=== PATIENT | male | born 1950 | race Caucasian/White ===

== ENCOUNTER 2017-04-09 13:56 | Inpatient (IN) | payer MEDICARE, BC ==
[~2017-04-09] VITALS: Ht 327.7 cm; Wt 81.8 kg
[2017-04-09] MEDS ORDERED: SODIUM CHLORIDE 0.9% 1L BAG IV* STA (14:29)
[2017-04-09] MEDS ORDERED: IBUPROFEN 600 MG TAB PO ONE (14:30)
[2017-04-09 14:49] LABS: ADD SCAN DIFF NO
[2017-04-09 14:51] LABS: BASOPHILS % 0.1 % (0.0-2.0); EOSINOPHILS # 0.2 10^3/ul (0.0-0.5); EOSINOPHILS % 1.1 % (0.0-7.0); HEMOGLOBIN 10.1 g/dl (14.0-18.0); LYMPHOCYTES # 1.4 10^3/ul (0.8-2.9); LYMPHOCYTES % 9.9 % (15.0-51.0); MEAN CORPUSCULAR HEMOGLOBIN 30.8 pg (29.0-33.0); MEAN CORPUSCULAR HGB CONC 33.7 g/dl (32.0-37.0); MEAN CORPUSCULAR VOLUME 91.5 fl (82.0-101.0); MEAN PLATELET VOLUME 11.9 fl (7.4-10.4); MONOCYTE # 1.2 10^3/ul (0.3-0.9); MONOCYTES % 8.2 % (0.0-11.0); NEUTROPHIL # 11.1 10^3/ul (1.6-7.5); PLATELET COUNT 273 10^3/UL (140-415); RED BLOOD COUNT 3.28 10^6/ul (4.70-6.10); RED CELL DISTRIBUTION WIDTH 13.7 % (11.5-14.5); WHITE BLOOD COUNT 14.2 10^3/ul (4.8-10.8)
--- NOTE | 2017-04-09 14:53 | ERA ---
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 Fajardo from his care facility for fever. Per the patient's , the patient has had intermittent fevers since his surgery in January 2017. He was recently discharged from [place] about 10 days ago. Those the last time he received antibiotics. He was then transferred to [facility], where he had a new Avila placed. He was noted to have a fever, likely secondary to UTI, so antibiotics were started. However his fevers have not improved. Patient has developed diarrhea for the past few days with abdominal cramping. Last night was the first time he noticed he had a fever and some chills. He was unable to sleep. He denies any shortness of breath, chest pain, headache, vision disturbance, cough, or pain. ROS All systems reviewed and are negative except as per history of present illness. Medications Home Meds Reported Medications Throat Lozenges* (Cepastat*) 9 Trino Lozenge, 1 LOZENGE MT Q3H Y, LOZENGE 04/09/17 Zolpidem Tartrate* (Ambien*) 10 Mg Tablet, 10 MG PO QHS Y for INSOMNIA, TAB 04/09/17 Nystatin (Nystatin) 100,000 Unit/1 Ml Oral.susp, 5 ML PO QID, #60 ML 04/09/17 Nystatin (Nystatin Powder) 1 Each Powder.ea., 1 APPLIC TOPICAL Q8, BOTTLE 04/09/17 Citalopram Hydrobromide* (Citalopram Hydrobromide*) 20 Mg Tablet, 20 MG G-TUBE DAILY, #30 TAB 04/09/17 Miconazole Nitrate* (Miconazole Nitrate*) 2% - 15 Gm Cr, 1 APPLIC TOP BID, TUB 04/09/17 Ipratropium-Albuterol (Ipratropium-Albuterol) 0.5-3 Mg/3 Ml Ampul.neb, 3 ML INHALATION Q6, #30 VIAL 04/09/17 Lactobacillus Acidophilus* (Lactinex*) 1 Tab Chew, 1 TAB PO TID, TAB 6/18/17 Multivitamins* (Theragran*) 1 Tab Tab, 1 TAB GTB DAILY, TAB 04/09/17 Tramadol Hcl* (Ultram*) 50 Mg Tablet, 50 MG GTB Q6H Y for PAIN, TAB 04/09/17 Hydrocodone Bit-Acetaminophen* (Lortab* Liq) 7.5 Mg-325 Mg/15 Ml Solution, 10 ML GTB Q6H Y for PAIN, ML 04/09/17 PMhx/Soc Anesthesia Reaction: No Hx Neurological Disorder: No Hx Respiratory Disorders: Yes (trach) Hx Miscellaneous Medical Probl: Yes (quadraplegic due to complications from C- spine surgery) Hx Alcohol Use: No Hx Substance Use: No Hx Tobacco Use: No Smoking Status: Unknown if ever smoked FmHx Family History: No diabetes Physical Exam Vitals Vital Signs Date Time Temp Pulse Resp B/P Pulse Ox O2 Delivery O2 Flow Rate FiO2 04/09/17 14:51 Rebreather 04/09/17 14:04 100.1 78 28 129/68 96 Physical Exam Const: Well-appearing, nontoxic, no distress Head: Atraumatic Eyes: Normal Conjunctiva ENT: Dry mucous membranes, oropharynx normal otherwise Neck: Trach in place Resp: Clear to auscultation bilaterally Cardio: Regular rate and rhythm, no murmurs Abd: Soft, non tender, mildly distended. No rebound or guarding per hyperactive bowel sounds Skin: No petechiae or rashes, warm, dry : Avila in place draining clear yellow urine Ext: No cyanosis, or edema Neur: Awake and alert and oriented 3, cranial nerves intact, no strength in all 4 extremities(baseline) Psych: Normal Mood and Affect Result Diagram: 04/09/17 1430 04/09/17 1430 Results 24 hrs Laboratory Tests Test 04/09/17 14:30 04/09/17 15:00 White Blood Count 14.210^3/ul Red Blood Count 3.2810^6/ul Hemoglobin 10.1g/dl Hematocrit 30.0% Mean Corpuscular Volume 91.5fl Mean Corpuscular Hemoglobin 30.8pg Mean Corpuscular Hemoglobin Concent 33.7g/dl Red Cell Distribution Width 13.7% Platelet Count 63758^3/UL Mean Platelet Volume 11.9fl Neutrophils % 78.0% Lymphocytes % 9.9% Monocytes % 8.2% Eosinophils % 1.1% Basophils % 0.1% Nucleated Red Blood Cells % 0.0/100WBC Neutrophils # 11.110^3/ul Lymphocytes # 1.410^3/ul Monocytes # 1.210^3/ul Eosinophils # 0.210^3/ul Basophils # 0.010^3/ul Nucleated Red Blood Cells # 0.010^3/ul Prothrombin Time 13.1Sec Prothrombin Time Ratio 1.0 INR International Normalized Ratio 0.99 Activated Partial Thromboplast Time 30.4Sec Sodium Level 126mmol/L Potassium Level 4.4mmol/L Chloride Level 90mmol/L Carbon Dioxide Level 28mmol/L Anion Gap 12 Blood Urea Nitrogen 15mg/dl Creatinine 0.48mg/dl Glucose Level 105mg/dl Lactic Acid Level 1.7mmol/L Calcium Level 8.8mg/dl Total Bilirubin 0.2mg/dl Direct Bilirubin 0.00mg/dl Indirect Bilirubin 0.2mg/dl Aspartate Amino Transf (AST/SGOT) 26IU/L Alanine Aminotransferase (ALT/SGPT) 42IU/L Alkaline Phosphatase 85IU/L Total Protein 6.0g/dl Albumin 3.5g/dl Globulin 2.50g/dl Albumin/Globulin Ratio 1.40 Urine Color LT. YELLOW Urine Clarity CLEAR Urine pH 8.0 Urine Specific [place] 1.010 Urine Ketones NEGATIVE Urine Nitrite NEGATIVE Urine Bilirubin NEGATIVE Urine Urobilinogen 0.2 E.U./dL Urine Leukocyte Esterase NEGATIVE Urine Microscopic RBC 2-5/HPF Urine Microscopic WBC 2-5/HPF Urine Hemoglobin NEGATIVE Urine Glucose NEGATIVE% Urine Total Protein TRACE Current Medications Medications (Trade) Dose Ordered Sig/Melvina Route PRN Reason Start Time Stop Time Status Last Admin Dose Admin Sodium Chloride (NS) 2,540 ml BOLUS OVER 2 HOURS STAT IV* 04/09/17 14:29 04/09/17 14:34 DC 04/09/17 15:26 Ibuprofen (Motrin) 600 mg ONCE ONCE PO 04/09/17 14:30 04/09/17 14:34 DC 04/09/17 15:26 Ondansetron HCl (Zofran Inj) 4 mg BRIDGE ORDER PRN IV NAUSEA AND/OR VOMITING 04/09/17 15:00 04/10/17 14:59 Acetaminophen 650 mg 650 mg ER BRIDGE PRN PO MILD PAIN/FEVER 04/09/17 15:00 04/10/17 14:59 Metronidazole (Flagyl 500 Mg (Pmx)) 100 ml @ 100 mls/hr ONCE ONCE IVPB 04/09/17 15:00 04/09/17 15:59 DC 04/09/17 15:31 Vancomycin HCl (Vancomycin Oral Syringe) 250 mg ONCE ONCE PO 04/09/17 15:00 04/09/17 15:01 DC Procedures/[facility] EKG: Rate/Rhythm: Normal Sinus Rhythm QRS, ST, T-waves: No changes consistent w/ acute ischemia Impression: No evidence of ischemia or arrhythmia Labs: CBC: Leukocytosis, anemia CMP: Hyponatremia, hypochloremia Lactate within normal limits UA: no evidence of infection Chest x-ray: IMPRESSION: 1. Cardiomegaly with moderate size left pleural effusion. RPTAT:AAJJ Physician Eliza Date Time Electronically viewed and signed by Physician Eliza on 04/09/2017 15:[address] [facility] Patient is presenting with signs of sepsis. Vitals were notable for tachypnea and low-grade fever. Given his recent history of antibiotics and his significant diarrhea, I have a high suspicion for C. difficile colitis. I spoke with Dr. Fajardo, who agrees. He recommended starting the patient on treatment for C. difficile until his cultures return. Patient was started on Flagyl IV and vancomycin orally. There is no evidence of UTI or pneumonia on my workup. I have a low suspicion for bacteremia. Patient's infectious symptoms have not stabilized and the patient is at risk of rapid decompensation. The patient will be admitted for careful hydration, antibiotic therapy, and infectious source control. Severe Sepsis Assessment: Infectious Source: UTI versus colitis Severe Sepsis Managment: Blood Cultures X 2 before broad spectrum antibiotics initiated within 3 hours of recognition. 30 ml/kg NS bolus Completed Initial Lactate: normal Repeat Lactate not indicated as initial < 2.0 Critical Care: Time: 35 minutes Treatments/Evaluations: Emergent fluid management, while maintaining close respiratory support. Immediate broad spectrum antibiotic therapy. Simultaneous assessment for possible sources in order to direct therapy. Consideration for invasive and chemical support to prevent respiratory or cardiac collapse. Septic Shock Assessment (1 hour post 30 ml/kg fluid bolus): Hypotension (SBP < 90 or 40 mmHg drop, MAP < 65): No Lactic acid > 4.0 No Accepting Care Team: Current data and ongoing care discussed. Time: Time of admission Primary Provider: Scotty Consulting: none Outstanding Data: cultures, c. diff toxin Departure Diagnosis: Primary Impression: Diarrhea Qualified Code: A09 - Diarrhea of infectious origin Additional Impressions: Sepsis Qualified Code: A41.9 - Sepsis, due to unspecified organism Chronic respiratory failure Qualified Code: J96.10 - Chronic respiratory failure, unspecified whether with hypoxia or hypercapnia Condition: Serious NGUYỄN CANCINO MD Apr 09, 2017 14:53
[2017-04-09] MEDS ORDERED: metroNIDAZOLE 500 MG/NS (PMX) 100 ML IVPB ONE (15:00)
[2017-04-09] MEDS ORDERED: ACETAMINOPHEN 325 MG TAB PO PRN (15:00)
[2017-04-09] MEDS ORDERED: ONDANSETRON 4 MG INJ IV PRN (15:00)
[2017-04-09] MEDS ORDERED: VANCOMYCIN HCL 250 MG/5ML POSYG PO ONE (15:00)
[2017-04-09 15:06] LABS: INR 0.99; PROTIME 13.1 Sec (12.2-14.2)
[2017-04-09 15:07] LABS: PARTIAL THROMBOPLASTIN TIME 30.4 Sec (25.0-35.0)
[2017-04-09 15:11] LABS: ALBUMIN 3.5 g/dl (3.3-4.9); ALBUMIN/GLOBULIN RATIO 1.4; BILIRUBIN,INDIRECT 0.2 mg/dl (0-1.1); BILIRUBIN,TOTAL 0.2 mg/dl (0.2-1.3); CALCIUM 8.8 mg/dl (8.4-10.2); CREATININE 0.48 mg/dl (0.61-1.24); POTASSIUM 4.4 mmol/L (3.5-5.1)
[2017-04-09 15:30] LABS: ADD UMIC YES; UR BILIRUBIN (Dip) NEGATIVE (NEGATIVE); UR BLOOD (Dip) NEGATIVE (NEGATIVE); UR CLARITY CLEAR (CLEAR); UR COLOR LT. YELLOW (YELLOW); UR GLUCOSE (Dip) NEGATIVE (NEGATIVE); UR KETONES (Dip) NEGATIVE (NEGATIVE); UR LEUKOCYTE ESTERASE (Dip) NEGATIVE (NEGATIVE); UR NITRITE (Dip) NEGATIVE (NEGATIVE); UR TOTAL PROTEIN (Dip) TRACE (NEGATIVE); UR UROBILINOGEN (Dip) 0.2 E.U./dL (0.1-1.0)
--- NOTE | 2017-04-09 15:35 | RADRPT ---
PROCEDURE: XR Chest. CLINICAL INDICATION: Possible sepsis. TECHNIQUE: Single AP portable chest COMPARISON: None. FINDINGS: The cardiac silhouette is mildly enlarged with tortuosity and ectasia of the thoracic aorta. Trache ostomy tube in place. Postsurgical changes compatible with antral.. Moderate left pleural effusion . Atherosclerotic calcification of the aorta. No focal consolidation or right pleural effusion. No pneumothorax. The osseous structures and soft tissues are unremarkable. IMPRESSION: 1. Cardiomegaly with moderate size left pleural effusion. RPTAT:AAJJ Physician Eliza Date Time Electronically viewed and signed by Physician Eliza on 04/09/2017 15:34 GEO/
[2017-04-09] MEDS ORDERED: MULTI GTB (15:59)
[2017-04-09] MEDS ORDERED: TRAM-40 GTB (15:59)
[2017-04-09] MEDS ORDERED: HYDR15SO8 GTB (15:59)
[2017-04-09] MEDS ORDERED: CITA20TA6 G-TUBE (16:06)
[2017-04-09] MEDS ORDERED: LACTINEX PO (16:06)
[2017-04-09] MEDS ORDERED: MCN2C15 TOP (16:06)
[2017-04-09] MEDS ORDERED: IPRA3AMP INHALATION (16:06)
[2017-04-09] MEDS ORDERED: NYST1POW22 TOPICAL (16:09)
[2017-04-09] MEDS ORDERED: NYST1000 PO (16:09)
[2017-04-09] MEDS ORDERED: ZOLP10TA PO (16:10)
[2017-04-09] MEDS ORDERED: CEPASTAT MT (16:10)
[2017-04-09 17:00] VITALS: TEMP 97.6
[2017-04-09] MEDS: ACETAMINOPHEN 325/HYDROC 7.5 15 ML CUP GTB PRN (21:01)
[2017-04-09] MEDS ORDERED: ACETAMINOPHEN 500 MG TAB PO PRN (23:30)
[2017-04-09] MEDS ORDERED: ACETAMINOPHEN 325/HYDROC 7.5 15 ML CUP PO PRN (23:30)
[2017-04-09] MEDS ORDERED: MEROPENEM 1 GM/100 ML (PMX) 100 ML IVPB SCH (23:30)
[2017-04-10] MEDS: ACETAMINOPHEN 325/HYDROC 7.5 15 ML CUP GTB PRN ×2 (01:30→18:42)
[2017-04-10] MEDS: VANCOMYCIN HCL 250 MG/5ML POSYG PO SCH ×4 (03:02→18:41)
[2017-04-10] MEDS: NS + KCL 20 MEQ 1,000 ML IV SCH ×3 (03:02→21:13)
[2017-04-10] MEDS: ALBUTEROL/IPRATROPIUM (NEB) 3 ML AMP NEB SCH ×5 (03:34→19:55)
[2017-04-10] MEDS: traMADol 50 MG TAB GTB PRN ×2 (04:05→10:25)
[2017-04-10 06:25] LABS: ADD SCAN DIFF NO
[2017-04-10 06:30] LABS: BASOPHILS % 0.3 % (0.0-2.0); EOSINOPHILS # 0.2 10^3/ul (0.0-0.5); EOSINOPHILS % 1.9 % (0.0-7.0); HEMATOCRIT 30.8 % (42.0-52.0); HEMOGLOBIN 10.1 g/dl (14.0-18.0); LYMPHOCYTES # 0.8 10^3/ul (0.8-2.9); LYMPHOCYTES % 8.5 % (15.0-51.0); MEAN CORPUSCULAR HEMOGLOBIN 30.6 pg (29.0-33.0); MEAN CORPUSCULAR HGB CONC 32.8 g/dl (32.0-37.0); MEAN CORPUSCULAR VOLUME 93.3 fl (82.0-101.0); MEAN PLATELET VOLUME 11.6 fl (7.4-10.4); MONOCYTE # 0.9 10^3/ul (0.3-0.9); MONOCYTES % 8.7 % (0.0-11.0); NEUTROPHIL # 7.6 10^3/ul (1.6-7.5); NEUTROPHILS % 77.3 % (39.0-77.0); PLATELET COUNT 230 10^3/UL (140-415); RED CELL DISTRIBUTION WIDTH 13.8 % (11.5-14.5); WHITE BLOOD COUNT 9.8 10^3/ul (4.8-10.8)
[2017-04-10 07:04] LABS: CREATININE 0.43 mg/dl (0.61-1.24); POTASSIUM 3.8 mmol/L (3.5-5.1)
[2017-04-10 08:30] VITALS: BP 155/74; RESP 18
[2017-04-10 08:45] VITALS: Ht 327.7 cm; Wt 81.8 kg
[2017-04-10] MEDS ORDERED: NON-FORMULARY/PATIENT OWN MED (Lactobacillus Acidophilus* (Lactinex*) 1 TAB) PO SCH (09:00)
[2017-04-10] MEDS: CITALOPRAM 20 MG TAB GTB SCH (10:08)
[2017-04-10] MEDS: MULTIVITAMINS THERAPEUTIC TAB GTB SCH (10:08)
[2017-04-10] MEDS: ENOXAPARIN 40 MG/0.4 ML SYG SC SCH (10:56)
--- NOTE | 2017-04-10 12:04 | CONS ---
Date/Time of Note Date/Time of Note DATE: 04/10/17 TIME: 12:01 Consultation Date/Type/Reason Admit Date/Time Apr 10, 2017 at 08:08 Type of Consultation: ID Reason for Consultation sepsis Referring Provider: CHONG SORIANO MD Exam/Review of Systems Vital Signs Vitals Vital Signs Date Time Temp Pulse Resp B/P Pulse Ox O2 Delivery O2 Flow Rate FiO2 04/10/17 09:30 80 20 97 T Tube 5.0 04/10/17 08:30 97.5 155/74 Intake and Output 04/09/17 04/09/17 04/10/17 15:00 23:00 07:00 Intake Total 100 ml Balance 100 ml Results Result Diagram: 04/10/17 0535 04/10/17 0534 Results 24 hrs Laboratory Tests Test 04/09/17 14:30 04/09/17 15:00 04/09/17 16:20 04/09/17 18:40 White Blood Count 14.2 H Red Blood Count 3.28 L Hemoglobin 10.1 L Hematocrit 30.0 L Mean Corpuscular Volume 91.5 Mean Corpuscular Hemoglobin 30.8 Mean Corpuscular Hemoglobin Concent 33.7 Red Cell Distribution Width 13.7 Platelet Count 273 Mean Platelet Volume 11.9 H Neutrophils % 78.0 H Lymphocytes % 9.9 L Monocytes % 8.2 Eosinophils % 1.1 Basophils % 0.1 Nucleated Red Blood Cells % 0.0 Neutrophils # 11.1 H Lymphocytes # 1.4 Monocytes # 1.2 H Eosinophils # 0.2 Basophils # 0.0 Nucleated Red Blood Cells # 0.0 Prothrombin Time 13.1 Prothrombin Time Ratio 1.0 INR International Normalized Ratio 0.99 Activated Partial Thromboplast Time 30.4 Sodium Level 126 L Potassium Level 4.4 Chloride Level 90 L Carbon Dioxide Level 28 Anion Gap 12 Blood Urea Nitrogen 15 Creatinine 0.48 L Glucose Level 105 Lactic Acid Level 1.7 0.9 1.5 Calcium Level 8.8 Total Bilirubin 0.2 Direct Bilirubin 0.00 Indirect Bilirubin 0.2 Aspartate Amino Transf (AST/SGOT) 26 Alanine Aminotransferase (ALT/SGPT) 42 Alkaline Phosphatase 85 Total Protein 6.0 L Albumin 3.5 Globulin 2.50 Albumin/Globulin Ratio 1.40 Urine Color LT. YELLOW Urine Clarity CLEAR Urine pH 8.0 Urine Specific [place] 1.010 Urine Ketones NEGATIVE Urine Nitrite NEGATIVE Urine Bilirubin NEGATIVE Urine Urobilinogen 0.2 E.U./dL Urine Leukocyte Esterase NEGATIVE Urine Microscopic RBC 2-5 Urine Microscopic WBC 2-5 Urine Hemoglobin NEGATIVE Urine Glucose NEGATIVE Urine Total Protein TRACE Test 04/10/17 05:34 04/10/17 05:35 Sodium Level 133 L Potassium Level 3.8 Chloride Level 99 Carbon Dioxide Level 27 Anion Gap 11 Blood Urea Nitrogen 15 Creatinine 0.43 L Glucose Level 102 Calcium Level 9.0 White Blood Count 9.8 # Red Blood Count 3.30 L Hemoglobin 10.1 L Hematocrit 30.8 L Mean Corpuscular Volume 93.3 Mean Corpuscular Hemoglobin 30.6 Mean Corpuscular Hemoglobin Concent 32.8 Red Cell Distribution Width 13.8 Platelet Count 230 Mean Platelet Volume 11.6 H Neutrophils % 77.3 H Lymphocytes % 8.5 L Monocytes % 8.7 Eosinophils % 1.9 Basophils % 0.3 Nucleated Red Blood Cells % 0.0 Neutrophils # 7.6 H Lymphocytes # 0.8 Monocytes # 0.9 Eosinophils # 0.2 Basophils # 0.0 Nucleated Red Blood Cells # 0.0 Osmolality 279 L Medications Medications Current Medications Acetaminophen/ Hydrocodone Bitart (Lortab Liq) 10 ml Q4H PRN GTB PAIN LEVEL 4- 7 Last administered on 04/10/17 01:30; Admin Dose 10 ML; Start 04/09/17 at 20: 30 Citalopram Hydrobromide (Celexa) 20 mg DAILY GTB Last administered on 10:08; Admin Dose 20 MG; Start 04/10/17 at 09:00 Miconazole Nitrate (Miconazole 2% Cr) 1 applic BID TOP ; Start 04/10/17 at 09:00 Multivitamins Therapeutic (Theragran) 1 tab DAILY GTB Last administered on 04/10 10:08; Admin Dose 1 TAB; Start 04/10/17 at 09:00 Tramadol HCl (Ultram) 50 mg Q6H PRN GTB PAIN Last administered on 04/10/17 10: 25; Admin Dose 50 MG; Start 04/09/17 at 23:30 Vancomycin HCl (Vancomycin Oral Syringe) 250 mg Q6 PO Last administered on 04/10 03:02; Admin Dose 250 MG; Start 04/10/17 at 00:00 Acetaminophen 500 mg 500 mg Q6H PRN PO PAIN AND OR ELEVATED TEMP; Start at 23:30 Meropenem 100 ml @ 200 mls/hr Q12 IVPB Last administered on 04/10/17 01:29; Admin Dose 200 MLS/HR; Start 04/09/17 at 23:30 Potassium Chloride/Sodium Chloride (NS-KCl 20 Meq) 1,000 ml @ 75 mls/hr [id number] IV Last administered on 04/10/17 03:02; Admin Dose 75 MLS/HR; Start at 23:30 Acetaminophen/ Hydrocodone Bitart (Lortab Liq) 5 ml Q4H PRN PO PAIN; Start at 23:30 Enoxaparin Sodium (Lovenox) 40 mg DAILY SC Last administered on 04/10/17 10:56 ; Admin Dose 40 MG; Start 04/10/17 at 09:00 Lactobacillus Acidophilus/ Rhamnosus (Culturelle) 1 cap TID PO ; Start 04/10/17 at 09:00 MYLENE ALVARES M.D. Apr 10, 2017 12: at 23:30 Acetaminophen/ Hydrocodone Bitart (Lortab Liq) 5 ml Q4H PRN PO PAIN; Start at 23:30 Enoxaparin Sodium (Lovenox) 40 mg DAILY SC Last administered on 04/10/17 10:56 ; Admin Dose 40 MG; Start 04/10/17 at 09:00 Lactobacillus Acidophilus/ Rhamnosus (Culturelle) 1 cap TID PO ; Start 04/10/17 at 09:00 MYLENE ALVARES M.D. Apr 10, 2017 12:04
--- NOTE | 2017-04-10 12:28 | CONS ---
Date/Time of Note Date/Time of Note DATE: 04/10/17 TIME: 12:16 Assessment/Plan Assessment/Plan Chief Complaint/Hosp Course assessment/impression - sepsis on admission, possible etiologies include C diff colitis, UTI, HCAP - UTI prior to admission - diarrhea, possible C diff colitis - possible HCAP with L sided pleural effusion - paraplegia after complication of C spinal surgery - vent dependent via tracheostomy - G tube dependent - abdominal distention and excess gas from IV vancomycin but tolerates per GT vancomycin recommendations - pending results: blood and urine cultures - ordered: respiratory cultures, C diff test, stool culture, ultrasound of the chest to evaluate the size of pleural effusion - consider thoracentesis if sizable effusion is identified - I recommend continuing: meropenem empirically to cover possible UTI and bronchitis/HCAP, IV metronidazole and pGT vancomycin empirically to cover C diff colitis - Pt is intolerant of IV vancomycin. He cannot take linezolid because it interacts with his SSRI. Will start anti-MRSA antibiotic if his specimen grows MRSA (so far none reported) management d/w Pt, his , sister, RT and RN Problems: Consultation Date/Type/Reason Admit Date/Time Apr 10, 2017 at 08:08 Date of Consultation: Apr 10, 2017 Type of Consultation: ID Reason for Consultation sepsis Referring Provider: CHONG FAJARDO MD Hx of Present Illness This is a 66 yo SNF resident. He is paraplegic after complications from C- spinal surgery, and is dependent on trach and PEG tube feed. Pt was at [facility] between January and February 2017, and his microbiological results are significant for pseudomonas in urine, MSSA in the tracheal aspirate. Pt was recently receiving antibiotics for UTI. After 3-4 days, Pt started passing loose stool and had temp 102F according to his . Pt was transferred here as a result. He had temp 100.1F and WBC>14,000. Pt's CXR showed L sided pleural effusion. Dr. Fajardo requested ID consultation on this Pt. Constitutional: improved Eyes: no complaints ENT: no complaints Respiratory: no complaints, other (+trach) Cardiovascular: no complaints Gastrointestinal: diarrhea, passing stool, No pain, No vomiting Genitourinary: other (FC) Musculoskeletal: other (paraplegic) Skin: no complaints Neurologic: other (paraplegic) Lymphatic: no complaints Past Surgical History Past Surgical Hx: other (s/p C spinal surgery, tracheostomy, G tube placement) Social History Alcohol Use: none Smoking Status: Unknown if ever smoked Drug Use: none Exam/Review of Systems Vital Signs Vitals Vital Signs Date Time Temp Pulse Resp B/P Pulse Ox O2 Delivery O2 Flow Rate FiO2 04/10/17 09:30 80 20 97 T Tube 5.0 04/10/17 08:30 97.5 155/74 Intake and Output 04/09/17 04/09/17 04/10/17 15:00 23:00 07:00 Intake Total 100 ml Balance 100 ml Exam Constitutional: alert, frail Psych: nl mood/affect Head: atraumatic, normocephalic Eyes: nl conjunctiva ENMT: nl external ears & nose Neck: other (trach) Respiratory: clear to auscultation Cardiovascular: nl pulses, regular rate and rhythm Gastrointestinal: non-tender, other (GT in place, the cite is clean), soft Genitourinary - Male: other (FC) Musculoskeletal: nl extremities to inspection Extremities: No edema Neurological: nl mental status, other (paraplegic) Skin: nl turgor, No rash or lesions Results Result Diagram: 04/10/17 0535 04/10/17 0534 Results 24 hrs Laboratory Tests Test 04/09/17 14:30 04/09/17 15:00 04/09/17 16:20 04/09/17 18:40 White Blood Count 14.2 H Red Blood Count 3.28 L Hemoglobin 10.1 L Hematocrit 30.0 L Mean Corpuscular Volume 91.5 Mean Corpuscular Hemoglobin 30.8 Mean Corpuscular Hemoglobin Concent 33.7 Red Cell Distribution Width 13.7 Platelet Count 273 Mean Platelet Volume 11.9 H Neutrophils % 78.0 H Lymphocytes % 9.9 L Monocytes % 8.2 Eosinophils % 1.1 Basophils % 0.1 Nucleated Red Blood Cells % 0.0 Neutrophils # 11.1 H Lymphocytes # 1.4 Monocytes # 1.2 H Eosinophils # 0.2 Basophils # 0.0 Nucleated Red Blood Cells # 0.0 Prothrombin Time 13.1 Prothrombin Time Ratio 1.0 INR International Normalized Ratio 0.99 Activated Partial Thromboplast Time 30.4 Sodium Level 126 L Potassium Level 4.4 Chloride Level 90 L Carbon Dioxide Level 28 Anion Gap 12 Blood Urea Nitrogen 15 Creatinine 0.48 L Glucose Level 105 Lactic Acid Level 1.7 0.9 1.5 Calcium Level 8.8 Total Bilirubin 0.2 Direct Bilirubin 0.00 Indirect Bilirubin 0.2 Aspartate Amino Transf (AST/SGOT) 26 Alanine Aminotransferase (ALT/SGPT) 42 Alkaline Phosphatase 85 Total Protein 6.0 L Albumin 3.5 Globulin 2.50 Albumin/Globulin Ratio 1.40 Urine Color LT. YELLOW Urine Clarity CLEAR Urine pH 8.0 Urine Specific [place] 1.010 Urine Ketones NEGATIVE Urine Nitrite NEGATIVE Urine Bilirubin NEGATIVE Urine Urobilinogen 0.2 E.U./dL Urine Leukocyte Esterase NEGATIVE Urine Microscopic RBC 2-5 Urine Microscopic WBC 2-5 Urine Hemoglobin NEGATIVE Urine Glucose NEGATIVE Urine Total Protein TRACE Test 04/10/17 05:34 04/10/17 05:35 Sodium Level 133 L Potassium Level 3.8 Chloride Level 99 Carbon Dioxide Level 27 Anion Gap 11 Blood Urea Nitrogen 15 Creatinine 0.43 L Glucose Level 102 Calcium Level 9.0 White Blood Count 9.8 # Red Blood Count 3.30 L Hemoglobin 10.1 L Hematocrit 30.8 L Mean Corpuscular Volume 93.3 Mean Corpuscular Hemoglobin 30.6 Mean Corpuscular Hemoglobin Concent 32.8 Red Cell Distribution Width 13.8 Platelet Count 230 Mean Platelet Volume 11.6 H Neutrophils % 77.3 H Lymphocytes % 8.5 L Monocytes % 8.7 Eosinophils % 1.9 Basophils % 0.3 Nucleated Red Blood Cells % 0.0 Neutrophils # 7.6 H Lymphocytes # 0.8 Monocytes # 0.9 Eosinophils # 0.2 Basophils # 0.0 Nucleated Red Blood Cells # 0.0 Osmolality 279 L Medications Medications Current Medications Acetaminophen/ Hydrocodone Bitart (Lortab Liq) 10 ml Q4H PRN GTB PAIN LEVEL 4- 7 Last administered on 04/10/17 01:30; Admin Dose 10 ML; Start 04/09/17 at 20: 30 Citalopram Hydrobromide (Celexa) 20 mg DAILY GTB Last administered on 10:08; Admin Dose 20 MG; Start 04/10/17 at 09:00 Miconazole Nitrate (Miconazole 2% Cr) 1 applic BID TOP ; Start 04/10/17 at 09:00 Multivitamins Therapeutic (Theragran) 1 tab DAILY GTB Last administered on 04/10 10:08; Admin Dose 1 TAB; Start 04/10/17 at 09:00 Tramadol HCl (Ultram) 50 mg Q6H PRN GTB PAIN Last administered on 04/10/17 10: 25; Admin Dose 50 MG; Start 04/09/17 at 23:30 Vancomycin HCl (Vancomycin Oral Syringe) 250 mg Q6 PO Last administered on 04/10 03:02; Admin Dose 250 MG; Start 04/10/17 at 00:00 Acetaminophen 500 mg 500 mg Q6H PRN PO PAIN AND OR ELEVATED TEMP; Start at 23:30 Meropenem 100 ml @ 200 mls/hr Q12 IVPB Last administered on 04/10/17 01:29; Admin Dose 200 MLS/HR; Start 04/09/17 at 23:30 Potassium Chloride/Sodium Chloride (NS-KCl 20 Meq) 1,000 ml @ 75 mls/hr [id number] IV Last administered on 04/10/17 03:02; Admin Dose 75 MLS/HR; Start at 23:30 Acetaminophen/ Hydrocodone Bitart (Lortab Liq) 5 ml Q4H PRN PO PAIN; Start at 23:30 Enoxaparin Sodium (Lovenox) 40 mg DAILY SC Last administered on 04/10/17 10:56 ; Admin Dose 40 MG; Start 04/10/17 at 09:00 Lactobacillus Acidophilus/ Rhamnosus (Culturelle) 1 cap TID PO ; Start 04/10/17 at 09:00 MYLENE ALVARES M.D. Apr 10, 2017 12:27
--- NOTE | 2017-04-10 13:43 | RADRPT ---
PROCEDURE: US bilateral chest. CLINICAL INDICATION: Pleural effusion TECHNIQUE: Multiple real-time images were acquired of the patient's chest utilizing a high resolut ion transducer. COMPARISON: Recent x-ray FINDINGS: There is a small left pleural effusion. There is no right pleural effusion. IMPRESSION: Small left pleural effusion. RPTAT: AA Physician Marcus Date Time Electronically viewed and signed by Felipe Vidales Physician on 04/10/2017 13:43 RA/
[2017-04-10] MEDS: MICONAZOLE 2% 30 GM CR TOP SCH ×2 (14:31→21:23)
[2017-04-10] MEDS: ALPRAZOLAM 0.25 MG TAB GTB PRN ×2 (14:33→21:17)
--- NOTE | 2017-04-10 14:34 | CONS ---
Date/Time of Note Date/Time of Note DATE: 04/10/17 TIME: 14:30 Assessment/Plan Assessment/Plan Additional Assessment/Plan Assessment and recommendations; 1. P patient admitted for fever of unknown etiology. Currently on appropriate antibiotic regimen. 2. Possibly C. difficile colitis. However the clinical examination is unremarkable and the patient is not having any diarrhea. 3. Chronic respiratory failure maintained on tracheal T piece with excellent overall status. Next #4. Stable quadriplegia. 5. No significant pleural effusion, however there is very minimal area of left lower lobe subsegmental atelectasis. Continue current treatment. Consultation Date/Type/Reason Admit Date/Time Apr 10, 2017 at 08:08 Date of Consultation: Apr 10, 2017 Type of Consultation: Pulmonary Reason for Consultation Pulmonary consultation requested for evaluation of fever, patient with history of chronic respiratory failure however maintained on tracheal T piece. History of present illness; patient is a very pleasant 66-year-old white male who was admitted yesterday after having experienced fever off and on for the last few days. No obvious source could be identified. The patient was admitted and started on appropriate antibiotic regimen. The patient is feeling much better now. He denies any chest pain, shortness of breath, cough, sputum production any abdominal pain, nausea vomiting. He denies any diarrhea. Past medical history; 1. Patient with history of quadriplegia after unsuccessful multiple spinal surgeries. 2. History of tracheostomy and G-tube placement. 3. History of recurrent fevers. 4. History of tracheostomy. Medications; reviewed. Allergies; none. Social history; patient never smoked most of alcohol or drug abuse. Family history; he is , he has 2 children. 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 Review of systems; denies any headache, seizures, visual changes. Denies any chest pain, shortness breath, cough or sputum production. Complains of chronic dysphagia. Denies any diarrhea. Denies any edema. Denies any orthopnea. Denies any skin changes. General exam; elderly male, awake alert currently in no distress. Constitutional: improved Eyes: no complaints ENT: no complaints Respiratory: no complaints, other (+trach) Cardiovascular: no complaints Gastrointestinal: diarrhea, passing stool, No pain, No vomiting Genitourinary: other (FC) Musculoskeletal: other (paraplegic) Skin: no complaints Neurologic: other (paraplegic) Lymphatic: no complaints Psychological: nl mood/affect Past Surgical History Past Surgical Hx: other (s/p C spinal surgery, tracheostomy, G tube placement) Social History Alcohol Use: none Smoking Status: Unknown if ever smoked Drug Use: none Exam/Review of Systems Vital Signs Vitals Vital Signs Date Time Temp Pulse Resp B/P Pulse Ox O2 Delivery O2 Flow Rate FiO2 04/10/17 09:30 80 20 97 T Tube 5.0 04/10/17 08:30 97.5 155/74 Intake and Output 04/09/17 04/09/17 04/10/17 15:00 23:00 07:00 Intake Total 100 ml Balance 100 ml Exam HEENT exam is; supple neck, no JVD. No lymphadenopathy. Midline trachea. No thyromegaly. Tracheostomy in place. Patient has fair dentition. Pupils are midsize and reactive to light. Chest examination; diminished but clear breath sounds bilaterally. No added sound. S1-S2 audible, no murmurs. Regular rhythm. Abdomen examination; soft, G-tube in place. Nontender. Nondistended. Bowel sounds audible. Extremity examination; no peripheral edema. Pulses 1+ bilaterally. No clubbing. Back examination; no obvious skin ulcerations. WOOD INSPECTOR examination; patient has intact cranial nerves, he is awake alert. Has quadriplegia. Results Result Diagram: 04/10/17 0535 04/10/17 0534 Results 24 hrs Laboratory Tests Test 04/09/17 15:00 04/09/17 16:20 04/09/17 18:40 04/10/17 05:34 Urine Color LT. YELLOW Urine Clarity CLEAR Urine pH 8.0 Urine Specific Whitney 1.010 Urine Ketones NEGATIVE Urine Nitrite NEGATIVE Urine Bilirubin NEGATIVE Urine Urobilinogen 0.2 E.U./dL Urine Leukocyte Esterase NEGATIVE Urine Microscopic RBC 2-5 Urine Microscopic WBC 2-5 Urine Hemoglobin NEGATIVE Urine Glucose NEGATIVE Urine Total Protein TRACE Lactic Acid Level 0.9 1.5 Sodium Level 133 L Potassium Level 3.8 Chloride Level 99 Carbon Dioxide Level 27 Anion Gap 11 Blood Urea Nitrogen 15 Creatinine 0.43 L Glucose Level 102 Calcium Level 9.0 Test 04/10/17 05:35 White Blood Count 9.8 # Red Blood Count 3.30 L Hemoglobin 10.1 L Hematocrit 30.8 L Mean Corpuscular Volume 93.3 Mean Corpuscular Hemoglobin 30.6 Mean Corpuscular Hemoglobin Concent 32.8 Red Cell Distribution Width 13.8 Platelet Count 230 Mean Platelet Volume 11.6 H Neutrophils % 77.3 H Lymphocytes % 8.5 L Monocytes % 8.7 Eosinophils % 1.9 Basophils % 0.3 Nucleated Red Blood Cells % 0.0 Neutrophils # 7.6 H Lymphocytes # 0.8 Monocytes # 0.9 Eosinophils # 0.2 Basophils # 0.0 Nucleated Red Blood Cells # 0.0 Osmolality 279 L Medications Medications Current Medications Acetaminophen/ Hydrocodone Bitart (Lortab Liq) 10 ml Q4H PRN GTB PAIN LEVEL 4- 7 Last administered on 04/10/17 01:30; Admin Dose 10 ML; Start 04/09/17 at 20: 30 Citalopram Hydrobromide (Celexa) 20 mg DAILY GTB Last administered on 10:08; Admin Dose 20 MG; Start 04/10/17 at 09:00 Miconazole Nitrate (Miconazole 2% Cr) 1 applic BID TOP ; Start 04/10/17 at 09:00 Multivitamins Therapeutic (Theragran) 1 tab DAILY GTB Last administered on 04/10 10:08; Admin Dose 1 TAB; Start 04/10/17 at 09:00 Tramadol HCl (Ultram) 50 mg Q6H PRN GTB PAIN Last administered on 04/10/17 10: 25; Admin Dose 50 MG; Start 04/09/17 at 23:30 Vancomycin HCl (Vancomycin Oral Syringe) 250 mg Q6 PO Last administered on 04/10 03:02; Admin Dose 250 MG; Start 04/10/17 at 00:00 Acetaminophen 500 mg 500 mg Q6H PRN PO PAIN AND OR ELEVATED TEMP; Start at 23:30 Potassium Chloride/Sodium Chloride (NS-KCl 20 Meq) 1,000 ml @ 75 mls/hr [id number] IV Last administered on 04/10/17 03:02; Admin Dose 75 MLS/HR; Start at 23:30 Acetaminophen/ Hydrocodone Bitart (Lortab Liq) 5 ml Q4H PRN PO PAIN; Start at 23:30 Enoxaparin Sodium (Lovenox) 40 mg DAILY SC Last administered on 04/10/17t 10:56 ; Admin Dose 40 MG; Start 04/10/17 at 09:00 Lactobacillus Acidophilus/ Rhamnosus 1 cap 1 cap TID PO ; Start 04/10/17 at 09: 00 Meropenem 100 ml @ 200 mls/hr Q8 IVPB ; Start 04/10/17 at 14:00 Metronidazole (Flagyl 500 Mg (Pmx)) 100 ml @ 100 mls/hr Q8 IVPB ; Start at 14:00 Alprazolam (Xanax) 0.5 mg Q6H PRN GTB anxiety; Start 04/10/17 at 14:30 HERMELINDO LEONE Apr 10, 2017 14:34
[2017-04-10] MEDS: LACTOBACILLUS RHAMNOSUS CAP PO SCH ×3 (14:45→21:05)
[2017-04-10] MEDS: metroNIDAZOLE 500 MG/NS (PMX) 100 ML IVPB SCH ×2 (14:45→21:20)
[2017-04-10] MEDS: MEROPENEM 1 GM/100 ML (PMX) 100 ML IVPB SCH ×2 (16:12→22:41)
--- NOTE | 2017-04-10 19:02 | HP ---
DATE OF ADMISSION: 04/10/2017 HISTORY OF PRESENT ILLNESS: Patient is a 66-year-old gentleman with history of recent C4 and C5-C6 disk replacement surgery at [facility]. Unfortunately, the patient's postoperative course was complicated by cord compression and patient subsequently underwent an emergent laminectomy and fusion. However, he became quadriplegic and now has a tracheostomy and G-tube. The patient was recently admitted to [facility] and was transferred to [facility] respiratory unit. The patient a few days ago developed fever and workup was initiated. The patient was seen by Carroll Yin, nurse practitioner working with Dr. Huynh's group The patient was diagnosed with UTI and was given meropenem. The patient also received a few doses of IV vancomycin. The patient was towards the completion of his treatment , however, became febrile again yesterday. Further review of system revealed that the patient had multiple episodes of diarrhea the day before yesterday. Patient, however, denied any abdominal pain, no reported vomiting or chest congestion. The patient's respiratory status remains stable. The patient is on trach collar and is tolerating PMV valve. The patient is completely quadriplegic. However, he has not vent dependent at this time. The patient was sent to [facility] ER for further evaluation where he was noted to have a temperature of 100.1. The patient's temperature at the respiratory unit was almost 101. Her white count was 14.2 with 70% neutrophils. Lactic acid level was normal. However, the patient was also noted to be hyponatremic. Chest x-ray done in the ER revealed cardiomegaly with moderate size left pleural effusion. The patient is being admitted for further evaluation and management. REVIEW OF SYSTEMS: As above, all other pertinent. In addition, the patient is incontinent. The rest of review of systems was unremarkable. PAST SURGICAL HISTORY: The patient is status post tonsillectomy and recent C- spine surgery as mentioned in HPI, tracheostomy and G-tube placement. SOCIAL HISTORY: Remote history of smoking. No alcohol abuse. FAMILY HISTORY: Positive for coronary artery disease. ALLERGIES: NONE. PAST MEDICAL HISTORY: Also significant for prostate cancer, details not available. The patient also has history of rheumatoid arthritis and paroxysmal atrial fibrillation. PHYSICAL EXAMINATION: GENERAL: The patient is conscious, awake and alert, fairly oriented. VITAL SIGNS: Upon arrival to ER, temperature 100.1, pulse 78, respirations 28, blood pressure 129/68, O2 saturation 92% on trach collar. HEENT: No eye discharge or redness. Oropharynx grossly negative. NECK: Tracheostomy in place, PMV valve present. No mass. CHEST: Revealed diminished air entry at bases. No use of accessory muscles. CARDIOVASCULAR: Regular rate and rhythm. S1, S2 normal. No murmur. ABDOMEN: Soft, nondistended, nontender. G-tube in place. EXTREMITIES: No leg edema. Pedal pulses palpable. SKIN: Without acute rash. NEUROLOGIC: The patient is awake, alert, fairly oriented with dense quadriplegia. IMPRESSION: 1. Fever and diarrhea with recent urinary tract infection. 2. Rule out Clostridium difficile colitis. As per ID recommendation, the patient will be continued on meropenem and will also start IV Flagyl as well as p.o. vancomycin. Due to x-ray finding, a chest ultrasound had been requested. Urine and blood culture will be sent in addition to Clostridium difficile. 3.C4 -C5 disk replacement complicated by a cord compression, status post emergent laminectomy and fusion. Continue physical therapy. 4. Hypertension. Will add small dose of beta jailyn as the patient also has history of paroxysmal atrial fibrillation as per the medical record. Will also continue valsartan as before. 5. Anxiety and depression. Continue citalopram and Xanax as before. 6. Remote history of rheumatoid arthritis. No acute issues. 7. Prostate cancer. No acute issue. consult from Dr. Kar South and ID consult from Dr. Fuentes have been obtained. [facility] will also be requested Plan of care discussed with patient's family. Would also refer him to [facility] for rehabilitation. Dictated By: CHONG DALLAS/MARGARET Conf#: [id number] DID#: [id number] MTDD
[2017-04-10 20:00] VITALS: BP 108/55; RESP 20
[2017-04-10] MEDS ORDERED: BISACODYL 10 MG SUPP PR PRN (20:00)
[2017-04-10] MEDS: VALSARTAN 80 MG TAB PO SCH (21:00)
[2017-04-10] MEDS: METOPROLOL 50 MG TAB GTB SCH (21:00)
[2017-04-10] MEDS: ATORVASTATIN 20 MG TAB GTB SCH (21:05)
[2017-04-11] MEDS: VANCOMYCIN HCL 250 MG/5ML POSYG PO SCH ×2 (00:32→06:28)
[2017-04-11 00:37] VITALS: BP 110/53; PULSE 75
[2017-04-11] MEDS: NS + KCL 20 MEQ 1,000 ML IV SCH ×2 (02:10→15:07)
[2017-04-11] MEDS: DILTIAZEM 30 MG TAB GTB SCH ×4 (06:00→18:02)
[2017-04-11] MEDS: metroNIDAZOLE 500 MG/NS (PMX) 100 ML IVPB SCH (06:26)
[2017-04-11] MEDS: ALPRAZOLAM 0.25 MG TAB GTB PRN ×3 (06:32→18:01)
[2017-04-11 06:49] LABS: ADD SCAN DIFF NO
[2017-04-11 06:54] LABS: BASOPHILS % 0.2 % (0.0-2.0); EOSINOPHILS # 0.2 10^3/ul (0.0-0.5); EOSINOPHILS % 1.7 % (0.0-7.0); HEMATOCRIT 30.2 % (42.0-52.0); HEMOGLOBIN 9.9 g/dl (14.0-18.0); LYMPHOCYTES # 0.7 10^3/ul (0.8-2.9); LYMPHOCYTES % 5.7 % (15.0-51.0); MEAN CORPUSCULAR HEMOGLOBIN 30.6 pg (29.0-33.0); MEAN CORPUSCULAR HGB CONC 32.8 g/dl (32.0-37.0); MEAN CORPUSCULAR VOLUME 93.2 fl (82.0-101.0); MEAN PLATELET VOLUME 11.5 fl (7.4-10.4); MONOCYTE # 0.7 10^3/ul (0.3-0.9); MONOCYTES % 5.8 % (0.0-11.0); PLATELET COUNT 252 10^3/UL (140-415); RED BLOOD COUNT 3.24 10^6/ul (4.70-6.10); RED CELL DISTRIBUTION WIDTH 13.9 % (11.5-14.5); WHITE BLOOD COUNT 11.9 10^3/ul (4.8-10.8)
[2017-04-11] MEDS: MEROPENEM 1 GM/100 ML (PMX) 100 ML IVPB SCH ×3 (07:38→22:10)
[2017-04-11 07:40] LABS: CALCIUM 8.2 mg/dl (8.4-10.2); CREATININE 0.38 mg/dl (0.61-1.24); POTASSIUM 3.8 mmol/L (3.5-5.1)
[2017-04-11] MEDS: ALBUTEROL/IPRATROPIUM (NEB) 3 ML AMP NEB SCH ×3 (07:58→19:22)
[2017-04-11 08:18] VITALS: BP 156/70; RESP 18
[2017-04-11] MEDS: METOPROLOL 50 MG TAB GTB SCH ×2 (09:59→20:51)
[2017-04-11] MEDS: LACTOBACILLUS RHAMNOSUS CAP PO SCH ×3 (10:00→20:51)
[2017-04-11] MEDS: MULTIVITAMINS THERAPEUTIC TAB GTB SCH (10:00)
[2017-04-11] MEDS: MICONAZOLE 2% 30 GM CR TOP SCH (10:00)
[2017-04-11] MEDS: CITALOPRAM 20 MG TAB GTB SCH (10:00)
[2017-04-11] MEDS: VALSARTAN 80 MG TAB PO SCH ×2 (10:00→20:51)
[2017-04-11] MEDS: ENOXAPARIN 40 MG/0.4 ML SYG SC SCH (10:07)
[2017-04-11] MEDS ORDERED: VITAMIN A & D 5 GM OINT PACKET TOP ONE ×2 (10:11→12:29)
--- NOTE | 2017-04-11 11:38 | CONS ---
Date/Time of Note Date/Time of Note DATE: 04/11/17 TIME: 11:33 Assessment/Plan Assessment/Plan Chief Complaint/Hosp Course assessment/impression - sepsis on admission, possibly due to HCAP or UTI - UTI prior to admission - diarrhea prior to admission, negative for C diff colitis - possible HCAP - quadriplegia after complication of C spinal surgery: cord compression requiring an emergent laminectomy and fusion - vent dependent via tracheostomy - G tube dependent - abdominal distention and excess gas from IV vancomycin but tolerates per GT vancomycin recommendations - pending results: blood, resp and urine cultures - I recommend continuing: meropenem empirically to cover possible UTI and bronchitis/HCAP - d/c IV metronidazole and pGT vancomycin - will adjust his antibiotic based on the culture result - Pt is intolerant of IV vancomycin. He cannot take linezolid because it interacts with his SSRI. Will start anti-MRSA antibiotic if his specimen grows MRSA (so far none reported) management d/w Pt Problems: Consultation Date/Type/Reason Admit Date/Time Apr 10, 2017 at 08:08 Type of Consultation: ID Referring Provider: CHONG SORIANO MD 24 HR Interval Summary Constitutional: no complaints Detailed Summary Eyes: no complaints ENT: no complaints Respiratory: no complaints, other (on ent via trach) Cardiovascular: no complaints Gastrointestinal: no complaints Genitourinary: other (FC) Musculoskeletal: no complaints Skin: no complaints Neurologic: other (paraplegic) Exam/Review of Systems Vital Signs Vitals Vital Signs Date Time Temp Pulse Resp B/P Pulse Ox O2 Delivery O2 Flow Rate FiO2 04/11/17 08:18 98.1 83 18 156/70 99 04/11/17 07:59 Aerosol 5.0 28 Intake and Output 04/10/17 04/10/17 04/11/17 15:00 23:00 07:00 Intake Total 1125 ml 600 ml Output Total 700 ml 550 ml Balance 425 ml 50 ml Exam Constitutional: alert, oriented Psych: no complaints Head: atraumatic, normocephalic Eyes: nl conjunctiva, nl lids ENMT: nl external ears & nose, nl nasal mucosa & septum Neck: other (trach and C spine collar) Respiratory: crackles/rales Cardiovascular: nl pulses, regular rate and rhythm Gastrointestinal: non-tender, other (GT), soft Genitourinary - Male: other (FC) Musculoskeletal: muscle weakness (quadriplegic) Extremities: No edema Neurological: other (quadriplegic) Results Result Diagram: 04/11/1739 04/11/17 0639 Results 24 hrs Laboratory Tests Test 04/11/17 06:39 White Blood Count 11.9 #H Red Blood Count 3.24 L Hemoglobin 9.9 L Hematocrit 30.2 L Mean Corpuscular Volume 93.2 Mean Corpuscular Hemoglobin 30.6 Mean Corpuscular Hemoglobin Concent 32.8 Red Cell Distribution Width 13.9 Platelet Count 252 Mean Platelet Volume 11.5 H Neutrophils % 84.0 H Lymphocytes % 5.7 L Monocytes % 5.8 Eosinophils % 1.7 Basophils % 0.2 Nucleated Red Blood Cells % 0.0 Neutrophils # 10.0 H Lymphocytes # 0.7 L Monocytes # 0.7 Eosinophils # 0.2 Basophils # 0.0 Nucleated Red Blood Cells # 0.0 Sodium Level 133 L Potassium Level 3.8 Chloride Level 103 Carbon Dioxide Level 24 Anion Gap 10 Blood Urea Nitrogen 15 Creatinine 0.38 L Glucose Level 132 Calcium Level 8.2 L Medications Medications Current Medications Acetaminophen/ Hydrocodone Bitart (Lortab Liq) 10 ml Q4H PRN GTB PAIN LEVEL 4- 7 Last administered on 04/10/17 18:42; Admin Dose 10 ML; Start 04/09/17 at 20: 30 Citalopram Hydrobromide (Celexa) 20 mg DAILY GTB Last administered on 10:00; Admin Dose 20 MG; Start 04/10/17 at 09:00 Miconazole Nitrate (Miconazole 2% Cr) 1 applic BID TOP Last administered on 10:00; Admin Dose 1 APPLIC; Start 04/10/17 at 09:00 Multivitamins Therapeutic (Theragran) 1 tab DAILY GTB Last administered on 04/11 10:00; Admin Dose 1 TAB; Start 04/10/17 at 09:00 Tramadol HCl (Ultram) 50 mg Q6H PRN GTB PAIN Last administered on 04/10/17 10: 25; Admin Dose 50 MG; Start 04/09/17 at 23:30 Vancomycin HCl (Vancomycin Oral Syringe) 250 mg Q6 PO Last administered on 04/11 06:28; Admin Dose 250 MG; Start 04/10/17 at 00:00 Acetaminophen 500 mg 500 mg Q6H PRN PO PAIN AND OR ELEVATED TEMP; Start at 23:30 Potassium Chloride/Sodium Chloride (NS-KCl 20 Meq) 1,000 ml @ 75 mls/hr [id number] IV Last administered on 04/10/17 21:13; Admin Dose 75 MLS/HR; Start at 23:30 Acetaminophen/ Hydrocodone Bitart (Lortab Liq) 5 ml Q4H PRN PO PAIN; Start at 23:30 Enoxaparin Sodium (Lovenox) 40 mg DAILY SC Last administered on 04/11/17 10:07 ; Admin Dose 40 MG; Start 04/10/17 at 09:00 Lactobacillus Acidophilus/ Rhamnosus 1 cap 1 cap TID PO Last administered on 10:00; Admin Dose 1 CAP; Start 04/10/17 at 09:00 Meropenem 100 ml @ 200 mls/hr Q8 IVPB Last administered on 04/11/17 07:38; Admin Dose 200 MLS/HR; Start 04/10/17 at 14:00 Metronidazole (Flagyl 500 Mg (Pmx)) 100 ml @ 100 mls/hr Q8 IVPB Last administered on 04/11/17 06:26; Admin Dose 100 MLS/HR; Start 04/10/17 at 14:00 Alprazolam (Xanax) 0.5 mg Q6H PRN GTB anxiety Last administered on 04/11/17 10 :16; Admin Dose 0.5 MG; Start 04/10/17 at 14:30 Zolpidem Tartrate (Ambien) 5 mg HS PRN PO INSOMNIA; Start 04/10/17 at 20:00 Atorvastatin Calcium (Lipitor) 20 mg HS GTB Last administered on 04/10/17 21: 05; Admin Dose 20 MG; Start 04/10/17 at 21:00 Bisacodyl (Dulcolax Supp) 10 mg Q48H PRN [place] CONSTIPATION; Start 04/10/17 at 20: 00 Valsartan (Diovan) 80 mg BID PO Last administered on 04/11/17 10:00; Admin Dose 80 MG; Start 04/10/17 at 21:00 Diltiazem HCl (Cardizem) 30 mg Q6 GTB ; Start 04/11/17 at 00:00 Metoprolol Tartrate (Lopressor) 50 mg BID GTB Last administered on 04/11/17 09 :59; Admin Dose 50 MG; Start 04/10/17 at 21:00 Simethicone (Mylicon) 80 mg Q6H PRN GTB GASTROINTESTINAL UPSET Last administered on 04/11/17 01:24; Admin Dose 80 MG; Start 04/10/17 at 20:00 MYLENE ALVARES M.D. Apr 11, 2017 11:38
--- NOTE | 2017-04-11 12:05 | CONS ---
Date/Time of Note Date/Time of Note DATE: 04/11/17 TIME: 12:03 Assessment/Plan Assessment/Plan Additional Assessment/Plan Assessment and recommendations; 1. Patient admitted for fever with possible left lower lobe infiltrate clinically much improved now with improving leukocytosis. 2. History of quadriplegia due to spinal surgery. 3. Chronic respiratory failure, patient however maintained on tracheal T piece. Continue current treatment. Consultation Date/Type/Reason Admit Date/Time Apr 10, 2017 at 08:08 Initial Consult Date 04/10/17 Type of Consultation: Pulmonary Referring Provider: CHONG SORIANO MD 24 HR Interval Summary Free Text/Dictation Patient condition is stable. Denies any fever chills shortness of breath. Any cough or sputum production. Denies any abdominal pain, diarrhea. General exam; elderly male, awake alert currently in no distress maintained on tracheal T piece. Exam/Review of Systems Vital Signs Vitals Vital Signs Date Time Temp Pulse Resp B/P Pulse Ox O2 Delivery O2 Flow Rate FiO2 04/11/17 08:18 98.1 83 18 156/70 99 04/11/17 07:59 Aerosol 5.0 28 Intake and Output 04/10/17 04/10/17 04/11/17 15:00 23:00 07:00 Intake Total 1125 ml 600 ml Output Total 700 ml 550 ml Balance 425 ml 50 ml Exam HEENT examination; supple neck, no JVD. No lymphadenopathy. Midline trachea. No thyromegaly. Patient has fair dentition. Tracheostomy in place with clean insertion site. Chest examination; clear to auscultation. S1-S2 audible, no murmurs. Regular rhythm. Abdomen examination; soft, protuberant. Nontender. G-tube in place. Bowel sounds audible. Extremity examination; no peripheral edema. Pulses 1+ bilaterally. WEB APPLICATIONS ADMINISTRATOR examination; patient remains awake alert, has stable quadriplegia. Results Result Diagram: 04/11/17 0639 04/11/17 0639 Results 24 hrs Laboratory Tests Test 04/11/17 06:39 White Blood Count 11.9 #H Red Blood Count 3.24 L Hemoglobin 9.9 L Hematocrit 30.2 L Mean Corpuscular Volume 93.2 Mean Corpuscular Hemoglobin 30.6 Mean Corpuscular Hemoglobin Concent 32.8 Red Cell Distribution Width 13.9 Platelet Count 252 Mean Platelet Volume 11.5 H Neutrophils % 84.0 H Lymphocytes % 5.7 L Monocytes % 5.8 Eosinophils % 1.7 Basophils % 0.2 Nucleated Red Blood Cells % 0.0 Neutrophils # 10.0 H Lymphocytes # 0.7 L Monocytes # 0.7 Eosinophils # 0.2 Basophils # 0.0 Nucleated Red Blood Cells # 0.0 Sodium Level 133 L Potassium Level 3.8 Chloride Level 103 Carbon Dioxide Level 24 Anion Gap 10 Blood Urea Nitrogen 15 Creatinine 0.38 L Glucose Level 132 Calcium Level 8.2 L Medications Medications Current Medications Acetaminophen/ Hydrocodone Bitart (Lortab Liq) 10 ml Q4H PRN GTB PAIN LEVEL 4- 7 Last administered on 04/10/17 18:42; Admin Dose 10 ML; Start 04/09/17 at 20: 30 Citalopram Hydrobromide (Celexa) 20 mg DAILY GTB Last administered on 10:00; Admin Dose 20 MG; Start 04/10/17 at 09:00 Miconazole Nitrate (Miconazole 2% Cr) 1 applic BID TOP Last administered on 10:00; Admin Dose 1 APPLIC; Start 04/10/17 at 09:00 Multivitamins Therapeutic (Theragran) 1 tab DAILY GTB Last administered on 04/11 10:00; Admin Dose 1 TAB; Start 04/10/17 at 09:00 Tramadol HCl (Ultram) 50 mg Q6H PRN GTB PAIN Last administered on 04/10/17 10: 25; Admin Dose 50 MG; Start 04/09/17 at 23:30 Acetaminophen 500 mg 500 mg Q6H PRN PO PAIN AND OR ELEVATED TEMP; Start at 23:30 Potassium Chloride/Sodium Chloride (NS-KCl 20 Meq) 1,000 ml @ 75 mls/hr [id number] IV Last administered on 04/10/17 21:13; Admin Dose 75 MLS/HR; Start at 23:30 Acetaminophen/ Hydrocodone Bitart (Lortab Liq) 5 ml Q4H PRN PO PAIN; Start at 23:30 Enoxaparin Sodium (Lovenox) 40 mg DAILY SC Last administered on 04/11/17 10:07 ; Admin Dose 40 MG; Start 04/10/17 at 09:00 Lactobacillus Acidophilus/ Rhamnosus 1 cap 1 cap TID PO Last administered on 10:00; Admin Dose 1 CAP; Start 04/10/17 at 09:00 Meropenem (Merrem 1 Gm/100 ml (Pmx)) 100 ml @ 200 mls/hr Q8 IVPB Last administered on 04/11/17 07:38; Admin Dose 200 MLS/HR; Start 04/10/17 at 14:00 Alprazolam (Xanax) 0.5 mg Q6H PRN GTB anxiety Last administered on 04/11/17 10 :16; Admin Dose 0.5 MG; Start 04/10/17 at 14:30 Zolpidem Tartrate (Ambien) 5 mg HS PRN PO INSOMNIA; Start 04/10/17 at 20:00 Atorvastatin Calcium (Lipitor) 20 mg HS GTB Last administered on 04/10/17 21: 05; Admin Dose 20 MG; Start 04/10/17 at 21:00 Bisacodyl (Dulcolax Supp) 10 mg Q48H PRN [place] CONSTIPATION; Start 04/10/17 at 20: 00 Valsartan (Diovan) 80 mg BID PO Last administered on 04/11/17 10:00; Admin Dose 80 MG; Start 04/10/17 at 21:00 Diltiazem HCl (Cardizem) 30 mg Q6 GTB ; Start 04/11/17 at 00:00 Metoprolol Tartrate (Lopressor) 50 mg BID GTB Last administered on 04/11/17 09 :59; Admin Dose 50 MG; Start 04/10/17 at 21:00 Simethicone (Mylicon) 80 mg Q6H PRN GTB GASTROINTESTINAL UPSET Last administered on 04/11/17 01:24; Admin Dose 80 MG; Start 04/10/17 at 20:00 HERMELINDO LEONE Apr 11, 2017 12:05
[2017-04-11] MEDS: traMADol 50 MG TAB GTB PRN ×2 (12:44→14:42)
[2017-04-11 18:05] VITALS: BP 107/58; PULSE 75; RESP 18
--- NOTE | 2017-04-11 18:34 | PN ---
DATE: 04/11/2017 SUBJECTIVE: Follow up on recent vomiting, recent diarrhea, recent UTI and possible tracheobronchiti s. The patient is growing gram-negative rods in the sputum and urine culture has only 10,000 to 20, 000 yeast. Final identification pending. C. diff came back negative. Blood culture negative. The patient is breathing comfortably, feeling much better. No reported temperature spike in last 24 ho urs. No reported abdominal pain. The patient does not have any leg edema. PHYSICAL EXAMINATION: GENERAL: The patient is conscious, awake, alert, fairly oriented. VITAL SIGNS: Temperature 98.1, pulse 76, respirations 22, blood pressure 156/70, O2 saturation 95% on 5 liters O2. NECK: Tracheostomy in place. No mass. CHEST: Fairly clear. CARDIOVASCULAR: S1, S2 normal. No murmur. ABDOMEN: Soft, nondistended, nontender. Bowel sounds ____. G-tube in place. EXTREMITIES: No leg edema. NEUROLOGIC: The patient is awake, alert, fairly oriented and with dense quadriplegia. LABORATORY DATA: Sodium 133, potassium 3.8, BUN 15, creatinine 0.3, glucose 132. WBC 11.9, hemoglo bin 9.9, platelets 252. IMPRESSION: 1. Sepsis on admission, possibly due to urinary tract infection versus tracheobronchitis versus ___ _. 2. Diarrhea prior to admission negative Clostridium difficile. 3. C-spine surgery, status post emergent laminectomy and fusion for postoperative cord compression. 4. Respiratory failure. The patient is on trach collar. 5. Hypertension. Blood pressure is slightly high this morning, although yesterday all the readings were within normal. We will continue Diltiazem, metoprolol and Losartan. Meanwhile, we will tanna nue meropenem. 6. Anxiety, depression. Continue Celexa. Plan of care discussed with the patient's sister. Patient does have scattered ____redness for which wound care nurse has recommended nystatin powder. Dictated By: CHONG DALLAS/MARGARET Conf#: [id number] DID#: [id number]
[2017-04-11 20:24] VITALS: BP 114/54; RESP 18
[2017-04-11] MEDS: NYSTATIN 30 GM POWDER BTL TOP SCH (20:49)
[2017-04-11] MEDS: ACETAMINOPHEN 325/HYDROC 7.5 15 ML CUP GTB PRN (20:50)
[2017-04-11] MEDS: ATORVASTATIN 20 MG TAB GTB SCH (20:51)
[2017-04-11] MEDS: ZOLPIDEM 5 MG TAB PO PRN (22:10)
[2017-04-12] MEDS: DILTIAZEM 30 MG TAB GTB SCH ×4 (00:24→18:15)
[2017-04-12] MEDS: ALPRAZOLAM 0.25 MG TAB GTB PRN ×2 (01:07→14:30)
[2017-04-12] MEDS: traMADol 50 MG TAB GTB PRN ×2 (01:07→14:29)
[2017-04-12] MEDS: ALBUTEROL/IPRATROPIUM (NEB) 3 ML AMP NEB SCH ×4 (01:38→21:15)
[2017-04-12] MEDS: ACETAMINOPHEN 325/HYDROC 7.5 15 ML CUP GTB PRN ×4 (04:18→23:26)
[2017-04-12] MEDS: NS + KCL 20 MEQ 1,000 ML IV SCH ×2 (04:51→19:16)
[2017-04-12] MEDS: MEROPENEM 1 GM/100 ML (PMX) 100 ML IVPB SCH (05:48)
[2017-04-12 06:04] LABS: ADD SCAN DIFF NO
[2017-04-12 06:24] LABS: BASOPHILS % 0.2 % (0.0-2.0); EOSINOPHILS # 0.3 10^3/ul (0.0-0.5); HEMATOCRIT 28.4 % (42.0-52.0); HEMOGLOBIN 9.3 g/dl (14.0-18.0); LYMPHOCYTES % 11.2 % (15.0-51.0); MEAN CORPUSCULAR HGB CONC 32.7 g/dl (32.0-37.0); MEAN CORPUSCULAR VOLUME 94.7 fl (82.0-101.0); MEAN PLATELET VOLUME 11.4 fl (7.4-10.4); MONOCYTE # 0.6 10^3/ul (0.3-0.9); MONOCYTES % 6.8 % (0.0-11.0); NEUTROPHIL # 6.7 10^3/ul (1.6-7.5); NEUTROPHILS % 77.2 % (39.0-77.0); PLATELET COUNT 249 10^3/UL (140-415); RED CELL DISTRIBUTION WIDTH 14.4 % (11.5-14.5); WHITE BLOOD COUNT 8.7 10^3/ul (4.8-10.8)
[2017-04-12 06:38] LABS: CALCIUM 8.5 mg/dl (8.4-10.2); CREATININE 0.46 mg/dl (0.61-1.24); POTASSIUM 4.1 mmol/L (3.5-5.1)
[2017-04-12 08:12] VITALS: BP 155/70; RESP 18
[2017-04-12] MEDS: NYSTATIN 30 GM POWDER BTL TOP SCH ×2 (09:18→20:50)
[2017-04-12] MEDS: MULTIVITAMINS THERAPEUTIC TAB GTB SCH (09:18)
[2017-04-12] MEDS: METOPROLOL 50 MG TAB GTB SCH ×2 (09:19→20:49)
[2017-04-12] MEDS: VALSARTAN 80 MG TAB PO SCH ×2 (09:19→20:49)
[2017-04-12] MEDS: LACTOBACILLUS RHAMNOSUS CAP PO SCH ×3 (09:20→20:47)
[2017-04-12] MEDS: CITALOPRAM 20 MG TAB GTB SCH (09:20)
[2017-04-12] MEDS: ENOXAPARIN 40 MG/0.4 ML SYG SC SCH (09:23)
--- NOTE | 2017-04-12 12:00 | CONS ---
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 - quadriplegia after complication of C spinal surgery: cord compression requiring an emergent laminectomy and fusion - vent dependent via tracheostomy - G tube dependent - abdominal distention and excess gas from IV vancomycin but tolerates per GT vancomycin recommendations - I recommend changing meropenem to ceftazidime (04/12/2017-) - change Avila catheter if not done during this admission management d/w Pt Problems: Consultation Date/Type/Reason Admit Date/Time Apr 10, 2017 at 08:08 Type of Consultation: ID Referring Provider: CHONG SORIANO MD 24 HR Interval Summary Constitutional: improved Detailed Summary Eyes: no complaints ENT: no complaints Respiratory: other (trach) Cardiovascular: no complaints Gastrointestinal: no complaints, No diarrhea, No nausea Genitourinary: other (FC) Musculoskeletal: other (quadriplegia) Skin: no complaints Neurologic: other (quadriplegia) Exam/Review of Systems Vital Signs Vitals Vital Signs Date Time Temp Pulse Resp B/P Pulse Ox O2 Delivery O2 Flow Rate FiO2 04/12/17 08:12 97.9 74 18 155/70 98 04/12/17 07:57 5.0 28 04/12/17 07:54 Aerosol Mask Intake and Output 04/11/17 04/11/17 04/12/17 15:00 23:00 07:00 Intake Total 200 ml 850 ml 2330 ml Output Total 840 ml Balance 200 ml 850 ml 1490 ml Exam Constitutional: alert, oriented Psych: no complaints Head: atraumatic, normocephalic Eyes: nl conjunctiva, nl lids, nl sclera ENMT: nl external ears & nose, nl nasal mucosa & septum Neck: other (trach) Respiratory: crackles/rales Cardiovascular: nl pulses, regular rate and rhythm Gastrointestinal: non-tender, other (GT), soft Genitourinary - Male: other (FC) Musculoskeletal: nl extremities to inspection Extremities: edema Neurological: other (quadriplegia) Results Result Diagram: 04/12/17 0538 04/12/17 0538 Results 24 hrs Laboratory Tests Test 04/12/17 05:38 White Blood Count 8.7 # Red Blood Count 3.00 L Hemoglobin 9.3 L Hematocrit 28.4 L Mean Corpuscular Volume 94.7 Mean Corpuscular Hemoglobin 31.0 Mean Corpuscular Hemoglobin Concent 32.7 Red Cell Distribution Width 14.4 Platelet Count 249 Mean Platelet Volume 11.4 H Neutrophils % 77.2 H Lymphocytes % 11.2 L Monocytes % 6.8 Eosinophils % 3.0 Basophils % 0.2 Nucleated Red Blood Cells % 0.0 Neutrophils # 6.7 Lymphocytes # 1.0 Monocytes # 0.6 Eosinophils # 0.3 Basophils # 0.0 Nucleated Red Blood Cells # 0.0 Sodium Level 135 Potassium Level 4.1 Chloride Level 105 Carbon Dioxide Level 25 Anion Gap 9 Blood Urea Nitrogen 12 Creatinine 0.46 L Glucose Level 121 Calcium Level 8.5 Medications Medications Current Medications Acetaminophen/ Hydrocodone Bitart (Lortab Liq) 10 ml Q4H PRN GTB PAIN LEVEL 4- 7 Last administered on 04/12/17 11:47; Admin Dose 10 ML; Start 04/09/17 at 20: 30 Citalopram Hydrobromide (Celexa) 20 mg DAILY GTB Last administered on 09:20; Admin Dose 20 MG; Start 04/10/17 at 09:00 Multivitamins Therapeutic (Theragran) 1 tab DAILY GTB Last administered on 04/12 09:18; Admin Dose 1 TAB; Start 04/10/17 at 09:00 Tramadol HCl (Ultram) 50 mg Q6H PRN GTB PAIN Last administered on 04/12/17 01: 07; Admin Dose 50 MG; Start 04/09/17 at 23:30 Acetaminophen 500 mg 500 mg Q6H PRN PO PAIN AND OR ELEVATED TEMP; Start at 23:30 Potassium Chloride/Sodium Chloride (NS-KCl 20 Meq) 1,000 ml @ 75 mls/hr [id number] IV Last administered on 04/12/17 04:51; Admin Dose 75 MLS/HR; Start at 23:30 Acetaminophen/ Hydrocodone Bitart (Lortab Liq) 5 ml Q4H PRN PO PAIN; Start at 23:30 Enoxaparin Sodium (Lovenox) 40 mg DAILY SC Last administered on 04/12/17 09:23 ; Admin Dose 40 MG; Start 04/10/17 at 09:00 Lactobacillus Acidophilus/ Rhamnosus (Culturelle) 1 cap TID PO Last administered on 04/12/17 09:20; Admin Dose 1 CAP; Start 04/10/17 at 09:00 Alprazolam (Xanax) 0.5 mg Q6H PRN GTB anxiety Last administered on 04/12/17 01 :07; Admin Dose 0.5 MG; Start 04/10/17 at 14:30 Zolpidem Tartrate (Ambien) 5 mg HS PRN PO INSOMNIA Last administered on 22:10; Admin Dose 5 MG; Start 04/10/17 at 20:00 Atorvastatin Calcium (Lipitor) 20 mg HS GTB Last administered on 04/11/17 20: 51; Admin Dose 20 MG; Start 04/10/17 at 21:00 Bisacodyl (Dulcolax Supp) 10 mg Q48H PRN [place] CONSTIPATION; Start 04/10/17 at 20: 00 Valsartan (Diovan) 80 mg BID PO Last administered on 04/12/17 09:19; Admin Dose 80 MG; Start 04/10/17 at 21:00 Diltiazem HCl (Cardizem) 30 mg Q6 GTB Last administered on 04/12/17 05:49; Admin Dose 30 MG; Start 04/11/17 at 00:00 Metoprolol Tartrate (Lopressor) 50 mg BID GTB Last administered on 04/12/17 09 :19; Admin Dose 50 MG; Start 04/10/17 at 21:00 Simethicone (Mylicon) 80 mg Q6H PRN GTB GASTROINTESTINAL UPSET Last administered on 04/11/17 15:14; Admin Dose 80 MG; Start 04/10/17 at 20:00 Nystatin 1 applic 1 applic BID TOP Last administered on 04/12/17 09:18; Admin Dose 1 APPLIC; Start 04/11/17 at 21:00 Ceftazidime/ Dextrose (Fortaz 2gm/50 ml (Pmx)) 50 ml @ 100 mls/hr Q8 IVPB ; Start 04/12/17 at 14:00 MYLENE ALVARES M.D. Apr 12, 2017 12:00
[2017-04-12] MEDS: CEFTAZIDIME 2GM/50 ML (PMX) 50 ML IVPB SCH ×2 (14:29→21:04)
[2017-04-12 14:31] VITALS: BP 163/74; PULSE 68; RESP 18
[2017-04-12 18:18] VITALS: BP 145/67; PULSE 65; RESP 18
[2017-04-12 19:43] VITALS: BP 111/55; RESP 16
[2017-04-12] MEDS: ATORVASTATIN 20 MG TAB GTB SCH (20:47)
--- NOTE | 2017-04-12 23:12 | PN ---
DATE: 04/12/2017 SUBJECTIVE: Follow up on UTI, tracheobronchitis, C-spine quadriplegia, hypertension, candiduria. T he patient denies any chest pain or abdominal pain. No reported vomiting, no reported fever or chil ls. Patient is breathing comfortably off vent. No temperature spike in last 24 hours. The patient remains awake, alert, and responsive. The patient has severe quadriplegia. PHYSICAL EXAMINATION: GENERAL: The patient is conscious, awake, alert, fairly oriented. VITAL SIGNS: Temperature 97.9, pulse 74, respirations 18, blood pressure 155/70, O2 saturation 98% on 5 liters oxygen. HEENT: Conjunctivae and lids normal. Nose and ears: Normal. Oropharynx: Grossly negative. NECK: Tracheostomy in place. No mass. CHEST: Revealed diminished air entry at bases. No use of accessory muscles. CARDIOVASCULAR: Regular rate and rhythm. S1, S2 normal. No murmur. ABDOMEN: Soft, nondistended, nontender. G-tube in place. EXTREMITIES: No leg edema. NEUROLOGIC: The patient is awake, alert, fairly oriented with dense quadriplegia. LABORATORY DATA: Done this morning, WBC 8.7, hemoglobin 9.3, platelets 249. No bandemia. Chemistr y: Sodium 137, potassium 4.1, BUN 12, creatinine 0.4, glucose 121, calcium 8.5. IMPRESSION: 1. Pseudomonas tracheobronchitis/healthcare-associated pneumonia. Continue IV Fortaz. 2. Hypertension. Continue diltiazem, valsartan, and Lopressor. 3. Dyslipidemia. Continue Lipitor. 4. Anxiety and depression. Continue Celexa. 5. Mild funguria. As per infectious disease, colonization, will continue to follow. Dictated By: CHONG DALLAS/MARGARET Conf#: [id number] DID#: [id number]
[2017-04-13] MEDS: DILTIAZEM 30 MG TAB GTB SCH ×5 (00:09→23:22)
[2017-04-13] MEDS: traMADol 50 MG TAB GTB PRN ×3 (02:39→23:26)
[2017-04-13] MEDS: ALPRAZOLAM 0.25 MG TAB GTB PRN ×4 (02:40→23:26)
[2017-04-13] MEDS: ALBUTEROL/IPRATROPIUM (NEB) 3 ML AMP NEB SCH ×4 (03:27→19:57)
[2017-04-13] MEDS: CEFTAZIDIME 2GM/50 ML (PMX) 50 ML IVPB SCH ×3 (05:44→21:09)
[2017-04-13] MEDS: ACETAMINOPHEN 325/HYDROC 7.5 15 ML CUP GTB PRN ×3 (05:47→21:10)
[2017-04-13 07:36] VITALS: BP 171/79; RESP 20
[2017-04-13] MEDS: NS + KCL 20 MEQ 1,000 ML IV SCH ×2 (08:50→16:39)
[2017-04-13] MEDS: MULTIVITAMINS THERAPEUTIC TAB GTB SCH (08:50)
[2017-04-13] MEDS: CITALOPRAM 20 MG TAB GTB SCH (08:50)
[2017-04-13] MEDS: NYSTATIN 30 GM POWDER BTL TOP SCH ×2 (08:50→21:06)
[2017-04-13] MEDS: LACTOBACILLUS RHAMNOSUS CAP PO SCH ×3 (08:51→21:05)
[2017-04-13] MEDS: VALSARTAN 80 MG TAB PO SCH ×2 (08:51→21:05)
[2017-04-13] MEDS: METOPROLOL 50 MG TAB GTB SCH ×2 (08:51→21:06)
[2017-04-13] MEDS: ENOXAPARIN 40 MG/0.4 ML SYG SC SCH (08:53)
--- NOTE | 2017-04-13 15:39 | PN ---
DATE: 04/13/2017 SUBJECTIVE: Follow up on tracheobronchitis/HCAP, C-spine quadriplegia, hypertension, anxiety and de pression. The patient remains clinically stable. The patient has not had any fever. No reported s hortness of breath. The patient continues to use PMV valve for communication. The patient continue s to have dense quadriplegia. No reported vomiting. No reported leg edema. No reported resting le g pain. No reported chest pain. PHYSICAL EXAMINATION: GENERAL: The patient is conscious, awake, alert. VITAL SIGNS: Temperature 98.2, pulse 63, respirations 18, blood pressure 171/79, O2 saturation 98% on 5 liters. HEENT: No eye discharge or redness. Oropharynx grossly negative. NECK: No mass. Tracheostomy in place. CHEST: Fairly clear. No use of accessory muscles. CARDIOVASCULAR: Regular rate and rhythm. S1, S2 normal. No murmur. ABDOMEN: Soft, nondistended, nontender. G-tube in place. EXTREMITIES: No leg edema. Pedal pulses palpable. SKIN: Without acute rash. NEUROLOGIC: Awake, alert, fairly oriented with dense quadriplegia. LABORATORY DATA: WBC 8.7, hemoglobin 9.3, platelets 249. Sodium 135, potassium 4.1, BUN 12, creati nine 0.4, glucose 121. IMPRESSION: 1. Acute tracheobronchitis/healthcare associated pneumonia due to Pseudomonas. Continue Fortaz. 2. Cervical spine quadriplegia. Awaiting mattress spring encaser to explore the possibility of transferring h im to [facility]. 3. Hypertension. The patient did have uncontrolled blood pressure this morning; however, his previ ous readings have been reviewed and it looks like the blood pressure is reasonably controlled. We w ill continue to monitor. 4. Anxiety and depression. Continue Celexa and Xanax. Plan of care discussed with the patient and his sister present in the room. Meanwhile, continue Lo venox for DVT prophylaxis. Dictated By: CHONG DALLAS/MARGARET Conf#: [id number] DID#: [id number]
--- NOTE | 2017-04-13 20:06 | CONS ---
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 I recommend ceftazidime until 04/17/2017 management d/w Pt Problems: Consultation Date/Type/Reason Admit Date/Time Apr 10, 2017 at 08:08 Type of Consultation: ID Referring Provider: CHONG SORIANO MD 24 HR Interval Summary Constitutional: no complaints Detailed Summary Eyes: no complaints ENT: no complaints Respiratory: no complaints, other (via trach) Cardiovascular: no complaints Gastrointestinal: passing stool (4 times, Pt is not clear if they were formed or watery) Genitourinary: other (FC) Musculoskeletal: bone/joint pain (b/l shoulder x2 days) Skin: no complaints Neurologic: other (paraplegia) Exam/Review of Systems Vital Signs Vitals Vital Signs Date Time Temp Pulse Resp B/P Pulse Ox O2 Delivery O2 Flow Rate FiO2 04/13/17 19:57 5.0 28 04/13/17 19:57 70 18 96 Aerosol T Tube 04/13/17 07:36 98.2 171/79 Intake and Output 04/12/17 04/12/17 04/13/17 15:00 23:00 07:00 Intake Total 50 ml 1380 ml 1994 ml Output Total 2000 ml Balance 50 ml -620 ml 1995 ml Exam Constitutional: alert, oriented, well developed Psych: nl mood/affect, no complaints Head: atraumatic, normocephalic Eyes: nl conjunctiva, nl lids ENMT: nl external ears & nose, nl nasal mucosa & septum Neck: other (trach) Respiratory: crackles/rales Cardiovascular: nl pulses, regular rate and rhythm Gastrointestinal: non-tender, soft Genitourinary - Male: other (FC) Musculoskeletal: range of motion (limited abduction due to pain), No joint tenderness, No swelling Extremities: No edema Neurological: nl mental status, nl speech Skin: nl turgor Results Result Diagram: 04/12/17 0538 04/12/17 0538 Results 24 hrs Laboratory Tests Test 04/12/17 23:40 Urine Osmolality 353 Urine Random Sodium 139 H Medications Medications Current Medications Acetaminophen/ Hydrocodone Bitart (Lortab Liq) 10 ml Q4H PRN GTB PAIN LEVEL 4- 7 Last administered on 04/13/17 12:49; Admin Dose 10 ML; Start 04/09/17 at 20: 30 Citalopram Hydrobromide (Celexa) 20 mg DAILY GTB Last administered on 08:50; Admin Dose 20 MG; Start 04/10/17 at 09:00 Multivitamins Therapeutic (Theragran) 1 tab DAILY GTB Last administered on 04/13 08:50; Admin Dose 1 TAB; Start 04/10/17 at 09:00 Tramadol HCl (Ultram) 50 mg Q6H PRN GTB PAIN Last administered on 04/13/17 16: 08; Admin Dose 50 MG; Start 04/09/17 at 23:30 Acetaminophen 500 mg 500 mg Q6H PRN PO PAIN AND OR ELEVATED TEMP; Start at 23:30 Potassium Chloride/Sodium Chloride (NS-KCl 20 Meq) 1,000 ml @ 40 mls/hr Q24H IV Last administered on 04/13/17 16:39; Admin Dose 40 MLS/HR; Start 04/09/17 at 23:30 Acetaminophen/ Hydrocodone Bitart (Lortab Liq) 5 ml Q4H PRN PO PAIN; Start at 23:30 Enoxaparin Sodium (Lovenox) 40 mg DAILY SC Last administered on 04/13/17 08:53 ; Admin Dose 40 MG; Start 04/10/17 at 09:00 Lactobacillus Acidophilus/ Rhamnosus (Culturelle) 1 cap TID PO Last administered on 04/13/17 12:49; Admin Dose 1 CAP; Start 04/10/17 at 09:00 Alprazolam (Xanax) 0.5 mg Q6H PRN GTB anxiety Last administered on 04/13/17 16 :08; Admin Dose 0.5 MG; Start 04/10/17 at 14:30 Zolpidem Tartrate (Ambien) 5 mg HS PRN PO INSOMNIA Last administered on 22:10; Admin Dose 5 MG; Start 04/10/17 at 20:00 Atorvastatin Calcium (Lipitor) 20 mg HS GTB Last administered on 04/12/17 20: 47; Admin Dose 20 MG; Start 04/10/17 at 21:00 Bisacodyl (Dulcolax Supp) 10 mg Q48H PRN [place] CONSTIPATION; Start 04/10/17 at 20: 00 Valsartan (Diovan) 80 mg BID PO Last administered on 04/13/17 08:51; Admin Dose 80 MG; Start 04/10/17 at 21:00 Diltiazem HCl (Cardizem) 30 mg Q6 GTB Last administered on 04/13/17 12:50; Admin Dose 30 MG; Start 04/11/17 at 00:00 Metoprolol Tartrate (Lopressor) 50 mg BID GTB Last administered on 04/13/17 08 :51; Admin Dose 50 MG; Start 04/10/17 at 21:00 Simethicone (Mylicon) 80 mg Q6H PRN GTB GASTROINTESTINAL UPSET Last administered on 04/12/17 20:47; Admin Dose 80 MG; Start 04/10/17 at 20:00 Nystatin 1 applic 1 applic BID TOP Last administered on 04/13/17 08:50; Admin Dose 1 APPLIC; Start 04/11/17 at 21:00 Ceftazidime/ Dextrose (Fortaz 2gm/50 ml (Pmx)) 50 ml @ 100 mls/hr Q8 IVPB Last administered on 04/13/17 14:11; Admin Dose 100 MLS/HR; Start 04/12/17 at 14:00 MYLENE ALVARES M.D. Apr 13, 2017 20:06
[2017-04-13 20:38] VITALS: BP 113/56; RESP 19
[2017-04-13] MEDS: ATORVASTATIN 20 MG TAB GTB SCH (21:05)
--- NOTE | 2017-04-13 22:35 | RADRPT ---
PROCEDURE: X-ray bilateral shoulders. CLINICAL INDICATION: Bilateral shoulder pain. TECHNIQUE: AP views of the bilateral shoulders. COMPARISON: Plain film chest dated 04/09/2017. FINDINGS: No acute fracture or dislocation. No significant degenerative changes. IMPRESSION: No acute fracture. RPTAT: [facility] Physician Vidal Date Time Electronically viewed and signed by Ashleigh Beasley Physician on 04/13/2017 22:34 RS/
[2017-04-14] MEDS: ACETAMINOPHEN 325/HYDROC 7.5 15 ML CUP GTB PRN ×4 (02:30→18:16)
[2017-04-14] MEDS: ALBUTEROL/IPRATROPIUM (NEB) 3 ML AMP NEB SCH ×4 (02:55→19:43)
[2017-04-14] MEDS: traMADol 50 MG TAB GTB PRN ×2 (05:52→16:38)
[2017-04-14] MEDS: DILTIAZEM 30 MG TAB GTB SCH ×3 (05:56→20:56)
[2017-04-14] MEDS: CEFTAZIDIME 2GM/50 ML (PMX) 50 ML IVPB SCH ×3 (05:56→21:19)
[2017-04-14 06:14] LABS: ADD SCAN DIFF NO
[2017-04-14 06:20] LABS: BASOPHILS % 0.3 % (0.0-2.0); EOSINOPHILS # 0.3 10^3/ul (0.0-0.5); EOSINOPHILS % 2.3 % (0.0-7.0); HEMATOCRIT 30.5 % (42.0-52.0); HEMOGLOBIN 9.9 g/dl (14.0-18.0); LYMPHOCYTES # 1.1 10^3/ul (0.8-2.9); MEAN CORPUSCULAR HEMOGLOBIN 30.8 pg (29.0-33.0); MEAN CORPUSCULAR HGB CONC 32.5 g/dl (32.0-37.0); MEAN PLATELET VOLUME 11.1 fl (7.4-10.4); MONOCYTE # 0.5 10^3/ul (0.3-0.9); MONOCYTES % 4.2 % (0.0-11.0); NEUTROPHILS % 83.4 % (39.0-77.0); PLATELET COUNT 275 10^3/UL (140-415); RED BLOOD COUNT 3.21 10^6/ul (4.70-6.10); RED CELL DISTRIBUTION WIDTH 14.4 % (11.5-14.5); WHITE BLOOD COUNT 11.9 10^3/ul (4.8-10.8)
[2017-04-14 07:03] LABS: CALCIUM 8.9 mg/dl (8.4-10.2); CREATININE 0.44 mg/dl (0.61-1.24); POTASSIUM 4.3 mmol/L (3.5-5.1)
[2017-04-14 07:16] VITALS: BP 132/63; RESP 18
[2017-04-14] MEDS: VALSARTAN 80 MG TAB PO SCH ×2 (09:14→20:55)
[2017-04-14] MEDS: CITALOPRAM 20 MG TAB GTB SCH (09:14)
[2017-04-14] MEDS: METOPROLOL 50 MG TAB GTB SCH ×2 (09:15→20:55)
[2017-04-14] MEDS: LACTOBACILLUS RHAMNOSUS CAP PO SCH ×3 (09:15→20:54)
[2017-04-14] MEDS: MULTIVITAMINS THERAPEUTIC TAB GTB SCH (09:15)
[2017-04-14] MEDS: ENOXAPARIN 40 MG/0.4 ML SYG SC SCH (09:22)
[2017-04-14] MEDS: NYSTATIN 30 GM POWDER BTL TOP SCH ×2 (11:00→20:58)
[2017-04-14] MEDS: ALPRAZOLAM 0.25 MG TAB GTB PRN ×2 (11:23→18:14)
--- NOTE | 2017-04-14 11:50 | CONS ---
Date/Time of Note Date/Time of Note DATE: 04/14/17 TIME: 11:48 Assessment/Plan Assessment/Plan Additional Assessment/Plan Assessment recommendations; 1. Patient admitted with fever discovered to have left lower lobe atelectasis/ infiltrate, Pseudomonas been isolated from sputum patient currently on appropriate antibiotic regimen. 2. Chronic respiratory failure, patient however maintained on tracheal T piece with excellent overall clinical status. 3. History of quadriplegia. Continue current treatment. Will obtain follow-up chest x-ray. Consultation Date/Type/Reason Admit Date/Time Apr 10, 2017 at 08:08 Initial Consult Date 04/10/17 Type of Consultation: Pulmonary/critical care Referring Provider: CHONG SORIANO MD 24 HR Interval Summary Free Text/Dictation Patient condition stable. Denies any shortness breath, coughing, wheezing. Any sputum production. Also denies any fever chills. General exam; elderly male, maintained on tracheal T piece. Patient in no distress. Awake and alert. Exam/Review of Systems Vital Signs Vitals Vital Signs Date Time Temp Pulse Resp B/P Pulse Ox O2 Delivery O2 Flow Rate FiO2 04/14/17 07:16 98.2 67 18 132/63 94 04/14/17 02:55 Aerosol 5.0 28 T Tube Intake and Output 04/13/17 04/13/17 04/14/17 15:00 23:00 07:00 Intake Total 250 ml 50 ml 440 ml Output Total 2700 ml 1500 ml 3100 ml Balance -2450 ml -1450 ml -2660 ml Exam HEENT examined; supple neck, no JVD. No lymphadenopathy. Midline trachea. No thyromegaly. Pharynx is clear. Tracheostomy placed with clean insertion site. Patient has fair dentition. Pupils are equal and reactive to light. Chest examined; clear to auscultation. S1-S2 audible, no murmurs. Regular rhythm. Abdomen examination; soft, no organomegaly. G-tube in place. Bowel sounds audible. Extremity examination; no peripheral edema. Pulses 1+ bilaterally. PL[employer] GU[employer] examination; patient is awake and alert has stable quadriplegia. Results Result Diagram: 04/14/17 0450 04/14/17 0450 Results 24 hrs Laboratory Tests Test 04/14/17 04:50 White Blood Count 11.9 #H Red Blood Count 3.21 L Hemoglobin 9.9 L Hematocrit 30.5 L Mean Corpuscular Volume 95.0 Mean Corpuscular Hemoglobin 30.8 Mean Corpuscular Hemoglobin Concent 32.5 Red Cell Distribution Width 14.4 Platelet Count 275 Mean Platelet Volume 11.1 H Neutrophils % 83.4 H Lymphocytes % 9.0 L Monocytes % 4.2 Eosinophils % 2.3 Basophils % 0.3 Nucleated Red Blood Cells % 0.0 Neutrophils # 10.0 H Lymphocytes # 1.1 Monocytes # 0.5 Eosinophils # 0.3 Basophils # 0.0 Nucleated Red Blood Cells # 0.0 Sodium Level 135 Potassium Level 4.3 Chloride Level 100 Carbon Dioxide Level 30 Anion Gap 9 Blood Urea Nitrogen 11 Creatinine 0.44 L Glucose Level 121 Calcium Level 8.9 Medications Medications Current Medications Acetaminophen/ Hydrocodone Bitart (Lortab Liq) 10 ml Q4H PRN GTB PAIN LEVEL 4- 7 Last administered on 04/14/17 09:08; Admin Dose 10 ML; Start 04/09/17 at 20: 30 Citalopram Hydrobromide (Celexa) 20 mg DAILY GTB Last administered on 09:14; Admin Dose 20 MG; Start 04/10/17 at 09:00 Multivitamins Therapeutic (Theragran) 1 tab DAILY GTB Last administered on 04/14 09:15; Admin Dose 1 TAB; Start 04/10/17 at 09:00 Tramadol HCl (Ultram) 50 mg Q6H PRN GTB PAIN Last administered on 04/14/17 05: 52; Admin Dose 50 MG; Start 04/09/17 at 23:30 Acetaminophen 500 mg 500 mg Q6H PRN PO PAIN AND OR ELEVATED TEMP; Start at 23:30 Potassium Chloride/Sodium Chloride (NS-KCl 20 Meq) 1,000 ml @ 40 mls/hr Q24H IV Last administered on 04/13/17 16:39; Admin Dose 40 MLS/HR; Start 04/09/17 at 23:30 Acetaminophen/ Hydrocodone Bitart (Lortab Liq) 5 ml Q4H PRN PO PAIN; Start at 23:30 Enoxaparin Sodium (Lovenox) 40 mg DAILY SC Last administered on 04/14/17 09:22 ; Admin Dose 40 MG; Start 04/10/17 at 09:00 Lactobacillus Acidophilus/ Rhamnosus (Culturelle) 1 cap TID PO Last administered on 04/14/17 09:15; Admin Dose 1 CAP; Start 04/10/17 at 09:00 Alprazolam (Xanax) 0.5 mg Q6H PRN GTB anxiety Last administered on 04/14/17 11 :23; Admin Dose 0.5 MG; Start 04/10/17 at 14:30 Zolpidem Tartrate (Ambien) 5 mg HS PRN PO INSOMNIA Last administered on 22:10; Admin Dose 5 MG; Start 04/10/17 at 20:00 Atorvastatin Calcium (Lipitor) 20 mg HS GTB Last administered on 04/13/17 21: 05; Admin Dose 20 MG; Start 04/10/17 at 21:00 Bisacodyl (Dulcolax Supp) 10 mg Q48H PRN [place] CONSTIPATION; Start 04/10/17 at 20: 00 Valsartan (Diovan) 80 mg BID PO Last administered on 04/14/17 09:14; Admin Dose 80 MG; Start 04/10/17 at 21:00 Diltiazem HCl (Cardizem) 30 mg Q6 GTB Last administered on 04/14/17 05:56; Admin Dose 30 MG; Start 04/11/17 at 00:00 Metoprolol Tartrate (Lopressor) 50 mg BID GTB Last administered on 04/14/17 09 :15; Admin Dose 50 MG; Start 04/10/17 at 21:00 Simethicone (Mylicon) 80 mg Q6H PRN GTB GASTROINTESTINAL UPSET Last administered on 04/14/17 05:56; Admin Dose 80 MG; Start 04/10/17 at 20:00 Nystatin 1 applic 1 applic BID TOP Last administered on 04/14/17 11:00; Admin Dose 1 APPLIC; Start 04/11/17 at 21:00 Ceftazidime/ Dextrose (Fortaz 2gm/50 ml (Pmx)) 50 ml @ 100 mls/hr Q8 IVPB Last administered on 04/14/17 05:56; Admin Dose 100 MLS/HR; Start 04/12/17 at 14:00 HERMELINDO LEONE 23, 2017 11:50
--- NOTE | 2017-04-14 14:38 | RADRPT ---
PROCEDURE: XR Chest. CLINICAL INDICATION: Pneumonia TECHNIQUE: Single AP portable chest COMPARISON: 04/09/2017 Chest x-ray FINDINGS: The cardiac silhouette is at the upper limits of normal in size with tracheostomy tube in place. In creased left pleural effusion and left base opacity. Atherosclerotic calcification of the aorta. T he right lung is clear. No pneumothorax. Anterior cervical fusion plate in place.. IMPRESSION: 1. Mild cardiomegaly with increased left pleural effusion and left base opacity. Superimposed pneum onia cannot be excluded. RPTAT:AAJJ Physician Eliza Date Time Electronically viewed and signed by Physician Eliza on 04/14/2017 14:38 GEO/
--- NOTE | 2017-04-14 15:14 | CONS ---
Date/Time of Note Date/Time of Note DATE: 04/14/17 TIME: 15:10 Assessment/Plan Assessment/Plan Chief Complaint/Hosp Course assessment/impression - sepsis on admission, probably due to recurrent tracheo-bronchitis/HCAP - tracheo-bronchitis/HCAP due to pseudomonas - diarrhea prior to admission, negative for C diff colitis - colonization of the urinary tract due to fco - b/l shoulder pain - quadriplegia after complication of C spinal surgery: cord compression requiring an emergent laminectomy and fusion - vent dependent via tracheostomy - G tube dependent - abdominal distention and excess gas from IV vancomycin but tolerates per GT vancomycin recommendations - ordered: CT neck and b/l shoulders with IV contrast to r/o septic arthritis - continue ceftazidime (04/12/2017-) for pseudomonas. Pt took meropenem 2016-04/12/2017 management d/w Pt, his , RN and charge nurse Problems: Consultation Date/Type/Reason Admit Date/Time Apr 10, 2017 at 08:08 Type of Consultation: ID Referring Provider: CHONG SORIANO MD 24 HR Interval Summary Constitutional: improved Detailed Summary Eyes: no complaints ENT: no complaints Respiratory: no complaints, other (trach) Cardiovascular: no complaints Gastrointestinal: passing stool (once) Genitourinary: other (FC) Musculoskeletal: bone/joint pain (b/l shoulder), neck pain Skin: no complaints Neurologic: other (paraplegic) Exam/Review of Systems Vital Signs Vitals Vital Signs Date Time Temp Pulse Resp B/P Pulse Ox O2 Delivery O2 Flow Rate FiO2 04/14/17 12:36 98 5.0 28 04/14/17 12:36 67 18 Aerosol T Tube 04/14/17 07:16 98.2 132/63 Intake and Output 04/13/17 04/13/17 04/14/17 15:00 23:00 07:00 Intake Total 250 ml 50 ml 440 ml Output Total 2700 ml 1500 ml 3100 ml Balance -2450 ml -1450 ml -2660 ml Exam Constitutional: alert, oriented, well developed Psych: nl mood/affect, no complaints Head: atraumatic, normocephalic Eyes: nl conjunctiva, nl lids ENMT: nl external ears & nose, nl nasal mucosa & septum Neck: other (trach) Respiratory: clear to auscultation, normal air movement Cardiovascular: nl pulses, regular rate and rhythm Gastrointestinal: non-tender, other (GT), soft Genitourinary - Male: other (FC) Musculoskeletal: other (severe pain when I attempted to move his R wrist) Extremities: No edema Neurological: other (paraplegic) Results Result Diagram: 04/14/17 0450 04/14/17 0450 Results 24 hrs Laboratory Tests Test 04/14/17 04:50 White Blood Count 11.9 #H Red Blood Count 3.21 L Hemoglobin 9.9 L Hematocrit 30.5 L Mean Corpuscular Volume 95.0 Mean Corpuscular Hemoglobin 30.8 Mean Corpuscular Hemoglobin Concent 32.5 Red Cell Distribution Width 14.4 Platelet Count 275 Mean Platelet Volume 11.1 H Neutrophils % 83.4 H Lymphocytes % 9.0 L Monocytes % 4.2 Eosinophils % 2.3 Basophils % 0.3 Nucleated Red Blood Cells % 0.0 Neutrophils # 10.0 H Lymphocytes # 1.1 Monocytes # 0.5 Eosinophils # 0.3 Basophils # 0.0 Nucleated Red Blood Cells # 0.0 Sodium Level 135 Potassium Level 4.3 Chloride Level 100 Carbon Dioxide Level 30 Anion Gap 9 Blood Urea Nitrogen 11 Creatinine 0.44 L Glucose Level 121 Calcium Level 8.9 Medications Medications Current Medications Acetaminophen/ Hydrocodone Bitart (Lortab Liq) 10 ml Q4H PRN GTB PAIN LEVEL 4- 7 Last administered on 04/14/17 13:05; Admin Dose 10 ML; Start 04/09/17 at 20: 30 Citalopram Hydrobromide (Celexa) 20 mg DAILY GTB Last administered on 09:14; Admin Dose 20 MG; Start 04/10/17 at 09:00 Multivitamins Therapeutic (Theragran) 1 tab DAILY GTB Last administered on 04/14 09:15; Admin Dose 1 TAB; Start 04/10/17 at 09:00 Tramadol HCl (Ultram) 50 mg Q6H PRN GTB PAIN Last administered on 04/14/17 05: 52; Admin Dose 50 MG; Start 04/09/17 at 23:30 Acetaminophen 500 mg 500 mg Q6H PRN PO PAIN AND OR ELEVATED TEMP; Start at 23:30 Potassium Chloride/Sodium Chloride (NS-KCl 20 Meq) 1,000 ml @ 40 mls/hr Q24H IV Last administered on 04/13/17 16:39; Admin Dose 40 MLS/HR; Start 04/09/17 at 23:30 Acetaminophen/ Hydrocodone Bitart (Lortab Liq) 5 ml Q4H PRN PO PAIN; Start at 23:30 Enoxaparin Sodium (Lovenox) 40 mg DAILY SC Last administered on 04/14/17 09:22 ; Admin Dose 40 MG; Start 04/10/17 at 09:00 Lactobacillus Acidophilus/ Rhamnosus (Culturelle) 1 cap TID PO Last administered on 04/14/17 13:06; Admin Dose 1 CAP; Start 04/10/17 at 09:00 Alprazolam (Xanax) 0.5 mg Q6H PRN GTB anxiety Last administered on 04/14/17 11 :23; Admin Dose 0.5 MG; Start 04/10/17 at 14:30 Zolpidem Tartrate (Ambien) 5 mg HS PRN PO INSOMNIA Last administered on 22:10; Admin Dose 5 MG; Start 04/10/17 at 20:00 Atorvastatin Calcium (Lipitor) 20 mg HS GTB Last administered on 04/13/17 21: 05; Admin Dose 20 MG; Start 04/10/17 at 21:00 Bisacodyl (Dulcolax Supp) 10 mg Q48H PRN [place] CONSTIPATION; Start 04/10/17 at 20: 00 Valsartan (Diovan) 80 mg BID PO Last administered on 04/14/17 09:14; Admin Dose 80 MG; Start 04/10/17 at 21:00 Diltiazem HCl (Cardizem) 30 mg Q6 GTB Last administered on 04/14/17 13:06; Admin Dose 30 MG; Start 04/11/17 at 00:00 Metoprolol Tartrate (Lopressor) 50 mg BID GTB Last administered on 04/14/17 09 :15; Admin Dose 50 MG; Start 04/10/17 at 21:00 Simethicone (Mylicon) 80 mg Q6H PRN GTB GASTROINTESTINAL UPSET Last administered on 04/14/17 05:56; Admin Dose 80 MG; Start 04/10/17 at 20:00 Nystatin 1 applic 1 applic BID TOP Last administered on 04/14/17 11:00; Admin Dose 1 APPLIC; Start 04/11/17 at 21:00 Ceftazidime/ Dextrose (Fortaz 2gm/50 ml (Pmx)) 50 ml @ 100 mls/hr Q8 IVPB Last administered on 04/14/17 13:18; Admin Dose 100 MLS/HR; Start 04/12/17 at 14:00 MYLENE ALVARES M.D. Apr 14, 2017 15:14
[2017-04-14] MEDS ORDERED: IOHEXOL 300MG/ML 150 ML BTL ONE (17:08)
[2017-04-14] MEDS ORDERED: SOD CHLORIDE 0.9% 100 ML ONE (17:08)
--- NOTE | 2017-04-14 18:20 | RADRPT ---
PROCEDURE: CT Cervical Spine with and without contrast. CLINICAL INDICATION: Neck pain. Evaluate for abscess. TECHNIQUE: A CT of the cervical spine was performed on a CT scanner utilizing thin section axial images from the skull base through the thoracic inlet. Sagittal and coronal reformatted images were made. The CTDIvol is 17.28 mGy and the DLP is 520.62 mGycm. Automated exposure control, adjustment of the mA and/or kV according to patient size, use of iterative reconstruction technique. Post cont rast imaging COMPARISON: No prior studies are available for comparison. FINDINGS: There is a normal lordosis of the cervical spine. No vertebral body subluxation is seen. No fractur e is evident. Anterior discectomy and cervical fusion of C4, C5, and C6. Intact anterior fixation p late and screws without evidence of hardware failure. Intact interbody fusion without graft migrati on. No gross evidence of epidural spinal collection or pathologic enhancement, however, CT is limit ed in evaluation of the central canal and structures. MRI may be considered for further evaluation if there is concern for epidural abscess. No evidence of retropharyngeal, paraspinal or soft tissue neck abnormal fluid collection or inflamma tory change to suggest abscess or cellulitis.. Tracheostomy tube in place C2-3: The disc is normal in height. Moderate bilateral facet joint arthropathy left greater than rig ht resulting in mild left foraminal stenosis. No central canal stenosis. C3-4: Marked disk space narrowing, anterior endplate spurring and posterior spondylitic ridging with circumferential disk bulging resulting in moderate central canal stenosis of 7 mm in AP dimension. Moderate hypertrophic facet joint arthropathy and uncovertebral joint hypertrophy resulting in jaylin re bilateral foraminal stenosis., C4-5: Intact ACDF with normal alignment. Posterior spondylitic ridging new and marked bilateral unco vertebral joint hypertrophy. Moderate facet joint arthropathy resulting in severe bilateral foramin al stenosis. Mild central canal stenosis of 9 mm. C5-6: Intact ACDF with normal alignment. Posterior spondylitic ridging with bilateral moderate unco vertebral joint hypertrophy and mild facet joint arthropathy resulting in severe bilateral foraminal stenosis. Mild central canal stenosis of 8 mm in AP dimension. C6-7: Marked disk space narrowing and posterior spondylitic ridging. Bilateral marked uncovertebra l joint hypertrophy resulting in severe bilateral foraminal and moderate to severe central canal xu nosis of 6 mm in AP dimension. Mild facet joint arthropathy. C7-T1: Mild disk space narrowing with posterior disk osteophyte complex centrally. This results in mild central canal stenosis of 9 mm. Mild facet joint arthropathy without foraminal stenosis. Large left pleural effusion. IMPRESSION: 1. No evidence of epidural, retropharyngeal, or paraspinal abscess or abnormal fluid collection. E valuation of the central canal and postcontrast imaging is limited and if there is high clinical con cern for epidural abscess, MRI is recommended as follow up. 2. Intact anterior cervical discectomy and fusion from C4-C5 the through C5-C6. 3. Multilevel degenerative disk and spondylitic changes resulting in multilevel central canal and f oraminal stenosis from C2-C3 through C7-T1 as detailed above. 4. Large left pleural effusion. Tracheostomy tube noted in place. RPTAT:AAJJ Physician Eliza Date Time Electronically viewed and signed by Physician Eliza on 04/14/2017 18:19 GEO/
--- NOTE | 2017-04-14 18:40 | RADRPT ---
PROCEDURE: CT of the right shoulder with contrast CLINICAL INDICATION: Clinical concern is for septic arthritis or abscess TECHNIQUE: CT scan of the right shoulder was performed . No IV contrast was administered. Pozo l and sagittal reformatted images were obtained from the axial source images. Images were reviewed o n a high-resolution PACS workstation. The calculated radiation dose measures 520.62 mGy centimeters . The CTDI measures 9.19 mGy. One or more of the following dose reduction techniques were used: - Automated exposure control. - Adjustment of the mA and/or kV according to patient size . - Use of iterative reconstruction technique. COMPARISON: Radiographs from 04/13/2017 FINDINGS: Osseous structures: There is no acute osseous abnormality or evidence of fracture. Moderate AC joint arthrosis is noted . Marginal osteophytes are seen at the humeral head and glenoid as well. Partially assessed ACDF changes at the cervical spine. Soft tissues: There is no evidence for a large glenohumeral joint effusion. There is atrophy noted at the rotator cuff muscle bulk more pronounced of the supraspinatus, likely representing chronic rotator cuff pathology. No CT evidence for a drainable fluid collection. Bilateral pleural effusions are seen left greater than right, partially assessed. A tracheostomy tu be is visualized. IMPRESSION: 1. No acute osseous abnormality, cortical destruction or soft tissue gas to suggest osteomyelitis. 2. No evidence for a large glenohumeral joint effusion, please note that septic arthritis cannot be excluded on the basis of CT alone. 3. Rotator cuff muscle atrophy suggesting chronic rotator cuff pathology. This may be better asses sed on MRI, as warranted. 4. Partially assessed bilateral pleural effusions. RPTAT: HH .Basilio Rodriguez MD, MD Date Time Electronically viewed and signed by .Basilio Rodriguez MD, MD on 04/14/2017 18:39 .d/
--- NOTE | 2017-04-14 18:42 | RADRPT ---
PROCEDURE: CT of the left shoulder with contrast CLINICAL INDICATION: Possible abscess. Septic arthritis. Bilateral shoulder pain TECHNIQUE: CT scan of the left shoulder was performed after 100 cc of Omnipaque-300 IV contrast wa s administered. Coronal and sagittal reformatted images were obtained from the axial source images. Images were reviewed on a high-resolution PACS workstation. The calculated radiation dose measures 520.62 mGy centimeters. The CTDI measures 9.19 mGy. One or more of the following dose reduction techniques were used: - Automated exposure control. - Adjustment of the mA and/or kV according to patient size . - Use of iterative reconstruction technique. COMPARISON: Radiographs from 04/13/2017 FINDINGS: Osseous structures: There is no acute osseous abnormality or evidence of fracture. Moderate AC joint arthrosis is noted . Marginal osteophytes are seen at the humeral head and glenoid as well. Partially assessed ACDF changes at the cervical spine. There is nonspecific distension of left sternoclavicular joint capsule. Soft tissues: There is no evidence for a large glenohumeral joint effusion. There is atrophy noted at the rotator cuff muscle bulk more pronounced of the supraspinatus, likely representing chronic rotator cuff pathology. No CT evidence for a drainable fluid collection. Bilateral pleural effusions are seen left greater than right, partially assessed. A tracheostomy tu be is visualized. IMPRESSION: 1. No acute osseous abnormality, cortical destruction or soft tissue gas to suggest osteomyelitis. 2. No evidence for a large glenohumeral joint effusion, please note that septic arthritis cannot be excluded on the basis of CT alone. 3. Rotator cuff muscle atrophy suggesting chronic rotator cuff pathology. This may be better asses sed on MRI, as warranted. 4. Partially assessed bilateral pleural effusions. 5. Nonspecific left sternoclavicular joint effusion. RPTAT: HH .Basilio Rodriguez MD, Date Time Electronically viewed and signed by .Basilio Rodriguez MD, MD on 04/14/2017 18:42 .d/
--- NOTE | 2017-04-14 18:52 | PN ---
DATE: 04/14/2017 SUBJECTIVE: Follow up on recent tracheobronchitis/HCAP due to pseudomonas, chronic respiratory fail ure. The patient is complaining of bilateral shoulder pain. Denies any chest pain, is breathing com fortably off vent. Patient has a PMV valve and is able to communicate. No reported abdominal pain. No reported fever or chills. PHYSICAL EXAMINATION: GENERAL: The patient is conscious, awake, alert. VITAL SIGNS: Temperature 98.2, pulse 69, respirations 20, blood pressure 132/63, O2 saturation 97% on FIO2 of 28%. HEENT: No eye discharge or redness. Oropharynx clear. NECK: Tracheostomy in place. No mass. CHEST: Fairly clear. CARDIOVASCULAR: S1, S2 normal. No murmur. ABDOMEN: Soft, nondistended, nontender. G-tube in place. EXTREMITIES: No leg edema. Pedal pulses palpable. SKIN: Without acute rash. NEUROLOGIC: The patient is awake, alert, fairly oriented with severe quadriplegia. LABORATORY DATA: WBC 11.9, hemoglobin 9.9, platelet 275. Sodium 135, potassium 4.3, BUN 11, creati nine 0.4, glucose 121, calcium 8.9. IMPRESSION: 1. Bilateral shoulder pain. The patient was seen by Dr. Fuentes and has recommended a CT of C-spi ne as well as bilateral shoulders with contrast. 2. Pseudomonas tracheobronchitis. Continue Fortaz. 3. Respiratory failure. Trach in place. Continue breathing treatment. 4. Hypertension. Blood pressure well controlled with Cardizem, and metoprolol. 6 Anxiety, stable with Xanax and Celexa. Plan of care discussed with the patient's and daughter. Did become orthostatic after sitting at the edge of the bed for 14 minutes. We will adjust his blood pressure medications. Plan to transf er him to [facility] underway. Dictated By: CHONG DALLAS/MARGARET Conf#: [id number] DID#: [id number]
[2017-04-14 20:20] VITALS: BP 141/68; RESP 16
[2017-04-14] MEDS: ATORVASTATIN 20 MG TAB GTB SCH (20:56)
[2017-04-14] MEDS: ZOLPIDEM 5 MG TAB PO PRN (21:02)
[2017-04-15] MEDS: ALBUTEROL/IPRATROPIUM (NEB) 3 ML AMP NEB SCH ×4 (01:32→20:02)
[2017-04-15] MEDS: ALPRAZOLAM 0.25 MG TAB GTB PRN ×3 (01:38→23:11)
[2017-04-15] MEDS: ACETAMINOPHEN 325/HYDROC 7.5 15 ML CUP GTB PRN ×4 (01:38→18:58)
[2017-04-15] MEDS: traMADol 50 MG TAB GTB PRN ×2 (04:45→14:31)
[2017-04-15] MEDS: NS + KCL 20 MEQ 1,000 ML IV SCH (05:41)
[2017-04-15] MEDS: CEFTAZIDIME 2GM/50 ML (PMX) 50 ML IVPB SCH ×3 (05:42→21:16)
[2017-04-15 07:17] VITALS: BP 130/63; RESP 18
[2017-04-15] MEDS: LANSOPRAZOLE 30 MG CAP GTB SCH (09:51)
[2017-04-15] MEDS: VALSARTAN 80 MG TAB PO SCH ×2 (09:51→21:00)
[2017-04-15] MEDS: MULTIVITAMINS THERAPEUTIC TAB GTB SCH (09:52)
[2017-04-15] MEDS: CITALOPRAM 20 MG TAB GTB SCH (09:52)
[2017-04-15] MEDS: LACTOBACILLUS RHAMNOSUS CAP PO SCH ×3 (09:52→21:15)
[2017-04-15] MEDS: METOPROLOL 50 MG TAB GTB SCH ×2 (09:52→21:00)
[2017-04-15] MEDS: DILTIAZEM 30 MG TAB GTB SCH ×2 (09:52→21:00)
[2017-04-15] MEDS: NYSTATIN 30 GM POWDER BTL TOP SCH ×2 (09:53→21:15)
[2017-04-15] MEDS: ENOXAPARIN 40 MG/0.4 ML SYG SC SCH (10:20)
--- NOTE | 2017-04-15 10:55 | PN ---
DATE: 04/15/2017 SUBJECTIVE: Chart reviewed. The patient currently on 28% FIO2 via T-tube and saturating 98% and do es not appear in acute distress. PHYSICAL EXAMINATION: VITAL SIGNS: Blood pressure 130/63, pulse 66, respiration 18, temperature 97.5. HEENT: Pupils are equal and react to light. NECK: Supple, no JVD noted, no cervical lymphadenopathy noted, no carotid bruits heard. LUNGS: Fair breath sounds bilaterally. CARDIOVASCULAR: S1, S2 normal. ABDOMEN: Soft, nontender. G-tube in place. Bowel sounds present. EXTREMITIES: No clubbing or cyanosis noted. NEUROLOGIC: Quadriplegia. LABORATORY DATA: None from today. IMPRESSION: 1. Chronic respiratory failure, tracheostomy dependent. 2. Left lower lobe pneumonia, pseudomonas. 3. History of quadriplegia. RECOMMENDATIONS: 1. Continue current antibiotics. 2. Continue tracheostomy care. 3. Continue oxygen. 4. Followup x-ray. Dictated By: NGUYEN YU MD, MA/MARGARET Conf#: [id number] DID#: [id number]
--- NOTE | 2017-04-15 11:45 | PN ---
Date/Time of Note Date/Time of Note DATE: 04/15/17 TIME: 11:45 Assessment/Plan VTE Prophylaxis VTE Prophylaxis Intervention: other Lines/Catheters IV Catheter Type (from Nrsg): PICC Line Central line still needed: Yes Urinary Cath still in place: Yes Reason Cath still needed: skin wounds contaminated by urine Assessment/Plan Chief Complaint/Hosp Course 1. Bilateral shoulder pain. The patient was seen by Dr. Fuentes and has recommended a CT of C-spine as well as bilateral shoulders with contrast. 2. Pseudomonas tracheobronchitis. Continue Fortaz. 3. Respiratory failure. Trach in place. Continue breathing treatment. 4. Hypertension. Blood pressure well controlled with Cardizem, and metoprolol. 6 Anxiety, stable with Xanax and Celexa. Problems: Subjective 24 Hr Interval Summary Free Text/Dictation Patient is resting comfortably Exam/Review of Systems Vital Signs Vitals Vital Signs Date Time Temp Pulse Resp B/P Pulse Ox O2 Delivery O2 Flow Rate FiO2 04/15/17 09:29 5.0 28 04/15/17 09:28 75 22 98 Aerosol 04/15/17 07:17 97.5 130/63 Intake and Output 04/14/17 04/14/17 04/15/17 15:00 23:00 07:00 Intake Total 1400 ml 1085 ml 1920 ml Output Total 2400 ml 1450 ml Balance 1400 ml -1315 ml 470 ml Exam Constitutional: well developed Head: atraumatic, normocephalic Neck: supple Respiratory: diminished breath sounds Cardiovascular: regular rate and rhythm Gastrointestinal: non-tender, soft Extremities: normal pulses Results Result Diagram: 04/14/170 04/14/17 0450 Medications Medications Current Medications Acetaminophen/ Hydrocodone Bitart (Lortab Liq) 10 ml Q4H PRN GTB PAIN LEVEL 4- 7 Last administered on 04/15/17 09:53; Admin Dose 10 ML; Start 04/09/17 at 20: 30 Citalopram Hydrobromide (Celexa) 20 mg DAILY GTB Last administered on 09:52; Admin Dose 20 MG; Start 04/10/17 at 09:00 Multivitamins Therapeutic (Theragran) 1 tab DAILY GTB Last administered on 04/15 09:52; Admin Dose 1 TAB; Start 04/10/17 at 09:00 Tramadol HCl (Ultram) 50 mg Q6H PRN GTB PAIN Last administered on 04/15/17 04: 45; Admin Dose 50 MG; Start 04/09/17 at 23:30 Acetaminophen 500 mg 500 mg Q6H PRN PO PAIN AND OR ELEVATED TEMP; Start at 23:30 Potassium Chloride/Sodium Chloride (NS-KCl 20 Meq) 1,000 ml @ 40 mls/hr Q24H IV Last administered on 04/15/17 05:41; Admin Dose 40 MLS/HR; Start 04/09/17 at 23:30 Acetaminophen/ Hydrocodone Bitart (Lortab Liq) 5 ml Q4H PRN PO PAIN; Start at 23:30 Enoxaparin Sodium (Lovenox) 40 mg DAILY SC Last administered on 04/15/17 10:20 ; Admin Dose 40 MG; Start 04/10/17 at 09:00 Lactobacillus Acidophilus/ Rhamnosus (Culturelle) 1 cap TID PO Last administered on 04/15/17 09:52; Admin Dose 1 CAP; Start 04/10/17 at 09:00 Alprazolam (Xanax) 0.5 mg Q6H PRN GTB anxiety Last administered on 04/15/17 01 :38; Admin Dose 0.5 MG; Start 04/10/17 at 14:30 Zolpidem Tartrate (Ambien) 5 mg HS PRN PO INSOMNIA Last administered on 21:02; Admin Dose 5 MG; Start 04/10/17 at 20:00 Atorvastatin Calcium (Lipitor) 20 mg HS GTB Last administered on 04/14/17 20: 56; Admin Dose 20 MG; Start 04/10/17 at 21:00 Bisacodyl (Dulcolax Supp) 10 mg Q48H PRN [place] CONSTIPATION; Start 04/10/17 at 20: 00 Valsartan (Diovan) 80 mg BID PO Last administered on 04/15/17 09:51; Admin Dose 80 MG; Start 04/10/17 at 21:00 Metoprolol Tartrate (Lopressor) 50 mg BID GTB Last administered on 04/15/17 09 :52; Admin Dose 50 MG; Start 04/10/17 at 21:00 Simethicone (Mylicon) 80 mg Q6H PRN GTB GASTROINTESTINAL UPSET Last administered on 04/14/17 05:56; Admin Dose 80 MG; Start 04/10/17 at 20:00 Nystatin 1 applic 1 applic BID TOP Last administered on 04/15/17 09:53; Admin Dose 1 APPLIC; Start 04/11/17 at 21:00 Ceftazidime/ Dextrose (Fortaz 2gm/50 ml (Pmx)) 50 ml @ 100 mls/hr Q8 IVPB Last administered on 04/15/17 05:42; Admin Dose 100 MLS/HR; Start 04/12/17 at 14:00 Diltiazem HCl (Cardizem) 30 mg BID GTB Last administered on 04/15/17 09:52; Admin Dose 30 MG; Start 04/14/17 at 21:00 Lansoprazole (Prevacid) 30 mg DAILY@06 GTB Last administered on 04/15/17 09:51 ; Admin Dose 30 MG; Start 04/15/17 at 09:[address] Apr 15, 2017 11:45
--- NOTE | 2017-04-15 15:47 | CONS ---
Date/Time of Note Date/Time of Note DATE: 04/15/17 TIME: 15:40 Assessment/Plan Assessment/Plan Chief Complaint/Hosp Course assessment/impression - sepsis on admission, probably due to recurrent tracheo-bronchitis/HCAP - tracheo-bronchitis/HCAP due to pseudomonas - diarrhea prior to admission, negative for C diff colitis - colonization of the urinary tract due to fco - b/l shoulder pain - quadriplegia after complication of C spinal surgery: cord compression requiring an emergent laminectomy and fusion - vent dependent via tracheostomy - G tube dependent - normocytic anemia - abdominal distention and excess gas from IV vancomycin but tolerates per GT vancomycin recommendations: - continue ceftazidime (04/12/2017-) for pseudomonas. Pt took meropenem 2016-04/12/2017 Management d/w Pt, his and son, JOSE LUIS Lewis and Dr. Huynh Problems: Consultation Date/Type/Reason Admit Date/Time Apr 10, 2017 at 08:08 Initial Consult Date 04/10/17 Type of Consultation: Infectious Disease Referring Provider: CHONG SORIANO MD 24 HR Interval Summary Free Text/Dictation CT did not show e/o septic arthritis. Denies pain or SOB. Had formed BM today and reports "I could feel it". Hopeful and anxious to go to [facility] for rehab. Exam/Review of Systems Vital Signs Vitals Vital Signs Date Time Temp Pulse Resp B/P Pulse Ox O2 Delivery O2 Flow Rate FiO2 04/15/17 09:29 5.0 28 04/15/17 09:28 75 22 98 Aerosol 04/15/17 07:17 97.5 130/63 Intake and Output 04/14/17 04/14/17 04/15/17 15:00 23:00 07:00 Intake Total 1400 ml 1085 ml 1920 ml Output Total 2400 ml 1450 ml Balance 1400 ml -1315 ml 470 ml Exam Constitutional: alert, oriented, well developed Psych: nl mood/affect, no complaints Head: atraumatic, normocephalic Eyes: nl conjunctiva, nl lids, wearing glasses ENMT: nl external ears & nose, nl nasal mucosa & septum Neck: other (trach) Respiratory: clear to auscultation, normal air movement Cardiovascular: nl pulses, regular rate and rhythm Gastrointestinal: non-tender, other (GT), soft Genitourinary - Male: other (FC) Musculoskeletal: muscle weakness Extremities: No edema Neurological: other (quadriplegia), speech clear Results Result Diagram: 04/14/17 0450 04/14/17 0450 Medications Medications Current Medications Acetaminophen/ Hydrocodone Bitart (Lortab Liq) 10 ml Q4H PRN GTB PAIN LEVEL 4- 7 Last administered on 04/15/17 09:53; Admin Dose 10 ML; Start 04/09/17 at 20: 30 Citalopram Hydrobromide (Celexa) 20 mg DAILY GTB Last administered on 09:52; Admin Dose 20 MG; Start 04/10/17 at 09:00 Multivitamins Therapeutic (Theragran) 1 tab DAILY GTB Last administered on 04/15 09:52; Admin Dose 1 TAB; Start 04/10/17 at 09:00 Tramadol HCl (Ultram) 50 mg Q6H PRN GTB PAIN Last administered on 04/15/17 14: 31; Admin Dose 50 MG; Start 04/09/17 at 23:30 Acetaminophen 500 mg 500 mg Q6H PRN PO PAIN AND OR ELEVATED TEMP; Start at 23:30 Potassium Chloride/Sodium Chloride (NS-KCl 20 Meq) 1,000 ml @ 40 mls/hr Q24H IV Last administered on 04/15/17 05:41; Admin Dose 40 MLS/HR; Start 04/09/17 at 23:30 Acetaminophen/ Hydrocodone Bitart (Lortab Liq) 5 ml Q4H PRN PO PAIN; Start at 23:30 Enoxaparin Sodium (Lovenox) 40 mg DAILY SC Last administered on 04/15/17 10:20 ; Admin Dose 40 MG; Start 04/10/17 at 09:00 Lactobacillus Acidophilus/ Rhamnosus (Culturelle) 1 cap TID PO Last administered on 04/15/17 14:06; Admin Dose 1 CAP; Start 04/10/17 at 09:00 Alprazolam (Xanax) 0.5 mg Q6H PRN GTB anxiety Last administered on 04/15/17 01 :38; Admin Dose 0.5 MG; Start 04/10/17 at 14:30 Zolpidem Tartrate (Ambien) 5 mg HS PRN PO INSOMNIA Last administered on 21:02; Admin Dose 5 MG; Start 04/10/17 at 20:00 Atorvastatin Calcium (Lipitor) 20 mg HS GTB Last administered on 04/14/17 20: 56; Admin Dose 20 MG; Start 04/10/17 at 21:00 Bisacodyl (Dulcolax Supp) 10 mg Q48H PRN [place] CONSTIPATION; Start 04/10/17 at 20: 00 Valsartan (Diovan) 80 mg BID PO Last administered on 04/15/17 09:51; Admin Dose 80 MG; Start 04/10/17 at 21:00 Metoprolol Tartrate (Lopressor) 50 mg BID GTB Last administered on 04/15/17 09 :52; Admin Dose 50 MG; Start 04/10/17 at 21:00 Simethicone (Mylicon) 80 mg Q6H PRN GTB GASTROINTESTINAL UPSET Last administered on 04/14/17 05:56; Admin Dose 80 MG; Start 04/10/17 at 20:00 Nystatin 1 applic 1 applic BID TOP Last administered on 04/15/17 09:53; Admin Dose 1 APPLIC; Start 04/11/17 at 21:00 Ceftazidime/ Dextrose (Fortaz 2gm/50 ml (Pmx)) 50 ml @ 100 mls/hr Q8 IVPB Last administered on 04/15/17 14:06; Admin Dose 100 MLS/HR; Start 04/12/17 at 14:00 Diltiazem HCl (Cardizem) 30 mg BID GTB Last administered on 04/15/17 09:52; Admin Dose 30 MG; Start 04/14/17 at 21:00 Lansoprazole (Prevacid) 30 mg DAILY@06 GTB Last administered on 04/15/17 09:51 ; Admin Dose 30 MG; Start 04/15/17 at 09:[address] of the Right shoulder 04/14/2017: 1. No acute osseous abnormality, cortical destruction or soft tissue gas to suggest osteomyelitis. 2. No evidence for a large glenohumeral joint effusion, please note that septic arthritis cannot be excluded on the basis of CT alone. 3. Rotator cuff muscle atrophy suggesting chronic rotator cuff pathology. This may be better assessed on MRI, as warranted. 4. Partially assessed bilateral pleural effusions. CT cervical spine 04/14/2017: 1. No evidence of epidural, retropharyngeal, or paraspinal abscess or abnormal fluid collection. Evaluation of the central canal and postcontrast imaging is limited and if there is high clinical concern for epidural abscess, MRI is recommended as follow up. 2. Intact anterior cervical discectomy and fusion from C4-C5 the through C5-C6. 3. Multilevel degenerative disk and spondylitic changes resulting in multilevel central canal and foraminal stenosis from C2-C3 through C7-T1 as detailed above. 4. Large left pleural effusion. Tracheostomy tube noted in place. CT of the Left shoulder 04/14/2017: 1. No acute osseous abnormality, cortical destruction or soft tissue gas to suggest osteomyelitis. 2. No evidence for a large glenohumeral joint effusion, please note that septic arthritis cannot be excluded on the basis of CT alone. 3. Rotator cuff muscle atrophy suggesting chronic rotator cuff pathology. This may be better assessed on MRI, as warranted. 4. Partially assessed bilateral pleural effusions. 5. Nonspecific left sternoclavicular joint effusion. CXR 04/14/2017: 1. Mild cardiomegaly with increased left pleural effusion and left base opacity. Superimposed pneumonia cannot be excluded. ALEX DENSON NP Apr 15, 2017 15:47
[2017-04-15 20:24] VITALS: BP 101/55; RESP 18
[2017-04-15] MEDS: ATORVASTATIN 20 MG TAB GTB SCH (21:15)
[2017-04-16] MEDS: ALBUTEROL/IPRATROPIUM (NEB) 3 ML AMP NEB SCH ×4 (01:46→19:26)
[2017-04-16] MEDS: ACETAMINOPHEN 325/HYDROC 7.5 15 ML CUP GTB PRN ×4 (03:28→22:25)
[2017-04-16] MEDS: traMADol 50 MG TAB GTB PRN ×2 (04:50→12:45)
[2017-04-16] MEDS: NS + KCL 20 MEQ 1,000 ML IV SCH ×2 (05:19→10:10)
[2017-04-16] MEDS: CEFTAZIDIME 2GM/50 ML (PMX) 50 ML IVPB SCH ×3 (05:19→22:25)
[2017-04-16] MEDS: LANSOPRAZOLE 30 MG CAP GTB SCH (05:19)
[2017-04-16 07:52] VITALS: BP 158/70; RESP 18
[2017-04-16] MEDS: MULTIVITAMINS THERAPEUTIC TAB GTB SCH (09:26)
[2017-04-16] MEDS: CITALOPRAM 20 MG TAB GTB SCH (09:26)
[2017-04-16] MEDS: LACTOBACILLUS RHAMNOSUS CAP PO SCH ×3 (09:27→20:37)
[2017-04-16] MEDS: METOPROLOL 50 MG TAB GTB SCH ×2 (09:29→20:38)
[2017-04-16] MEDS: DILTIAZEM 30 MG TAB GTB SCH ×2 (09:29→20:38)
[2017-04-16] MEDS: VALSARTAN 80 MG TAB PO SCH ×2 (09:30→20:37)
[2017-04-16] MEDS: ENOXAPARIN 40 MG/0.4 ML SYG SC SCH (09:48)
[2017-04-16] MEDS: NYSTATIN 30 GM POWDER BTL TOP SCH ×2 (09:49→20:37)
--- NOTE | 2017-04-16 11:12 | CONS ---
Date/Time of Note Date/Time of Note DATE: 04/16/17 TIME: 11:09 Assessment/Plan Assessment/Plan Chief Complaint/Hosp Course assessment/impression - sepsis on admission, probably due to recurrent tracheo-bronchitis/HCAP - tracheo-bronchitis/HCAP due to pseudomonas - diarrhea prior to admission, negative for C diff colitis - colonization of the urinary tract due to fco - b/l shoulder pain - quadriplegia after complication of C spinal surgery: cord compression requiring an emergent laminectomy and fusion - vent dependent via tracheostomy - G tube dependent - normocytic anemia - abdominal distention and excess gas from IV vancomycin but tolerates per GT vancomycin recommendations: - continue ceftazidime (04/12/2017-) for pseudomonas. Pt took meropenem 2016-04/12/2017 Management d/w Patient and Dr. Huynh Problems: Consultation Date/Type/Reason Admit Date/Time Apr 10, 2017 at 08:08 Initial Consult Date 04/10/17 Type of Consultation: Infectious Disease Referring Provider: CHONG SORIANO MD 24 HR Interval Summary Free Text/Dictation No acute issues. Denies pain, SOB, n/v/d, dysuria. Anxious to go to [facility] for rehab. Exam/Review of Systems Vital Signs Vitals Vital Signs Date Time Temp Pulse Resp B/P Pulse Ox O2 Delivery O2 Flow Rate FiO2 04/16/17 08:12 71 18 98 Aerosol 28 T Tube 04/16/17 07:52 98.1 158/70 04/16/17 01:49 5.0 Intake and Output 04/15/17 04/15/17 04/16/17 15:00 23:00 07:00 Intake Total 520 ml 2030 ml Output Total 1900 ml Balance -1380 ml 2030 ml Exam Constitutional: alert, oriented, well developed Psych: nl mood/affect, no complaints Head: atraumatic, normocephalic Eyes: nl conjunctiva, nl lids, wearing glasses ENMT: nl external ears & nose, nl nasal mucosa & septum Neck: other (trach) Respiratory: clear to auscultation, normal air movement Cardiovascular: nl pulses, regular rate and rhythm Gastrointestinal: non-tender, other (GT), soft Genitourinary - Male: other (Avila catheter intact) Musculoskeletal: muscle weakness Extremities: No edema Neurological: other (quadriplegia), speech clear Results Result Diagram: 04/14/17 0450 04/14/17 0450 Medications Medications Current Medications Acetaminophen/ Hydrocodone Bitart (Lortab Liq) 10 ml Q4H PRN GTB PAIN LEVEL 4- 7 Last administered on 04/16/17 09:44; Admin Dose 10 ML; Start 04/09/17 at 20: 30 Citalopram Hydrobromide (Celexa) 20 mg DAILY GTB Last administered on 09:26; Admin Dose 20 MG; Start 04/10/17 at 09:00 Multivitamins Therapeutic (Theragran) 1 tab DAILY GTB Last administered on 04/16 09:26; Admin Dose 1 TAB; Start 04/10/17 at 09:00 Tramadol HCl (Ultram) 50 mg Q6H PRN GTB PAIN Last administered on 04/16/17 04: 50; Admin Dose 50 MG; Start 04/09/17 at 23:30 Acetaminophen 500 mg 500 mg Q6H PRN PO PAIN AND OR ELEVATED TEMP; Start at 23:30 Potassium Chloride/Sodium Chloride (NS-KCl 20 Meq) 1,000 ml @ 40 mls/hr Q24H IV Last administered on 04/16/17 05:19; Admin Dose 40 MLS/HR; Start 04/09/17 at 23:30 Acetaminophen/ Hydrocodone Bitart (Lortab Liq) 5 ml Q4H PRN PO PAIN; Start at 23:30 Enoxaparin Sodium (Lovenox) 40 mg DAILY SC Last administered on 04/16/17 09:48 ; Admin Dose 40 MG; Start 04/10/17 at 09:00 Lactobacillus Acidophilus/ Rhamnosus (Culturelle) 1 cap TID PO Last administered on 04/16/17 09:27; Admin Dose 1 CAP; Start 04/10/17 at 09:00 Alprazolam (Xanax) 0.5 mg Q6H PRN GTB anxiety Last administered on 04/15/17 23 :11; Admin Dose 0.5 MG; Start 04/10/17 at 14:30 Zolpidem Tartrate (Ambien) 5 mg HS PRN PO INSOMNIA Last administered on 21:02; Admin Dose 5 MG; Start 04/10/17 at 20:00 Atorvastatin Calcium (Lipitor) 20 mg HS GTB Last administered on 04/15/17 21: 15; Admin Dose 20 MG; Start 04/10/17 at 21:00 Bisacodyl (Dulcolax Supp) 10 mg Q48H PRN [place] CONSTIPATION; Start 04/10/17 at 20: 00 Valsartan (Diovan) 80 mg BID PO Last administered on 04/16/17 09:30; Admin Dose 80 MG; Start 04/10/17 at 21:00 Metoprolol Tartrate (Lopressor) 50 mg BID GTB Last administered on 04/16/17 09 :29; Admin Dose 50 MG; Start 04/10/17 at 21:00 Simethicone (Mylicon) 80 mg Q6H PRN GTB GASTROINTESTINAL UPSET Last administered on 04/15/17 21:15; Admin Dose 80 MG; Start 04/10/17 at 20:00 Nystatin 1 applic 1 applic BID TOP Last administered on 04/16/17 09:49; Admin Dose 1 APPLIC; Start 04/11/17 at 21:00 Ceftazidime/ Dextrose (Fortaz 2gm/50 ml (Pmx)) 50 ml @ 100 mls/hr Q8 IVPB Last administered on 04/16/17 05:19; Admin Dose 100 MLS/HR; Start 04/12/17 at 14:00 Diltiazem HCl (Cardizem) 30 mg BID GTB Last administered on 04/16/17 09:29; Admin Dose 30 MG; Start 04/14/17 at 21:00 Lansoprazole (Prevacid) 30 mg DAILY@06 GTB Last administered on 04/16/17 05:19 ; Admin Dose 30 MG; Start 04/15/17 at 09:30 ALEX DENSON NP Apr 16, 2017 11:11
--- NOTE | 2017-04-16 11:40 | PN ---
Date/Time of Note Date/Time of Note DATE: 04/16/17 TIME: 11:40 Assessment/Plan VTE Prophylaxis VTE Prophylaxis Intervention: other Lines/Catheters IV Catheter Type (from Nrsg): PICC Line Central line still needed: Yes Urinary Cath still in place: Yes Reason Cath still needed: skin wounds contaminated by urine Assessment/Plan Chief Complaint/Hosp Course 1. Bilateral shoulder pain. The patient was seen by Dr. Fuentes and has recommended a CT of C-spine as well as bilateral shoulders with contrast. 2. Pseudomonas tracheobronchitis. Continue Fortaz. 3. Respiratory failure. Trach in place. Continue breathing treatment. 4. Hypertension. Blood pressure well controlled with Cardizem, and metoprolol. 6 Anxiety, stable with Xanax and Celexa. Problems: Subjective 24 Hr Interval Summary Free Text/Dictation Patient complain of pain in shoulders Exam/Review of Systems Vital Signs Vitals Vital Signs Date Time Temp Pulse Resp B/P Pulse Ox O2 Delivery O2 Flow Rate FiO2 04/16/17 08:12 71 18 98 Aerosol 28 T Tube 04/16/17 07:52 98.1 158/70 04/16/17 01:49 5.0 Intake and Output 04/15/17 04/15/17 04/16/17 15:00 23:00 07:00 Intake Total 520 ml 2030 ml Output Total 1900 ml Balance -1380 ml 2030 ml Exam Constitutional: well developed Head: atraumatic, normocephalic Neck: supple Respiratory: diminished breath sounds Cardiovascular: regular rate and rhythm Gastrointestinal: non-tender, soft Extremities: normal pulses Results Result Diagram: 04/14/17 04504/14/17 045 Medications Medications Current Medications Acetaminophen/ Hydrocodone Bitart (Lortab Liq) 10 ml Q4H PRN GTB PAIN LEVEL 4- 7 Last administered on 04/16/17 09:44; Admin Dose 10 ML; Start 04/09/17 at 20: 30 Citalopram Hydrobromide (Celexa) 20 mg DAILY GTB Last administered on 09:26; Admin Dose 20 MG; Start 04/10/17 at 09:00 Multivitamins Therapeutic (Theragran) 1 tab DAILY GTB Last administered on 04/16 09:26; Admin Dose 1 TAB; Start 04/10/17 at 09:00 Tramadol HCl (Ultram) 50 mg Q6H PRN GTB PAIN Last administered on 04/16/17 04: 50; Admin Dose 50 MG; Start 04/09/17 at 23:30 Acetaminophen 500 mg 500 mg Q6H PRN PO PAIN AND OR ELEVATED TEMP; Start at 23:30 Potassium Chloride/Sodium Chloride (NS-KCl 20 Meq) 1,000 ml @ 40 mls/hr Q24H IV Last administered on 04/16/17 05:19; Admin Dose 40 MLS/HR; Start 04/09/17 at 23:30 Acetaminophen/ Hydrocodone Bitart (Lortab Liq) 5 ml Q4H PRN PO PAIN; Start at 23:30 Enoxaparin Sodium (Lovenox) 40 mg DAILY SC Last administered on 04/16/17 09:48 ; Admin Dose 40 MG; Start 04/10/17 at 09:00 Lactobacillus Acidophilus/ Rhamnosus (Culturelle) 1 cap TID PO Last administered on 04/16/17 09:27; Admin Dose 1 CAP; Start 04/10/17 at 09:00 Alprazolam (Xanax) 0.5 mg Q6H PRN GTB anxiety Last administered on 04/15/17 23 :11; Admin Dose 0.5 MG; Start 04/10/17 at 14:30 Zolpidem Tartrate (Ambien) 5 mg HS PRN PO INSOMNIA Last administered on 21:02; Admin Dose 5 MG; Start 04/10/17 at 20:00 Atorvastatin Calcium (Lipitor) 20 mg HS GTB Last administered on 04/15/17 21: 15; Admin Dose 20 MG; Start 04/10/17 at 21:00 Bisacodyl (Dulcolax Supp) 10 mg Q48H PRN [place] CONSTIPATION; Start 04/10/17 at 20: 00 Valsartan (Diovan) 80 mg BID PO Last administered on 04/16/17 09:30; Admin Dose 80 MG; Start 04/10/17 at 21:00 Metoprolol Tartrate (Lopressor) 50 mg BID GTB Last administered on 04/16/17 09 :29; Admin Dose 50 MG; Start 04/10/17 at 21:00 Simethicone (Mylicon) 80 mg Q6H PRN GTB GASTROINTESTINAL UPSET Last administered on 04/15/17 21:15; Admin Dose 80 MG; Start 04/10/17 at 20:00 Nystatin 1 applic 1 applic BID TOP Last administered on 04/16/17 09:49; Admin Dose 1 APPLIC; Start 04/11/17 at 21:00 Ceftazidime/ Dextrose (Fortaz 2gm/50 ml (Pmx)) 50 ml @ 100 mls/hr Q8 IVPB Last administered on 04/16/17 05:19; Admin Dose 100 MLS/HR; Start 04/12/17 at 14:00 Diltiazem HCl (Cardizem) 30 mg BID GTB Last administered on 04/16/17 09:29; Admin Dose 30 MG; Start 04/14/17 at 21:00 Lansoprazole (Prevacid) 30 mg DAILY@06 GTB Last administered on 04/16/17 05:19 ; Admin Dose 30 MG; Start 04/15/17 at 09:[address] Apr 16, 2017 11:40
[2017-04-16] MEDS: ALPRAZOLAM 0.25 MG TAB GTB PRN ×2 (13:55→22:26)
--- NOTE | 2017-04-16 15:38 | PN ---
DATE: 04/16/2017 SUBJECTIVE: Chart reviewed. No significant events noted. The patient continues to complain of kayli n in the shoulder area. Currently on 28% FIO2 via T-tube pain and tracheostomy, saturating 98%. OBJECTIVE: VITAL SIGNS: Blood pressure 158/70, pulse 71, respirations 18, temperature 98.1. HEENT: Pupils are equal and reactive to light. NECK: Supple, no JVD noted, no cervical adenopathy, no carotid bruits heard. Tracheostomy site toni ar. LUNGS: Fair breath sounds bilaterally. CARDIOVASCULAR: S1, S2 normal. ABDOMEN: Soft, nontender. G-tube in place. Bowel sounds present. EXTREMITIES: No clubbing or cyanosis noted. IMPRESSION: 1. Chronic respiratory failure, tracheostomy dependent. 2. Left lower lobe pneumonia, pseudomonas. 3. History of quadriplegia. 4. Shoulder pain. IMPRESSION: 1. Continue antibiotics per ID. 2. Tracheostomy care. 3. Oxygen. 4. CT scan of the spine pending. Dictated By: NGUYEN YU MD, MA/MARGARET Conf#: [id number] DID#: [id number]
[2017-04-16 20:00] VITALS: BP 97/51; RESP 18
[2017-04-16] MEDS: ATORVASTATIN 20 MG TAB GTB SCH (20:37)
[2017-04-17] MEDS: traMADol 50 MG TAB GTB PRN ×3 (01:32→23:42)
[2017-04-17] MEDS: ALBUTEROL/IPRATROPIUM (NEB) 3 ML AMP NEB SCH ×4 (02:11→21:38)
[2017-04-17] MEDS: ACETAMINOPHEN 325/HYDROC 7.5 15 ML CUP GTB PRN ×4 (02:33→20:03)
[2017-04-17] MEDS: NS + KCL 20 MEQ 1,000 ML IV SCH ×2 (04:43→06:33)
[2017-04-17] MEDS: LANSOPRAZOLE 30 MG CAP GTB SCH (06:33)
[2017-04-17] MEDS: CEFTAZIDIME 2GM/50 ML (PMX) 50 ML IVPB SCH ×3 (06:33→22:23)
[2017-04-17 08:13] VITALS: BP 118/57; RESP 18
[2017-04-17] MEDS: LACTOBACILLUS RHAMNOSUS CAP PO SCH ×3 (10:16→20:07)
[2017-04-17] MEDS: CITALOPRAM 20 MG TAB GTB SCH (10:17)
[2017-04-17] MEDS: DILTIAZEM 30 MG TAB GTB SCH ×2 (10:17→20:04)
[2017-04-17] MEDS: VALSARTAN 80 MG TAB PO SCH ×2 (10:17→20:06)
[2017-04-17] MEDS: MULTIVITAMINS THERAPEUTIC TAB GTB SCH (10:17)
[2017-04-17] MEDS: METOPROLOL 50 MG TAB GTB SCH ×2 (10:17→20:06)
[2017-04-17] MEDS: NYSTATIN 30 GM POWDER BTL TOP SCH ×2 (10:18→20:07)
[2017-04-17] MEDS: ENOXAPARIN 40 MG/0.4 ML SYG SC SCH (11:13)
--- NOTE | 2017-04-17 12:10 | CONS ---
Date/Time of Note Date/Time of Note DATE: 04/17/17 TIME: 11:55 Assessment/Plan Assessment/Plan Chief Complaint/Hosp Course assessment/impression - sepsis on admission, probably due to recurrent tracheo-bronchitis/HCAP - tracheo-bronchitis/HCAP due to pseudomonas - diarrhea prior to admission, negative for C diff colitis - colonization of the urinary tract due to fco - b/l shoulder pain - quadriplegia after complication of C spinal surgery: cord compression requiring an emergent laminectomy and fusion - vent dependent via tracheostomy - G tube dependent - abdominal distention and excess gas from IV vancomycin but tolerates per GT vancomycin recommendations - CBC and BMP ordered for today - continue ceftazidime (04/12/2017-) for pseudomonas, plan for 7-10 days. (Pt took meropenem 04/10/2017-04/12/2017) management d/w Pt and a speech therapist Problems: Consultation Date/Type/Reason Admit Date/Time Apr 10, 2017 at 08:08 Type of Consultation: Infectious Disease Referring Provider: CHONG SORIANO MD 24 HR Interval Summary Constitutional: other (painful UEs and neck) Detailed Summary Eyes: no complaints ENT: no complaints Respiratory: no complaints Cardiovascular: no complaints Gastrointestinal: no complaints Genitourinary: other (FC) Musculoskeletal: bone/joint pain (b/l UE), neck pain Neurologic: other (quadriplegic) Exam/Review of Systems Vital Signs Vitals Vital Signs Date Time Temp Pulse Resp B/P Pulse Ox O2 Delivery O2 Flow Rate FiO2 04/17/17 08:13 97.3 78 18 118/57 94 04/17/17 07:55 Aerosol 04/17/17 02:12 28 04/17/17 02:01 5.0 Intake and Output 04/16/17 04/16/17 04/17/17 15:00 23:00 07:00 Intake Total 450 ml 50 ml 1740 ml Output Total 2000 ml 1400 ml Balance 450 ml -1950 ml 340 ml Exam Constitutional: alert, frail Psych: nl mood/affect, no complaints Head: normocephalic Eyes: nl conjunctiva, nl lids ENMT: nl external ears & nose, nl nasal mucosa & septum Neck: other (trach) Respiratory: crackles/rales Cardiovascular: nl pulses, regular rate and rhythm Gastrointestinal: non-tender, other (GT), soft Musculoskeletal: muscle weakness (b/l UE) Extremities: No edema Neurological: other (quadriplegic) Results Result Diagram: 04/14/17 0450 04/14/17 0450 Medications Medications Current Medications Acetaminophen/ Hydrocodone Bitart (Lortab Liq) 10 ml Q4H PRN GTB PAIN LEVEL 4- 7 Last administered on 04/17/17 06:33; Admin Dose 10 ML; Start 04/09/17 at 20: 30 Citalopram Hydrobromide (Celexa) 20 mg DAILY GTB Last administered on 10:17; Admin Dose 20 MG; Start 04/10/17 at 09:00 Multivitamins Therapeutic (Theragran) 1 tab DAILY GTB Last administered on 04/17 10:17; Admin Dose 1 TAB; Start 04/10/17 at 09:00 Tramadol HCl (Ultram) 50 mg Q6H PRN GTB PAIN Last administered on 04/17/17 10: 16; Admin Dose 50 MG; Start 04/09/17 at 23:30 Acetaminophen 500 mg 500 mg Q6H PRN PO PAIN AND OR ELEVATED TEMP; Start at 23:30 Potassium Chloride/Sodium Chloride (NS-KCl 20 Meq) 1,000 ml @ 40 mls/hr Q24H IV Last administered on 04/17/17 06:33; Admin Dose 40 MLS/HR; Start 04/09/17 at 23:30 Acetaminophen/ Hydrocodone Bitart (Lortab Liq) 5 ml Q4H PRN PO PAIN; Start at 23:30 Enoxaparin Sodium (Lovenox) 40 mg DAILY SC Last administered on 04/17/17 11:13 ; Admin Dose 40 MG; Start 04/10/17 at 09:00 Lactobacillus Acidophilus/ Rhamnosus (Culturelle) 1 cap TID PO Last administered on 04/17/17 10:16; Admin Dose 1 CAP; Start 04/10/17 at 09:00 Alprazolam (Xanax) 0.5 mg Q6H PRN GTB anxiety Last administered on 04/16/17 22 :26; Admin Dose 0.5 MG; Start 04/10/17 at 14:30 Zolpidem Tartrate (Ambien) 5 mg HS PRN PO INSOMNIA Last administered on 21:02; Admin Dose 5 MG; Start 04/10/17 at 20:00 Atorvastatin Calcium (Lipitor) 20 mg HS GTB Last administered on 04/16/17 20: 37; Admin Dose 20 MG; Start 04/10/17 at 21:00 Bisacodyl (Dulcolax Supp) 10 mg Q48H PRN [place] CONSTIPATION; Start 04/10/17 at 20: 00 Valsartan (Diovan) 80 mg BID PO Last administered on 04/17/17 10:17; Admin Dose 80 MG; Start 04/10/17 at 21:00 Metoprolol Tartrate (Lopressor) 50 mg BID GTB Last administered on 04/17/17 10 :17; Admin Dose 50 MG; Start 04/10/17 at 21:00 Simethicone (Mylicon) 80 mg Q6H PRN GTB GASTROINTESTINAL UPSET Last administered on 04/15/17 21:15; Admin Dose 80 MG; Start 04/10/17 at 20:00 Nystatin 1 applic 1 applic BID TOP Last administered on 04/17/17 10:18; Admin Dose 1 APPLIC; Start 04/11/17 at 21:00 Ceftazidime/ Dextrose (Fortaz 2gm/50 ml (Pmx)) 50 ml @ 100 mls/hr Q8 IVPB Last administered on 04/17/17 06:33; Admin Dose 100 MLS/HR; Start 04/12/17 at 14:00 Diltiazem HCl (Cardizem) 30 mg BID GTB Last administered on 04/17/17 10:17; Admin Dose 30 MG; Start 04/14/17 at 21:00 Lansoprazole (Prevacid) 30 mg DAILY@06 GTB Last administered on 04/17/17 06:33 ; Admin Dose 30 MG; Start 04/15/17 at 09:30 MYLENE ALVARES M.D. Apr 17, 2017 12:10
[2017-04-17 14:15] LABS: ADD SCAN DIFF NO
[2017-04-17 14:19] LABS: BASOPHILS % 0.4 % (0.0-2.0); EOSINOPHILS # 0.4 10^3/ul (0.0-0.5); HEMOGLOBIN 10.4 g/dl (14.0-18.0); LYMPHOCYTES # 1.2 10^3/ul (0.8-2.9); LYMPHOCYTES % 12.1 % (15.0-51.0); MEAN CORPUSCULAR HEMOGLOBIN 31.4 pg (29.0-33.0); MEAN CORPUSCULAR HGB CONC 33.5 g/dl (32.0-37.0); MEAN CORPUSCULAR VOLUME 93.7 fl (82.0-101.0); MEAN PLATELET VOLUME 11.6 fl (7.4-10.4); MONOCYTE # 0.8 10^3/ul (0.3-0.9); MONOCYTES % 7.9 % (0.0-11.0); NEUTROPHIL # 7.2 10^3/ul (1.6-7.5); PLATELET COUNT 273 10^3/UL (140-415); RED BLOOD COUNT 3.31 10^6/ul (4.70-6.10); RED CELL DISTRIBUTION WIDTH 14.5 % (11.5-14.5); WHITE BLOOD COUNT 9.6 10^3/ul (4.8-10.8)
[2017-04-17 14:35] LABS: CALCIUM 9.4 mg/dl (8.4-10.2); CREATININE 0.4 mg/dl (0.61-1.24); POTASSIUM 4.5 mmol/L (3.5-5.1)
--- NOTE | 2017-04-17 15:24 | RADRPT ---
PROCEDURE: Video-fluoroscopy swallowing study. CLINICAL INDICATION: Dysphagia. TECHNIQUE: Fluoroscopic guided video swallowing study was done in conjunction with the speech ther apist. The study was confined to the oral, pharyngeal, and cervical phases of the swallowing mechani sm. 2.5 minutes of fluoroscopy time was used. 27 series of images were obtained. COMPARISON: No prior study is available for comparison. FINDINGS: There is no evidence of aspiration during the exam. IMPRESSION: 1. No aspiration during swallowing. 2. Please refer to the speech therapist's recommendations for future feedings. RPTAT: QQ .Mani Rollins MD, MD Date Time Electronically viewed and signed by .Mani Rollins MD, on 04/17/2017 15:23 .R/
[2017-04-17] MEDS: ALPRAZOLAM 0.25 MG TAB GTB PRN ×2 (16:55→20:05)
[2017-04-17 20:00] VITALS: BP 108/55; RESP 20
[2017-04-17] MEDS: ATORVASTATIN 20 MG TAB GTB SCH (20:05)
[2017-04-17] MEDS: ZOLPIDEM 5 MG TAB PO PRN (23:43)
[2017-04-18] MEDS: ACETAMINOPHEN 325/HYDROC 7.5 15 ML CUP GTB PRN ×5 (00:40→21:20)
--- NOTE | 2017-04-18 02:06 | PN ---
DATE: 04/17/2017 SUBJECTIVE: Follow up on acute tracheobronchitis/HCAP recent UTI, C-spine quadriplegia, hypertensio n. The patient's shoulder pain has improved. The patient had a CT of the bilateral shoulders, whic h revealed chronic rotator cuff pathology. Patient's also had a CT of the neck, which did not revea l any epidural, retropharyngeal, or paraspinal abscess or abdominal fluid collection. The patient i s breathing comfortably. Patient passed a swallow test and will be started on soft ground diet with nectar thick liquids as recommended by speech therapist. Patient did not have any fever or chills. No reported shortness of breath. Patient remains on trach collar with PMV valve. PHYSICAL EXAMINATION: GENERAL: The patient is conscious, awake, alert. VITAL SIGNS: Temperature 97.3, pulse 79, respirations 17, blood pressure 118/57, O2 saturation 95% on FIO2 of 28%. HEENT: Conjunctivae and lids are normal. Oropharynx clear. NECK: Tracheostomy in place. No mass. CHEST: Diminished air entry at bases. CARDIOVASCULAR: S1, S2 normal. No murmur. ABDOMEN: Soft, nondistended, and nontender. G-tube in place. EXTREMITIES: No leg edema. NEUROLOGIC: The patient is awake, alert, fairly oriented with quadriplegia. LABORATORY DATA: WBC 9.6, hemoglobin 10.4, platelet 273. Chemistry: Sodium 134, potassium 4.5, BU N 10, creatinine 0.4, glucose 84. IMPRESSION: 1. Acute tracheobronchitis/healthcare-associated pneumonia due to pseudomonas. Continue IV Fortaz. 2. Cervical spine cardioplegia. OT evaluation will be requested. 3. Hypertension. The patient's blood pressure is well controlled with diltiazem, Diovan, and metop rolol. 4. Dyslipidemia. Continue Lipitor. 5. Cancer of prostate. Patient is status post robotic prostatectomy back in October 2009; the collette ent since has had regular checkups with his urologist and has remained disease-free and with undetec table PSA. Plan of care discussed with the patient's . DISPOSITION: The patient is pending acceptance at [facility]. Dictated By: CHONG DALLAS/MARGARET Conf#: [id number] DID#: [id number]
[2017-04-18] MEDS: ALBUTEROL/IPRATROPIUM (NEB) 3 ML AMP NEB SCH ×4 (02:43→19:37)
[2017-04-18] MEDS: CEFTAZIDIME 2GM/50 ML (PMX) 50 ML IVPB SCH ×3 (05:10→21:26)
[2017-04-18] MEDS: LANSOPRAZOLE 30 MG CAP GTB SCH (05:10)
[2017-04-18 08:13] VITALS: BP 142/65; RESP 20
[2017-04-18] MEDS: METOPROLOL 50 MG TAB GTB SCH ×2 (09:00→21:18)
[2017-04-18] MEDS: LACTOBACILLUS RHAMNOSUS CAP PO SCH ×3 (09:35→21:18)
[2017-04-18] MEDS: ALPRAZOLAM 0.25 MG TAB GTB PRN ×2 (09:35→21:18)
[2017-04-18] MEDS: CITALOPRAM 20 MG TAB GTB SCH (09:36)
[2017-04-18] MEDS: MULTIVITAMINS THERAPEUTIC TAB GTB SCH (09:36)
[2017-04-18] MEDS: DILTIAZEM 30 MG TAB GTB SCH ×2 (09:36→21:18)
[2017-04-18] MEDS: VALSARTAN 80 MG TAB PO SCH ×2 (09:36→21:17)
[2017-04-18] MEDS: NYSTATIN 30 GM POWDER BTL TOP SCH ×2 (09:37→21:27)
[2017-04-18] MEDS: ENOXAPARIN 40 MG/0.4 ML SYG SC SCH (09:41)
--- NOTE | 2017-04-18 14:07 | CONS ---
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 (Pt took meropenem 04/10/2017-04/12/2017) Management d/w patient, RN Kary, and Dr. Huynh Problems: Consultation Date/Type/Reason Admit Date/Time Apr 10, 2017 at 08:08 Initial Consult Date 04/10/17 Type of Consultation: Infectious Disease Referring Provider: CHONG SORIANO MD 24 HR Interval Summary Free Text/Dictation WBC normalized. Denies CP or SOB. Has chronic bilateral shoulder pain which is controlled on current pain regimen. Anxious to go to [facility] for rehab. Exam/Review of Systems Vital Signs Vitals Vital Signs Date Time Temp Pulse Resp B/P Pulse Ox O2 Delivery O2 Flow Rate FiO2 04/18/17 13:42 77 16 96 Aerosol 5.0 28 04/18/17 08:13 98.0 142/65 Intake and Output 04/17/17 04/17/17 04/18/17 15:00 23:00 07:00 Intake Total 50 ml 500 ml 2020 ml Output Total 2250 ml 1000 ml Balance 50 ml -1750 ml 1020 ml Exam Constitutional: alert, oriented, well developed, getting respiratory therapy Psych: nl mood/affect, no complaints Head: atraumatic, normocephalic Eyes: nl conjunctiva, nl lids, wearing glasses ENMT: nl external ears & nose, nl nasal mucosa & septum Neck: other (trach) Respiratory: few coarse breath sounds, normal air movement Cardiovascular: nl pulses, regular rate and rhythm Gastrointestinal: non-tender, other (GT), soft Genitourinary - Male: other (Avila catheter intact) Musculoskeletal: muscle weakness Extremities: No edema Neurological: other (quadriplegia), speech soft and mostly clear (has diminished clarity when receiving resp therapy) Results Result Diagram: 04/17/17 1330 04/17/17 1330 Medications Medications Current Medications Acetaminophen/ Hydrocodone Bitart (Lortab Liq) 10 ml Q4H PRN GTB PAIN LEVEL 4- 7 Last administered on 04/18/17 12:17; Admin Dose 10 ML; Start 04/09/17 at 20: 30 Citalopram Hydrobromide (Celexa) 20 mg DAILY GTB Last administered on 09:36; Admin Dose 20 MG; Start 04/10/17 at 09:00 Multivitamins Therapeutic (Theragran) 1 tab DAILY GTB Last administered on 04/18 09:36; Admin Dose 1 TAB; Start 04/10/17 at 09:00 Tramadol HCl (Ultram) 50 mg Q6H PRN GTB PAIN Last administered on 04/17/17 23: 42; Admin Dose 50 MG; Start 04/09/17 at 23:30 Acetaminophen 500 mg 500 mg Q6H PRN PO PAIN AND OR ELEVATED TEMP; Start at 23:30 Potassium Chloride/Sodium Chloride (NS-KCl 20 Meq) 1,000 ml @ 40 mls/hr Q24H IV Last administered on 04/17/17 06:33; Admin Dose 40 MLS/HR; Start 04/09/17 at 23:30 Acetaminophen/ Hydrocodone Bitart (Lortab Liq) 5 ml Q4H PRN PO PAIN; Start at 23:30 Enoxaparin Sodium (Lovenox) 40 mg DAILY SC Last administered on 04/18/17 09:41 ; Admin Dose 40 MG; Start 04/10/17 at 09:00 Lactobacillus Acidophilus/ Rhamnosus (Culturelle) 1 cap TID PO Last administered on 04/18/17 09:35; Admin Dose 1 CAP; Start 04/10/17 at 09:00 Alprazolam (Xanax) 0.5 mg Q6H PRN GTB anxiety Last administered on 04/18/17 09 :35; Admin Dose 0.5 MG; Start 04/10/17 at 14:30 Zolpidem Tartrate (Ambien) 5 mg HS PRN PO INSOMNIA Last administered on 23:43; Admin Dose 5 MG; Start 04/10/17 at 20:00 Atorvastatin Calcium (Lipitor) 20 mg HS GTB Last administered on 04/17/17 20: 05; Admin Dose 20 MG; Start 04/10/17 at 21:00 Bisacodyl (Dulcolax Supp) 10 mg Q48H PRN [place] CONSTIPATION; Start 04/10/17 at 20: 00 Valsartan (Diovan) 80 mg BID PO Last administered on 04/18/17 09:36; Admin Dose 80 MG; Start 04/10/17 at 21:00 Metoprolol Tartrate (Lopressor) 50 mg BID GTB Last administered on 04/18/17 09 :00; Admin Dose 50 MG; Start 04/10/17 at 21:00 Simethicone (Mylicon) 80 mg Q6H PRN GTB GASTROINTESTINAL UPSET Last administered on 04/15/17 21:15; Admin Dose 80 MG; Start 04/10/17 at 20:00 Nystatin 1 applic 1 applic BID TOP Last administered on 04/18/17 09:37; Admin Dose 1 APPLIC; Start 04/11/17 at 21:00 Ceftazidime/ Dextrose (Fortaz 2gm/50 ml (Pmx)) 50 ml @ 100 mls/hr Q8 IVPB Last administered on 04/18/17 05:10; Admin Dose 100 MLS/HR; Start 04/12/17 at 14:00 Diltiazem HCl (Cardizem) 30 mg BID GTB Last administered on 04/18/17 09:36; Admin Dose 30 MG; Start 04/14/17 at 21:00 Lansoprazole (Prevacid) 30 mg DAILY@06 GTB Last administered on 04/18/17 05:10 ; Admin Dose 30 MG; Start 04/15/17 at 09:30 ALEX DENSON NP Apr 18, 2017 14:07
[2017-04-18] MEDS: traMADol 50 MG TAB GTB PRN (14:17)
[2017-04-18] MEDS: NS + KCL 20 MEQ 1,000 ML IV SCH (14:18)
[2017-04-18] MEDS: GUAIFENESIN/DM 5ML CUP PO SCH (17:18)
[2017-04-18 20:42] VITALS: BP 115/61; RESP 18
[2017-04-18] MEDS: ATORVASTATIN 20 MG TAB GTB SCH (21:18)
[2017-04-19] MEDS: GUAIFENESIN/DM 5ML CUP PO SCH ×4 (00:46→17:33)
[2017-04-19] MEDS: ACETAMINOPHEN 325/HYDROC 7.5 15 ML CUP GTB PRN ×4 (00:48→19:27)
[2017-04-19] MEDS: ALBUTEROL/IPRATROPIUM (NEB) 3 ML AMP NEB SCH ×4 (01:38→19:48)
[2017-04-19] MEDS: NS + KCL 20 MEQ 1,000 ML IV SCH ×2 (04:43→19:27)
[2017-04-19] MEDS: CEFTAZIDIME 2GM/50 ML (PMX) 50 ML IVPB SCH ×3 (06:29→21:21)
[2017-04-19] MEDS: LANSOPRAZOLE 30 MG CAP GTB SCH (06:29)
[2017-04-19 08:06] VITALS: BP 154/69; RESP 19
[2017-04-19 09:44] VITALS: BP 128/60; PULSE 83
[2017-04-19] MEDS: NYSTATIN 30 GM POWDER BTL TOP SCH ×2 (09:45→20:41)
[2017-04-19] MEDS: CITALOPRAM 20 MG TAB GTB SCH (09:46)
[2017-04-19] MEDS: MULTIVITAMINS THERAPEUTIC TAB GTB SCH (09:46)
[2017-04-19] MEDS: LACTOBACILLUS RHAMNOSUS CAP PO SCH ×3 (09:46→20:40)
[2017-04-19] MEDS: traMADol 50 MG TAB GTB PRN ×2 (09:46→22:46)
[2017-04-19] MEDS: DILTIAZEM 30 MG TAB GTB SCH ×2 (09:46→20:41)
[2017-04-19] MEDS: VALSARTAN 80 MG TAB PO SCH ×2 (09:46→20:41)
[2017-04-19] MEDS: METOPROLOL 50 MG TAB GTB SCH ×2 (09:47→20:40)
[2017-04-19] MEDS: ENOXAPARIN 40 MG/0.4 ML SYG SC SCH (10:02)
[2017-04-19] MEDS: ALPRAZOLAM 0.25 MG TAB GTB PRN ×2 (12:17→20:40)
[2017-04-19 13:39] VITALS: BP 145/65; PULSE 68; RESP 18
--- NOTE | 2017-04-19 15:39 | CONS ---
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 (Pt took meropenem 04/10/2017-04/12/2017) Management d/w patient, RN Carlene and Dr. Huynh Consultation Date/Type/Reason Admit Date/Time Apr 10, 2017 at 08:08 Initial Consult Date 04/10/17 Type of Consultation: Infectious Disease Referring Provider: CHONG SORIANO MD 24 HR Interval Summary Free Text/Dictation WBC 9.6, afebrile, Denies CP or SOB. His chronic bilateral shoulder pain which is controlled on current pain regimen. Anxious to go to [facility] for rehab.dw staff Constitutional: requiring O2 Exam/Review of Systems Vital Signs Vitals Vital Signs Date Time Temp Pulse Resp B/P Pulse Ox O2 Delivery O2 Flow Rate FiO2 04/19/17 13:39 95.3 68 18 145/65 98 Trach Collar 5.0 04/19/17 08:23 28 Intake and Output 04/18/17 04/18/17 04/19/17 15:00 23:00 07:00 Intake Total 260 ml 300 ml 460 ml Balance 260 ml 300 ml 460 ml Exam Constitutional: alert, oriented Neck: non-tender, other, supple Respiratory: clear to auscultation, normal air movement Cardiovascular: nl pulses, regular rate and rhythm Gastrointestinal: non-tender, other, soft Neurological: other (other (quadriplegia), speech soft and mostly clear (has diminished clarity when receiving resp therapy)) Results Result Diagram: 04/17/17 1330 04/17/17 1330 Medications Medications Current Medications Acetaminophen/ Hydrocodone Bitart (Lortab Liq) 10 ml Q4H PRN GTB PAIN LEVEL 4- 7 Last administered on 04/19/17 14:57; Admin Dose 10 ML; Start 04/09/17 at 20: 30 Citalopram Hydrobromide (Celexa) 20 mg DAILY GTB Last administered on 09:46; Admin Dose 20 MG; Start 04/10/17 at 09:00 Multivitamins Therapeutic (Theragran) 1 tab DAILY GTB Last administered on 04/19 09:46; Admin Dose 1 TAB; Start 04/10/17 at 09:00 Tramadol HCl (Ultram) 50 mg Q6H PRN GTB PAIN Last administered on 04/19/17 09: 46; Admin Dose 50 MG; Start 04/09/17 at 23:30 Acetaminophen 500 mg 500 mg Q6H PRN PO PAIN AND OR ELEVATED TEMP; Start at 23:30 Potassium Chloride/Sodium Chloride (NS-KCl 20 Meq) 1,000 ml @ 40 mls/hr Q24H IV Last administered on 04/18/17 14:18; Admin Dose 40 MLS/HR; Start 04/09/17 at 23:30 Acetaminophen/ Hydrocodone Bitart (Lortab Liq) 5 ml Q4H PRN PO PAIN; Start at 23:30 Enoxaparin Sodium (Lovenox) 40 mg DAILY SC Last administered on 04/19/17 10:02 ; Admin Dose 40 MG; Start 04/10/17 at 09:00 Lactobacillus Acidophilus/ Rhamnosus (Culturelle) 1 cap TID PO Last administered on 04/19/17 12:17; Admin Dose 1 CAP; Start 04/10/17 at 09:00 Alprazolam (Xanax) 0.5 mg Q6H PRN GTB anxiety Last administered on 04/19/17 12 :17; Admin Dose 0.5 MG; Start 04/10/17 at 14:30 Zolpidem Tartrate (Ambien) 5 mg HS PRN PO INSOMNIA Last administered on 23:43; Admin Dose 5 MG; Start 04/10/17 at 20:00 Atorvastatin Calcium (Lipitor) 20 mg HS GTB Last administered on 04/18/17 21: 18; Admin Dose 20 MG; Start 04/10/17 at 21:00 Bisacodyl (Dulcolax Supp) 10 mg Q48H PRN [place] CONSTIPATION; Start 04/10/17 at 20: 00 Valsartan (Diovan) 80 mg BID PO Last administered on 04/19/17 09:46; Admin Dose 80 MG; Start 04/10/17 at 21:00 Metoprolol Tartrate (Lopressor) 50 mg BID GTB Last administered on 04/19/17 09 :47; Admin Dose 50 MG; Start 04/10/17 at 21:00 Simethicone (Mylicon) 80 mg Q6H PRN GTB GASTROINTESTINAL UPSET Last administered on 04/18/17 18:53; Admin Dose 80 MG; Start 04/10/17 at 20:00 Nystatin 1 applic 1 applic BID TOP Last administered on 04/19/17 09:45; Admin Dose 1 APPLIC; Start 04/11/17 at 21:00 Ceftazidime/ Dextrose (Fortaz 2gm/50 ml (Pmx)) 50 ml @ 100 mls/hr Q8 IVPB Last administered on 04/19/17 14:58; Admin Dose 100 MLS/HR; Start 04/12/17 at 14:00 Diltiazem HCl (Cardizem) 30 mg BID GTB Last administered on 04/19/17 09:46; Admin Dose 30 MG; Start 04/14/17 at 21:00 Lansoprazole (Prevacid) 30 mg DAILY@06 GTB Last administered on 04/19/17 06:29 ; Admin Dose 30 MG; Start 04/15/17 at 09:30 Guaifenesin/ Dextromethorphan (Robitussin Dm Liquid Cup) 10 ml Q6 PO Last administered on 04/19/17 12:17; Admin Dose 10 ML; Start 04/18/17 at 18:00; Stop 04/21/17 at 17:00 SAEED SINGH Apr 19, 2017 15:39
[2017-04-19 20:15] VITALS: BP 139/63; RESP 18
[2017-04-19] MEDS: ATORVASTATIN 20 MG TAB GTB SCH (20:40)
[2017-04-20] MEDS: ACETAMINOPHEN 325/HYDROC 7.5 15 ML CUP GTB PRN (01:33)
[2017-04-20] MEDS: ALBUTEROL/IPRATROPIUM (NEB) 3 ML AMP NEB SCH ×3 (01:56→13:03)
[2017-04-20] MEDS: ALPRAZOLAM 0.25 MG TAB GTB PRN ×2 (03:53→10:27)
[2017-04-20] MEDS: LANSOPRAZOLE 30 MG CAP GTB SCH (05:31)
[2017-04-20] MEDS: GUAIFENESIN/DM 5ML CUP PO SCH ×3 (05:31→13:52)
[2017-04-20] MEDS: CEFTAZIDIME 2GM/50 ML (PMX) 50 ML IVPB SCH ×2 (05:31→13:52)
[2017-04-20 06:11] LABS: ADD SCAN DIFF NO
[2017-04-20 06:16] LABS: BASOPHILS % 0.4 % (0.0-2.0); EOSINOPHILS # 0.2 10^3/ul (0.0-0.5); EOSINOPHILS % 2.5 % (0.0-7.0); HEMATOCRIT 29.3 % (42.0-52.0); HEMOGLOBIN 9.6 g/dl (14.0-18.0); LYMPHOCYTES % 12.7 % (15.0-51.0); MEAN CORPUSCULAR HEMOGLOBIN 30.9 pg (29.0-33.0); MEAN CORPUSCULAR HGB CONC 32.8 g/dl (32.0-37.0); MEAN CORPUSCULAR VOLUME 94.2 fl (82.0-101.0); MEAN PLATELET VOLUME 11.8 fl (7.4-10.4); MONOCYTE # 0.7 10^3/ul (0.3-0.9); NEUTROPHIL # 5.8 10^3/ul (1.6-7.5); NEUTROPHILS % 74.9 % (39.0-77.0); PLATELET COUNT 207 10^3/UL (140-415); RED BLOOD COUNT 3.11 10^6/ul (4.70-6.10); RED CELL DISTRIBUTION WIDTH 14.4 % (11.5-14.5); WHITE BLOOD COUNT 7.7 10^3/ul (4.8-10.8)
[2017-04-20 06:48] LABS: CALCIUM 9.4 mg/dl (8.4-10.2); CREATININE 0.39 mg/dl (0.61-1.24)
[2017-04-20 08:21] VITALS: BP 116/58; RESP 18
[2017-04-20] MEDS: NYSTATIN 30 GM POWDER BTL TOP SCH (09:29)
[2017-04-20] MEDS: LACTOBACILLUS RHAMNOSUS CAP PO SCH ×2 (09:30→13:53)
[2017-04-20] MEDS: VALSARTAN 80 MG TAB PO SCH (09:30)
[2017-04-20] MEDS: METOPROLOL 50 MG TAB GTB SCH (09:31)
[2017-04-20] MEDS: DILTIAZEM 30 MG TAB GTB SCH (09:31)
[2017-04-20] MEDS: MULTIVITAMINS THERAPEUTIC TAB GTB SCH (09:31)
[2017-04-20] MEDS: CITALOPRAM 20 MG TAB GTB SCH (09:31)
[2017-04-20] MEDS: ENOXAPARIN 40 MG/0.4 ML SYG SC SCH (09:53)
== END 2017-04-20 15:25 | DRG 871 ==
LOC: E/R 13:56 → EDBD 13:56 → MS2 04-10 08:08
PROVIDERS: ADMIT Internal Medicine; ATTEND Internal Medicine
DX: A41.9 Sepsis, unspecified organism (principal); G82.50 Quadriplegia, unspecified; J15.1 Pneumonia due to Pseudomonas; J96.10 Chronic respiratory failure, unspecified whether with hypoxia or hypercapnia; Z93.0 Tracheostomy status; I48.0 Paroxysmal atrial fibrillation; B37.49 Other urogenital candidiasis; M06.9 Rheumatoid arthritis, unspecified; J20.8 Acute bronchitis due to other specified organisms; Z93.1 Gastrostomy status; Z98.1 Arthrodesis status; R19.7 Diarrhea, unspecified; I10 Essential (primary) hypertension; F41.9 Anxiety disorder, unspecified; F32.9 Major depressive disorder, single episode, unspecified; E78.5 Hyperlipidemia, unspecified; D64.9 Anemia, unspecified; R14.0 Abdominal distension (gaseous); M25.512 Pain in left shoulder; M25.511 Pain in right shoulder; Z85.46 Personal history of malignant neoplasm of prostate; Z87.891 Personal history of nicotine dependence
CPT/HCPCS: 36415; 71010; 72125; 73200; 74230; 76604; 80048; 80053; 81001; 83605; 83930; 83935; 84300; 85025; 85610; 85730; 87040; 87070; 87075; 87081; 87086; 89220; 92526; 92610; 92611; 93005; 94640; 94664; 96365; 96366; 96375; 97110; 97163; 97166; 97530; J0713; J1650; J2185; J3480; J7030; Q9967

== ENCOUNTER 2017-06-23 17:12 | Inpatient (IN) | payer MEDICARE, BC ==
[~2017-06-23] VITALS: Ht 175.3 cm; Wt 82.5 kg
[~2017-06-23 17:12] MED LIST: CEPASTAT MT; CITA20TA6 G-TUBE; HYDR15SO8 GTB; IPRA3AMP INHALATION; LACTINEX PO; MCN2C15 TOP; MULTI GTB; NYST1000 PO; NYST1POW22 TOPICAL; TRAM-40 GTB; ZOLP10TA PO
[2017-06-23] MEDS ORDERED: VANCOMYCIN 1 GM (PMX) 250 ML IVPB ONE (17:30)
[2017-06-23] MEDS ORDERED: CEFEPIME 2GM/50 ML (PMX) 50 ML IVPB STA (17:30)
[2017-06-23] MEDS ORDERED: SOD CHLORIDE 0.9% 1,000 ML IV STA ×3 (17:30→18:44)
[2017-06-23 18:17] LABS: BASOPHIL # 0.1 10^3/ul (0.0-0.1); BASOPHILS % 0.3 % (0.0-2.0); EOSINOPHILS % 0.1 % (0.0-7.0); HEMATOCRIT 35.6 % (42.0-52.0); HEMOGLOBIN 12.1 g/dl (14.0-18.0); LYMPHOCYTES # 1.5 10^3/ul (0.8-2.9); LYMPHOCYTES % 8.6 % (15.0-51.0); MEAN CORPUSCULAR HEMOGLOBIN 30.1 pg (29.0-33.0); MEAN CORPUSCULAR VOLUME 88.6 fl (82.0-101.0); MEAN PLATELET VOLUME 11.9 fl (7.4-10.4); MONOCYTES % 5.8 % (0.0-11.0); NEUTROPHILS % 84.8 % (39.0-77.0); PLATELET COUNT 242 10^3/UL (140-415); RED BLOOD COUNT 4.02 10^6/ul (4.70-6.10); RED CELL DISTRIBUTION WIDTH 13.1 % (11.5-14.5); WHITE BLOOD COUNT 17.3 10^3/ul (4.8-10.8)
--- NOTE | 2017-06-23 18:20 | RADRPT ---
PROCEDURE: XR Chest. CLINICAL INDICATION: Sepsis TECHNIQUE: Single frontal chest x-ray. COMPARISON: 04/14/2017 FINDINGS: There is a tracheostomy tube in place. The cervical fixation hardware is present. . Left lower colton g consolidation and pleural effusion is present. There is cardiomegaly with mild hilar vascular con gestion. Remainder of the lungs are clear.. The osseous structures are intact. IMPRESSION: Cardiomegaly with hilar vascular congestion. Left lower lung consolidation and small pleural effusion similar to prior exam. RPTAT: GG .Lencho Mcleod MD, MD Date Time Electronically viewed and signed by .Lencho Mcleod MD, MD on 06/23/2017 18:20 .L/
[2017-06-23 18:29] LABS: INR 1.01; PROTIME 13.3 Sec (12.2-14.2)
[2017-06-23] MEDS ORDERED: ACETAMINOPHEN 325 MG TAB PO ONE (18:30)
[2017-06-23 18:34] LABS: ALBUMIN 3.4 g/dl (3.3-4.9); ALBUMIN/GLOBULIN RATIO 1.09; BILIRUBIN,INDIRECT 0.2 mg/dl (0-1.1); BILIRUBIN,TOTAL 0.2 mg/dl (0.2-1.3); CALCIUM 9.3 mg/dl (8.4-10.2); CREATININE 0.46 mg/dl (0.61-1.24); POTASSIUM 3.9 mmol/L (3.5-5.1); TOTAL PROTEIN 6.5 g/dl (6.1-8.1)
[2017-06-23 18:45] LABS: TROPONIN-I 0.025 ng/ml (0.00-0.12)
[2017-06-23] MEDS ORDERED: ACET-141 PO (18:47)
[2017-06-23] MEDS ORDERED: ATOR20TA38 PO (18:48)
[2017-06-23] MEDS ORDERED: ALPR0.5T6 PO (18:48)
[2017-06-23] MEDS ORDERED: BACL20TA PO (18:49)
[2017-06-23] MEDS ORDERED: DILT30TA30 PO (18:53)
[2017-06-23] MEDS ORDERED: DOCU-159 PO (18:54)
[2017-06-23] MEDS ORDERED: DULO60CA59 PO (18:55)
[2017-06-23] MEDS ORDERED: BISA10SU75 PR (18:55)
[2017-06-23] MEDS ORDERED: FAMO20TA18 PO (18:56)
[2017-06-23] MEDS ORDERED: ENOX40DI2 SC (18:56)
[2017-06-23] MEDS ORDERED: FLEETPED PR (18:57)
[2017-06-23] MEDS ORDERED: FLUT16SP17 NASAL (18:58)
[2017-06-23] MEDS ORDERED: GLYC1SUP92 PR (18:59)
[2017-06-23] MEDS ORDERED: GABA300C16 PO (18:59)
[2017-06-23] MEDS ORDERED: ACETAMINOPHEN 325 MG TAB PO PRN (19:00)
[2017-06-23] MEDS ORDERED: ONDANSETRON 4 MG INJ IV PRN (19:00)
[2017-06-23] MEDS ORDERED: morphine 4 MG/ML VIAL IV STA (19:01)
[2017-06-23] MEDS ORDERED: ONDANSETRON 4 MG INJ IV STA (19:01)
[2017-06-23] MEDS ORDERED: GUAI-637 PO (19:01)
--- NOTE | 2017-06-23 19:08 | ERA ---
ER Documentation Chief Complaint Date/Time DATE: 06/23/17 TIME: 19:06 Chief Complaint [facility]AK[facility] HPI Patient is a 66-year-old male with hypertension, quadriplegia, and previous UTI who presents with fever and altered mental status. The patient was brought in by ambulance. The patient was sent by Dr. Muhammad for confusion and sweating. He had fever as well. He is usually awake alert and oriented 3 but today was confused. He has frequent UTI and has had pneumonia and fecal impactions in the past. Upon review of old medical records the patient one previous visit in March 2017 for diarrhea. ROS All systems reviewed and are negative except as per history of present illness. Medications Home Meds Reported Medications Guaifenesin* (Robitussin*) 100 Mg/5 Ml Syrup, 10 ML PO Q4H Y for COUGH, ML 06/23/17 Glycerin* (Glycerin (Adult)*) 1 Each Supp.rect, 1 EACH IA QHS Y for CONSTIPATION , SUPP.RECT 06/23/17 Gabapentin* (Gabapentin*) 300 Mg Capsule, 600 MG PO Q8H, #180 CAP 06/23/17 Fluticasone Propionate* (Fluticasone Propionate* Nasal) 50 Mcg/[place] - 16 Gm [place].susp, 2 SPRAYS NASAL DAILY, #1 BOTTLE TO EACH NOSTRIL 06/23/17 Sod Phosphate/Sod Biphosphate* (Fleet* Enema Pediatric) Unknown Strength Soln, 118 ML IA Q72H Y for CONSTIPATION, ENEMA 06/23/17 Famotidine* (Famotidine*) 20 Mg Tablet, 20 MG PO BID, #60 TAB 06/23/17 Enoxaparin Sodium* (Enoxaparin Sodium*) 40 Mg/0.4 Ml Syringe, 40 MG SC Q24H, SYR 06/23/17 Duloxetine Hcl* (Duloxetine Hcl*) 60 Mg Capsule., 60 MG PO DAILY, #30 CAP 06/23/17 Bisacodyl* (Bisacodyl*) 10 Mg Supp, 10 MG IA QHS, SUPP 06/23/17 Docusate Sodium* (Docusate Sodium*) 100 Mg Capsule, 100 MG PO BID, #60 CAP 06/23/17 Diltiazem Hcl* (Cardizem*) 30 Mg Tablet, 30 MG PO TID, #90 TAB HOLD FOR SBP<120,HR<55 06/23/17 Baclofen* (Baclofen*) 20 Mg Tablet, 20 MG PO Q8 Y for MUSCLE SPASMS, TAB 06/23/17 Atorvastatin Calcium* (Atorvastatin Calcium*) 20 Mg Tablet, 20 MG PO QHS, #30 TAB 06/23/17 Alprazolam* (Alprazolam*) 0.5 Mg Tablet, 0.5 MG PO Q12H Y for ANXIETY, TAB 06/23/17 Acetaminophen* (Acetaminophen*) 500 MG Extra Strength Tablet, 500 MG PO Q6 Y for FOR FEVER, TAB 06/23/17 Discontinued Reported Medications Throat Lozenges* (Cepastat*) 9 Trino Lozenge, 1 LOZ[place] MT Q3H Y, LOZENGE 04/09/17 Zolpidem Tartrate* (Ambien*) 10 Mg Tablet, 10 MG PO QHS Y for INSOMNIA, TAB 04/09/17 Nystatin (Nystatin) 100,000 Unit/1 Ml Oral.susp, 5 ML PO QID, #60 ML 04/09/17 Nystatin (Nystatin Powder) 1 Each Powder.ea., 1 APPLIC TOPICAL Q8, BOTTLE 04/09/17 Citalopram Hydrobromide* (Citalopram Hydrobromide*) 20 Mg Tablet, 20 MG G-TUBE DAILY, #30 TAB 04/09/17 Miconazole Nitrate* (Miconazole Nitrate*) 2% - 15 Gm Cr, 1 APPLIC TOP BID, TUB 04/09/17 Ipratropium-Albuterol (Ipratropium-Albuterol) 0.5-3 Mg/3 Ml Ampul.neb, 3 ML INHALATION Q6, #30 VIAL 04/09/17 Lactobacillus Acidophilus* (Lactinex*) 1 Tab Chew, 1 TAB PO TID, TAB 04/09/17 Multivitamins* (Theragran*) 1 Tab Tab, 1 TAB GTB DAILY, TAB 04/09/17 Tramadol Hcl* (Ultram*) 50 Mg Tablet, 50 MG GTB Q6H Y for PAIN, TAB 04/09/17 Hydrocodone Bit-Acetaminophen* (Lortab* Liq) 7.5 Mg-325 Mg/15 Ml Solution, 10 ML GTB Q6H Y for PAIN, ML 04/09/17 Allergies Allergies: Coded Allergies: No Known Allergy (Unverified , 06/23/17) PMhx/Soc History of Surgery: Yes (1984 L4,L5 lamenectomy,2011 R medial meniscus,2010 prostatectomy 2017 C4-C7) Anesthesia Reaction: No Hx Neurological Disorder: No Hx Respiratory Disorders: No Hx Cardiac Disorders: Yes (Aortic valve disorder, HTN) Hx Psychiatric Problems: No Hx Miscellaneous Medical Probl: Yes (see PT note) Hx Alcohol Use: Yes (Hx of occassional of wine) Hx Substance Use: No Hx Tobacco Use: No Smoking Status: Never smoker FmHx Family History: No diabetes Physical Exam Vitals Vital Signs Date Time Temp Pulse Resp B/P Pulse Ox O2 Delivery O2 Flow Rate FiO2 06/23/17 18:58 99.1 75 21 118/61 93 Nasal Cannula 2.0 06/23/17 17:34 Nasal Cannula 4 06/23/17 17:32 100.4 80 18 118/66 96 Physical Exam Const: Mild distress Head: Atraumatic Eyes: Normal Conjunctiva ENT: Normal External Ears, Nose and Mouth. Neck: Full range of motion..~ No meningismus. Resp: Clear to auscultation bilaterally Cardio: Rhonchorous breath sounds bilaterally Abd: Soft, non tender, non distended. Normal bowel sounds Skin: No petechiae or rashes Back: No midline or flank tenderness Ext: No cyanosis, or edema Neur: Awake But confused, quadriplegic at baseline Result Diagram: 06/23/17 1800 06/23/17 1800 Results 24 hrs Laboratory Tests Test 06/23/17 18:00 White Blood Count 17.310^3/ul Red Blood Count 4.0210^6/ul Hemoglobin 12.1g/dl Hematocrit 35.6% Mean Corpuscular Volume 88.6fl Mean Corpuscular Hemoglobin 30.1pg Mean Corpuscular Hemoglobin Concent 34.0g/dl Red Cell Distribution Width 13.1% Platelet Count 33157^3/UL Mean Platelet Volume 11.9fl Neutrophils % 84.8% Lymphocytes % 8.6% Monocytes % 5.8% Eosinophils % 0.1% Basophils % 0.3% Nucleated Red Blood Cells % 0.0/100WBC Neutrophils # (Manual) 14.710^3/ul Lymphocytes # 1.510^3/ul Monocytes # 1.010^3/ul Eosinophils # 0.010^3/ul Basophils # 0.110^3/ul Nucleated Red Blood Cells # 0.010^3/ul Prothrombin Time 13.3Sec Prothrombin Time Ratio 1.0 INR International Normalized Ratio 1.01 Activated Partial Thromboplast Time 35.0Sec Sodium Level 132mmol/L Potassium Level 3.9mmol/L Chloride Level 96mmol/L Carbon Dioxide Level 28mmol/L Anion Gap 12 Blood Urea Nitrogen 11mg/dl Creatinine 0.46mg/dl Glucose Level 110mg/dl Lactic Acid Level 1.3mmol/L Calcium Level 9.3mg/dl Total Bilirubin 0.2mg/dl Direct Bilirubin 0.00mg/dl Indirect Bilirubin 0.2mg/dl Aspartate Amino Transf (AST/SGOT) 16IU/L Alanine Aminotransferase (ALT/SGPT) 26IU/L Alkaline Phosphatase 84IU/L Troponin I 0.025ng/ml Total Protein 6.5g/dl Albumin 3.4g/dl Globulin 3.10g/dl Albumin/Globulin Ratio 1.09 Current Medications Medications (Trade) Dose Ordered Sig/Melvina Route PRN Reason Start Time Stop Time Status Last Admin Dose Admin Cefepime HCl 50 ml @ 100 mls/hr ONCE STAT IVPB 06/23/17 17:30 06/23/17 17:59 DC 06/23/17 18:14 Vancomycin HCl 250 ml @ 125 mls/hr ONCE ONCE IVPB 06/23/17 17:30 06/23/17 17:42 DC Sodium Chloride 1,000 ml @ 1,000 mls/hr Q1H STAT IV 06/23/17 17:30 06/23/17 18:29 DC 06/23/17 18:14 Sodium Chloride (NS) 1,000 ml @ 1,000 mls/hr Q1H STAT IV 06/23/17 17:30 06/23/17 18:29 DC Acetaminophen 650 mg 650 mg ONCE ONCE PO 06/23/17 18:30 06/23/17 18:31 DC Sodium Chloride (NS) 1,000 ml @ 1,000 mls/hr Q1H STAT IV 06/23/17 18:44 06/23/17 19:43 Ondansetron HCl (Zofran Inj) 4 mg BRIDGE ORDER PRN IV NAUSEA AND/OR VOMITING 06/23/17 19:00 06/24/17 18:59 Acetaminophen (Tylenol Tab) 650 mg ER BRIDGE PRN PO MILD PAIN/FEVER 06/23/17 19:00 06/24/17 18:59 Ibuprofen (Motrin) 800 mg ONCE ONCE PO 06/23/17 19:30 06/23/17 19:31 Morphine Sulfate (morphine) 4 mg ONCE STAT IV 06/23/17 19:01 06/23/17 19:02 DC Ondansetron HCl (Zofran Inj) 4 mg ONCE STAT IV 06/23/17 19:01 06/23/17 19:02 DC Procedures/MDM EKG read by me: Rate/Rhythm: Regular rate and rhythm at a rate of 76 Intervals: Normal Impression: No evidence of ischemia or arrhythmia Chest x-ray shows left lower lobe pneumonia per radiology. CT scan of the head and abdomen and pelvis are pending at this time. Admit MDM: Patient's infectious symptoms have not stabilized and the patient is at risk of rapid decompensation. The patient will be admitted for careful hydration, antibiotic therapy, and infectious source control. Severe Sepsis criteria: Infectious source: Pneumonia End organ damage indicated by: No end organ damage at this time Sepsis Management: Time of recognition of sepsis: Upon arrival Within 3 hours of recognition: Blood cultures x 2 before broad-spectrum antibiotics: Yes 30 ml/kg NS bolus Completed Initial lactate 1.3 Repeat lactate pending Time of recognition of septic shock: No septic shock Septic Shock Assessment: Any lactic acid > 4.0 No Persistent hypotension (SBP < 90 or 40 mmHg drop, MAP < 65) despite 30 mL/kg IV fluid bolus No Volume Re-assessment for Septic Shock (post 30 ml/kg bolus): No septic shock at this time Persistent Hypotension Treatment: Comfort care No Central line Not Required Vasopressor started Not required I considered further perfusion assessment with CVP measurement, SCVO2, bedside ultrasound volume assessment, passive leg raise, trial of further fluid bolus. And proceeded with 30 ml/kg fluid bolus of NSS, broad spectrum antibiotics, and admission. Accepting Care Team Current data and ongoing care discussed. Admitting Physician: Dr. Muhammad the patient's primary doctor for admission Supervisor [employer](s): None Outstanding Data: Culture results and repeat lactic acid Critical Care: Critical care time 35 minutes excluding all billable procedures Emergent fluid management while maintaining close respiratory support. Provision of immediate and broad-spectrum antibiotic therapy. Simultaneous assessment for possible sources in order to direct targeted therapy. Consideration for invasive and chemical support to prevent cardiopulmonary collapse. Departure Diagnosis: Primary Impression: Pneumonia Qualified Code: J18.1 - Pneumonia of left lower lobe due to infectious organism Additional Impressions: Fever Qualified Code: R50.9 - Fever, unspecified fever cause Sepsis Qualified Code: A41.9 - Sepsis, due to unspecified organism Condition: ALPESH Ortiz MD Jun 23, 2017 19:08
[2017-06-23] MEDS ORDERED: MAG355OR14 PO (19:10)
[2017-06-23] MEDS ORDERED: MAGN400T28 PO (19:11)
[2017-06-23] MEDS ORDERED: METO-448 PO (19:12)
[2017-06-23] MEDS ORDERED: MAGN400O4 PO (19:12)
[2017-06-23] MEDS ORDERED: MULT-506 PO (19:13)
[2017-06-23] MEDS ORDERED: HYDR-902 PO (19:14)
[2017-06-23] MEDS ORDERED: SENN-36 PO (19:15)
[2017-06-23] MEDS ORDERED: HYDR-906 PO (19:15)
[2017-06-23] MEDS ORDERED: MYL80 PO (19:16)
[2017-06-23] MEDS ORDERED: TRAM-40 PO (19:17)
[2017-06-23] MEDS ORDERED: CHOL20002 PO (19:18)
[2017-06-23] MEDS ORDERED: ACET325T33 PO (19:18)
--- NOTE | 2017-06-23 19:24 | RADRPT ---
PROCEDURE: CT head without intravenous contrast CLINICAL INDICATION: Possible Sepsis. COMPARISON: None relevant listed. TECHNIQUE: Axial CT images from skull base to vertex with coronal and sagittal reformats. DOSE: The estimated administered radiation dose was CTDI vol = 43 mGy. DLP = 933 mGy-cm. One or mor e of the following dose reduction techniques were used: automated exposure control, adjustment of th e mA and/or kV according to patient size, or use of iterative reconstruction. FINDINGS: Parenchyma: No acute hemorrhage, large territorial infarction, or mass. Mild amount of periventricul ar and subcortical white matter hypodensity, a nonspecific finding often associated with chronic jeff roangiopathy. Ventricles: No ventriculomegaly or ventricular effacement. Extra-axial spaces: No herniation or midline shift. Paranasal sinuses: The right maxillary sinus is partially opacified and contains high density materi al. The hoffman of the right maxillary sinus are thickened Mastoids and middle ears: Clear. Visualized orbits: Normal. Vessels: Mild calcified atherosclerotic arterial plaque. Bones: Normal. Extracranial soft tissues: Normal. Additional comment: None. IMPRESSION: 1. No acute hemorrhage or large territorial infarction. 2. Mild white matter changes, a nonspecific finding often associated with chronic microangiopathy. 3. Chronic right maxillary sinusitis. High density debris within the sinus may represent inspissat ed secretions or fungal products. RPTAT: PP Physician Lyla Date Time Electronically viewed and signed by Physician Lyla on 06/23/2017 19:24 /
[2017-06-23] MEDS ORDERED: IBUPROFEN 800 MG TAB PO ONE (19:30)
--- NOTE | 2017-06-23 19:57 | RADRPT ---
PROCEDURE: CT abdomen and pelvis without contrast. CLINICAL INDICATION: Abdominal pain TECHNIQUE: CT scan of the abdomen and pelvis without contrast was performed. Sagittal and coronal reformatted images were obtained from the axial source images. One or more of the following dose re duction techniques were used: Automated exposure control, adjustment of the mA and/or kV according t o patient size, use of iterative reconstruction technique. CTDI = 21.28 mGy; DLP = 1224.96 mGy-cm COMPARISON: None available. FINDINGS: Visualized lower thorax: Compressive atelectasis of the left greater than right lower Save posterio rly is present. A left pleural effusion is moderate estimation, a tiny right pleural effusion is se en. The visualized heart is mildly enlarged with trace pericardial fluid. Liver, gallbladder, pancreas and spleen: The liver is normal and size, contour and attenuation. Th ere is no evidence for a liver mass or ductal dilatation. The gallbladder is unremarkable. No comm on bile duct abnormality is demonstrated. The pancreas is unremarkable. The spleen is normal in si ze. Adrenal glands and genitourinary system: Some left adrenal gland hyperplasia is suggested, the right adrenal gland is unremarkable. Multiple bilateral exophytic renal cortical lesions are present mos t likely cysts but having increased attenuation ranging from 20 up to 37 HU. This likely reflects i nternal hemorrhage or debris. The cysts range in size from 9 mm up to 6.9 cm the largest in the rig ht upper pole. There is no evidence of renal calculus or hydronephrosis. Renal cortex thickness is normal. The ureters are unremarkable. The urinary bladder is contracted around a Avila catheter, g as within the bladder lumen. Metallic densities in the pelvis are compatible with prior prostatecto my, no mass lesion is evident within the prostate bed. The visualized scrotum is unremarkable Gastrointestinal system: The stomach is contracted and otherwise unremarkable.. The small bowel is normal in caliber with no ileus, obstruction or wall thickening. The appendix and surrounding fat are within the limits of normal. The colon shows no evidence for wall thickening or acute abnormali ty. There is no evidence for colitis or diverticulitis. Mild thickening of the rectal wall and sage a within the presacral space cannot exclude proctitis. Changes of radiation sequela are a possibili ty that in the prostatectomy findings Peritoneum, retroperitoneum, lymph nodes and vessels: The abdominal aorta is normal in caliber. The re is moderate to severe aortic and iliac system atherosclerotic calcification. The inferior vena c lesly is unremarkable. There is no evidence for adenopathy or mass, changes pelvic lymphadenectomy ar e demonstrated. There is no ascites. Osseous structures and musculoskeletal findings: There is no fracture, lytic or blastic lesion. Mo derate thoracolumbar spondylosis is present with degenerative disk disease greatest at the L4-5 leve l. Dystrophic calcifications posterior to the left hip likely reflect myositis ossificans. No subc utaneous tissue abnormality is demonstrated. RPTAT:HJJR IMPRESSION: 1. Stranding of the fat in the presacral space with mild rectal wall thickening, findings concernin g for proctitis or possibly the sequela of radiation therapy in this patient with prostatectomy colin ges. 2. Bilateral renal cysts ranging up to 6.9 cm. Follow-up imaging is recommended because of the inc reased attenuation of the cysts that likely reflect hemorrhage or debris. 3. Left larger than right pleural effusions and compressive atelectasis of the lower lobes with mild cardiac enlargement. 4. Urinary bladder contracted around a Avila catheter. 5. Atherosclerotic calcification of the aorta and iliac system. 6. Degenerative spondylosis of the thoracolumbar spine without evidence of osseous metastatic disea se. 7. 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 Physician Maria Del Rosario Date Time Electronically viewed and signed by Physician Maria Del Rosario on 06/23/2017 19:56 JR/
[2017-06-23 23:03] VITALS: TEMP 98.4
[2017-06-24] MEDS ORDERED: VANCOMYCIN IV PER PHARMACY XX SCH (00:30)
[2017-06-24 00:55] VITALS: Ht 175.3 cm; Wt 82.5 kg
[2017-06-24 01:00] VITALS: BP 115/55; RESP 18
[2017-06-24] MEDS ORDERED: VANCOMYCIN 1.5 GM in SOD CHLORIDE 0.9% 250 ML IVPB ONE (01:00)
[2017-06-24] MEDS: DEXTROSE 5%-0.9% NACL 1,000 ML IV SCH ×3 (01:47→20:19)
[2017-06-24 02:26] VITALS: BP 112/58; RESP 18
[2017-06-24] MEDS ORDERED: PENDING SANTYL ORDER FOR WOUND CARE XX PRN (02:30)
[2017-06-24] MEDS ORDERED: morphine 10 MG INJ IM PRN (02:30)
[2017-06-24] MEDS: IPRATROPIUM (NEB) 0.5 MG/2.5 ML AMP HHN PRN ×4 (04:27→19:59)
[2017-06-24] MEDS ORDERED: COLLAGENASE 30 GM TUBE TOP PRN (05:30)
[2017-06-24 08:00] VITALS: BP 108/58; RESP 20
[2017-06-24] MEDS ORDERED: GLYCERIN (ADULT) SUPP PR PRN (09:00)
[2017-06-24] MEDS: METOPROLOL 25 MG TAB PO SCH ×2 (09:00→21:00)
[2017-06-24] MEDS: DILTIAZEM 30 MG TAB PO SCH ×3 (09:00→21:00)
[2017-06-24] MEDS ORDERED: GUAIFENESIN 20 MG/ML 5ML CUP PO PRN (09:00)
[2017-06-24] MEDS ORDERED: HYDROCODONE/APAP (5/325) TAB PO PRN (09:00)
[2017-06-24] MEDS ORDERED: NA PHOSPHATE/BIPHOS 133 ML ENEMA PR PRN (09:00)
[2017-06-24] MEDS ORDERED: traMADol 50 MG TAB PO PRN (09:00)
[2017-06-24] MEDS ORDERED: BACLOFEN 10 MG TAB PO PRN (09:00)
[2017-06-24] MEDS ORDERED: AL HYDROX/MG HYDROX/SIMETH 30 ML CUP PO PRN (09:00)
[2017-06-24] MEDS: COLLAGENASE 30 GM TUBE TOP SCH (10:02)
[2017-06-24] MEDS: FLUTICASONE 0.05% 16 GM NAS SPRAY NASAL SCH (10:04)
[2017-06-24] MEDS: DOCUSATE SODIUM 100 MG CAP PO SCH ×2 (10:04→21:43)
[2017-06-24] MEDS: MAGNESIUM OXIDE 400 MG TAB PO SCH (10:05)
[2017-06-24] MEDS: FAMOTIDINE 20 MG TAB PO SCH ×2 (10:05→21:42)
[2017-06-24] MEDS: DULOXETINE 30 MG CAP DR PO SCH (10:05)
[2017-06-24] MEDS: MULTIVITAMINS/MINERALS TAB PO SCH (10:06)
[2017-06-24] MEDS: CHOLECALCIFEROL 2,000 UNIT CAP PO SCH (10:06)
[2017-06-24] MEDS: MAGNESIUM HYDROXIDE 30ML CUP PO SCH (10:06)
[2017-06-24] MEDS: ENOXAPARIN 40 MG/0.4 ML SYG SC SCH (10:13)
--- NOTE | 2017-06-24 10:22 | HP ---
Date/Time of Note Date/Time of Note DATE: 06/24/17 TIME: 10:18 Assessment/Plan VTE Prophylaxis VTE Prophylaxis Intervention: other Lines/Catheters IV Catheter Type (from [facility]): Peripheral IV Urinary Cath still in place: No Assessment/Plan Chief Complaint/Hosp Course 1) pneumonia - IV antibiotics 2) respiratory failure - have trach, stable 3) rheumatoid arthritis - pain control Problems: HPI/ROS Admit Date/Time Admit Date/Time Jun 23, 2017 at 18:55 Hx of Present Illness Patient with rheumatoid arthritis, s/p complication from surgery that caused paralysis below the neck, respiratory on trach, comes in with 1 week of increasing upper respiratory infection symptoms. Patient was transfered from subacute facility for continued care. Patient was found to have pneumonia and admitted for further care. PMH/Family/Social Past Medical History rheumatoid arthritis respiratory failure Past Surgical History Past Surgical Hx: other Social History Alcohol Use: none Smoking Status: Never smoker Exam/Review of Systems Vital Signs Vitals Vital Signs Date Time Temp Pulse Resp B/P Pulse Ox O2 Delivery O2 Flow Rate FiO2 06/24/17 08:02 69 20 95 Nasal Cannula 2.0 06/24/17 02:26 98.0 112/58 Intake and Output 06/23/17 06/23/17 06/24/17 15:00 23:00 07:00 Intake Total 3050 ml 1100 ml Output Total 1400 ml Balance 3050 ml -300 ml Exam Constitutional: well developed Head: atraumatic, normocephalic Neck: supple Respiratory: diminished breath sounds Cardiovascular: regular rate and rhythm Gastrointestinal: non-tender, soft Extremities: normal pulses Labs Result Diagram: 06/23/17 1800 06/23/17 1800 Medications Medications Current Medications Dextrose/Sodium Chloride 1,000 ml @ 70 mls/hr [id number] IV Last administered on 06/24/17t 01:47; Admin Dose 70 MLS/HR; Start 06/24/17 at 00:30 Vancomycin HCl/ Sodium Chloride (Vancocin/NS) 250 ml @ 83.333 mls/ hr Q12H IVPB ; Start 06/24/17 at 13:00 Morphine Sulfate (morphine) 4 mg Q4H PRN IV pain; Start 06/24/17 at 02:45 Collagenase (Santyl) 1 applic DAILY TOP ; Start 06/24/17 at 09:00 Collagenase (Santyl) 1 applic PRN PRN TOP SOILED OR DISLODGED DRESSING; Start 06/24/17 at 05:30 Alprazolam (Xanax) 0.5 mg Q12H PRN PO ANXIETY; Start 06/24/17 at 09:00 Atorvastatin Calcium (Lipitor) 20 mg QHS PO ; Start 06/24/17 at 21:00 Baclofen (Lioresal) 20 mg Q8H PRN PO MUSCLE SPASMS; Start 06/24/17 at 09:00 Bisacodyl (Dulcolax Supp) 10 mg QHS OR ; Start 06/24/17 at 21:00 Diltiazem HCl (Cardizem) 30 mg TID PO ; Start 06/24/17 at 09:00 Docusate Sodium (Colace) 100 mg BID PO ; Start 06/24/17 at 09:00 Duloxetine HCl (Cymbalta) 60 mg DAILY PO ; Start 06/24/17 at 09:00 Enoxaparin Sodium (Lovenox) 40 mg Q24H SC ; Start 06/24/17 at 09:00 Famotidine (Pepcid) 20 mg BID PO ; Start 06/24/17 at 09:00 Fluticasone Propionate (Flonase 0.05% Nasal) 1 spray DAILY NASAL ; Start at 09:00 Gabapentin (Neurontin) 600 mg Q8 PO ; Start 06/24/17 at 09:00 Glycerin (Glycerin (Adult)) 1 supp QHS PRN OR CONSTIPATION; Start 06/24/17 at 09 :00 Guaifenesin (Robitussin Liquid Cup) 200 mg Q4H PRN PO COUGH; Start 06/24/17 at 09:00 Acetaminophen/ Hydrocodone Bitart ([place] (10/325)) 1 tab Q4H PRN PO PAIN 7-10/ 10; Start 06/24/17 at 09:00 Acetaminophen/ Hydrocodone Bitart ([place] (5/325)) 1 tab Q6H PRN PO PAIN 4-7/10 ; Start 06/24/17 at 09:00 Al Hydrox/Mg Hydrox/Simethicone (Mag-Al Plus) 30 ml Q4H PRN PO PRN; Start at 09:00 Magnesium Hydroxide (Milk Of Mag) 30 ml DAILY PO ; Start 06/24/17 at 09:00 Magnesium Oxide (Mag-Ox 400) 400 mg DAILY PO ; Start 06/24/17 at 09:00 Metoprolol Tartrate (Lopressor) 25 mg Q12 PO ; Start 06/24/17 at 09:00 Senna (Senokot) 2 tab QHS PO ; Start 06/24/17 at 21:00 Simethicone (Mylicon) 80 mg Q8H PRN PO ABDOMINAL GAS; Start 06/24/17 at 09:00 Tramadol HCl (Ultram) 50 mg Q4H PRN PO MILD PAIN LEVEL 1-3; Start 06/24/17 at 09 :00 Cholecalciferol (Vitamin D) 2,000 unit DAILY PO ; Start 06/24/17 at 09:00 Multivitamins/ Minerals (Theragran-M) 1 tab DAILY PO ; Start 06/24/17 at 09:00 Miscellaneous Information 118 ml Q72H PRN OR CONSTIPATION; Start 06/24/17 at 09: 00; Status UNV Miscellaneous Information (*Rx Drug Level Order Reminder*) VANCOMYCIN TROUGH 06/25 AT 1200 ONCE ONCE XX ; Start 06/25/17 at 12:00; Stop 06/25/17 at 12:01 Guaifenesin/ Codeine Phosphate (Robitussin Ac Liquid Cup) 5 ml Q4H PRN PO cough ; Start 06/24/17 at 10:[address] Jun 24, 2017 10:21
[2017-06-24] MEDS: GABAPENTIN 300 MG CAP PO SCH ×3 (10:24→21:42)
[2017-06-24] MEDS ORDERED: GUAIFENESIN/CODEINE 5ML CUP PO PRN (10:30)
--- NOTE | 2017-06-24 10:50 | CONS ---
Date/Time of Note Date/Time of Note DATE: 06/24/17 TIME: 10:45 Assessment/Plan Assessment/Plan Chief Complaint/Hosp Course electrolytes: Noted to have hyponatremia. slightly hypervolemic after fluid boluses. will send off urine studies. will dc ivf soon. I doubt his confusion is caused by hyponatremia. no indication for 3 percent saline Pneumonia and possible early sepsis: continue abx, tracheostomy care and bronchodilators history of paralysis dysphagia: continue pureed diet dvt and gi prophylaxis Problems: Consultation Date/Type/Reason Admit Date/Time Jun 23, 2017 at 18:55 Type of Consultation: Nephrology Referring Provider: CHONG SORIANO MD Hx of Present Illness Patient is a 66-year-old male with hypertension, quadriplegia, and previous UTI who presents with fever and altered mental status. The patient was brought in by ambulance. Apparently he was noted to have confusion and sweating in his subacute. He had fever as well. He is usually awake alert and oriented 3 but today was confused. He has frequent UTI and has had pneumonia and fecal impactions in the past. Upon review of old medical records the patient one previous visit in March 2017 for diarrhea. He is also noted to have electrolyte abnormalities since admission he has been on iv abx and fluids PMH: as above ROS All systems reviewed and are negative except as per history of present illness. Medications Home Meds Reported Medications Guaifenesin* (Robitussin*) 100 Mg/5 Ml Syrup, 10 ML PO Q4H Y for COUGH, ML 06/23/17 Glycerin* (Glycerin (Adult)*) 1 Each Supp.rect, 1 EACH NJ QHS Y for CONSTIPATION , SUPP.RECT 06/23/17 Gabapentin* (Gabapentin*) 300 Mg Capsule, 600 MG PO Q8H, #180 CAP 06/23/17 Fluticasone Propionate* (Fluticasone Propionate* Nasal) 50 Mcg/[place] - 16 Gm [place].susp, 2 SPRAYS NASAL DAILY, #1 BOTTLE TO EACH NOSTRIL 06/23/17 Sod Phosphate/Sod Biphosphate* (Fleet* Enema Pediatric) Unknown Strength Soln, 118 ML NJ Q72H Y for CONSTIPATION, ENEMA 06/23/17 Famotidine* (Famotidine*) 20 Mg Tablet, 20 MG PO BID, #60 TAB 06/23/17 Enoxaparin Sodium* (Enoxaparin Sodium*) 40 Mg/0.4 Ml Syringe, 40 MG SC Q24H, SYR 06/23/17 Duloxetine Hcl* (Duloxetine Hcl*) 60 Mg Capsule.dr, 60 MG PO DAILY, #30 CAP 06/23/17 Bisacodyl* (Bisacodyl*) 10 Mg Supp, 10 MG NJ QHS, SUPP 06/23/17 Docusate Sodium* (Docusate Sodium*) 100 Mg Capsule, 100 MG PO BID, #60 CAP 06/23/17 Diltiazem Hcl* (Cardizem*) 30 Mg Tablet, 30 MG PO TID, #90 TAB HOLD FOR SBP<120,HR<55 06/23/17 Baclofen* (Baclofen*) 20 Mg Tablet, 20 MG PO Q8 Y for MUSCLE SPASMS, TAB 06/23/17 Atorvastatin Calcium* (Atorvastatin Calcium*) 20 Mg Tablet, 20 MG PO QHS, #30 TAB 06/23/17 Alprazolam* (Alprazolam*) 0.5 Mg Tablet, 0.5 MG PO Q12H Y for ANXIETY, TAB 06/23/17 Acetaminophen* (Acetaminophen*) 500 MG Extra Strength Tablet, 500 MG PO Q6 Y for FOR FEVER, TAB 06/23/17 Discontinued Reported Medications Throat Lozenges* (Cepastat*) 9 Trino Lozenge, 1 LOZ[place] MT Q3H Y, LOZENGE 04/09/17 Zolpidem Tartrate* (Ambien*) 10 Mg Tablet, 10 MG PO QHS Y for INSOMNIA, TAB 04/09/17 Nystatin (Nystatin) 100,000 Unit/1 Ml Oral.susp, 5 ML PO QID, #60 ML 04/09/17 Nystatin (Nystatin Powder) 1 Each Powder.ea., 1 APPLIC TOPICAL Q8, BOTTLE 04/09/17 Citalopram Hydrobromide* (Citalopram Hydrobromide*) 20 Mg Tablet, 20 MG G-TUBE DAILY, #30 TAB 04/09/17 Miconazole Nitrate* (Miconazole Nitrate*) 2% - 15 Gm Cr, 1 APPLIC TOP BID, TUB 04/09/17 Ipratropium-Albuterol (Ipratropium-Albuterol) 0.5-3 Mg/3 Ml Ampul.neb, 3 ML INHALATION Q6, #30 VIAL 04/09/17 Lactobacillus Acidophilus* (Lactinex*) 1 Tab Chew, 1 TAB PO TID, TAB 04/09/17 Multivitamins* (Theragran*) 1 Tab Tab, 1 TAB GTB DAILY, TAB 04/09/17 Tramadol Hcl* (Ultram*) 50 Mg Tablet, 50 MG GTB Q6H Y for PAIN, TAB 04/09/17 Hydrocodone Bit-Acetaminophen* (Lortab* Liq) 7.5 Mg-325 Mg/15 Ml Solution, 10 ML GTB Q6H Y for PAIN, ML 04/09/17 Allergies Allergies: Coded Allergies: No Known Allergy (Unverified , 06/23/17) PMhx/Soc History of Surgery: Yes (1983 L4,L5 lamenectomy,2010 R medial meniscus,2010 prostatectomy 2016 C4-C7) Anesthesia Reaction: No Hx Neurological Disorder: No Hx Respiratory Disorders: No Hx Cardiac Disorders: Yes (Aortic valve disorder, HTN) Hx Psychiatric Problems: No Hx Miscellaneous Medical Probl: Yes (see PT note) Hx Alcohol Use: Yes (Hx of occassional of wine) Hx Substance Use: No Hx Tobacco Use: No Smoking Status: Never smoker FmHx Family History: No renal issues Physical Exam Physical Exam Const: Mild distress Head: Atraumatic Eyes: Normal Conjunctiva ENT: Normal External Ears, Nose and Mouth. Neck: Full range of motion..~ No meningismus. Resp: Clear to auscultation bilaterally Cardio: Rhonchorous breath sounds bilaterally Abd: Soft, non tender, non distended. Normal bowel sounds Skin: No petechiae or rashes Back: No midline or flank tenderness Ext: No cyanosis, or edema Neur: Awake But confused, quadriplegic at baseline EKG Rate/Rhythm: Regular rate and rhythm at a rate of 76 Intervals: Normal Impression: No evidence of ischemia or arrhythmia Chest x-ray shows left lower lobe pneumonia per radiology. CT scan of the head and abdomen and pelvis are pending at this time. Past Surgical History Past Surgical Hx: other Social History Alcohol Use: none Smoking Status: Never smoker Exam/Review of Systems Vital Signs Vitals Vital Signs Date Time Temp Pulse Resp B/P Pulse Ox O2 Delivery O2 Flow Rate FiO2 06/24/17 08:02 69 20 95 Nasal Cannula 2.0 06/24/17 02:26 98.0 112/58 Intake and Output 06/23/17 06/23/17 06/24/17 15:00 23:00 07:00 Intake Total 3050 ml 1100 ml Output Total 1400 ml Balance 3050 ml -300 ml Results Result Diagram: 06/23/17 1800 06/23/17 1800 Results 24 hrs Laboratory Tests Test 06/23/17 18:00 06/23/17 21:00 06/23/17 23:00 White Blood Count 17.3 #H Red Blood Count 4.02 #L Hemoglobin 12.1 #L Hematocrit 35.6 #L Mean Corpuscular Volume 88.6 Mean Corpuscular Hemoglobin 30.1 Mean Corpuscular Hemoglobin Concent 34.0 Red Cell Distribution Width 13.1 Platelet Count 242 Mean Platelet Volume 11.9 H Neutrophils % 84.8 H Lymphocytes % 8.6 L Monocytes % 5.8 Eosinophils % 0.1 Basophils % 0.3 Nucleated Red Blood Cells % 0.0 Neutrophils # (Manual) 14.7 H Lymphocytes # 1.5 Monocytes # 1.0 H Eosinophils # 0.0 Basophils # 0.1 Nucleated Red Blood Cells # 0.0 Prothrombin Time 13.3 Prothrombin Time Ratio 1.0 INR International Normalized Ratio 1.01 Activated Partial Thromboplast Time 35.0 Sodium Level 132 L Potassium Level 3.9 Chloride Level 96 L Carbon Dioxide Level 28 Anion Gap 12 Blood Urea Nitrogen 11 Creatinine 0.46 L Glucose Level 110 Lactic Acid Level 1.3 0.8 0.7 Calcium Level 9.3 Total Bilirubin 0.2 Direct Bilirubin 0.00 Indirect Bilirubin 0.2 Aspartate Amino Transf (AST/SGOT) 16 Alanine Aminotransferase (ALT/SGPT) 26 Alkaline Phosphatase 84 Troponin I 0.025 Total Protein 6.5 Albumin 3.4 Globulin 3.10 Albumin/Globulin Ratio 1.09 Medications Medications Current Medications Dextrose/Sodium Chloride 1,000 ml @ 70 mls/hr [id number] IV Last administered on 06/24/17t 01:47; Admin Dose 70 MLS/HR; Start 06/24/17 at 00:30 Vancomycin HCl/ Sodium Chloride (Vancocin/NS) 250 ml @ 83.333 mls/ hr Q12H IVPB ; Start 06/24/17 at 13:00 Morphine Sulfate (morphine) 4 mg Q4H PRN IV pain; Start 06/24/17 at 02:45 Collagenase (Santyl) 1 applic DAILY TOP Last administered on 06/24/17 10:02; Admin Dose 1 APPLIC; Start 06/24/17 at 09:00 Collagenase (Santyl) 1 applic PRN PRN TOP SOILED OR DISLODGED DRESSING; Start 06/24/17 at 05:30 Alprazolam (Xanax) 0.5 mg Q12H PRN PO ANXIETY; Start 06/24/17 at 09:00 Atorvastatin Calcium (Lipitor) 20 mg QHS PO ; Start 06/24/17 at 21:00 Baclofen (Lioresal) 20 mg Q8H PRN PO MUSCLE SPASMS; Start 06/24/17 at 09:00 Bisacodyl (Dulcolax Supp) 10 mg QHS NJ ; Start 06/24/17 at 21:00 Diltiazem HCl (Cardizem) 30 mg TID PO ; Start 06/24/17 at 09:00 Docusate Sodium (Colace) 100 mg BID PO Last administered on 06/24/17 10:04; Admin Dose 100 MG; Start 06/24/17 at 09:00 Duloxetine HCl (Cymbalta) 60 mg DAILY PO Last administered on 06/24/17 10:05; Admin Dose 60 MG; Start 06/24/17 at 09:00 Enoxaparin Sodium (Lovenox) 40 mg Q24H SC Last administered on 06/24/17 10:13; Admin Dose 40 MG; Start 06/24/17 at 09:00 Famotidine (Pepcid) 20 mg BID PO Last administered on 06/24/17 10:05; Admin Dose 20 MG; Start 06/24/17 at 09:00 Fluticasone Propionate (Flonase 0.05% Nasal) 1 spray DAILY NASAL Last administered on 06/24/17 10:04; Admin Dose 1 SPRAY; Start 06/24/17 at 09:00 Gabapentin (Neurontin) 600 mg Q8 PO Last administered on 06/24/17 10:24; Admin Dose 600 MG; Start 06/24/17 at 09:00 Glycerin (Glycerin (Adult)) 1 supp QHS PRN NJ CONSTIPATION; Start 06/24/17 at 09 :00 Guaifenesin (Robitussin Liquid Cup) 200 mg Q4H PRN PO COUGH; Start 06/24/17 at 09:00 Acetaminophen/ Hydrocodone Bitart ([place] (10/325)) 1 tab Q4H PRN PO PAIN 7-10/ 10; Start 06/24/17 at 09:00 Acetaminophen/ Hydrocodone Bitart ([place] (5/325)) 1 tab Q6H PRN PO PAIN 4-7/10 ; Start 06/24/17 at 09:00 Al Hydrox/Mg Hydrox/Simethicone (Mag-Al Plus) 30 ml Q4H PRN PO PRN; Start at 09:00 Magnesium Hydroxide (Milk Of Mag) 30 ml DAILY PO Last administered on 06/24/17 10:06; Admin Dose 30 ML; Start 06/24/17 at 09:00 Magnesium Oxide (Mag-Ox 400) 400 mg DAILY PO Last administered on 06/24/17 10: 05; Admin Dose 400 MG; Start 06/24/17 at 09:00 Metoprolol Tartrate (Lopressor) 25 mg Q12 PO ; Start 06/24/17 at 09:00 Senna (Senokot) 2 tab QHS PO ; Start 06/24/17 at 21:00 Simethicone (Mylicon) 80 mg Q8H PRN PO ABDOMINAL GAS; Start 06/24/17 at 09:00 Tramadol HCl (Ultram) 50 mg Q4H PRN PO MILD PAIN LEVEL 1-3; Start 06/24/17 at 09 :00 Cholecalciferol (Vitamin D) 2,000 unit DAILY PO Last administered on 06/24/17 10:06; Admin Dose 2,000 UNIT; Start 06/24/17 at 09:00 Multivitamins/ Minerals (Theragran-M) 1 tab DAILY PO Last administered on 10:06; Admin Dose 1 TAB; Start 06/24/17 at 09:00 Miscellaneous Information 118 ml Q72H PRN NJ CONSTIPATION; Start 06/24/17 at 09: 00; Status UNV Miscellaneous Information (*Rx Drug Level Order Reminder*) VANCOMYCIN TROUGH 06/25 AT 1200 ONCE ONCE XX ; Start 06/25/17 at 12:00; Stop 06/25/17 at 12:01 Guaifenesin/ Codeine Phosphate (Robitussin Ac Liquid Cup) 5 ml Q4H PRN PO cough ; Start 06/24/17 at 10:30 GABY THORNTON DO Jun 24, 2017 10:50
[2017-06-24] MEDS ORDERED: VANCOMYCIN 1.25 GM in SOD CHLORIDE 0.9% 250 ML IVPB SCH (13:00)
[2017-06-24] MEDS ORDERED: CEPASTAT LOZENGE MT PRN (13:00)
[2017-06-24] MEDS: morphine 4 MG/ML VIAL IV PRN ×2 (13:03→18:46)
[2017-06-24 13:45] VITALS: BP 116/83; PULSE 81; RESP 18
[2017-06-24] MEDS: BACLOFEN 10 MG TAB PO SCH ×2 (15:54→21:43)
[2017-06-24] MEDS: CEFEPIME 2GM/50 ML (PMX) 50 ML IVPB SCH (15:54)
[2017-06-24 20:33] VITALS: BP 105/56; RESP 18
[2017-06-24] MEDS: BISACODYL 10 MG SUPP PR SCH (21:23)
[2017-06-24] MEDS: ATORVASTATIN 20 MG TAB PO SCH (21:42)
[2017-06-24] MEDS: SENNA TAB PO SCH (21:43)
[2017-06-25] MEDS: morphine 4 MG/ML VIAL IV PRN ×5 (01:10→21:23)
[2017-06-25] MEDS: CEFEPIME 2GM/50 ML (PMX) 50 ML IVPB SCH ×3 (01:21→21:23)
[2017-06-25 02:08] VITALS: BP 111/57; RESP 18
[2017-06-25] MEDS: IPRATROPIUM (NEB) 0.5 MG/2.5 ML AMP HHN PRN ×2 (05:18→09:54)
[2017-06-25] MEDS: BACLOFEN 10 MG TAB PO SCH ×3 (05:49→21:30)
[2017-06-25] MEDS: GABAPENTIN 300 MG CAP PO SCH ×3 (05:49→21:29)
[2017-06-25 06:17] LABS: BASOPHILS % 0.2 % (0.0-2.0); EOSINOPHILS # 0.4 10^3/ul (0.0-0.5); EOSINOPHILS % 4.7 % (0.0-7.0); HEMATOCRIT 31.5 % (42.0-52.0); HEMOGLOBIN 10.1 g/dl (14.0-18.0); LYMPHOCYTES # 0.8 10^3/ul (0.8-2.9); LYMPHOCYTES % 10.1 % (15.0-51.0); MEAN CORPUSCULAR HEMOGLOBIN 29.7 pg (29.0-33.0); MEAN CORPUSCULAR HGB CONC 32.1 g/dl (32.0-37.0); MEAN CORPUSCULAR VOLUME 92.6 fl (82.0-101.0); MEAN PLATELET VOLUME 11.6 fl (7.4-10.4); MONOCYTE # 0.6 10^3/ul (0.3-0.9); MONOCYTES % 7.3 % (0.0-11.0); NEUTROPHILS % 77.3 % (39.0-77.0); PLATELET COUNT 179 10^3/UL (140-415); RED CELL DISTRIBUTION WIDTH 13.2 % (11.5-14.5); WHITE BLOOD COUNT 8.1 10^3/ul (4.8-10.8)
[2017-06-25 06:29] LABS: CALCIUM 9.1 mg/dl (8.4-10.2); CREATININE 0.36 mg/dl (0.61-1.24); POTASSIUM 3.7 mmol/L (3.5-5.1)
[2017-06-25 08:20] VITALS: BP 99/56; RESP 20
[2017-06-25] MEDS: DILTIAZEM 30 MG TAB PO SCH ×3 (09:00→21:22)
[2017-06-25] MEDS: METOPROLOL 25 MG TAB PO SCH ×2 (09:00→21:23)
[2017-06-25] MEDS: COLLAGENASE 30 GM TUBE TOP SCH (09:04)
[2017-06-25] MEDS: DOCUSATE SODIUM 100 MG CAP PO SCH ×2 (09:04→21:22)
[2017-06-25] MEDS: FLUTICASONE 0.05% 16 GM NAS SPRAY NASAL SCH (09:05)
[2017-06-25] MEDS: DULOXETINE 30 MG CAP DR PO SCH (09:06)
[2017-06-25] MEDS: CHOLECALCIFEROL 2,000 UNIT CAP PO SCH (09:07)
[2017-06-25] MEDS: MULTIVITAMINS/MINERALS TAB PO SCH (09:07)
[2017-06-25] MEDS: MAGNESIUM OXIDE 400 MG TAB PO SCH (09:07)
[2017-06-25] MEDS: MAGNESIUM HYDROXIDE 30ML CUP PO SCH (09:08)
[2017-06-25] MEDS: ENOXAPARIN 40 MG/0.4 ML SYG SC SCH (09:35)
--- NOTE | 2017-06-25 10:58 | PN ---
Date/Time of Note Date/Time of Note DATE: 06/25/17 TIME: 10:57 Assessment/Plan VTE Prophylaxis VTE Prophylaxis Intervention: other Lines/Catheters IV Catheter Type (from Nrsg): Peripheral IV Urinary Cath still in place: Yes Reason Cath still needed: skin wounds contaminated by urine Assessment/Plan Chief Complaint/Hosp Course 1) pneumonia - IV antibiotics 2) respiratory failure - have trach, stable 3) rheumatoid arthritis - pain control Problems: Subjective 24 Hr Interval Summary Free Text/Dictation Patient has no complaints Exam/Review of Systems Vital Signs Vitals Vital Signs Date Time Temp Pulse Resp B/P Pulse Ox O2 Delivery O2 Flow Rate FiO2 06/25/17 09:56 69 20 97 Nasal Cannula 2.0 06/25/17 08:20 99.5 99/56 06/24/17 20:02 21 Intake and Output 06/24/17 06/24/17 06/25/17 15:00 23:00 07:00 Intake Total 1940 ml 850 ml Output Total 2200 ml 1200 ml Balance -260 ml -350 ml Exam Constitutional: well developed Head: atraumatic, normocephalic Neck: supple Respiratory: diminished breath sounds Cardiovascular: regular rate and rhythm Gastrointestinal: non-tender, soft Extremities: normal pulses Results Result Diagram: 06/25/17 0538 06/25/17 0538 Results 24 hrs Laboratory Tests Test 06/25/17 05:38 White Blood Count 8.1 # Red Blood Count 3.40 L Hemoglobin 10.1 L Hematocrit 31.5 L Mean Corpuscular Volume 92.6 Mean Corpuscular Hemoglobin 29.7 Mean Corpuscular Hemoglobin Concent 32.1 Red Cell Distribution Width 13.2 Platelet Count 179 # Mean Platelet Volume 11.6 H Neutrophils % 77.3 H Lymphocytes % 10.1 L Monocytes % 7.3 Eosinophils % 4.7 Basophils % 0.2 Nucleated Red Blood Cells % 0.0 Neutrophils # (Manual) 6.2 Lymphocytes # 0.8 Monocytes # 0.6 Eosinophils # 0.4 Basophils # 0.0 Nucleated Red Blood Cells # 0.0 Sodium Level 138 Potassium Level 3.7 Chloride Level 106 # Carbon Dioxide Level 26 Anion Gap 10 Blood Urea Nitrogen 7 Creatinine 0.36 L Glucose Level 106 Calcium Level 9.1 Medications Medications Current Medications Dextrose/Sodium Chloride (D5-NS) 1,000 ml @ 70 mls/hr [id number] IV Last administered on 06/24/17 20:19; Admin Dose 70 MLS/HR; Start 06/24/17 at 00:30 Morphine Sulfate (morphine) 4 mg Q4H PRN IV pain Last administered on 06/25/17 05:41; Admin Dose 4 MG; Start 06/24/17 at 02:45 Collagenase (Santyl) 1 applic DAILY TOP Last administered on 06/25/17 09:04; Admin Dose 1 APPLIC; Start 06/24/17 at 09:00 Collagenase (Santyl) 1 applic PRN PRN TOP SOILED OR DISLODGED DRESSING; Start 06/24/17 at 05:30 Alprazolam (Xanax) 0.5 mg Q12H PRN PO ANXIETY; Start 06/24/17 at 09:00 Atorvastatin Calcium (Lipitor) 20 mg QHS PO Last administered on 06/24/17 21:42 ; Admin Dose 20 MG; Start 06/24/17 at 21:00 Bisacodyl (Dulcolax Supp) 10 mg QHS [place] Last administered on 06/24/17 21:23; Admin Dose 10 MG; Start 06/24/17 at 21:00 Diltiazem HCl (Cardizem) 30 mg TID PO ; Start 06/24/17 at 09:00 Docusate Sodium (Colace) 100 mg BID PO Last administered on 06/25/17 09:04; Admin Dose 100 MG; Start 06/24/17 at 09:00 Duloxetine HCl (Cymbalta) 60 mg DAILY PO Last administered on 06/25/17 09:06; Admin Dose 60 MG; Start 06/24/17 at 09:00 Enoxaparin Sodium (Lovenox) 40 mg Q24H SC Last administered on 06/25/17 09:35; Admin Dose 40 MG; Start 06/24/17 at 09:00 Famotidine (Pepcid) 20 mg BID PO Last administered on 06/24/17 21:42; Admin Dose 20 MG; Start 06/24/17 at 09:00 Fluticasone Propionate (Flonase 0.05% Nasal) 1 spray DAILY NASAL Last administered on 06/25/17 09:05; Admin Dose 1 SPRAY; Start 06/24/17 at 09:00 Gabapentin (Neurontin) 600 mg Q8 PO Last administered on 06/25/17 05:49; Admin Dose 600 MG; Start 06/24/17 at 09:00 Glycerin (Glycerin (Adult)) 1 supp QHS PRN [place] CONSTIPATION; Start 06/24/17 at 09 :00 Guaifenesin (Robitussin Liquid Cup) 200 mg Q4H PRN PO COUGH Last administered on 06/24/17 13:02; Admin Dose 200 MG; Start 06/24/17 at 09:00 Acetaminophen/ Hydrocodone Bitart ([place] (10/325)) 1 tab Q4H PRN PO PAIN 7-10/ 10; Start 06/24/17 at 09:00 Acetaminophen/ Hydrocodone Bitart ([place] (5/325)) 1 tab Q6H PRN PO PAIN 4-7/10 ; Start 06/24/17 at 09:00 Al Hydrox/Mg Hydrox/Simethicone (Mag-Al Plus) 30 ml Q4H PRN PO PRN; Start at 09:00 Magnesium Hydroxide (Milk Of Mag) 30 ml DAILY PO Last administered on 06/25/17 09:08; Admin Dose 30 ML; Start 06/24/17 at 09:00 Magnesium Oxide (Mag-Ox 400) 400 mg DAILY PO Last administered on 06/25/17 09: 07; Admin Dose 400 MG; Start 06/24/17 at 09:00 Metoprolol Tartrate (Lopressor) 25 mg Q12 PO ; Start 06/24/17 at 09:00 Senna (Senokot) 2 tab QHS PO Last administered on 06/24/17 21:43; Admin Dose 2 TAB; Start 06/24/17 at 21:00 Simethicone (Mylicon) 80 mg Q8H PRN PO ABDOMINAL GAS; Start 06/24/17 at 09:00 Tramadol HCl (Ultram) 50 mg Q4H PRN PO MILD PAIN LEVEL 1-3; Start 06/24/17 at 09 :00 Cholecalciferol (Vitamin D) 2,000 unit DAILY PO Last administered on 06/25/17 09:07; Admin Dose 2,000 UNIT; Start 06/24/17 at 09:00 Multivitamins/ Minerals (Theragran-M) 1 tab DAILY PO Last administered on 09:07; Admin Dose 1 TAB; Start 06/24/17 at 09:00 Sodium Biphosphate/ Sodium Phosphate (Fleet Enema) 133 ml Q72H PRN [place] CONSTIPATION; Start 06/24/17 at 09:00 Guaifenesin/ Codeine Phosphate (Robitussin Ac Liquid Cup) 5 ml Q4H PRN PO cough ; Start 06/24/17 at 10:30 Baclofen (Lioresal) 20 mg Q8 PO Last administered on 06/25/17 05:49; Admin Dose 20 MG; Start 06/24/17 at 15:30 Phenol 1 lozenge 1 lozenge Q1H PRN MT COUGH; Start 06/24/17 at 13:00 Cefepime HCl (Maxipime 2gm/50 ml (Pmx)) 50 ml @ 100 mls/hr Q12 IVPB Last administered on 06/25/17 01:21; Admin Dose 100 MLS/HR; Start 06/24/17 at 15:[address] Jun 25, 2017 10:58
[2017-06-25] MEDS: FAMOTIDINE 20 MG TAB PO SCH ×2 (11:16→21:22)
[2017-06-25] MEDS: DEXTROSE 5%-0.9% NACL 1,000 ML IV SCH ×2 (11:22→23:58)
--- NOTE | 2017-06-25 11:36 | PN ---
Date/Time of Note Date/Time of Note DATE: 06/25/17 TIME: 11:34 Assessment/Plan VTE Prophylaxis VTE Prophylaxis Intervention: other Lines/Catheters [facility] Type [facility]from [facility] Peripheral IV Urinary Cath still in place: Yes Reason Cath still needed: urinary retention Assessment/Plan Chief Complaint/Hosp Course nephrology follow up Patient is a 66-year-old male with hypertension, quadriplegia, and previous UTI who presents with fever and altered mental status. The patient was brought in by ambulance. Apparently he was noted to have confusion and sweating in his subacute. He had fever as well. He is usually awake alert and oriented 3 but today was confused. He has frequent UTI and has had pneumonia and fecal impactions in the past. Upon review of old medical records the patient one previous visit in March 2017 for diarrhea. He is also noted to have electrolyte abnormalities since admission he has been on iv abx and fluids Physical Exam Physical Exam Const: Mild distress Head: Atraumatic Eyes: Normal Conjunctiva ENT: Normal External Ears, Nose and Mouth. Neck: Full range of motion..~ No meningismus. Resp: Clear to auscultation bilaterally Cardio: Rhonchorous breath sounds bilaterally Abd: Soft, non tender, non distended. Normal bowel sounds Skin: No petechiae or rashes Back: No midline or flank tenderness Ext: No cyanosis, or edema Neur: Awake But confused, quadriplegic at baseline electrolytes: Noted to have hyponatremia. resolved with NS hydration. I doubt his confusion is caused by hyponatremia. no indication for 3 percent saline Pneumonia and possible early sepsis: continue abx, tracheostomy care and bronchodilators history of paralysis dysphagia: continue pureed diet dvt and gi prophylaxis Problems: Exam/Review of Systems Vital Signs Vitals Vital Signs Date Time Temp Pulse Resp B/P Pulse Ox O2 Delivery O2 Flow Rate FiO2 06/25/17 09:56 69 20 97 Nasal Cannula 2.0 06/25/17 08:20 99.5 99/56 06/24/17 20:02 21 Intake and Output 06/24/17 06/24/17 06/25/17 15:00 23:00 07:00 Intake Total 1940 ml 850 ml Output Total 2200 ml 1200 ml Balance -260 ml -350 ml Results Result Diagram: 06/25/17 0538 06/25/17 0538 Results 24 hrs Laboratory Tests Test 06/25/17 05:38 White Blood Count 8.1 # Red Blood Count 3.40 L Hemoglobin 10.1 L Hematocrit 31.5 L Mean Corpuscular Volume 92.6 Mean Corpuscular Hemoglobin 29.7 Mean Corpuscular Hemoglobin Concent 32.1 Red Cell Distribution Width 13.2 Platelet Count 179 # Mean Platelet Volume 11.6 H Neutrophils % 77.3 H Lymphocytes % 10.1 L Monocytes % 7.3 Eosinophils % 4.7 Basophils % 0.2 Nucleated Red Blood Cells % 0.0 Neutrophils # (Manual) 6.2 Lymphocytes # 0.8 Monocytes # 0.6 Eosinophils # 0.4 Basophils # 0.0 Nucleated Red Blood Cells # 0.0 Sodium Level 138 Potassium Level 3.7 Chloride Level 106 # Carbon Dioxide Level 26 Anion Gap 10 Blood Urea Nitrogen 7 Creatinine 0.36 L Glucose Level 106 Calcium Level 9.1 Medications Medications Current Medications Dextrose/Sodium Chloride (D5-NS) 1,000 ml @ 70 mls/hr [id number] IV Last administered on 06/25/17 11:22; Admin Dose 70 MLS/HR; Start 06/24/17 at 00:30 Morphine Sulfate (morphine) 4 mg Q4H PRN IV pain Last administered on 06/25/17 11:23; Admin Dose 4 MG; Start 06/24/17 at 02:45 Collagenase (Santyl) 1 applic DAILY TOP Last administered on 06/25/17 09:04; Admin Dose 1 APPLIC; Start 06/24/17 at 09:00 Collagenase (Santyl) 1 applic PRN PRN TOP SOILED OR DISLODGED DRESSING; Start 06/24/17 at 05:30 Alprazolam (Xanax) 0.5 mg Q12H PRN PO ANXIETY; Start 06/24/17 at 09:00 Atorvastatin Calcium (Lipitor) 20 mg QHS PO Last administered on 06/24/17 21:42 ; Admin Dose 20 MG; Start 06/24/17 at 21:00 Bisacodyl (Dulcolax Supp) 10 mg QHS [place] Last administered on 06/24/17 21:23; Admin Dose 10 MG; Start 06/24/17 at 21:00 Diltiazem HCl (Cardizem) 30 mg TID PO ; Start 06/24/17 at 09:00 Docusate Sodium (Colace) 100 mg BID PO Last administered on 06/25/17 09:04; Admin Dose 100 MG; Start 06/24/17 at 09:00 Duloxetine HCl (Cymbalta) 60 mg DAILY PO Last administered on 06/25/17 09:06; Admin Dose 60 MG; Start 06/24/17 at 09:00 Enoxaparin Sodium (Lovenox) 40 mg Q24H SC Last administered on 06/25/17 09:35; Admin Dose 40 MG; Start 06/24/17 at 09:00 Famotidine (Pepcid) 20 mg BID PO Last administered on 06/25/17 11:16; Admin Dose 20 MG; Start 06/24/17 at 09:00 Fluticasone Propionate (Flonase 0.05% Nasal) 1 spray DAILY NASAL Last administered on 06/25/17 09:05; Admin Dose 1 SPRAY; Start 06/24/17 at 09:00 Gabapentin (Neurontin) 600 mg Q8 PO Last administered on 06/25/17 05:49; Admin Dose 600 MG; Start 06/24/17 at 09:00 Glycerin (Glycerin (Adult)) 1 supp QHS PRN [place] CONSTIPATION; Start 06/24/17 at 09 :00 Guaifenesin (Robitussin Liquid Cup) 200 mg Q4H PRN PO COUGH Last administered on 06/24/17 13:02; Admin Dose 200 MG; Start 06/24/17 at 09:00 Acetaminophen/ Hydrocodone Bitart ([place] (10/325)) 1 tab Q4H PRN PO PAIN 7-10/ 10; Start 06/24/17 at 09:00 Acetaminophen/ Hydrocodone Bitart ([place] (5/325)) 1 tab Q6H PRN PO PAIN 4-7/10 ; Start 06/24/17 at 09:00 Al Hydrox/Mg Hydrox/Simethicone (Mag-Al Plus) 30 ml Q4H PRN PO PRN; Start at 09:00 Magnesium Hydroxide (Milk Of Mag) 30 ml DAILY PO Last administered on 06/25/17 09:08; Admin Dose 30 ML; Start 06/24/17 at 09:00 Magnesium Oxide (Mag-Ox 400) 400 mg DAILY PO Last administered on 06/25/17 09: 07; Admin Dose 400 MG; Start 06/24/17 at 09:00 Metoprolol Tartrate (Lopressor) 25 mg Q12 PO ; Start 06/24/17 at 09:00 Senna (Senokot) 2 tab QHS PO Last administered on 06/24/17 21:43; Admin Dose 2 TAB; Start 06/24/17 at 21:00 Simethicone (Mylicon) 80 mg Q8H PRN PO ABDOMINAL GAS; Start 06/24/17 at 09:00 Tramadol HCl (Ultram) 50 mg Q4H PRN PO MILD PAIN LEVEL 1-3; Start 06/24/17 at 09 :00 Cholecalciferol (Vitamin D) 2,000 unit DAILY PO Last administered on 06/25/17 09:07; Admin Dose 2,000 UNIT; Start 06/24/17 at 09:00 Multivitamins/ Minerals (Theragran-M) 1 tab DAILY PO Last administered on 09:07; Admin Dose 1 TAB; Start 06/24/17 at 09:00 Sodium Biphosphate/ Sodium Phosphate (Fleet Enema) 133 ml Q72H PRN [place] CONSTIPATION; Start 06/24/17 at 09:00 Guaifenesin/ Codeine Phosphate (Robitussin Ac Liquid Cup) 5 ml Q4H PRN PO cough ; Start 06/24/17 at 10:30 Baclofen (Lioresal) 20 mg Q8 PO Last administered on 06/25/17 05:49; Admin Dose 20 MG; Start 06/24/17 at 15:30 Phenol 1 lozenge 1 lozenge Q1H PRN MT COUGH; Start 06/24/17 at 13:00 Cefepime HCl (Maxipime 2gm/50 ml (Pmx)) 50 ml @ 100 mls/hr Q12 IVPB Last administered on 06/25/17 11:16; Admin Dose 100 MLS/HR; Start 06/24/17 at 15:00 GABY THORNTON DO Jun 25, 2017 11:36
[2017-06-25 13:50] VITALS: BP 144/66; RESP 20
[2017-06-25 19:23] VITALS: BP 115/58; RESP 20
[2017-06-25] MEDS: ATORVASTATIN 20 MG TAB PO SCH (21:22)
[2017-06-25] MEDS: SENNA TAB PO SCH (21:22)
[2017-06-25] MEDS: BISACODYL 10 MG SUPP PR SCH (21:49)
[2017-06-26] MEDS: IPRATROPIUM (NEB) 0.5 MG/2.5 ML AMP HHN PRN (01:47)
[2017-06-26 02:00] VITALS: BP 138/65; RESP 18
[2017-06-26] MEDS: morphine 4 MG/ML VIAL IV PRN ×2 (02:07→19:26)
[2017-06-26] MEDS: BACLOFEN 10 MG TAB PO SCH ×3 (05:52→21:48)
[2017-06-26] MEDS: GABAPENTIN 300 MG CAP PO SCH ×3 (05:53→21:50)
[2017-06-26 07:40] VITALS: BP 143/66; RESP 18
[2017-06-26] MEDS: CHOLECALCIFEROL 2,000 UNIT CAP PO SCH (09:25)
[2017-06-26] MEDS: MAGNESIUM HYDROXIDE 30ML CUP PO SCH (09:25)
[2017-06-26] MEDS: MULTIVITAMINS/MINERALS TAB PO SCH (09:25)
[2017-06-26] MEDS: METOPROLOL 25 MG TAB PO SCH ×2 (09:26→21:49)
[2017-06-26] MEDS: DULOXETINE 30 MG CAP DR PO SCH (09:26)
[2017-06-26] MEDS: MAGNESIUM OXIDE 400 MG TAB PO SCH (09:26)
[2017-06-26] MEDS: DOCUSATE SODIUM 100 MG CAP PO SCH ×2 (09:27→21:50)
[2017-06-26] MEDS: DILTIAZEM 30 MG TAB PO SCH ×3 (09:27→21:49)
[2017-06-26] MEDS: FLUTICASONE 0.05% 16 GM NAS SPRAY NASAL SCH (09:28)
[2017-06-26] MEDS: COLLAGENASE 30 GM TUBE TOP SCH (09:28)
--- NOTE | 2017-06-26 09:35 | PN ---
DATE: 06/26/2017 SUBJECTIVE DATA: The patient is stable. No events overnight. No fevers, chills, nausea, vomiting. No shortness of breath. OBJECTIVE DATA: VITAL SIGNS: Blood pressure is 143/66, respiration 18, pulse 71, temperature 98.4. HEENT: Head is normocephalic. NECK: Supple. HEART: Regular rate. LUNGS: Diminished breath sounds at the base. ABDOMEN: Soft, nontender to palpation. No rebound or guarding. EXTREMITIES: Negative for clubbing, cyanosis. No edema. DERMATOLOGIC: No rashes. MUSCULOSKELETAL: No joint effusion. NEUROLOGIC: The patient is quadriplegia. LABORATORY AND DIAGNOSTIC DATA: Reviewed. ASSESSMENT AND PLAN: 1. Hyponatremia. Etiology is likely from volume depletion. Sodium levels have improved with IV fluids. Continue to monitor. 2. Anemia. Monitor hemoglobin and hematocrit levels. 3. Pneumonia sepsis. Continue current antibiotic regimen. 4. Quadriplegia. Continue to monitor. 5. Dysphagia. Continue pureed diet. 6. Respiratory failure status post-tracheostomy. Continue to monitor. Dictated By: Eduardo Link DO /[email or web address] /Document#: [id number]
[2017-06-26] MEDS: ENOXAPARIN 40 MG/0.4 ML SYG SC SCH (09:36)
[2017-06-26] MEDS: DEXTROSE 5%-0.9% NACL 1,000 ML IV SCH (10:00)
[2017-06-26] MEDS: FAMOTIDINE 20 MG TAB PO SCH ×2 (10:26→21:49)
[2017-06-26] MEDS: CEFEPIME 2GM/50 ML (PMX) 50 ML IVPB SCH ×2 (10:27→21:50)
[2017-06-26] MEDS: HYDROCODONE/APAP (10/325) TAB PO PRN ×2 (10:33→15:54)
[2017-06-26 15:08] VITALS: BP 175/77; RESP 18
[2017-06-26 20:00] VITALS: BP 126/61; RESP 20
[2017-06-26] MEDS: SENNA TAB PO SCH (21:00)
[2017-06-26] MEDS: BISACODYL 10 MG SUPP PR SCH (21:00)
[2017-06-26] MEDS: ALPRAZOLAM 0.25 MG TAB PO PRN (21:48)
[2017-06-26] MEDS: ATORVASTATIN 20 MG TAB PO SCH (21:49)
[2017-06-27 02:00] VITALS: BP 149/66; RESP 20
[2017-06-27] MEDS: morphine 4 MG/ML VIAL IV PRN ×2 (02:52→12:10)
[2017-06-27 06:00] LABS: BASOPHILS % 0.4 % (0.0-2.0); EOSINOPHILS # 0.4 10^3/ul (0.0-0.5); EOSINOPHILS % 4.5 % (0.0-7.0); HEMATOCRIT 31.2 % (42.0-52.0); HEMOGLOBIN 10.3 g/dl (14.0-18.0); LYMPHOCYTES # 1.2 10^3/ul (0.8-2.9); MEAN CORPUSCULAR HEMOGLOBIN 29.6 pg (29.0-33.0); MEAN CORPUSCULAR VOLUME 89.7 fl (82.0-101.0); MEAN PLATELET VOLUME 11.6 fl (7.4-10.4); MONOCYTE # 0.5 10^3/ul (0.3-0.9); MONOCYTES % 6.3 % (0.0-11.0); NEUTROPHILS % 74.4 % (39.0-77.0); PLATELET COUNT 218 10^3/UL (140-415); RED BLOOD COUNT 3.48 10^6/ul (4.70-6.10); RED CELL DISTRIBUTION WIDTH 12.9 % (11.5-14.5); WHITE BLOOD COUNT 8.3 10^3/ul (4.8-10.8)
[2017-06-27] MEDS: DEXTROSE 5%-0.9% NACL 1,000 ML IV SCH (06:08)
[2017-06-27] MEDS: GABAPENTIN 300 MG CAP PO SCH ×3 (06:08→21:01)
[2017-06-27] MEDS: BACLOFEN 10 MG TAB PO SCH ×3 (06:08→21:01)
[2017-06-27 06:33] LABS: CALCIUM 8.9 mg/dl (8.4-10.2); CREATININE 0.4 mg/dl (0.61-1.24); MAGNESIUM 2.1 mg/dl (1.7-2.5); PHOSPHORUS 3.5 mg/dl (2.5-4.9)
[2017-06-27 07:58] VITALS: BP 155/74; RESP 18
[2017-06-27] MEDS: MAGNESIUM HYDROXIDE 30ML CUP PO SCH (09:03)
[2017-06-27] MEDS: DULOXETINE 30 MG CAP DR PO SCH (09:04)
[2017-06-27] MEDS: DOCUSATE SODIUM 100 MG CAP PO SCH ×2 (09:04→21:02)
[2017-06-27] MEDS: FAMOTIDINE 20 MG TAB PO SCH ×2 (09:04→21:02)
[2017-06-27] MEDS: MULTIVITAMINS/MINERALS TAB PO SCH (09:04)
[2017-06-27] MEDS: MAGNESIUM OXIDE 400 MG TAB PO SCH (09:04)
[2017-06-27] MEDS: CHOLECALCIFEROL 2,000 UNIT CAP PO SCH (09:04)
[2017-06-27] MEDS: FLUTICASONE 0.05% 16 GM NAS SPRAY NASAL SCH (09:05)
[2017-06-27] MEDS: METOPROLOL 25 MG TAB PO SCH ×2 (09:05→21:04)
[2017-06-27] MEDS: CEFEPIME 2GM/50 ML (PMX) 50 ML IVPB SCH ×2 (09:05→21:00)
[2017-06-27] MEDS: DILTIAZEM 30 MG TAB PO SCH ×3 (09:06→21:03)
[2017-06-27] MEDS: ENOXAPARIN 40 MG/0.4 ML SYG SC SCH (09:09)
[2017-06-27] MEDS: HYDROCODONE/APAP (10/325) TAB PO PRN ×2 (09:14→14:50)
--- NOTE | 2017-06-27 11:20 | PN ---
DATE: 06/27/2017 SUBJECTIVE DATA: Patient is stable. No events overnight. No fevers, chills, nausea, vomiting. No other events noted. OBJECTIVE DATA: VITAL SIGNS: Blood pressure 155/74, respirations 18, pulse 69, temperature 98.5. HEENT: Head is normocephalic. NECK: Shows trach. HEART: Regular rate. LUNGS: Diminished breath sounds at the base. ABDOMEN: Soft, nontender to palpation. No guarding. EXTREMITIES: Negative for clubbing, cyanosis. No edema. DERMATOLOGIC: Clean. No rashes. MUSCULOSKELETAL: No joint effusion. NEUROLOGIC: No change in exam. MEDICATIONS: Reviewed. LABORATORY AND DIAGNOSTIC DATA: Sodium 140, potassium 4.0, BUN 7, creatinine 0.40. White count 8.3, hemoglobin 10.3, hematocrit 31.2, platelet count is 218,000. ASSESSMENT AND PLAN: 1. Hyponatremia secondary to volume depletion, resolved. 2. Anemia. Monitor hemoglobin and hematocrit levels. 3. Sepsis secondary to pneumonia. The patient has completed antibiotic course. 4. Quadriplegia, stable. Continue to monitor. 5. Dysphagia, continue puree diet. 6. Respiratory failure status post trach, currently stable. Dictated By: Eduardo Link DO /[email or web address]/tom /Document#: [id number]
[2017-06-27] MEDS: COLLAGENASE 30 GM TUBE TOP SCH (14:50)
[2017-06-27 15:48] VITALS: BP 126/66; RESP 20
[2017-06-27 19:51] VITALS: BP 133/62; RESP 20
[2017-06-27] MEDS: ASCORBIC ACID 500 MG TAB PO SCH (21:01)
[2017-06-27] MEDS: ATORVASTATIN 20 MG TAB PO SCH (21:01)
[2017-06-27] MEDS: SENNA TAB PO SCH (21:01)
[2017-06-27] MEDS: BISACODYL 10 MG SUPP PR SCH (21:02)
[2017-06-27] MEDS: ALPRAZOLAM 0.25 MG TAB PO PRN (21:21)
[2017-06-28 02:10] VITALS: BP 110/55; RESP 20
--- NOTE | 2017-06-28 03:09 | PN ---
DATE: 06/27/2017 SUBJECTIVE: The patient is a 66-year-old gentleman well known to me from a previous admission. The patient has a history of cervical cord compression following C-spine surgery. The patient underwent emergent laminectomy and fusion, however developed dense quadriplegia. The patient had tracheostomy and PEG tube placement and was sent to [facility] on 04/20/2017. The patient from their returned to [facility] subacute unit. The patient's G-tube meanwhile has been discontinued. The patient's trach is plugged. The patient also has history of hypertension, dyslipidemia, anxiety, depression, prostate cancer status post surgery, and also history of chronic rotator cuff tear pathology of the left shoulder. The patient was transferred to [facility] for fever and has been diagnosed with left lower lobe consolidation with parapneumonic effusion. The patient was started on IV vancomycin C-spine. Subsequently vancomycin has been discontinued. The patient has improved since his admission, and on the day of admission, the patient's white count was 17.3. Today it is 8.3. The patient is breathing comfortably off vent and trach is plugged. The patient denied any chest pain or shortness of breath. Denies any abdominal pain. The patient has a T maximum of 99.2 early this morning. PHYSICAL EXAMINATION: GENERAL: Conscious, awake, alert, and oriented. VITAL SIGNS: Temperature 98.2, pulse 63, respiration 20, blood pressure 126/66, O2 sat 95 percent room air. HEENT: No eye discharge or redness. Oropharynx is grossly negative. NECK: Tracheostomy in place. Chest diminished air entry at bases. CVS: Normal. No murmur. ABDOMEN: Soft and nontender. EXTREMITIES: No leg edema. Pedal pulses palpable. SKIN: Without acute rash. The patient has bilateral heel stage I, right malleolus stage I, left ankle stage I, sacral deep tissue injury, and right ischium, stage III. IMPRESSION: 1. Pneumonia. Continue IV cefepime. 2. C-spine quadriplegia after cervical spine disc surgery followed by postop complication leading to cord compression, status post emergent laminectomy and fusion. However, the patient has persistent dense quadriplegia. 3. Hypertension, stable. Continue Cardizem and metoprolol. 4. Dyslipidemia. Continue Lipitor. 5. Prostate cancer status post prostatectomy. No acute issues. 6. Anxiety and depression. Continue Ativan and Cymbalta. 7. Multiple decubiti as listed above. Continue local wound care as per protocol, and patient will need to be seen by treatment nurse at subacute unit upon discharge. DISPOSITION: The patient continues to remain stable. He will be discharged to subacute tomorrow. I spoke with the patient's , Marni, telephone number [phone] and updated her regarding patient's condition and plan of care. Meanwhile, we will add vitamin C with zinc. The patient is already on multivitamin. Labs done today revealed WBC 8.2, hemoglobin 10.3, platelet 218, sodium 140, potassium 4, BUN 7, creatinine 0.4, glucose 98, and magnesium 2.1. Dictated By: Peyman Fajardo MD /[email or web address] /Document#: [id number]
[2017-06-28] MEDS: morphine 4 MG/ML VIAL IV PRN ×2 (04:58→14:20)
[2017-06-28] MEDS: BACLOFEN 10 MG TAB PO SCH ×2 (05:31→14:20)
[2017-06-28] MEDS: GABAPENTIN 300 MG CAP PO SCH ×2 (05:31→14:20)
[2017-06-28 07:45] VITALS: BP 135/65; RESP 20
[2017-06-28] MEDS: CEFEPIME 2GM/50 ML (PMX) 50 ML IVPB SCH (08:48)
[2017-06-28] MEDS: MULTIVITAMINS/MINERALS TAB PO SCH (08:48)
[2017-06-28] MEDS: MAGNESIUM OXIDE 400 MG TAB PO SCH (08:48)
[2017-06-28] MEDS: FAMOTIDINE 20 MG TAB PO SCH (08:48)
[2017-06-28] MEDS: ASCORBIC ACID 500 MG TAB PO SCH (08:48)
[2017-06-28] MEDS: CHOLECALCIFEROL 2,000 UNIT CAP PO SCH (08:48)
[2017-06-28] MEDS: MAGNESIUM HYDROXIDE 30ML CUP PO SCH (08:48)
[2017-06-28] MEDS: DOCUSATE SODIUM 100 MG CAP PO SCH (08:48)
[2017-06-28] MEDS: DULOXETINE 30 MG CAP DR PO SCH (08:48)
[2017-06-28] MEDS: DILTIAZEM 30 MG TAB PO SCH ×2 (08:49→14:02)
[2017-06-28] MEDS: METOPROLOL 25 MG TAB PO SCH (08:49)
[2017-06-28] MEDS: COLLAGENASE 30 GM TUBE TOP SCH (08:49)
[2017-06-28] MEDS: FLUTICASONE 0.05% 16 GM NAS SPRAY NASAL SCH (08:49)
[2017-06-28] MEDS ORDERED: ZINC SULFATE 220 MG CAP PO SCH (09:00)
[2017-06-28] MEDS: HYDROCODONE/APAP (10/325) TAB PO PRN (09:06)
[2017-06-28] MEDS: ENOXAPARIN 40 MG/0.4 ML SYG SC SCH (09:10)
--- NOTE | 2017-06-28 10:24 | PN ---
DATE: 06/28/2017 SUBJECTIVE DATA: The patient is stable. No events overnight. No fevers, chills, nausea, vomiting. No shortness of breath. OBJECTIVE DATA: VITAL SIGNS: Blood pressure is 135/65, respirations 20, pulse 60, temperature 98.9. HEENT: Head is normocephalic. NECK: Supple. HEART: Regular rate. LUNGS: Diminished breath sounds at the base. ABDOMEN: Soft, nontender to palpation. No guarding. EXTREMITIES: Negative for clubbing, cyanosis. No edema. DERMATOLOGIC: Clean. No rashes. MUSCULOSKELETAL: No joint effusion. NEUROLOGIC: No change in exam. MEDICATIONS: Reviewed. LABORATORY AND DIAGNOSTIC DATA: Reviewed, no new labs. ASSESSMENT AND PLAN: 1. Hyponatremia secondary to volume depletion, resolved. 2. Anemia. Monitor hemoglobin and hematocrit levels. 3. Sepsis secondary to pneumonia. The patient is completing antibiotic course. 4. Quadriplegia, stable. 5. Dysphagia. Continue pureed diet. 6. Respiratory failure. Status post-tracheostomy, currently stable. Dictated By: Eduardo Link DO /[email or web address] /Document#: [id number]
--- NOTE | 2017-06-29 05:00 | DS ---
DATE OF ADMISSION: 06/23/2017 DATE OF DISCHARGE: 06/28/2017 FINAL DIAGNOSES: 1. Healthcare-associated acquired pneumonia. 2. Cervical spine quadriplegia after cervical spine disc surgery followed by postoperative complication leading to cord compression, status post emergent laminectomy and fusion. The patient has dense quadriplegia. 3. Hypertension. 4. Dyslipidemia. 5. Prostate cancer. Status post surgery. 6. Anxiety and depression. 7. Multiple decubiti including bilateral heels, stage I right malleolus, stage I left ankle, stage I sacral deep tissue injury, and right ischium stage III. DISCHARGE MEDICATIONS: Please see transfer MAR, as the patient is being transferred to a subacute unit. The patient will receive IV cefepime 1 g b.i.d. for another 4 days. HISTORY OF PRESENT ILLNESS: The patient is a 66-year-old gentleman who a few months ago underwent cervical disc surgery at [facility]. Unfortunately, the patient's postoperative course was complicated by cord compression. The patient subsequently underwent emergent laminectomy and fusion. The patient, however, did not improve and required tracheostomy and G- tube placement. The patient was subsequently sent to [facility] and his G-tube has been removed. The patient now has tracheostomy only, which is also plugged. The patient was transferred to subacute unit for fever. The patient had a chest x-ray, which revealed left lower lobe consolidation and small pleural effusion. The patient also had study CT of the abdomen and pelvis which revealed bilateral pleural effusions, mild right rectal wall thickening, atherosclerotic calcification of aorta and iliac system, and degenerative spondylosis of the thoracolumbar spine. The patient also had CT of the head, which was negative for any acute finding. The patient was seen by Dr. Eduardo Link from nephrology standpoint. The patient was treated initially with vancomycin and cefepime. The patient had a white count of 17.3 upon admission. Subsequently, it has improved and yesterday white count was 8.3. The patient had a negative blood culture. The patient continued to improve and on the day of discharge, the patient is breathing comfortably. The patient has remained afebrile for approximately 24 hours. DISCHARGE PHYSICAL EXAMINATION: VITAL SIGNS: This morning, temperature 98.9, pulse 68, respiratory rate 20, blood pressure 135/65. HEENT: No eye discharge or redness. NECK: Tracheostomy in place. No mass. CHEST: With diminished air entry at the bases. CARDIOVASCULAR: S1, S2 normal. No murmur. ABDOMEN: Soft, nondistended, and nontender. EXTREMITIES: No leg edema. NEUROLOGIC: The patient is awake, alert, fairly oriented, with quadriplegia. DATA: Recent labs: WBC 8.3, hemoglobin 10.3, platelet 218. Sodium 140, potassium 4, BUN 7, creatinine 0.4, glucose 98. DISCHARGE CONDITION: Stable. FOLLOWUP: I spoke with Dr. Eduardo Link who is taking care of him at subacute unit and updated him regarding plan of discharge and also the need for 4 more days of IV antibiotics. I also called the patient's yesterday and updated her regarding the patient's condition. I have requested the wound care team to follow him at the subacute unit and the patient was also started on aspirin and zinc. The patient was already on multivitamin. Dictated By: Peyman Fajardo MD /[email or web address] /Document#: [id number]
== END 2017-06-28 14:45 | DRG 871 ==
LOC: E/R 17:12 → MS2 18:55
PROVIDERS: ADMIT Internal Medicine Nephrology; ATTEND Internal Medicine Nephrology
DX: A41.9 Sepsis, unspecified organism (principal); J96.90 Respiratory failure, unspecified, unspecified whether with hypoxia or hypercapnia; G93.41 Metabolic encephalopathy; G82.50 Quadriplegia, unspecified; L89.151 Pressure ulcer of sacral region, stage 1; L89.313 Pressure ulcer of right buttock, stage 3; J18.9 Pneumonia, unspecified organism; L89.621 Pressure ulcer of left heel, stage 1; E87.1 Hypo-osmolality and hyponatremia; Z93.0 Tracheostomy status; I10 Essential (primary) hypertension; Z87.440 Personal history of urinary (tract) infections; Z87.01 Personal history of pneumonia (recurrent); M06.9 Rheumatoid arthritis, unspecified; R13.10 Dysphagia, unspecified; R33.9 Retention of urine, unspecified; D64.9 Anemia, unspecified; Z85.46 Personal history of malignant neoplasm of prostate; F41.9 Anxiety disorder, unspecified; F32.9 Major depressive disorder, single episode, unspecified; L89.611 Pressure ulcer of right heel, stage 1
CPT/HCPCS: 36415; 70450; 71010; 74176; 80048; 80053; 83605; 83735; 84100; 84484; 85025; 85610; 85730; 87040; 87081; 93005; 94640; 94664; 96361; 96365; 96366; 96375; J0692; J1650; J2270; J2405; J3370; J7030; J7042; J7050

== ENCOUNTER 2017-07-14 18:26 | Inpatient (IN) | payer MEDICARE, BC ==
[~2017-07-14] VITALS: Ht 177.8 cm; Wt 82.5 kg
[~2017-07-14 18:26] MED LIST changes: +ACET-141 PO; +ACET325T33 PO; +ALPR0.5T6 PO; +ATOR20TA38 PO; +BACL20TA PO; +BISA10SU75 PR; -CEPASTAT MT; +CHOL20002 PO; -CITA20TA6 G-TUBE; +DILT30TA30 PO; +DOCU-159 PO; +DULO60CA59 PO; +ENOX40DI2 SC; +FAMO20TA18 PO; +FLEETPED PR; +FLUT16SP17 NASAL; +GABA300C16 PO; +GLYC1SUP92 PR; +GUAI-637 PO; +HYDR-902 PO; +HYDR-906 PO; -HYDR15SO8 GTB; -IPRA3AMP INHALATION; -LACTINEX PO; +MAG355OR14 PO; +MAGN400O4 PO; +MAGN400T28 PO; -MCN2C15 TOP; +METO-448 PO; +MULT-506 PO; -MULTI GTB; +MYL80 PO; -NYST1000 PO; -NYST1POW22 TOPICAL; +SENN-36 PO; -TRAM-40 GTB; +TRAM-40 PO; -ZOLP10TA PO
[2017-07-14] MEDS ORDERED: SOD CHLORIDE 0.9% 1,000 ML IV STA (19:24)
[2017-07-14 19:58] LABS: BASOPHILS % 0.4 % (0.0-2.0); EOSINOPHILS # 0.2 10^3/ul (0.0-0.5); EOSINOPHILS % 2.8 % (0.0-7.0); HEMATOCRIT 32.9 % (42.0-52.0); HEMOGLOBIN 11.3 g/dl (14.0-18.0); LYMPHOCYTES # 1.4 10^3/ul (0.8-2.9); LYMPHOCYTES % 17.4 % (15.0-51.0); MEAN CORPUSCULAR HEMOGLOBIN 30.3 pg (29.0-33.0); MEAN CORPUSCULAR HGB CONC 34.3 g/dl (32.0-37.0); MEAN CORPUSCULAR VOLUME 88.2 fl (82.0-101.0); MEAN PLATELET VOLUME 11.5 fl (7.4-10.4); MONOCYTE # 0.8 10^3/ul (0.3-0.9); MONOCYTES % 10.3 % (0.0-11.0); NEUTROPHIL # 5.6 10^3/ul (1.6-7.5); NEUTROPHILS % 68.6 % (39.0-77.0); PLATELET COUNT 195 10^3/UL (140-415); RED BLOOD COUNT 3.73 10^6/ul (4.70-6.10); RED CELL DISTRIBUTION WIDTH 13.4 % (11.5-14.5); WHITE BLOOD COUNT 8.2 10^3/ul (4.8-10.8)
[2017-07-14 20:08] LABS: ADD UMIC YES; UR ASCORBIC ACID NEGATIVE (NEGATIVE); UR BACTERIA FEW /HPF (NONE SEEN); UR BILIRUBIN (Dip) NEGATIVE (NEGATIVE); UR BLOOD (Dip) NEGATIVE (NEGATIVE); UR CLARITY CLEAR (CLEAR); UR COLOR STRAW (YELLOW); UR GLUCOSE (Dip) NEGATIVE (NEGATIVE); UR KETONES (Dip) NEGATIVE (NEGATIVE); UR LEUKOCYTE ESTERASE (Dip) 2+ Leu/ul (NEGATIVE); UR NITRITE (Dip) POSITIVE (NEGATIVE); UR RBC 1 /HPF (0-5); UR SPECIFIC GRAVITY (Dip) 1.004 (1.003-1.030); UR TOTAL PROTEIN (Dip) NEGATIVE (NEGATIVE); UR UROBILINOGEN (Dip) NEGATIVE (NEGATIVE)
[2017-07-14] MEDS ORDERED: ZINC220T PO (20:09)
[2017-07-14] MEDS ORDERED: ASC500 PO (20:12)
[2017-07-14] MEDS ORDERED: ACID1CAP PO (20:12)
[2017-07-14 20:17] LABS: INR 0.91; PROTIME 12.3 Sec (12.2-14.2)
[2017-07-14 20:19] LABS: BARBITURATES Negative (NEGATIVE); BENZODIAZEPINES Negative (NEGATIVE); CANNABINOIDS Negative (NEGATIVE); COCAINE Negative (NEGATIVE); OPIATES Positive (NEGATIVE)
[2017-07-14 20:24] LABS: ALANINE AMINOTRANSFERASE 34 IU/L (13-69); ALBUMIN 3.6 g/dl (3.3-4.9); ALBUMIN/GLOBULIN RATIO 1.16; ALKALINE PHOSPHATASE 91 IU/L (42-121); ANION GAP 10 (8-16); ASPARTATE AMINO TRANSFERASE 19 IU/L (15-46); BILIRUBIN,INDIRECT 0.2 mg/dl (0-1.1); BILIRUBIN,TOTAL 0.2 mg/dl (0.2-1.3); BLOOD UREA NITROGEN 15 mg/dl (7-20); CALCIUM 9.4 mg/dl (8.4-10.2); CARBON DIOXIDE 30 mmol/L (21-31); CHLORIDE 94 mmol/L (97-110); CREATININE 0.41 mg/dl (0.61-1.24); GLUCOSE 98 mg/dl (70-220); POTASSIUM 4.1 mmol/L (3.5-5.1); SODIUM 130 mmol/L (135-144); TOTAL PROTEIN 6.7 g/dl (6.1-8.1)
[2017-07-14 20:29] LABS: ACETAMINOPHEN < 10.0 ug/ml (10.0-30.0); ETHANOL < 10.0 mg/dl; SALICYLATE < 1.0 mg/dl (5.0-30.0)
[2017-07-14 20:36] LABS: TROPONIN-I 0.013 ng/ml (0.00-0.12)
--- NOTE | 2017-07-14 20:57 | RADRPT ---
PROCEDURE: CT Brain without contrast. CLINICAL INDICATION: Altered mental status. TECHNIQUE: A CT of the brain without contrast was performed utilizing axial sections from the skul l base through the vertex. The patient was scanned without intravenous contrast enhancement. [place] l and coronal reformatted images were obtained using the data from the axial images. Total exam DLP is 810.25 mGy-cm. CTDIvol is 45.01 mGy. One or more of the following dose reduction techniques were used: Automated exposure control, adjustment of the mA and/or kV according to patient size, use of iterative reconstruction technique. COMPARISON: CT scan of the brain dated 06/23/2017 FINDINGS: There is normal barnard-white matter differentiation. There is enlargement of the ventricles and subarachnoid spaces consistent with atrophy. There is decreased attenuation of the periventricular white matter consistent with microangiopathic ischemic change. There is no intracranial hemorrhage or space-occupying lesion. There are vascular calcifications consistent with atherosclerosis. There is no skull fracture or lytic lesion. As seen previously, there is a right maxillary high dens ity material thickening of the hoffman consistent with chronic sinusitis. IMPRESSION: 1. Atrophy. 2. Microangiopathic ischemic change. 3. Atherosclerosis. 4. Chronic right maxillary sinus. High-density material within the right maxillary sinus which may be due to secretions or focal products. Clinical correlation advised. 5. Otherwise unremarkable noncontrast CT scan of the brain. 6. No change from 06/23/2017. RPTAT: QQ .Mani Rollins MD, MD Date Time Electronically viewed and signed by .Mani Rollins MD, on 07/14/2017 20:57 .R/
--- NOTE | 2017-07-14 20:59 | RADRPT ---
PROCEDURE: XR Chest. CLINICAL INDICATION: Shortness of breath. TECHNIQUE: Single frontal view. COMPARISON: 06/23/2017. FINDINGS: The tracheostomy tube is in satisfactory position. There has been prior cervical spine surgery with plate and screws noted. There is mild left basilar air space disease, unchanged. The lungs are other egan clear. The heart size is normal. There is a right pleural effusion. There is a small left pleural effusion. There is no pneumothorax. IMPRESSION: 1. No change from 06/23/2017. RPTAT: QQ .Mani Rollins MD, MD Date Time Electronically viewed and signed by .Mani Rollins MD, MD on 07/14/2017 20:59 .R/
[2017-07-14] MEDS ORDERED: ACETAMINOPHEN 325 MG TAB PO ONE (21:00)
[2017-07-14] MEDS ORDERED: CEFTRIAXONE 1 GM INJ IM ONE (21:00)
[2017-07-14 21:01] LABS: PARTIAL THROMBOPLASTIN TIME 30.2 Sec (25.0-35.0)
--- NOTE | 2017-07-14 21:11 | ERA ---
ER Documentation Chief Complaint Date/Time DATE: 07/14/17 TIME: 21:04 Chief Complaint BROUGHT IN [facility]IA [facility] DUE TO ALOC SINCE YESTERDAY HPI This is a 66-year-old male who is quadriplegic secondary to a complication from a cervical spine surgery, chronic trach and PEG, not ventilator dependent, whose course has been complicated by multiple infections including pneumonia, previous UTIs and stage I sacral decubitus ulcers who is now presenting with altered mentation. The patient became more confused and lethargic yesterday. The patient's said that the last time this happened, he had a urinary tract infection. The patient reportedly had some irritation with his previous Avila. It was changed yesterday. When they replaced it, there was a little bit of blood that returned in the new Avila catheter. The patient has been with his for the last several hours, and the reports that he actually is not altered at this time. He seems to wax and wane with mentation. The patient is currently alert and oriented. He does have sensation and has some mild suprapubic discomfort. He does breathe on his own and does not complain of chest pain or shortness of breath. The patient denies headache or vision changes. He denies sore throat or nausea or vomiting. ROS All systems reviewed and are negative except as per history of present illness. Medications Home Meds Reported Medications Ascorbic Acid (Vitamin C) 500 Mg Tab, 500 MG PO BID, TAB 07/14/17 Acidophilus/Pectin, Cottle (ACIDOPHILUS PROBIOTIC CAPSULE) 1 Each Capsule, 1 EACH PO DAILY, CAP 07/14/17 Zinc Sulfate* (Zinc Sulfate*) 220 Mg Tablet, 220 MG PO DAILY, TAB START DATE 06/29/17 AND END DATE 07/29/17 07/14/17 Cholecalciferol (Vitamin D3) (Vitamin D-3) 2,000 Unit Tablet, 2000 UNIT PO DAILY , TAB 06/23/17 Acetaminophen* (Tylenol*) 325 Mg Tablet, 650 MG PO Q4H Y for MILD PAIN LEVEL 1-3 , TAB 06/23/17 Tramadol Hcl* (Ultram*) 50 Mg Tablet, 50 MG PO Q4H Y for PAIN LEVEL 4-7/10, TAB 06/23/17 Simethicone* (Mylicon*) 80 Mg Tab, 80 MG PO Q8H Y for ABDOMINAL GAS, TAB 06/23/17 Sennosides* (Senokot*) 8.6 Mg Tablet, 2 TAB PO QHS, TAB 06/23/17 Hydrocodone/Acetaminophen ([place] 5-325 Tablet) 1 Each Tablet, 1 EACH PO Q6H Y for PAIN LEVEL 4-6/10, TAB 06/23/17 Hydrocodone/Acetaminophen ([place] 10-325 Tablet) 1 Each Tablet, 1 EACH PO Q4H Y for PAIN 7-10/10, TAB 06/23/17 Multivitamin with Minerals (Multiple Vitamin) 1 Each Tablet, 1 EACH PO DAILY, TAB 06/23/17 Magnesium Hydroxide* (Milk Of Magnesia*) 400 Mg/5 Ml Oral.susp, 30 ML PO Q24H for CONSTIPATION, ML 06/23/17 Metoprolol Tartrate* (Lopressor*) 25 Mg Tab, 25 MG PO DAILY, #60 TAB HOLD IF SBP<120,HR<60 06/23/17 Magnesium Oxide* (Magnesium Oxide*) 400 Mg Tablet, 400 MG PO DAILY, TAB 06/23/17 Mag Hydrox/Al Hydrox/Simeth (Maalox Advanced Suspension) 355 Ml Oral.susp, 30 ML PO Q4H Y for PRN 06/23/17 Guaifenesin* (Robitussin*) 100 Mg/5 Ml Syrup, 5 ML PO Q4H Y for COUGH, ML 06/23/17 Glycerin* (Glycerin (Adult)*) 1 Each Supp.rect, 1 EACH CO QHS Y for CONSTIPATION , SUPP.RECT 06/23/17 Gabapentin* (Gabapentin*) 300 Mg Capsule, 600 MG PO Q8H, #180 CAP 06/23/17 Fluticasone Propionate* (Fluticasone Propionate* Nasal) 50 Mcg/[place] - 16 Gm [place].susp, 2 SPRAYS NASAL DAILY, #1 BOTTLE TO EACH NOSTRIL 06/23/17 Sod Phosphate/Sod Biphosphate* (Fleet* Enema Pediatric) Unknown Strength Soln, 118 ML CO Q72H Y for CONSTIPATION, ENEMA 06/23/17 Famotidine* (Famotidine*) 20 Mg Tablet, 20 MG PO BID, #60 TAB 06/23/17 Enoxaparin Sodium* (Enoxaparin Sodium*) 40 Mg/0.4 Ml Syringe, 40 MG SC Q24H, SYR 06/23/17 Duloxetine Hcl* (Duloxetine Hcl*) 60 Mg Capsule.dr, 60 MG PO DAILY, #30 CAP 06/23/17 Bisacodyl* (Bisacodyl*) 10 Mg Supp, 10 MG CO QHS, SUPP 06/23/17 Docusate Sodium* (Docusate Sodium*) 100 Mg Capsule, 100 MG PO BID, #60 CAP 06/23/17 Diltiazem Hcl* (Cardizem*) 30 Mg Tablet, 30 MG PO TID, #90 TAB HOLD FOR SBP<120,HR<55 06/23/17 Baclofen* (Baclofen*) 20 Mg Tablet, 20 MG PO Q8 Y for MUSCLE SPASMS, TAB 06/23/17 Atorvastatin Calcium* (Atorvastatin Calcium*) 20 Mg Tablet, 20 MG PO QHS, #30 TAB 06/23/17 Alprazolam* (Alprazolam*) 0.5 Mg Tablet, 0.5 MG PO Q12H Y for ANXIETY, TAB 06/23/17 Discontinued Reported Medications Acetaminophen* (Acetaminophen*) 500 MG Extra Strength Tablet, 500 MG PO Q6 Y for FOR FEVER, TAB 06/23/17 Allergies Allergies: Coded Allergies: No Known Allergy (Unverified , 07/14/17) PMhx/Soc History of Surgery: Yes (laminectomy, r meniscus, prostatectomy, cervical surgery) Anesthesia Reaction: No Hx Neurological Disorder: Yes (quadriplegic) Hx Respiratory Disorders: Yes (pneumonia) Hx Cardiac Disorders: Yes (aortic valve disorder, htn) Hx Psychiatric Problems: No Hx Miscellaneous Medical Probl: No Hx Alcohol Use: No Hx Substance Use: No Hx Tobacco Use: No FmHx Family History: No coronary disease, No diabetes Physical Exam Vitals Vital Signs Date Time Temp Pulse Resp B/P Pulse Ox O2 Delivery O2 Flow Rate FiO2 07/14/17 20:02 Nasal Cannula 2 07/14/17 18:31 98.1 181 18 128/66 99 Physical Exam Const: No apparent distress, well-nourished, quadriplegic Head: Atraumatic Eyes: Normal Conjunctiva ENT: Normal External Ears, Nose and Mouth. Neck: Full range of motion. ~ No meningismus. Trach in place without signs of infection. No erythema or induration or edema or purulence or bleeding. Resp: Mild coarse but symmetric and full breath sounds bilaterally Cardio: Regular rate and rhythm, no murmurs Abd: Soft, non tender, non distended. Normal bowel sounds Skin: No petechiae or rashes Back: No midline or flank tenderness, stage I sacral decubitus ulcer. Ext: No cyanosis, bilateral lower extremity nonpitting edema Neur: Awake and alert, sensation intact, quadriplegic Psych: Normal Mood and Affect Result Diagram: 07/14/17193907/14/171939 Results 24 hrs Laboratory Tests Test 07/14/17 19:40 White Blood Count 8.210^3/ul Red Blood Count 3.7310^6/ul Hemoglobin 11.3g/dl Hematocrit 32.9% Mean Corpuscular Volume 88.2fl Mean Corpuscular Hemoglobin 30.3pg Mean Corpuscular Hemoglobin Concent 34.3g/dl Red Cell Distribution Width 13.4% Platelet Count 81718^3/UL Mean Platelet Volume 11.5fl Neutrophils % 68.6% Lymphocytes % 17.4% Monocytes % 10.3% Eosinophils % 2.8% Basophils % 0.4% Nucleated Red Blood Cells % 0.0/100WBC Neutrophils # 5.610^3/ul Lymphocytes # 1.410^3/ul Monocytes # 0.810^3/ul Eosinophils # 0.210^3/ul Basophils # 0.010^3/ul Nucleated Red Blood Cells # 0.010^3/ul Prothrombin Time 12.3Sec Prothrombin Time Ratio 1.0 INR International Normalized Ratio 0.91 Activated Partial Thromboplast Time 30.2Sec Urine Color STRAW Urine Clarity CLEAR Urine pH 7.0 Urine Specific [place] 1.004 Urine Ketones NEGATIVEmg/dL Urine Nitrite POSITIVEmg/dL Urine Bilirubin NEGATIVEmg/dL Urine Urobilinogen NEGATIVEmg/dL Urine Leukocyte Esterase 2+Diane/ul Urine Microscopic RBC 1/HPF Urine Microscopic WBC 4/HPF Urine Bacteria FEW/HPF Urine Hemoglobin NEGATIVEmg/dL Urine Glucose NEGATIVEmg/dL Urine Total Protein NEGATIVEmg/dl Sodium Level 130mmol/L Potassium Level 4.1mmol/L Chloride Level 94mmol/L Carbon Dioxide Level 30mmol/L Anion Gap 10 Blood Urea Nitrogen 15mg/dl Creatinine 0.41mg/dl Glucose Level 98mg/dl Calcium Level 9.4mg/dl Total Bilirubin 0.2mg/dl Direct Bilirubin 0.00mg/dl Indirect Bilirubin 0.2mg/dl Aspartate Amino Transf (AST/SGOT) 19IU/L Alanine Aminotransferase (ALT/SGPT) 34IU/L Alkaline Phosphatase 91IU/L Troponin I 0.013ng/ml Total Protein 6.7g/dl Albumin 3.6g/dl Globulin 3.10g/dl Albumin/Globulin Ratio 1.16 Salicylates Level < 1.0mg/dl Urine Opiates Screen Positive Acetaminophen Level < 10.0ug/ml Urine Barbiturates Negative Urine Amphetamines Screen Negative Urine Benzodiazepines Screen Negative Urine Cocaine Screen Negative Urine Cannabinoids Negative Ethyl Alcohol Level < 10.0mg/dl Current Medications Medications (Trade) Dose Ordered Sig/Melvina Route PRN Reason Start Time Stop Time Status Last Admin Dose Admin Sodium Chloride (NS) 1,000 ml @ 1,000 mls/hr Q1H STAT IV 07/14/17 19:24 07/14/17 20:23 DC 07/14/17 19:46 Ceftriaxone Sodium (Rocephin) 1 gm ONCE ONCE IM 07/14/17 21:00 07/14/17 21:01 DC Acetaminophen (Tylenol Tab) 650 mg ONCE ONCE PO 07/14/17 21:00 07/14/17 21:01 DC Procedures/MDM MDM Patient's presentation warrants further investigation. The patient had waxing and waning mentation. During my evaluation, the patient was completely oriented. He did endorse some suprapubic discomfort. Full infectious and altered mental status workup will be performed. LABS The patient's blood work was obtained and reviewed. The patient seemed shows no leukocytosis or left shift. The patient is mildly anemic today, but this does not need to be emergently treated. The patient's platelet count is unremarkable. The patient's CMP shows hyponatremia and hypochloremia. The patient may receive IV fluids, but this is unlikely to be the etiology of his symptoms. The patient has normal renal and hepatic function testing. His UDS demonstrated only opiates. His Tylenol, salicylate and alcohol levels were negative. The patient's urinalysis is positive for nitrites, leukoesterase, white cells and bacteria. I am concerned of a urinary tract infection, which correlates with past findings of altered mental status. EKG EKG read by me: Rate/Rhythm: Regular rate and rhythm at a rate of 72 Intervals: Normal [place]: Normal Impression: Nonspecific ST changes, but no evidence of ischemia or arrhythmia IMAGING CT Head IMPRESSION: Atrophy. Microangiopathic ischemic change. Atherosclerosis. Chronic right maxillary sinus. High-density material within the right maxillary sinus which may be due to secretions or focal products. Clinical correlation advised. Otherwise unremarkable noncontrast CT scan of the brain. No change from 06/23/2017. Electronically viewed and signed by .Mani Rollins MD, MD on 07/14/2017 20:57 CXR FINDINGS: The tracheostomy tube is in satisfactory position. There has been prior cervical spine surgery with plate and screws noted. There is mild left basilar air space disease, unchanged. The lungs are otherwise clear. The heart size is normal. There is a right pleural effusion. There is a small left pleural effusion. There is no pneumothorax. IMPRESSION: No change from 06/23/2017. Electronically viewed and signed by .Mani Rollins MD, MD on 07/14/2017 20:59 TREATMENT/DISPOSITION The patient has findings consistent with a urinary tract infection. There are no other obvious infectious etiologies. Does not appear to have pneumonia. His trach site appears intact. He has no abdominal discomfort concerning for another abdominal etiology. His blood work was essentially unremarkable. His ulcerations do not appear infected. Since toxicologic workup revealed only opiates in his system, which is prescribed. He was alert and oriented for us in the emergency department, and his presentation does not require Narcan. It is possible that the patient received opiates at the facility which caused him to be altered, but I have higher suspicion for a urinary tract infection. Patient was given Rocephin in addition to IV fluids in the emergency department. Urine culture will be sent off for evaluation by the hospital team. He was given Tylenol as well as morphine for pain control. The patient was accepted by Dr. Fajardo at 9 PM on July 14, 2017. Departure Diagnosis: Primary Impression: Altered level of consciousness Additional Impressions: UTI (urinary tract infection) Qualified Code: T83.511A - Urinary tract infection associated with indwelling urethral catheter, initial encounter Hyponatremia Condition: JOSE Duarte MD Jul 14, 2017 21:11
[2017-07-14] MEDS ORDERED: morphine 4 MG/ML VIAL IV STA (21:17)
[2017-07-14] MEDS ORDERED: morphine 4 MG/ML VIAL ONE (21:21)
[2017-07-14] MEDS ORDERED: ONDANSETRON 4 MG INJ IV PRN (21:30)
[2017-07-14] MEDS ORDERED: ACETAMINOPHEN 325 MG TAB PO PRN ×2 (21:30→23:30)
[2017-07-14] MEDS ORDERED: CEFTRIAXONE 1 GM/50 ML (PMX) 50 ML IVPB ONE (21:30)
[2017-07-14 22:33] VITALS: BP 122/68; PULSE 72; RESP 18; Ht 177.8 cm; Wt 82.5 kg
[2017-07-14] MEDS ORDERED: ALPRAZOLAM 0.5 MG TAB PO PRN (23:30)
[2017-07-15] MEDS: SOD CHLORIDE 0.9% 1,000 ML IV SCH ×2 (00:31→17:08)
[2017-07-15] MEDS: ENOXAPARIN 40 MG/0.4 ML SYG SC SCH ×2 (00:32→23:45)
[2017-07-15 01:19] VITALS: BP 132/62; RESP 22
[2017-07-15 01:57] VITALS: BP 122/67; PULSE 71; RESP 18
[2017-07-15] MEDS: morphine 2 MG INJ IV PRN ×5 (04:09→22:13)
[2017-07-15 05:41] LABS: BASOPHILS % 0.3 % (0.0-2.0); EOSINOPHILS # 0.3 10^3/ul (0.0-0.5); EOSINOPHILS % 4.3 % (0.0-7.0); HEMATOCRIT 32.8 % (42.0-52.0); HEMOGLOBIN 10.8 g/dl (14.0-18.0); LYMPHOCYTES % 13.8 % (15.0-51.0); MEAN CORPUSCULAR HEMOGLOBIN 29.6 pg (29.0-33.0); MEAN CORPUSCULAR HGB CONC 32.9 g/dl (32.0-37.0); MEAN CORPUSCULAR VOLUME 89.9 fl (82.0-101.0); MEAN PLATELET VOLUME 12.1 fl (7.4-10.4); MONOCYTE # 0.6 10^3/ul (0.3-0.9); MONOCYTES % 9.1 % (0.0-11.0); NEUTROPHILS % 71.8 % (39.0-77.0); PLATELET COUNT 181 10^3/UL (140-415); RED BLOOD COUNT 3.65 10^6/ul (4.70-6.10); RED CELL DISTRIBUTION WIDTH 13.3 % (11.5-14.5)
[2017-07-15 06:24] LABS: CALCIUM 9.5 mg/dl (8.4-10.2); CREATININE 0.35 mg/dl (0.61-1.24)
[2017-07-15 08:24] VITALS: BP 128/66; RESP 20
[2017-07-15] MEDS: DOCUSATE SODIUM 100 MG CAP PO SCH ×2 (09:19→21:22)
[2017-07-15] MEDS: FAMOTIDINE 20 MG TAB PO SCH ×2 (09:19→21:22)
[2017-07-15] MEDS: ASCORBIC ACID 500 MG TAB PO SCH ×2 (09:19→21:22)
[2017-07-15] MEDS: DULOXETINE 30 MG CAP DR PO SCH (09:19)
[2017-07-15] MEDS: DILTIAZEM 30 MG TAB PO SCH ×3 (09:21→21:23)
[2017-07-15] MEDS: BACLOFEN 10 MG TAB PO PRN (11:40)
--- NOTE | 2017-07-15 12:38 | HP ---
DATE OF ADMISSION: 07/14/2017 HISTORY OF PRESENT ILLNESS: The patient is a 66-year-old gentleman well known to me from previous admission. 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 The patient has a residual dense quadriplegia. The patient has tracheostomy which is plugged. The patient used to have G-tube but it has been removed. The patient also history of hypertension, dyslipidemia, prostate cancer status post-surgery anxiety, and also has anxiety and depression. The patient is a resident of the pancreatitis subacute unit. The patient was transferred to ER due to altered level of consciousness for the past 24 hours. The patient was seen in the ER and was noted to be alert. The patient recently had a change of Avila catheter. The patient states that he has waxing and waning with his mentation, and he was not "with it" at subacute unit, therefore he decided to come to the ER. However, upon arrival in the ER, patient was noted to have possible urinary infection and also noted to have hyponatremia with sodium 130. The patient previous sodium was 140. The patient was started on normal saline and his sodium has gone up to 138, patient is totally awake, alert, and oriented. He is back to his baseline. The patient denies any chest pain or abdominal pain. No reported leg edema. No reported chest condition. No reported headache. No reported nausea or vomiting. Patient is able to take orals. No reported abdominal distention. REVIEW OF SYSTEMS: A total of 10 systems were reviewed and all pertinent positive and negative findings have been described in HPI. The patient remains severely quadriplegic. The patient did report that he tends to drink large amounts of water that might have led to his hyponatremia. Patient has been advised to cut down on his water intake. PAST MEDICAL HISTORY: As stated above. In addition, patient has history of prostate cancer status post-surgery. Also history of chronic rotator cuff tear left shoulder. PAST SURGICAL HISTORY: In addition to the above, C-spine surgery. The patient also has history of tonsillectomy. History of tracheostomy and G-tube placement. SOCIAL HISTORY: Remote history of smoking. No alcohol use. FAMILY HISTORY: Positive for disease. ALLERGIES: NONE. PHYSICAL EXAMINATION: GENERAL: Patient conscious, awake, alert, fairly oriented. VITAL SIGNS: Temperature 98.4, pulse 71, respirations 18, blood pressure 122/67. O2 saturation 90 percent on room air. HEENT: No eye discharge. Head and neck is supple. Nose and ears normal. Oropharynx clear. NECK: Tracheostomy in place. No mass, no JVD. CHEST: Fairly clear. No use accessory muscles. CARDIAC: Regular rate and rhythm. S1 is normal. No murmurs, gallops, or rubs. ABDOMEN: Soft, nontender. No palpable mass or pulsatile mass. EXTREMITIES: No leg edema. Pedal pulses palpable. SKIN: Without rash. The patient has stage I sacral decubitus. NEURO: Patient is awake, alert, fairly oriented, with quadriplegia. LABORATORY: On the day of admission: Sodium 138, potassium 4.1, BUN 15, creatinine 0.4, glucose 98, AST 19, ALT 34, alk phos 91. Troponin negative. Albumin 3.6. WBC 8.2, hemoglobin 9.3, platelet 195,000. IMAGING: CT scan of the brain did not show any acute pathology. Chest x-ray did not reveal any acute pathology as compared to 06/23/2017. IMPRESSION: 1. Metabolic encephalopathy. Improved. Resolved probably due to hyponatremia and urinary tract infection. We will notify Dr. Link, who has been seeing him at subacute unit. 2. Cervical spine quadriplegia after C-spine disc surgery, followed by postoperative complication leading to cord compression, status post- emergent laminectomy infusion and with residual dense quadriplegia. 3. Hypertension. 4. Dyslipidemia. 5. Anxiety and depression. 6. Prostate cancer status post-surgery. PLAN: Patient admitted on medical floor. The patient was started on IV Rocephin and will be given Xanax on as needed for anxiety. Will continue Lipitor for dyslipidemia. Baclofen on as needed basis for muscle spasm. We will also continue diltiazem for hypertension and Cymbalta for depression. For DVT prophylaxis will use Lovenox and for GI prophylaxis we will continue Pepcid. Further management depends on hospital course. We will also obtain a acute rehab evaluation. Further recommendations depending on patient's hospital course. Dictated By: Peyman Fajardo MD /[email or web address] /Document#: [id number]
[2017-07-15 16:21] VITALS: BP 128/58; RESP 20
[2017-07-15] MEDS: CEFTRIAXONE 1 GM/50 ML (PMX) 50 ML IVPB SCH (21:10)
[2017-07-15 21:15] VITALS: BP 140/70; PULSE 82; RESP 18
[2017-07-15] MEDS: BISACODYL 10 MG SUPP PR SCH (21:22)
[2017-07-15] MEDS: ATORVASTATIN 20 MG TAB PO SCH (21:22)
[2017-07-16 02:29] VITALS: BP 155/69; RESP 16
[2017-07-16] MEDS: LORAZEPAM 2 MG INJ IV PRN ×2 (04:40→22:27)
[2017-07-16 04:57] VITALS: BP 155/80; PULSE 64; RESP 18
[2017-07-16 07:31] VITALS: BP 162/74; RESP 20
[2017-07-16] MEDS: ASCORBIC ACID 500 MG TAB PO SCH ×2 (08:19→21:04)
[2017-07-16] MEDS: DILTIAZEM 30 MG TAB PO SCH ×3 (08:19→21:02)
[2017-07-16] MEDS: FAMOTIDINE 20 MG TAB PO SCH ×2 (08:19→21:04)
[2017-07-16] MEDS: DULOXETINE 30 MG CAP DR PO SCH (08:19)
[2017-07-16] MEDS: BACLOFEN 10 MG TAB PO PRN (08:31)
[2017-07-16] MEDS ORDERED: INFLUENZA VIRUS VACCINE 0.5 ML SYG IM* ONE (09:00)
[2017-07-16] MEDS: DOCUSATE SODIUM 100 MG CAP PO SCH ×2 (09:00→21:00)
[2017-07-16] MEDS: SOD CHLORIDE 0.9% 1,000 ML IV SCH (09:40)
--- NOTE | 2017-07-16 09:46 | CONS ---
DATE OF ADMISSION: 07/14/2017 DATE OF CONSULTATION: 07/16/2014 NEPHROLOGY CONSULT REASON FOR CONSULTATION: Hyponatremia. HISTORY OF PRESENT ILLNESS: This is a 66-year-old male with a past medical history of C-spine quadriplegia following the surgery leading to postoperative complication of cord compression. The patient has a history of prostate cancer, status post surgery, history of rotator cuff tear, who presents to [facility] with altered mental status. The patient, in the emergency room, had laboratory data drawn which showed a urinalysis positive nitrates. The patient had a CT scan of the brain, which showed no acute findings. The patient was started on antibiotic therapy for a UTI and placed on IV fluids, admitted to Medical/Surgical. The patient is clinically improved with IV fluids and antibiotic therapy. The patient's sodium levels have normalized. No other acute events noted. PAST MEDICAL HISTORY: As stated above. History of quadriplegia, prostate cancer, UTI. PAST SURGICAL HISTORY: Status post C-spine surgery, history of tonsillectomy, G-tube placement. SOCIAL HISTORY: Does not drink, smoke, do drugs. FAMILY HISTORY: Noncontributory. ALLERGIES: NONE. REVIEW OF SYSTEMS: A 14-point review of systems conducted. Pertinent positives stated in HPI, otherwise negative. PHYSICAL EXAMINATION: VITAL SIGNS: Blood pressure 160/74, respirations 20, pulse 69, temperature 97.7. HEENT: Head is normocephalic. NECK: Supple. HEART: Regular rate. LUNGS: Diminished breath sounds at the base. ABDOMEN: Soft, nontender to palpation. No guarding. EXTREMITIES: Negative for clubbing, cyanosis. No edema. DERMATOLOGIC: Clean. No rashes. NEUROLOGIC: The patient has quadriplegia. LABORATORY DATA: On 07/15/2017, shows sodium 138, white count 7.0. ASSESSMENT AND PLAN: 1. Hyponatremia. Etiology is likely from volume depletion. Improved with IV fluids. Continue current treatment plan. 2. Urinary tract infection. Continue current antibiotic regimen. 3. Encephalopathy. Etiology is likely toxic metabolic. The patient's mental status is improving. Continue current antibiotic therapy. 4. Cervical spine quadriplegia after C-spine surgery. Continue to monitor. 5. Hypertension. Continue current blood pressure regimen. 6. Dyslipidemia. 7. Anxiety, depression. 8. History of prostate cancer. Thank you, Dr. Fajardo, for this interesting consult. It will be a pleasure to follow patient with you throughout the hospital course. Dictated By: Eduardo Link DO /[email or web address] /Document#: [id number]
[2017-07-16] MEDS ORDERED: LEVALBUTEROL (NEB) 0.63 MG/3 ML AMP NEB PRN (11:00)
[2017-07-16] MEDS ORDERED: hydrALAzine 20 MG INJ IV PRN (11:00)
--- NOTE | 2017-07-16 11:30 | PN ---
DATE: 07/16/2017 SUBJECTIVE DATA: This is a followup on UTI, episodic confusion, C-spine quadriplegia, hypertension. Patient last night had an episode of confusion and restless. Patient received 0.5 mg IV Ativan. This morning, patient is awake, alert, and is back to his baseline and denies any chest pain. Patient did not have any fever or chills. No history of bleeding of any site. Denies any headache. Patient did not have any vomiting. PHYSICAL EXAMINATION: GENERAL: Patient to be conscious, awake, alert, fairly oriented. VITAL SIGNS: Temperature 97.7, pulse 69, respiration 20, blood pressure 162/74, O2 saturation 99 percent on room air. HEENT: No eye discharge or redness. Extraocular movements intact. Oropharynx is clear. NECK: No JVD. No mass. Tracheostomy in place. CHEST: Fairly clear. No use of accessory muscles. HEART: Normal. No murmur, gallop or rub. ABDOMEN: Soft, nontender. No palpable mass. EXTREMITIES: No leg edema. NEURO: Patient is awake, alert with quadriplegia. LABS: Urine is growing gram-negative rods. IMPRESSION: 1. Episodic altered mental status. I spoke with patient's daughter, Mansi, yesterday. She reported that patient does have episodes of confusion even at subacute unit. I reviewed his medication. Patient has been getting baclofen 20 mg q.8 hours on p.r.n. basis, and he did get a couple of doses after admission at [facility]. Will hold off on that. Also, will cut down on the Cymbalta to 30 mg a day as patient does not appear to be significantly depressed at this time. 2. Urinary tract infection. Continue IV Rocephin until final cultures are back. 3. Cervical spine quadriplegia. Acute rehabilitation evaluation pending. 4. Hypertension. Patient's blood pressure is not well controlled. Will increase diltiazem to 60 mg t.i.d. 5. Hypernatremia, resolved. Dr. Chavez saw the patient yesterday 6. If patient continues to have episodic confusion despite change in his medication and treatment of urinary tract infection, then we will obtain a neurological consultation. Dictated By: Peyman Fajardo MD /[email or web address] /Document#: [id number]
[2017-07-16] MEDS: HYDROCODONE/APAP (5/325) TAB PO PRN ×2 (15:41→21:21)
[2017-07-16 19:39] VITALS: BP 118/56; RESP 18
[2017-07-16] MEDS: BISACODYL 10 MG SUPP PR SCH (21:00)
[2017-07-16] MEDS: CEFTRIAXONE 1 GM/50 ML (PMX) 50 ML IVPB SCH (21:00)
[2017-07-16] MEDS: ATORVASTATIN 20 MG TAB PO SCH (21:03)
[2017-07-16] MEDS: ENOXAPARIN 40 MG/0.4 ML SYG SC SCH (22:49)
[2017-07-17] VITALS (7 sets, daily range): BP systolic 125–171; BP diastolic 60–76; PULSE 78–79; RESP 17–20
[2017-07-17] MEDS: SOD CHLORIDE 0.9% 1,000 ML IV SCH ×3 (03:01→21:41)
[2017-07-17] MEDS: HYDROCODONE/APAP (5/325) TAB PO PRN ×3 (03:13→19:13)
[2017-07-17] MEDS ORDERED: VITAMIN A & D 5 GM OINT PACKET TOP ONE (04:49)
[2017-07-17 05:53] LABS: BASOPHILS % 0.5 % (0.0-2.0); EOSINOPHILS # 0.2 10^3/ul (0.0-0.5); EOSINOPHILS % 2.9 % (0.0-7.0); HEMOGLOBIN 10.2 g/dl (14.0-18.0); LYMPHOCYTES # 1.1 10^3/ul (0.8-2.9); LYMPHOCYTES % 17.1 % (15.0-51.0); MEAN CORPUSCULAR HEMOGLOBIN 29.2 pg (29.0-33.0); MEAN CORPUSCULAR HGB CONC 32.9 g/dl (32.0-37.0); MEAN CORPUSCULAR VOLUME 88.8 fl (82.0-101.0); MEAN PLATELET VOLUME 12.6 fl (7.4-10.4); MONOCYTE # 0.5 10^3/ul (0.3-0.9); MONOCYTES % 7.7 % (0.0-11.0); NEUTROPHIL # 4.4 10^3/ul (1.6-7.5); NEUTROPHILS % 71.3 % (39.0-77.0); PLATELET COUNT 196 10^3/UL (140-415); RED BLOOD COUNT 3.49 10^6/ul (4.70-6.10); RED CELL DISTRIBUTION WIDTH 13.3 % (11.5-14.5); WHITE BLOOD COUNT 6.2 10^3/ul (4.8-10.8)
[2017-07-17 06:26] LABS: CALCIUM 9.1 mg/dl (8.4-10.2); CREATININE 0.38 mg/dl (0.61-1.24); MAGNESIUM 1.8 mg/dl (1.7-2.5); PHOSPHORUS 4.5 mg/dl (2.5-4.9); POTASSIUM 3.5 mmol/L (3.5-5.1)
[2017-07-17] MEDS: DULOXETINE 30 MG CAP DR PO SCH (09:36)
[2017-07-17] MEDS: DILTIAZEM 30 MG TAB PO SCH ×3 (09:37→21:15)
[2017-07-17] MEDS: DOCUSATE SODIUM 100 MG CAP PO SCH ×2 (09:38→21:00)
[2017-07-17] MEDS: ASCORBIC ACID 500 MG TAB PO SCH ×2 (09:38→21:13)
[2017-07-17] MEDS: FAMOTIDINE 20 MG TAB PO SCH ×2 (09:38→21:13)
--- NOTE | 2017-07-17 14:26 | PN ---
DATE: 07/17/2017 SUBJECTIVE DATA: The patient is stable. No events overnight. No fevers, chills, nausea or vomiting. No shortness of breath. No other events noted. OBJECTIVE DATA: Blood pressure is 125/71, temperature 97.8, pulse 73, respirations 20. HEENT: Head is normocephalic. NECK: Supple. HEART: Regular rate. LUNGS: Diminished breath sounds at the base. ABDOMEN: Soft, nontender to palpation. No rebound or guarding. EXTREMITIES: Negative for clubbing, cyanosis. No edema. DERMATOLOGIC: Clean. No rashes. MUSCULOSKELETAL: No joint effusion. NEUROLOGIC: No change in exam. MEDICATIONS: Reviewed. LABORATORY AND DIAGNOSTIC DATA: Reviewed. The patient's sodium 138, BUN 8, creatinine 0.3. ASSESSMENT AND PLAN: 1. Hyponatremia resolved, likely from volume depletion. Continue to monitor. 2. Congestive heart failure. Continue current antibiotic regimen. 3. Encephalopathy, improving. Continue to monitor. 4. Cervical spine quadriplegia. Continue current treatment plan. 5. Hypertension. Continue current blood pressure regimen. 6. Anxiety, depression. 7. History of prostate cancer. Dictated By: Eduardo Link DO /[email or web address] /Document#: [id number]
--- NOTE | 2017-07-17 18:54 | PN ---
DATE: 07/17/2017 SUBJECTIVE DATA: Follow up on UTI, metabolic encephalopathy, hypertension, depression, and respiratory failure. The patient is breathing comfortably off vent, the trach is plugged. No reported fever or chills. No reported chest pain or abdominal pain. The patient's blood pressure has really improved after increasing dose of diltiazem. No reported fever or chills. PHYSICAL EXAM: GENERAL: The patient is conscious, awake, alert, fairly oriented. No further episodes of confusion after decreasing dose of [place], Cymbalta and dantrolene. VITAL SIGNS: Temperature 97.8, pulse 73, respirations 20, blood pressure 125/71, and O2 sat 99 percent on room air. HEENT: No eye discharge or redness. Oropharynx clear. NECK: Tracheostomy in place, plugged, no mass. CHEST: Fairly clear. HEART: S1, S2 normal. No murmur. ABDOMEN: Soft, nontender, nondistended. Bowel sounds present. EXTREMITIES: No leg edema. NEURO: Patient is awake, alert, fairly oriented, with quadriplegia. LABORATORY AND DIAGNOSTIC DATA: Sodium 130, potassium 3.5, BUN 8, creatinine 0.3, glucose 97, magnesium 1.8, phosphorus 4.5, and calcium 9.1. WBC 6.2, hemoglobin 10.2, and platelet 196. IMPRESSION: 1. Pseudomonas urinary tract infection (UTI). We will switch his antibiotic to intravenous Fortaz. We will discontinue Rocephin. 2. Metabolic encephalopathy, resolved. Sodium is normal now and the patient medications have been adjusted. We will continue to monitor him closely for any episodes of confusion. 3. Hypertension. Blood pressure well controlled now with increase diltiazem dose. 4. Depression, stable. Continued Cymbalta at current dose. PLAN: Plan of care discussed with the patient's . Acute rehab eval is still pending. The patient would like to be discharged to subacute unit by tomorrow noon if he is not accepted by rehab or even if they rehab evaluation is not complete by 12 noon he would like to be discharged. If he gets accepted to rehab he will proceed with a trial of acute rehab. Dictated By: Peyman Fajardo MD /jessica/orly /Document#: [id number]
[2017-07-17] MEDS ORDERED: HYDROCODONE/APAP (5/325) TAB PO PRN (21:00)
[2017-07-17] MEDS: BISACODYL 10 MG SUPP PR SCH (21:00)
[2017-07-17] MEDS: CEFTAZIDIME 1GM/50 ML (PMX) 50 ML IVPB SCH (21:08)
[2017-07-17] MEDS: ATORVASTATIN 20 MG TAB PO SCH (21:13)
[2017-07-17] MEDS: LORAZEPAM 2 MG INJ IV PRN (21:25)
[2017-07-17] MEDS: ENOXAPARIN 40 MG/0.4 ML SYG SC SCH (23:34)
[2017-07-18] MEDS: SOD CHLORIDE 0.9% 1,000 ML IV SCH (01:39)
[2017-07-18] MEDS: HYDROCODONE/APAP (5/325) TAB PO PRN ×2 (01:47→06:18)
[2017-07-18 08:17] VITALS: BP 158/70; RESP 18
[2017-07-18] MEDS: DOCUSATE SODIUM 100 MG CAP PO SCH ×2 (09:00→09:23)
[2017-07-18] MEDS: ASCORBIC ACID 500 MG TAB PO SCH (09:23)
[2017-07-18] MEDS: FAMOTIDINE 20 MG TAB PO SCH (09:23)
[2017-07-18] MEDS: CEFTAZIDIME 1GM/50 ML (PMX) 50 ML IVPB SCH (09:23)
[2017-07-18] MEDS: DULOXETINE 30 MG CAP DR PO SCH (09:24)
[2017-07-18] MEDS: DILTIAZEM 30 MG TAB PO SCH (09:25)
--- NOTE | 2017-07-18 09:34 | PN ---
DATE: SUBJECTIVE DATA: Patient is stable. No events overnight. No fevers, chills, nausea, vomiting. OBJECTIVE DATA: VITAL SIGNS: Blood pressure 158/70, pulse 70, respiration 18, temperature 98.3. HEENT: Head is normocephalic. NECK: Supple. HEART: Regular rate. LUNGS: Show diminished breath sounds at the base. ABDOMEN: Soft, nontender to palpation. No rebound or guarding. EXTREMITIES: Negative for clubbing, cyanosis. No edema. DERMATOLOGIC: Clean. No rashes. MUSCULOSKELETAL: No joint effusion. NEUROLOGIC: No change in exam. MEDICATIONS: Reviewed. LABORATORY AND DIAGNOSTIC DATA: Reviewed. No new labs. ASSESSMENT AND PLAN: 1. Hyponatremia, resolved. We will discontinue intravenous fluids and monitor. 2. Congestive heart failure. Continue current medical management. Stop intravenous fluids. 3. Encephalopathy, improved. 4. Cervical spine quadriplegia. Continue current treatment plan. 5. Hypertension. Continue current blood pressure regimen. 6. History of prostate cancer. 7. Anxiety, depression. Continue to monitor. Dictated By: Eduardo Link DO /[email or web address] /Document#: [id number]
--- NOTE | 2017-07-18 22:17 | DS ---
DATE OF ADMISSION: 07/14/2017 DATE OF DISCHARGE: 07/18/2017 DISCHARGE DIAGNOSES: 1. Urinary tract infection. 2. Status post metabolic encephalopathy due to hyponatremia, urinary tract infection possibly due to medication. 3. Cervical spine quadriplegia after cervical spine disc surgery which was complicated by postoperative cord compression status post emergent laminectomy and fusion. 4. Hypertension. 5. Anxiety and depression. 6. Dyslipidemia. 7. Prostate cancer status post surgery. DISCHARGE MEDICATIONS: Please see transfer MAR as patient is being transferred to subacute unit. REASON FOR ADMISSION: Patient is a 66-year-old gentleman well known to me from previous admission. Patient has history of C- spine quadriplegia secondary to complication during C-spine disc surgery. Patient underwent emergent laminectomy and fusion, however, continues to have quadriplegia. Patient was at [facility] and is currently residing at [facility] subacute unit. Patient was sent to ER because of altered level of consciousness for past 24 hours. Patient did not have any reported seizure. Patient was seen in the ER and was noted to have urinary tract infection and also was noted to have sodium of 130. Patient did say that he was drinking a lot of water and is currently on low-salt diet. Patient was seen by Dr. Link from nephrology standpoint. Patient was given IV fluids and his sodium corrected to normal. Patient also had an episode of confusion I spoke with patient's daughter, Mansi. She reported the patient has episodic confusion even at subacute unit. I adjusted his medications including discontinuing dantrolene and decreasing dose of [place] and Cymbalta. Patient since adjustment of his medication did not have any further episode of confusion. Patient was empirically started on IV Rocephin, however, urine culture came back positive for Pseudomonas which was sensitive to Fortaz. Patient was given Fortaz. Patient remains afebrile for more than 24 hours. On the day of discharge, patient is breathing comfortably. Denies any chest pain or shortness of breath. No reported abdominal pain. No reported leg edema. PHYSICAL EXAMINATION: GENERAL: Patient awake, alert. VITAL SIGNS: Temperature 98.3, pulse 70, respirations 18, blood pressure 158/70, O2 sat 97% on room air. HEENT: No eye discharge or redness. Extraocular movement intact. Oropharynx clear. NECK: Tracheostomy in place, plugged. CHEST: Fairly clear. No use of accessory muscles. CV: Regular rate and rhythm. S1, S2 normal. No murmur, gallop, or rub. ABDOMEN: Soft, nontender. Bowel sounds present. No organomegaly. EXTREMITIES: No pedal edema. Pedal pulses palpable. SKIN: Without acute rash. LABORATORY DATA: WBC 6.2, hemoglobin 10.2, platelet 196,000. Sodium 138, potassium 3.5, BUN 8, creatinine 0.3, glucose 97, calcium 9.1, phosphate 4.5, magnesium 1.8. CONDITION ON DISCHARGE: Stable. DISPOSITION: Patient is being transferred back to subacute unit. Patient did have acute rehab as well, however, patient did not want to go for acute rehab due to some paperwork he needed to do at [facility]. Patient is being discharged to subacute unit. Dr. Link is his primary care at subacute unit who saw the patient this morning and recommended to discontinue IV fluids. Will continue to monitor. Patient did have elevated blood pressure yesterday and diltiazem was increased. Patient will be monitored at subacute unit for further adjustment of his antihypertensive medication if needed. Dictated By: Peyman Fajardo MD /jessica/carlie /Document#: [id number]
== END 2017-07-18 11:43 | DRG 70 ==
LOC: E/R 18:26 → MS1 21:03
PROVIDERS: ADMIT Internal Medicine; ATTEND Internal Medicine
DX: G93.41 Metabolic encephalopathy (principal); G82.50 Quadriplegia, unspecified; Z93.0 Tracheostomy status; I10 Essential (primary) hypertension; E87.1 Hypo-osmolality and hyponatremia; N39.0 Urinary tract infection, site not specified; F41.8 Other specified anxiety disorders; E78.5 Hyperlipidemia, unspecified; Z85.46 Personal history of malignant neoplasm of prostate; Z98.890 Other specified postprocedural states
CPT/HCPCS: 36415; 70450; 71010; 80048; 80053; 80306; 80307; 81001; 83735; 84100; 84484; 85025; 85610; 85730; 87081; 87086; 90686; 93005; 94664; 96374; 96375; 97163; J0360; J0696; J1650; J2060; J2270; J7030

== ENCOUNTER 2018-01-17 17:22 | Inpatient (IN) | END 2018-01-26 19:54 | DRG 871 ==

== ENCOUNTER 2019-02-06 13:11 | Inpatient (IN) | payer MEDICARE, BC, OTHER ==
[~2019-02-06] VITALS: Ht 177.8 cm; Wt 86.7 kg
[~2019-02-06 13:11] MED LIST changes: -ACET-141 PO; +ALPR0.5T PO; -ALPR0.5T6 PO; +AMIO200T4 PO; +APIX5TAB PO; +ATOR10TA65 PO; -ATOR20TA38 PO; -BACL20TA PO; +BENZ1LOZ49 MM; +BISA10SU55 RC; -BISA10SU75 PR; +CEFE1FRO IV; -CHOL20002 PO; +CRAN450T7 PO; -DILT30TA30 PO; +DULO30CA47 PO; -DULO60CA59 PO; -ENOX40DI2 SC; -FAMO20TA18 PO; -FLEETPED PR; -FLUT16SP17 NASAL; +FLUT9.9S NASAL; -GABA300C16 PO; +GABA400C PO; -GLYC1SUP92 PR; -GUAI-637 PO; +HYDR-3980 PO; -HYDR-902 PO; -HYDR-906 PO; +IPRA15SP NS; +LEVA0.6320 INHALATION; +LORA10CA PO; -MAG355OR14 PO; +MAGN400O19 PO; -MAGN400O4 PO; -MAGN400T28 PO; -MULT-506 PO; +MULT-762 PO; -MYL80 PO; +PROM6.2515 PO; -SENN-36 PO; -TRAM-40 PO; +[UNRECOGNIZED DRUG - OTHER] BOTH EYES
[2019-02-06] MEDS ORDERED: SODIUM CHLORIDE 0.9% 1L BAG IV* STA (13:34)
[2019-02-06] MEDS ORDERED: ACETAMINOPHEN 650MG/20.3ML CUP GTB ONE (14:00)
--- NOTE | 2019-02-06 14:35 | ERD ---
ER Documentation Chief Complaint Chief Complaint SENT FOR EVALUTION FOR SNF D/T ELEVATED TEMP HPI This is a 68-year-old male with a past medical history of hypertension, hyperlipidemia, atrial fibrillation, quadriplegia secondary to a cervical spine fracture with chronic respiratory failure status post tracheostomy who is presenting from his correction facility for an elevated temperature. The patient feels generally unwell, but otherwise has no complaints. He does have a history of pneumonia and UTI in the past. He cannot describe his urinary symptoms due to his quadriplegia. He denies any cough or congestion. He denies any chest pain or abdominal pain. He denies any episodes of diarrhea. He denies any skin lesions. The patient has had pressure ulcers in the past, but they have healed. ROS All systems reviewed and are negative except as per history of present illness. Medications Home Meds Reported Medications Levalbuterol (Xopenex) 0.63 Mg/3 Ml Nebu, 0.63 MG INHALATION Q6 PRN for SHORTNESS OF BREATH, EACH 11/19/18 Hydrocodone/Acetaminophen (Ruth 10-325 Tablet) 1 Each Tablet, 1 EACH PO Q8 for pain 7-10, TAB 11/19/18 Gabapentin* (Neurontin*) 400 Mg Capsule, 400 MG PO TID for Neuropathic pain, #90 CAP 11/19/18 Multivitamin (MULTI-VITAMIN DAILY) 1 Each Tablet, 1 TAB PO DAILY, TAB 11/19/18 Magnesium Hydroxide* (Milk Of Magnesia*) 400 Mg/5 Ml Oral.susp, 30 ML PO M ONWEDFRI for for bowel management., ML 11/19/18 Metoprolol Tartrate* (Lopressor*) 25 Mg Tab, 25 MG PO BID, #60 TAB 11/19/18 Ipratropium [place] (Ipratropium [place]) 15 Ml Bruce, 15 ML NS, SPRAY 11/19/18 Fluticasone Propionate (Flonase Allergy Relief) 9.9 Ml Bruce.susp, 2 SPRAY NASAL QHS for Allergy, #1 BOTTLE TO EACH NOSTRIL 11/19/18 Apixaban* (Eliquis*) 5 Mg Tablet, 10 MG PO BID, TAB 11/19/18 Duloxetine Hcl* (Duloxetine Hcl*) 30 Mg Capsule.dr, 90 MG PO DAILY, #30 CAP 11/19/18 Bisacodyl (Dulcolax) 10 Mg Supp.rect, 10 MG RC every 48 hrs for constipation, SUPP.RECT 11/19/18 Docusate Sodium* (Docusate Sodium*) 100 Mg Capsule, 100 MG PO BID, #60 CAP 11/19/18 Loratadine* (Claritin*) 10 Mg Capsule, 10 MG PO DAILY, CAP 11/19/18 Atorvastatin Calcium (Atorvastatin Calcium) 10 Mg Tablet, 10 MG PO QHS, #30 TAB 11/19/18 [artifi] No Conflict Check, 2 DROP BOTH EYES QID for dry eyes 11/19/18 Amiodarone Hcl* (Amiodarone Hcl*) 200 Mg Tablet, 200 MG PO DAILY, #30 TAB 11/19/18 Alprazolam* (Xanax*) 0.5 Mg Tab, 0.5 MG PO QHS PRN for NEEDED, TAB START DATE 01/12/18 AND END DATE 01/25/18 01/17/18 Acetaminophen* (Tylenol*) 325 Mg Tablet, 650 MG PO Q4H PRN for FOR TEMP 100 & ABOVE, TAB START DATE 01/16/18 AND 01/25/18 01/17/18 Promethazine Hcl* (Promethazine Hcl* Syrup) 6.25 Mg/5 Ml Syrup, 10 ML PO TID PRN for COUGH, ML START DATE 01/14/18 AND END DATE 01/19/18 01/17/18 Cranberry Fruit (CRANBERRY) 450 Mg Tablet, 900 MG PO DAILY, TAB 01/17/18 Cefepime Hcl/Dextrose, Iso-Osm (Cefepime 1 Gm Injection) 1 Gm/50 Ml Froz.piggy, 1 GM IV BID for UTI AND POSSIBLE PNA START DATE 01/15/18 AND END DATE 01/22/18 01/17/18 Benzocaine/Menthol* (Chloraseptic* Max Lozenge) 1 Each Lozenge, 1 LOZENGE MM Q4H PRN for SORE THROAT, LOZENGE START DATE 01/14/18 AND END DATE 01/21/18 01/17/18 Allergies Allergies: Coded Allergies: No Known Allergy (Unverified , 02/06/19) PMhx/Soc History of Surgery: Yes (c4-c7 compressed disc surgery January 2017) Anesthesia Reaction: No Hx Neurological Disorder: Yes (quadraplegia caused by cervical spine sx 2016) Hx Respiratory Disorders: Yes (Chronic respiratory failure status post trach) Hx Cardiac Disorders: No Hx Psychiatric Problems: Yes (Anxiety, depression) Hx Miscellaneous Medical Probl: No Hx Alcohol Use: No Hx Substance Use: No Hx Tobacco Use: No Smoking Status: Never smoker FmHx Family History: No diabetes Physical Exam Vitals Vital Signs Date Temp Pulse Resp B/P (MAP) Pulse Ox O2 O2 Flow FiO2 Time Delivery Rate 02/06/19 103.0 14:13 02/06/19 100.3 79 16 141/67 95 13:22 (91) Physical Exam Const: No apparent distress, well-developed, well-nourished Head: Normocephalic, Atraumatic Eyes: Normal Conjunctiva. Extraocular movements intact. Pupils equal, round and reactive to light ENT: Normal External Ears, Nose and Mouth. Neck: Full range of motion. No meningismus. Tracheostomy present. Resp: Clear to auscultation bilaterally, No wheezes, rales or rhonchi Cardio: Regular rate and rhythm. No murmurs, rubs or gallops Abd: Soft, non tender, non distended. Normal bowel sounds Skin: No petechiae or rashes Back: No midline tenderness. No CVA tenderness Ext: No cyanosis, or edema Neur: Awake and alert, oriented x3. Cranial nerves intact. No facial droop. Quadriplegia Result Diagram: 02/06/19 1406 02/06/19 1406 Results 24 hrs Laboratory Tests Test 02/06/19 14:06 White Blood Count 14.8 10^3/ul Red Blood Count 3.93 10^6/ul Hemoglobin 10.9 g/dl Hematocrit 32.3 % Mean Corpuscular Volume 82.2 fl Mean Corpuscular Hemoglobin 27.7 pg Mean Corpuscular Hemoglobin Concent 33.7 g/dl Red Cell Distribution Width 13.6 % Platelet Count 353 10^3/UL Mean Platelet Volume 11.2 fl Immature Granulocytes % 0.400 % Neutrophils % 85.4 % Lymphocytes % 7.0 % Monocytes % 6.8 % Eosinophils % 0.1 % Basophils % 0.3 % Nucleated Red Blood Cells % 0.0 /100WBC Immature Granulocytes # 0.060 10^3/ul Neutrophils # 12.6 10^3/ul Lymphocytes # 1.0 10^3/ul Monocytes # 1.0 10^3/ul Eosinophils # 0.0 10^3/ul Basophils # 0.0 10^3/ul Nucleated Red Blood Cells # 0.0 10^3/ul Prothrombin Time 13.4 Sec Prothrombin Time Ratio 1.0 INR International Normalized Ratio 1.01 Activated Partial Thromboplast Time 32.5 Sec Urine Color HEIKE Urine Clarity CLOUDY Urine pH 8.0 Urine Specific [place] 1.023 Urine Ketones NEGATIVE mg/dL Urine Nitrite POSITIVE mg/dL Urine Bilirubin NEGATIVE mg/dL Urine Urobilinogen 2+ mg/dL Urine Leukocyte Esterase 3+ Diane/ul Urine Microscopic RBC 18 /HPF Urine Microscopic WBC 25 /HPF Urine Bacteria FEW /HPF Urine Mucus FEW /HPF Urine Hemoglobin NEGATIVE mg/dL Urine Glucose NEGATIVE mg/dL Urine Total Protein 2+ mg/dl Sodium Level 125 mmol/L Potassium Level 4.4 mmol/L Chloride Level 89 mmol/L Carbon Dioxide Level 24 mmol/L Anion Gap 12 Blood Urea Nitrogen 11 mg/dl Creatinine 0.50 mg/dl Est Glomerular Filtrat Rate mL/min > 60 mL/min Glucose Level 94 mg/dl POC Venous Lactate 1.3 mmol/L Calcium Level 9.1 mg/dl Total Bilirubin 0.2 mg/dl Direct Bilirubin 0.00 mg/dl Indirect Bilirubin 0.2 mg/dl Aspartate Amino Transf (AST/SGOT) 15 IU/L Alanine Aminotransferase (ALT/SGPT) 10 IU/L Alkaline Phosphatase 62 IU/L Troponin I 0.030 ng/ml Total Protein 6.9 g/dl Albumin 3.7 g/dl Globulin 3.20 g/dl Albumin/Globulin Ratio 1.15 Current Medications Medications Dose Sig/Melvina Start Time Status Last (Trade) Ordered Route PRN Stop Time Admin Dose Reason Admin Sodium 2,700 ml BOLUS OVER 2 02/06/19 DC 02/06/19 Chloride HOURS STAT 13:34 14:13 (NS) IV* 02/06/19 13:37 650 mg ONCE ONCE 02/06/19 DC 02/06/19 Acetaminophen GTB 14:00 14:13 (Tylenol 02/06/19 14:01 Liquid) Vancomycin 250 ml @ ONCE ONCE 02/06/19 HCl 125 mls/hr IVPB 15:00 02/06/19 16:59 Cefepime HCl 50 ml @ ONCE ONCE 02/06/19 02/06/19 100 mls/hr IVPB 15:00 14:59 02/06/19 15:29 Ondansetron 4 mg BRIDGE ORDER 02/06/19 HCl (Zofran PRN IV 15:30 Inj) NAUSEA/VOMITI 02/07/19 15:29 NG 650 mg ER BRIDGE 02/06/19 Acetaminophen PRN PO 15:30 (Tylenol .MILD PAIN 02/07/19 15:29 Tab) 1-3 OR TEMP Procedures/MDM MDM The patient's presentation warrants further investigation. Previous medical records, if available, were reviewed. LABS The patient's laboratory testing was obtained and reviewed. No emergent treatment was required unless described below. CBC: Leukocytosis with left shift, likely infectious. Normocytic anemia, not emergent. Normal platelet count. Chemistry: Mild hyponatremia, will improve with IV fluids. No E/o severe acidosis or alkalosis or renal failure or liver disease or diabetic ketoacidosis PT/INR: No E/o significant coagulopathy Lactate: No E/o severe sepsis Troponin: No E/o acute ischemia Urine: E/o acute infection and hematuria EKG EKG read by me: Rate/Rhythm: Regular rate and rhythm at a rate of 79 bpm Intervals: Normal [place]: Left axis deviation Impression: No evidence of acute ischemia or arrhythmia IMAGING Imaging and Radiology interpretation reviewed. CXR FINDINGS: Mediastinum: Enlarged heart. Tracheostomy tube in grossly appropriate location. Lungs: Patchy bilateral lower lung infiltrates with small left pleural e ffusion. Hypoinflated lungs. Elevated right hemidiaphragm. No pneumothorax. Osseous structures: Intact. Osteopenia. Degenerative changes in the shoulders.RPTAT: HRPP Other: None. IMPRESSION: Cardiomegaly. Patchy bilateral lower lung infiltrates with small left pleural effusion. Hypoinflated lungs with an elevated right hemidiaphragm. Electronically viewed and signed by .Anthony English MD, on 02/06/2019 14:16 TREATMENT/DISPOSITION The patient presents for a fever. Pneumonia and urinary tract infection are both evident. A septic workup was completed. The patient is febrile and has a leukocytosis. She does meet criteria for a systemic inflammatory response. The patient does have a leukocytosis with evidence of pneumonia and a urinary tract infection, meeting criteria for sepsis. The patient's lactic acid is 1.4. The patient does not have evidence of endorgan damage. The patient does not have severe sepsis. The patient was treated with a sepsis bolus of IV fluids, Toradol, Tylenol, vancomycin and cefepime. SEPSIS NOTE SIRS Criteria: Fever, leukocytosis Infectious source: Pneumonia, UTI End organ damage indicated by: None SEPSIS MANAGEMENT Time to recognize sepsis: 1415. Time to recognize severe sepsis: No severe sepsis at this time. Time to recognize septic shock: No septic shock at this time. 3 HOUR BUNDLE Blood cultures x 2 before abx: Yes 30 ml/kg NS bolus completed Initial lactate 1.2 Repeat lactate not warranted SEPTIC SHOCK ASSESSMENT: NO lactic acid > 4.0 NO persistent hypotension (SBP < 90 or 40 mmHg drop, MAP < 65) despite 30 L/kg IV fluid bolus CRITICAL CARE Critical care time 35 minutes Emergent fluid management while maintaining close respiratory support. Provision of immediate and broad-spectrum antibiotic therapy. Simultaneous assessment for possible sources in order to direct targeted therapy. Consideration for invasive and chemical support to prevent cardiopulmonary collapse. Critical care time is independent of procedures performed. ADMISSION At this time, I feel that the patient requires admission for further evaluation and management. The patient will be admitted to Dr. Fajardo in accordance with the patient's insurance. The patient was accepted at 3:15 PM on February 06, [address] [facility]. Disclaimer: Inadvertent spelling and grammatical errors are likely due to EHR/dictation software use and do not reflect on the overall quality of patient care. Note that the electronic time recorded on this note does not necessarily reflect the actual time of the patient encounter. Departure Diagnosis: Primary Impression: Sepsis Sepsis type: sepsis due to unspecified organism Qualified Codes: A41.9 - Sepsis, unspecified organism Additional Impressions: Pneumonia Pneumonia type: due to unspecified organism Laterality: bilateral Lung location: lower lobe of lung Qualified Codes: J18.1 - Lobar pneumonia, unspecified organism Fever Fever type: unspecified Qualified Codes: R50.9 - Fever, unspecified UTI (urinary tract infection) Urinary tract infection type: acute cystitis Hematuria presence: with hematuria Qualified Codes: N30.01 - Acute cystitis with hematuria Leukocytosis Leukocytosis type: unspecified Qualified Codes: D72.829 - Elevated white blood cell count, unspecified Normocytic anemia Hyponatremia Condition: Serious JOSE GARRETT MD Feb 06, 2019 14:35
[2019-02-06] MEDS ORDERED: VANCOMYCIN 1 GM (PMX) 250 ML IVPB ONE (15:00)
[2019-02-06] MEDS ORDERED: CEFEPIME 1GM/50 ML (PMX) 50 ML IVPB ONE (15:00)
[2019-02-06] MEDS ORDERED: ONDANSETRON 4 MG INJ IV PRN ×2 (15:30→20:30)
[2019-02-06] MEDS ORDERED: ACETAMINOPHEN 325 MG TAB PO PRN ×2 (15:30→17:00)
[2019-02-06] MEDS ORDERED: DULO60CA6 PO (16:28)
[2019-02-06] MEDS ORDERED: FAMO20TA18 PO (16:29)
[2019-02-06] MEDS ORDERED: FLUT16SP17 NASAL (16:30)
[2019-02-06] MEDS ORDERED: MINE133E23 PR (16:30)
[2019-02-06] MEDS ORDERED: HYDR-3980 PO (16:31)
[2019-02-06] MEDS ORDERED: METO-448 PO (16:34)
[2019-02-06] MEDS ORDERED: MAGN400O19 PO (16:35)
[2019-02-06] MEDS ORDERED: MULT-105 PO (16:35)
[2019-02-06] MEDS ORDERED: GABA400C14 PO (16:36)
[2019-02-06] MEDS ORDERED: AMIN30LI PO (16:37)
[2019-02-06] MEDS ORDERED: PROM6.2515 PO (16:38)
[2019-02-06] MEDS ORDERED: SODI1TAB2 PO (16:39)
[2019-02-06] MEDS ORDERED: TRAM50TA PO (16:40)
[2019-02-06] MEDS ORDERED: ACET325T33 PO (16:41)
[2019-02-06] MEDS ORDERED: ALPR0.5T PO (16:42)
[2019-02-06] MEDS ORDERED: LEVA0.634 INHALATION (16:42)
--- NOTE | 2019-02-06 16:44 | HP ---
Date/Time of Note Date/Time of Note DATE: 02/06/19 TIME: 16:37 Assessment/Plan VTE Prophylaxis Pharmacological prophylaxis: LMWH Lines/Catheters IV Catheter Type (from [facility] Saline Lock Urinary Cath still in place: Yes Reason Cath still needed: urinary retention Assessment/Plan Assessment/Plan -Sepsis with fevers and leukocytosis most likely secondary to urinary tract infection and possible pneumonia. Follow-up on cultures. Continue broad- spectrum antibiotics. Dr. Huynh is asked to see patient in infection disease consultation. -Pneumonia. -UTI per UA -Chronic Avila catheter -Quadriplegia -Hypertension -Hyperlipidemia -Paroxysmal atrial fibrillation, currently in sinus rhythm. Dr. Girard is asked to see patient in cardiology consultation. -Chronic tracheostomy which is currently capped. Dr. Giles is asked to see patient in pulmonology consultation. Further recommendations based on clinical course. Plan of care discussed with Dr. Fajardo. Result Diagram: 02/06/19 1406 02/06/19 1406 Results 24hrs Laboratory Tests Test 02/06/19 14:06 White Blood Count 14.8 #H Red Blood Count 3.93 #L Hemoglobin 10.9 #L Hematocrit 32.3 #L Mean Corpuscular Volume 82.2 Mean Corpuscular Hemoglobin 27.7 L Mean Corpuscular Hemoglobin Concent 33.7 Red Cell Distribution Width 13.6 Platelet Count 353 # Mean Platelet Volume 11.2 H Immature Granulocytes % 0.400 Neutrophils % 85.4 H Lymphocytes % 7.0 L Monocytes % 6.8 Eosinophils % 0.1 Basophils % 0.3 Nucleated Red Blood Cells % 0.0 Immature Granulocytes # 0.060 H Neutrophils # 12.6 H Lymphocytes # 1.0 Monocytes # 1.0 H Eosinophils # 0.0 Basophils # 0.0 Nucleated Red Blood Cells # 0.0 Prothrombin Time 13.4 Prothrombin Time Ratio 1.0 INR International Normalized Ratio 1.01 Activated Partial Thromboplast Time 32.5 Urine Color [place]IKE Urine Clarity CLOUDY A Urine pH 8.0 Urine Specific [place] 1.023 Urine Ketones NEGATIVE Urine Nitrite POSITIVE A Urine Bilirubin NEGATIVE Urine Urobilinogen 2+ H Urine Leukocyte Esterase 3+ H Urine Microscopic RBC 18 H Urine Microscopic WBC 25 H Urine Bacteria FEW A Urine Mucus FEW A Urine Hemoglobin NEGATIVE Urine Glucose NEGATIVE Urine Total Protein 2+ H Sodium Level 125 L Potassium Level 4.4 Chloride Level 89 L Carbon Dioxide Level 24 Anion Gap 12 Blood Urea Nitrogen 11 Creatinine 0.50 L Est Glomerular Filtrat Rate mL/min > 60 Glucose Level 94 POC Venous Lactate 1.3 Calcium Level 9.1 Total Bilirubin 0.2 Direct Bilirubin 0.00 Indirect Bilirubin 0.2 Aspartate Amino Transf (AST/SGOT) 15 Alanine Aminotransferase (ALT/SGPT) 10 L Alkaline Phosphatase 62 Troponin I 0.030 Total Protein 6.9 Albumin 3.7 Globulin 3.20 Albumin/Globulin Ratio 1.15 HPI/ROS Admit Date/Time Admit Date/Time Hx of Present Illness The patient is a 68-year-old male with history of C-spine quadriplegia after cervical spine disc surgery which was complicated by postoperative cord compression for which patient underwent emergent laminectomy and fusion 2 years ago, history of paroxysmal atrial fibrillation, hypertension, history of prostate cancer status post surgery, history of dyslipidemia, anxiety and depression, history of pressure ulcers in the past which is currently healed. Patient had a history of respiratory failure with tracheostomy which is capped. Patient presented from residential due to fever. Patient has a chronic Avila catheter, he cannot describe any urinary symptoms due to quadriplegia. Patient denies any cough, denies shortness of breath, denies chest pain, denies abdominal pain. Patient complains of generalized weakness. Patient denies nausea, vomiting, diarrhea. Patient is noted to have fever 103 in the emergency room, leukocytosis, and urinalysis which is indicative of urinary tract infection. Chest x-ray revealed cardiomegaly, patchy bilateral lower lung infiltrates with small left pleural effusion, hypoinflated lungs with an elevated right hemidiaphragm. Patient was started on broad-spectrum antibiotics, IV fluids and antipyretics. Patient is admitted for further evaluation and management. ROS 12 point review of system is negative except for what mentioned in HPI PMH/Family/Social Past Medical History Medications Current Medications Vancomycin HCl 250 ml @ 125 mls/hr ONCE ONCE IVPB Last administered on 02/06/19at 15:00; Admin Dose 125 MLS/HR; Start 02/06/19 at 15:00; Stop 02/06/19 at 16:59 Ondansetron HCl (Zofran Inj) 4 mg BRIDGE ORDER PRN IV NAUSEA/VOMITING; Start 02/06/19 at 15:30; Stop 02/07/19 at 15:29 Acetaminophen (Tylenol Tab) 650 mg ER BRIDGE PRN PO .MILD PAIN 1-3 OR TEMP; Start 02/06/19 at 15:30; Stop 02/07/19 at 15:29 Coded Allergies: codeine (Unverified Allergy, Unknown, 02/06/19) Past Surgical History Past Surgical Hx: other (Status post cervical spine surgery, status post prostate surgery, status post tracheostomy, status post G-tube placement and subsequent G-tube removal) Family History Significant Family History: other (Positive for coronary artery disease, details not available) Social History Alcohol Use: none Smoking Status: Former smoker Drug Use: none Exam/Review of Systems Vital Signs Vitals Vital Signs Date Temp Pulse Resp B/P (MAP) Pulse Ox O2 O2 Flow FiO2 Time Delivery Rate 02/06/19 103.0 14:13 02/06/19 79 16 141/67 95 13:22 (91) Exam Constitutional: alert, oriented Head: normocephalic Neck: supple, other (Tracheostomy capped) Respiratory: diminished breath sounds Cardiovascular: regular rate and rhythm Gastrointestinal: soft, non-tender Genitourinary - Male: other (Avila) Musculoskeletal: other (Quadriplegia) Extremities: normal pulses Neurological: nl mental status, other (quadriplegia) JUANA NOEL Feb 06, 2019 16:44
[2019-02-06] MEDS: MINERAL OIL 133 ML ENEMA PR SCH (17:00)
[2019-02-06] MEDS ORDERED: GABAPENTIN 400 MG CAP PO SCH (17:00)
[2019-02-06] MEDS: METOPROLOL 25 MG TAB PO SCH (17:00)
[2019-02-06] MEDS ORDERED: traMADol 50 MG TAB PO PRN (17:00)
[2019-02-06] MEDS ORDERED: ASPI325T32 PO (17:15)
[2019-02-06] MEDS ORDERED: AMIO200T4 PO (17:16)
[2019-02-06] MEDS ORDERED: ATOR10TA65 PO (17:17)
[2019-02-06] MEDS ORDERED: MINE3.5O30 BOTH EYES (17:17)
[2019-02-06] MEDS ORDERED: BENZ1LOZ52 MM (17:20)
[2019-02-06] MEDS ORDERED: CRAN450T7 PO (17:21)
[2019-02-06] MEDS ORDERED: DOCU-144 PO (17:22)
[2019-02-06] MEDS ORDERED: SULF1TAB31 PO (17:23)
[2019-02-06] MEDS ORDERED: BISA10SU75 PR (17:23)
[2019-02-06 18:00] VITALS: Ht 177.8 cm; Wt 86.7 kg
[2019-02-06 18:58] VITALS: BP 130/59; PULSE 85; RESP 18
--- NOTE | 2019-02-06 19:00 | CONS ---
Assessment/Plan Assessment/Plan Hospital Course (Demo Recall) Sepsis, possibly from pneumonia and UTI Paroxysmal atrial fibrillation Hypertension Aortic stenosis Preserved ejection fraction echocardiogram December 2017 -Patient with evidence of pneumonia based on chest x-ray and UTI based on urinalysis -Currently appears in a regular rhythm. Unfortunate there is no ECG to evaluate -Would obtain ECG, echocardiogram, continue beta-jailyn as tolerated -Antibiotics as per infectious disease Consultation Date/Type/Reason Admit Date/Time Type of Consult Cardiology Reason for Consultation Cardiac evaluation Date/Time of Note DATE: 02/06/19 TIME: 18:53 Hx of Present Illness This is a 68-year-old male known to me from previous admission with past medical history of paroxysmal atrial fibrillation, aortic stenosis who presents with complaints of overall not feeling well with cough, fevers and chills. Patient with presumed pneumonia and UTI. Patient denies any shortness of breath at the current time. He denies any chest pain, palpitations or dizziness. He tells me he has been off his anticoagulation and because he did have some hematuria a few months ago. 12 point review of systems was performed with all pertinent positives and negatives mentioned above and all else is negative Past Medical History Functional quadriplegia Paroxysmal atrial fibrillation Aortic stenosis Home Meds Reported Medications Bisacodyl* (Bisacodyl*) 10 Mg Supp, 10 MG [place] Q48H for CONSTIPATION, SUPP 02/06/19 Sulfamethoxazole/Trimethoprim* (Bactrim Ds* Tablet) 1 Each Tablet, 1 TAB PO Q12H, TAB FOR 7 DAYS ,LAST DATE 02/11/19 02/06/19 Docusate Sodium* (Colace*) 100 Mg Capsule, 100 MG PO Q12H, #60 CAP 02/06/19 Cranberry Fruit (CRANBERRY) 450 Mg Tablet, 900 MG PO DAILY, TAB 02/06/19 Benzocaine/Menthol* (Cepacol* Sore Throat Lozenges) 1 Each Lozenge, 1 EACH MM NEEDED PRN for SORE THROAT, LOZENGE 02/06/19 Atorvastatin Calcium (Atorvastatin Calcium) 10 Mg Tablet, 10 MG PO QHS, #30 TAB 02/06/19 Mineral Oil/Petrolatum,White (ARTIFICIAL TEARS EYE OINT) 3.5 Gm Oint...g., 2 A PPLIC BOTH EYES QID, #1 TUB 02/06/19 Amiodarone Hcl* (Amiodarone Hcl*) 200 Mg Tablet, 200 MG PO DAILY, #30 TAB HOLD FOR SBP<120 OR HR<60 02/06/19 Aspirin* (Aspirin* EC) 325 Mg Tab, 325 MG PO DAILY, TAB 02/06/19 Levalbuterol Hcl* (Levalbuterol Hcl*) 0.63 Mg/3 Ml Vial.neb, 0.63 MG INHALATION Q6H PRN for WHEEZING AND SOB, VIAL 02/06/19 Alprazolam* (Xanax*) 0.5 Mg Tab, 0.5 MG PO NEEDED PRN for ANXIETY, TAB 02/06/19 Acetaminophen* (Tylenol*) 325 Mg Tablet, 650 MG PO Q4H PRN for MILD PAIN 0-1 , TAB 02/06/19 Tramadol Hcl* (Ultram*) 50 Mg Tablet, 100 MG PO DAILY PRN for PAIN, TAB 02/06/19 Sodium Chloride* (Sodium Chloride*) 1 Gm Tablet, 1 GM PO BID, TAB 02/06/19 Promethazine Hcl* (Promethazine Hcl* Syrup) 6.25 Mg/5 Ml Syrup, 10 MG PO Q8H, ML 02/06/19 Amino Acids/Protein Hydrolys (PRO-STAT LIQUID) 30 Ml Liquid.pkt, 30 ML PO DAILY SUGAR FREE 02/06/19 Gabapentin* (Gabapentin*) 400 Mg Capsule, 400 MG PO Q8H, #90 CAP 02/06/19 Multivitamin with Minerals (Multivitamins with Minerals) 1 Each Tablet, 1 EACH PO DAILY, TAB 02/06/19 Magnesium Hydroxide* (Milk Of Magnesia*) 400 Mg/5 Ml Oral.susp, 30 ML PO DAILY, ML Q MON,WED,Mon02/06/19 Metoprolol Tartrate* (Lopressor*) 25 Mg Tab, 25 MG PO Q12H, #60 TAB HOLD FOR SBP<120 OR HR<60 02/06/19 Hydrocodone/Acetaminophen ([place] 10-325 Tablet) 1 Each Tablet, 1 EACH PO Q8H PRN for PAIN 7-08/01, TAB 02/06/19 Fluticasone Propionate* (Fluticasone Propionate* Nasal) 50 Mcg/[place] - 16 Gm [place].susp, 2 SPRAYS NASAL QHS, #1 BOTTLE TO EACH NOSTRIL 02/06/19 Mineral Oil* (Fleet* Mineral Oil Enema) 133 Ml Oil, 118 ML [place] Q72H, ENEMA 02/06/19 Famotidine* (Famotidine*) 20 Mg Tablet, 20 MG PO QHS, #30 TAB 02/06/19 Duloxetine Hcl* (Cymbalta*) 60 Mg Capsule.dr, 90 MG PO DAILY, CAP 02/06/19 Discontinued Reported Medications Levalbuterol (Xopenex) 0.63 Mg/3 Ml Nebu, 0.63 MG INHALATION Q6 PRN for SHORTNESS OF BREATH, EACH 11/19/18 Hydrocodone/Acetaminophen ([place] 10-325 Tablet) 1 Each Tablet, 1 EACH PO Q8 for pain 7-10, TAB 11/19/18 Gabapentin* (Neurontin*) 400 Mg Capsule, 400 MG PO TID for Neuropathic pain, #90 CAP 11/19/18 Multivitamin (MULTI-VITAMIN DAILY) 1 Each Tablet, 1 TAB PO DAILY, TAB 11/19/18 Magnesium Hydroxide* (Milk Of Magnesia*) 400 Mg/5 Ml Oral.susp, 30 ML PO MON[place]EDFRI for for bowel management., ML 11/19/18 Metoprolol Tartrate* (Lopressor*) 25 Mg Tab, 25 MG PO BID, #60 TAB 11/19/18 Ipratropium [place] (Ipratropium [place]) 15 Ml [place], 15 ML NS, SPRAY 11/19/18 Fluticasone Propionate (Flonase Allergy Relief) 9.9 Ml [place].susp, 2 SPRAY NASAL QHS for Allergy, #1 BOTTLE TO EACH NOSTRIL 11/19/18 Apixaban* (Eliquis*) 5 Mg Tablet, 10 MG PO BID, TAB 11/19/18 Duloxetine Hcl* (Duloxetine Hcl*) 30 Mg Capsule.dr, 90 MG PO DAILY, #30 CAP 11/19/18 Bisacodyl (Dulcolax) 10 Mg Supp.rect, 10 MG RC every 48 hrs for constipation, SUPP.RECT 11/19/18 Docusate Sodium* (Docusate Sodium*) 100 Mg Capsule, 100 MG PO BID, #60 CAP 11/19/18 Loratadine* (Claritin*) 10 Mg Capsule, 10 MG PO DAILY, CAP 11/19/18 Atorvastatin Calcium (Atorvastatin Calcium) 10 Mg Tablet, 10 MG PO QHS, #30 TAB 11/19/18 [artifi] No Conflict Check, 2 DROP BOTH EYES QID for dry eyes 11/19/18 Amiodarone Hcl* (Amiodarone Hcl*) 200 Mg Tablet, 200 MG PO DAILY, #30 TAB 11/19/18 Alprazolam* (Xanax*) 0.5 Mg Tab, 0.5 MG PO QHS PRN for NEEDED, TAB START DATE 01/12/18 AND END DATE 01/25/18 01/17/18 Acetaminophen* (Tylenol*) 325 Mg Tablet, 650 MG PO Q4H PRN for FOR TEMP 100 & ABOVE, TAB START DATE 01/16/18 AND 01/25/18 01/17/18 Promethazine Hcl* (Promethazine Hcl* Syrup) 6.25 Mg/5 Ml Syrup, 10 ML PO TID PRN for COUGH, ML START DATE 01/14/18 AND END DATE 01/19/18 01/17/18 Cranberry Fruit (CRANBERRY) 450 Mg Tablet, 900 MG PO DAILY, TAB 01/17/18 Cefepime Hcl/Dextrose, Iso-Osm (Cefepime 1 Gm Injection) 1 Gm/50 Ml Froz.piggy, 1 GM IV BID for UTI AND POSSIBLE PNA START DATE 01/15/18 AND END DATE 01/22/18 01/17/18 Benzocaine/Menthol* (Chloraseptic* Max Lozenge) 1 Each Lozenge, 1 LOZENGE MM Q4H PRN for SORE THROAT, LOZENGE START DATE 01/14/18 AND END DATE 01/21/18 01/17/18 Medications Current Medications Ondansetron HCl (Zofran Inj) 4 mg BRIDGE ORDER PRN IV NAUSEA/VOMITING; Start 02/06/19 at 15:30; Stop 02/07/19 at 15:29 Acetaminophen (Tylenol Tab) 650 mg Q4H PRN PO MILD PAIN 0-10/10; Start 02/06/19 at 17:00 Duloxetine HCl (Cymbalta) 90 mg DAILY PO ; Start 02/07/19 at 09:00 Famotidine (Pepcid) 20 mg QHS PO ; Start 02/06/19 at 21:00 Gabapentin (Neurontin) 400 mg Q8H PO ; Start 02/06/19 at 17:00 Acetaminophen/ Hydrocodone Bitart ([place] (10)) 1 tab Q8H PRN PO PAIN 7-; Start 02/06/19 at 17:00 Levalbuterol (Xopenex Neb) 0.63 mg Q6H RESP THERAPY PRN HHN WHEEZING AND SOB; Start 02/06/19 at 17:00 Magnesium Hydroxide (Milk Of Mag) 30 ml DAILY PO ; Start 02/07/19 at 09:00 Metoprolol Tartrate (Lopressor) 25 mg Q12H PO ; Start 02/06/19 at 17:00 Mineral Oil (Fleet Mineral Oil Enema) 118 ml Q72H [place] ; Start 02/06/19 at 17:00 Tramadol HCl (Ultram) 100 mg DAILY PRN PO PAIN; Start 02/06/19 at 17:00 Multivitamins/ Minerals (Theragran-M) 1 tab DAILY PO ; Start 02/07/19 at 09:00 Allergies: Coded Allergies: codeine (Unverified Allergy, Unknown, 02/06/19) Past Surgical History Past Surgical Hx: other Family History Significant Family History: no pertinent family hx Social History Alcohol Use: rarely Smoking Status: Never smoker Exam/Review of Systems Vital Signs Vitals Vital Signs Date Temp Pulse Resp B/P (MAP) Pulse Ox O2 O2 Flow FiO2 Time Delivery Rate 02/06/19 77 20 133/62 99 Room Air 17:06 (85) 02/06/19 103.0 14:13 Exam Constitutional: alert, oriented (No apparent distress) Head: normocephalic Respiratory: other (Coarse breath sounds bilaterally, no wheezing) Cardiovascular: regular rate and rhythm (Occasional irregularities), systolic murmur Gastrointestinal: soft, non-tender, bowel sounds Extremities: edema Neurological: other (Contracted) Labs Result Diagram: 02/06/19 1406 02/06/19 1406 Results 24hrs Laboratory Tests Test 02/06/19 14:06 02/06/19 18:25 White Blood Count 14.8 #H Red Blood Count 3.93 #L Hemoglobin 10.9 #L Hematocrit 32.3 #L Mean Corpuscular Volume 82.2 Mean Corpuscular Hemoglobin 27.7 L Mean Corpuscular Hemoglobin Concent 33.7 Red Cell Distribution Width 13.6 Platelet Count 353 # Mean Platelet Volume 11.2 H Immature Granulocytes % 0.400 Neutrophils % 85.4 H Lymphocytes % 7.0 L Monocytes % 6.8 Eosinophils % 0.1 Basophils % 0.3 Nucleated Red Blood Cells % 0.0 Immature Granulocytes # 0.060 H Neutrophils # 12.6 H Lymphocytes # 1.0 Monocytes # 1.0 H Eosinophils # 0.0 Basophils # 0.0 Nucleated Red Blood Cells # 0.0 Prothrombin Time 13.4 Prothrombin Time Ratio 1.0 INR International Normalized Ratio 1.01 Activated Partial Thromboplast Time 32.5 Urine Color HEIKE Urine Clarity CLOUDY A Urine pH 8.0 Urine Specific [place] 1.023 Urine Ketones NEGATIVE Urine Nitrite POSITIVE A Urine Bilirubin NEGATIVE Urine Urobilinogen 2+ H Urine Leukocyte Esterase 3+ H Urine Microscopic RBC 18 H Urine Microscopic WBC 25 H Urine Bacteria FEW A Urine Mucus FEW A Urine Hemoglobin NEGATIVE Urine Glucose NEGATIVE Urine Total Protein 2+ H Sodium Level 125 L Potassium Level 4.4 Chloride Level 89 L Carbon Dioxide Level 24 Anion Gap 12 Blood Urea Nitrogen 11 Creatinine 0.50 L Est Glomerular Filtrat Rate mL/min > 60 Glucose Level 94 POC Venous Lactate 1.3 Calcium Level 9.1 Total Bilirubin 0.2 Direct Bilirubin 0.00 Indirect Bilirubin 0.2 Aspartate Amino Transf (AST/SGOT) 15 Alanine Aminotransferase (ALT/SGPT) 10 L Alkaline Phosphatase 62 Troponin I 0.030 Total Protein 6.9 Albumin 3.7 Globulin 3.20 Albumin/Globulin Ratio 1.15 Lactic Acid Level 1.2 Medications Medications Current Medications Ondansetron HCl (Zofran Inj) 4 mg BRIDGE ORDER PRN IV NAUSEA/VOMITING; Start 02/06/19 at 15:30; Stop 02/07/19 at 15:29 Acetaminophen (Tylenol Tab) 650 mg Q4H PRN PO MILD PAIN 0-10/10; Start 02/06/19 at 17:00 Duloxetine HCl (Cymbalta) 90 mg DAILY PO ; Start 02/07/19 at 09:00 Famotidine (Pepcid) 20 mg QHS PO ; Start 02/06/19 at 21:00 Gabapentin (Neurontin) 400 mg Q8H PO ; Start 02/06/19 at 17:00 Acetaminophen/ Hydrocodone Bitart ([place] (10/325)) 1 tab Q8H PRN PO PAIN 7- 10/10; Start 02/06/19 at 17:00 Levalbuterol (Xopenex Neb) 0.63 mg Q6H RESP THERAPY PRN HHN WHEEZING AND SOB; Start 02/06/19 at 17:00 Magnesium Hydroxide (Milk Of Mag) 30 ml DAILY PO ; Start 02/07/19 at 09:00 Metoprolol Tartrate (Lopressor) 25 mg Q12H PO ; Start 02/06/19 at 17:00 Mineral Oil (Fleet Mineral Oil Enema) 118 ml Q72H [place] ; Start 02/06/19 at 17:00 Tramadol HCl (Ultram) 100 mg DAILY PRN PO PAIN; Start 02/06/19 at 17:00 Multivitamins/ Minerals (Theragran-M) 1 tab DAILY PO ; Start 02/07/19 at 09:00 Varinder Girard DO Feb 06, 2019 18:59
[2019-02-06 19:58] VITALS: BP 109/54; PULSE 85; RESP 17
[2019-02-06] MEDS ORDERED: DOCUSATE SODIUM 100 MG CAP PO PRN (20:30)
[2019-02-06] MEDS ORDERED: BISACODYL (EC) 5 MG TAB PO PRN (20:30)
[2019-02-06] MEDS ORDERED: ZOLPIDEM 5 MG TAB PO PRN (20:30)
[2019-02-06] MEDS: PIPER-TAZO 3.375 GM IV (PMX) 100 ML IVPB SCH (21:42)
[2019-02-06] MEDS: HYDROCODONE/APAP (10/325) TAB PO PRN (21:42)
[2019-02-06] MEDS: FAMOTIDINE 20 MG TAB PO SCH (21:42)
[2019-02-06] MEDS: GABAPENTIN 400 MG CAP PO SCH (21:42)
[2019-02-07 02:30] VITALS: BP 118/55; PULSE 82; RESP 18
[2019-02-07] MEDS: GABAPENTIN 400 MG CAP PO SCH ×3 (05:12→22:10)
[2019-02-07] MEDS: METOPROLOL 25 MG TAB PO SCH ×2 (05:13→17:46)
[2019-02-07] MEDS: PIPER-TAZO 3.375 GM IV (PMX) 100 ML IVPB SCH ×3 (05:13→22:10)
[2019-02-07] MEDS: MAGNESIUM HYDROXIDE 30ML CUP PO SCH (09:32)
[2019-02-07] MEDS: DULOXETINE 30 MG CAP DR PO SCH (09:33)
[2019-02-07] MEDS: MULTIVITAMINS/MINERALS TAB PO SCH (09:33)
[2019-02-07] MEDS: ENOXAPARIN 30 MG/0.3 ML SYG SC SCH (09:40)
--- NOTE | 2019-02-07 11:07 | CONS ---
Assessment/Plan Assessment/Plan Hospital Course (Demo Recall) asked to consult. will be in shortly. ty Consultation Date/Type/Reason Admit Date/Time Feb 06, 2019 at 15:14 Initial Consult Date Date/Time of Note DATE: 02/07/19 TIME: 11:06 Exam/Review of Systems Exam Vitals Vital Signs Date Temp Pulse Resp B/P (MAP) Pulse Ox O2 O2 Flow FiO2 Time Delivery Rate 02/07/19 2.0 02:51 02/07/19 97.6 82 18 118/55 95 02:30 (76) 02/06/19 Nasal 20:00 Cannula Intake and Output 02/06/19 02/06/19 02/07/19 1515:00 23:00 07:00 IntakeIntake Total 100 ml 100 ml BalanceBalance 100 ml 100 ml Results Result Diagram: 02/07/19 0455 02/07/19 0455 Results 24hrs Laboratory Tests Test 02/06/19 14:06 02/06/19 18:25 02/07/19 04:55 White Blood Count 14.8 #H 13.4 H Red Blood Count 3.93 #L 3.30 L Hemoglobin 10.9 #L 9.2 L Hematocrit 32.3 #L 27.3 L Mean Corpuscular Volume 82.2 82.7 Mean Corpuscular Hemoglobin 27.7 L 27.9 L Mean Corpuscular Hemoglobin Concent 33.7 33.7 Red Cell Distribution Width 13.6 14.1 Platelet Count 353 # 263 # Mean Platelet Volume 11.2 H 11.8 H Immature Granulocytes % 0.400 0.700 H Neutrophils % 85.4 H 83.5 H Lymphocytes % 7.0 L 8.5 L Monocytes % 6.8 6.4 Eosinophils % 0.1 0.6 Basophils % 0.3 0.3 Nucleated Red Blood Cells % 0.0 0.0 Immature Granulocytes # 0.060 H 0.100 H Neutrophils # 12.6 H 11.1 H Lymphocytes # 1.0 1.1 Monocytes # 1.0 H 0.9 Eosinophils # 0.0 0.1 Basophils # 0.0 0.0 Nucleated Red Blood Cells # 0.0 0.0 Prothrombin Time 13.4 Prothrombin Time Ratio 1.0 INR International Normalized Ratio 1.01 Activated Partial Thromboplast Time 32.5 Urine Color [place] Urine Clarity CLOUDY A Urine pH 8.0 Urine Specific [place] 1.023 Urine Ketones NEGATIVE Urine Nitrite POSITIVE A Urine Bilirubin NEGATIVE Urine Urobilinogen 2+ H Urine Leukocyte Esterase 3+ H Urine Microscopic RBC 18 H Urine Microscopic WBC 25 H Urine Bacteria FEW A Urine Mucus FEW A Urine Hemoglobin NEGATIVE Urine Glucose NEGATIVE Urine Total Protein 2+ H Sodium Level 125 L 127 L Potassium Level 4.4 3.6 Chloride Level 89 L 97 Carbon Dioxide Level 24 22 Anion Gap 12 8 Blood Urea Nitrogen 11 6 L Creatinine 0.50 L 0.41 L Est Glomerular Filtrat Rate mL/min > 60 > 60 Glucose Level 94 94 POC Venous Lactate 1.3 Calcium Level 9.1 8.8 Total Bilirubin 0.2 Direct Bilirubin 0.00 Indirect Bilirubin 0.2 Aspartate Amino Transf (AST/SGOT) 15 Alanine Aminotransferase (ALT/SGPT) 10 L Alkaline Phosphatase 62 Troponin I 0.030 Total Protein 6.9 Albumin 3.7 Globulin 3.20 Albumin/Globulin Ratio 1.15 Lactic Acid Level 1.2 Magnesium Level 1.6 L Thyroid Stimulating Hormone (TSH) 1.430 Medications Medication Current Medications Ondansetron HCl (Zofran Inj) 4 mg BRIDGE ORDER PRN IV NAUSEA/VOMITING; Start 02/06/19 at 15:30; Stop 02/07/19 at 15:29 Acetaminophen (Tylenol Tab) 650 mg Q4H PRN PO MILD PAIN 0-10/10; Start 02/06/19 at 17:00 Duloxetine HCl (Cymbalta) 90 mg DAILY PO Last administered on 02/07/19at 09:33; Admin Dose 90 MG; Start 02/07/19 at 09:00 Famotidine (Pepcid) 20 mg QHS PO Last administered on 02/06/19at 21:42; Admin Dose 20 MG; Start 02/06/19 at 21:00 Acetaminophen/ Hydrocodone Bitart ([place] (10/325)) 1 tab Q8H PRN PO PAIN 7-10 /10 Last administered on 02/06/19at 21:42; Admin Dose 1 TAB; Start 02/06/19 at 17:00 Levalbuterol (Xopenex Neb) 0.63 mg Q6H RESP THERAPY PRN HHN WHEEZING AND SOB; Start 02/06/19 at 17:00 Magnesium Hydroxide (Milk Of Mag) 30 ml DAILY PO Last administered on 02/07/19at 09:32; Admin Dose 30 ML; Start 02/07/19 at 09:00 Metoprolol Tartrate (Lopressor) 25 mg Q12H PO Last administered on 02/07/19at 05:13; Admin Dose 25 MG; Start 02/06/19 at 17:00 Mineral Oil (Fleet Mineral Oil Enema) 118 ml Q72H [place] ; Start 02/06/19 at 17:00 Tramadol HCl (Ultram) 100 mg DAILY PRN PO PAIN; Start 02/06/19 at 17:00 Multivitamins/ Minerals (Theragran-M) 1 tab DAILY PO Last administered on 02/07/19at 09:33; Admin Dose 1 TAB; Start 02/07/19 at 09:00 Piperacillin Sod/ Tazobactam Sod 100 ml @ 200 mls/hr Q8 IVPB Last administered on 02/07/19at 05:13; Admin Dose 200 MLS/HR; Start 02/06/19 at 22:00 Gabapentin (Neurontin) 400 mg Q8 PO Last administered on 02/07/19at 05:12; Admin Dose 400 MG; Start 02/06/19 at 22:00 Ondansetron HCl (Zofran Inj) 4 mg Q6H PRN IV NAUSEA/VOMITING; Start 02/06/19 at 20:30 Docusate Sodium (Colace) 100 mg Q12H PRN PO .CONSTIPATION; Start 02/06/19 at 20:30 Bisacodyl (Dulcolax) 5 mg DAILY PRN PO .CONSTIPATION; Start 02/06/19 at 20:30 Zolpidem Tartrate (Ambien) 5 mg QHS PRN PO .INSOMNIA; Start 02/06/19 at 20:30 Enoxaparin Sodium (Lovenox) 30 mg DAILY SC Last administered on 02/07/19at 09:40; Admin Dose 30 MG; Start 02/07/19 at 09:00 YADIRA LOW MD Feb 07, 2019 11:07
--- NOTE | 2019-02-07 11:17 | PN ---
Date/Time of Note Date/Time of Note DATE: 02/07/19 TIME: 11:16 Assessment/Plan VTE Prophylaxis Risk score (from Ns)>0 risk: 7 SCD applied (from Ns): Yes Pharmacological prophylaxis: LMWH Lines/Catheters IV Catheter Type (from Rust): Peripheral IV Urinary Cath still in place: Yes Reason Cath still needed: urinary retention Assessment/Plan Hospital Course Patient is awake alert,stated that he feels slightly better, continue broad- spectrum antibiotics, magnesium replaced, magnesium 1.7. Assessment/Plan -Sepsis with fevers and leukocytosis most likely secondary to urinary tract infection and possible pneumonia. Follow-up on cultures. Continue broad- spectrum antibiotics. Dr. Huynh is asked to see patient in infection disease consultation. -Pneumonia. -UTI per UA -Chronic Avila catheter -Quadriplegia -Hypertension -Persistent hyponatremia. Dr. Link is asked to see patient in nephrology consultation. -Hyperlipidemia -Paroxysmal atrial fibrillation, currently in sinus rhythm. Dr. Girard is following in cardiology consultation. -Chronic tracheostomy which is currently capped. Dr. Giles is asked to see patient in pulmonology consultation. Further recommendations based on clinical course. Plan of care discussed with Dr. Fajardo. Result Diagram: 02/07/19 0455 02/07/19 0455 Results 24hrs Laboratory Tests Test 02/06/19 14:06 02/06/19 18:25 02/07/19 04:55 White Blood Count 14.8 #H 13.4 H Red Blood Count 3.93 #L 3.30 L Hemoglobin 10.9 #L 9.2 L Hematocrit 32.3 #L 27.3 L Mean Corpuscular Volume 82.2 82.7 Mean Corpuscular Hemoglobin 27.7 L 27.9 L Mean Corpuscular Hemoglobin Concent 33.7 33.7 Red Cell Distribution Width 13.6 14.1 Platelet Count 353 # 263 # Mean Platelet Volume 11.2 H 11.8 H Immature Granulocytes % 0.400 0.700 H Neutrophils % 85.4 H 83.5 H Lymphocytes % 7.0 L 8.5 L Monocytes % 6.8 6.4 Eosinophils % 0.1 0.6 Basophils % 0.3 0.3 Nucleated Red Blood Cells % 0.0 0.0 Immature Granulocytes # 0.060 H 0.100 H Neutrophils # 12.6 H 11.1 H Lymphocytes # 1.0 1.1 Monocytes # 1.0 H 0.9 Eosinophils # 0.0 0.1 Basophils # 0.0 0.0 Nucleated Red Blood Cells # 0.0 0.0 Prothrombin Time 13.4 Prothrombin Time Ratio 1.0 INR International Normalized Ratio 1.01 Activated Partial Thromboplast Time 32.5 Urine Color HEIKE Urine Clarity CLOUDY A Urine pH 8.0 Urine Specific [place] 1.023 Urine Ketones NEGATIVE Urine Nitrite POSITIVE A Urine Bilirubin NEGATIVE Urine Urobilinogen 2+ H Urine Leukocyte Esterase 3+ H Urine Microscopic RBC 18 H Urine Microscopic WBC 25 H Urine Bacteria FEW A Urine Mucus FEW A Urine Hemoglobin NEGATIVE Urine Glucose NEGATIVE Urine Total Protein 2+ H Sodium Level 125 L 127 L Potassium Level 4.4 3.6 Chloride Level 89 L 97 Carbon Dioxide Level 24 22 Anion Gap 12 8 Blood Urea Nitrogen 11 6 L Creatinine 0.50 L 0.41 L Est Glomerular Filtrat Rate mL/min > 60 > 60 Glucose Level 94 94 POC Venous Lactate 1.3 Calcium Level 9.1 8.8 Total Bilirubin 0.2 Direct Bilirubin 0.00 Indirect Bilirubin 0.2 Aspartate Amino Transf (AST/SGOT) 15 Alanine Aminotransferase (ALT/SGPT) 10 L Alkaline Phosphatase 62 Troponin I 0.030 Total Protein 6.9 Albumin 3.7 Globulin 3.20 Albumin/Globulin Ratio 1.15 Lactic Acid Level 1.2 Magnesium Level 1.6 L Thyroid Stimulating Hormone (TSH) 1.430 Exam/Review of Systems Exam Vitals Vital Signs Date Temp Pulse Resp B/P (MAP) Pulse Ox O2 O2 Flow FiO2 Time Delivery Rate 02/07/19 2.0 02:51 02/07/19 97.6 82 18 118/55 95 02:30 (76) 02/06/19 Nasal 20:00 Cannula Intake and Output 02/06/19 02/06/19 02/07/19 1515:00 23:00 07:00 IntakeIntake Total 100 ml 100 ml BalanceBalance 100 ml 100 ml Exam Constitutional: alert, oriented Neck: supple, other (Tracheostomy capped) Respiratory: diminished breath sounds Cardiovascular: regular rate and rhythm Gastrointestinal: soft, non-tender Genitourinary - Male: other (Avila) Musculoskeletal: other (Quadriplegia) Extremities: normal pulses Neurological: nl mental status, other (quadriplegia) Results Results 24hrs Laboratory Tests Test 4/17/19 14:06 02/06/19 18:25 02/07/19 04:55 White Blood Count 14.8 #H 13.4 H Red Blood Count 3.93 #L 3.30 L Hemoglobin 10.9 #L 9.2 L Hematocrit 32.3 #L 27.3 L Mean Corpuscular Volume 82.2 82.7 Mean Corpuscular Hemoglobin 27.7 L 27.9 L Mean Corpuscular Hemoglobin Concent 33.7 33.7 Red Cell Distribution Width 13.6 14.1 Platelet Count 353 # 263 # Mean Platelet Volume 11.2 H 11.8 H Immature Granulocytes % 0.400 0.700 H Neutrophils % 85.4 H 83.5 H Lymphocytes % 7.0 L 8.5 L Monocytes % 6.8 6.4 Eosinophils % 0.1 0.6 Basophils % 0.3 0.3 Nucleated Red Blood Cells % 0.0 0.0 Immature Granulocytes # 0.060 H 0.100 H Neutrophils # 12.6 H 11.1 H Lymphocytes # 1.0 1.1 Monocytes # 1.0 H 0.9 Eosinophils # 0.0 0.1 Basophils # 0.0 0.0 Nucleated Red Blood Cells # 0.0 0.0 Prothrombin Time 13.4 Prothrombin Time Ratio 1.0 INR International Normalized Ratio 1.01 Activated Partial Thromboplast Time 32.5 Urine Color HEIKE Urine Clarity CLOUDY A Urine pH 8.0 Urine Specific [place] 1.023 Urine Ketones NEGATIVE Urine Nitrite POSITIVE A Urine Bilirubin NEGATIVE Urine Urobilinogen 2+ H Urine Leukocyte Esterase 3+ H Urine Microscopic RBC 18 H Urine Microscopic WBC 25 H Urine Bacteria FEW A Urine Mucus FEW A Urine Hemoglobin NEGATIVE Urine Glucose NEGATIVE Urine Total Protein 2+ H Sodium Level 125 L 127 L Potassium Level 4.4 3.6 Chloride Level 89 L 97 Carbon Dioxide Level 24 22 Anion Gap 12 8 Blood Urea Nitrogen 11 6 L Creatinine 0.50 L 0.41 L Est Glomerular Filtrat Rate mL/min > 60 > 60 Glucose Level 94 94 POC Venous Lactate 1.3 Calcium Level 9.1 8.8 Total Bilirubin 0.2 Direct Bilirubin 0.00 Indirect Bilirubin 0.2 Aspartate Amino Transf (AST/SGOT) 15 Alanine Aminotransferase (ALT/SGPT) 10 L Alkaline Phosphatase 62 Troponin I 0.030 Total Protein 6.9 Albumin 3.7 Globulin 3.20 Albumin/Globulin Ratio 1.15 Lactic Acid Level 1.2 Magnesium Level 1.6 L Thyroid Stimulating Hormone (TSH) 1.430 Medications Medication Current Medications Ondansetron HCl (Zofran Inj) 4 mg BRIDGE ORDER PRN IV NAUSEA/VOMITING; Start 02/06/19 at 15:30; Stop 02/07/19 at 15:29 Acetaminophen (Tylenol Tab) 650 mg Q4H PRN PO MILD PAIN 0-10/10; Start 02/06/19 at 17:00 Duloxetine HCl (Cymbalta) 90 mg DAILY PO Last administered on 02/07/19 09:33; Admin Dose 90 MG; Start 02/07/19 at 09:00 Famotidine (Pepcid) 20 mg QHS PO Last administered on 02/06/19 21:42; Admin Dose 20 MG; Start 02/06/19 at 21:00 Acetaminophen/ Hydrocodone Bitart ([place] (10/325)) 1 tab Q8H PRN PO PAIN 7- 10/10 Last administered on 02/06/19 21:42; Admin Dose 1 TAB; Start 02/06/19 at 17:00 Levalbuterol (Xopenex Neb) 0.63 mg Q6H RESP THERAPY PRN HHN WHEEZING AND SOB; Start 02/06/19 at 17:00 Magnesium Hydroxide (Milk Of Mag) 30 ml DAILY PO Last administered on 02/07/19 09:32; Admin Dose 30 ML; Start 02/07/19 at 09:00 Metoprolol Tartrate (Lopressor) 25 mg Q12H PO Last administered on 02/07/19 05:13; Admin Dose 25 MG; Start 02/06/19 at 17:00 Mineral Oil (Fleet Mineral Oil Enema) 118 ml Q72H ND ; Start 02/06/19 at 17:00 Tramadol HCl (Ultram) 100 mg DAILY PRN PO PAIN; Start 02/06/19 at 17:00 Multivitamins/ Minerals (Theragran-M) 1 tab DAILY PO Last administered on 02/07/19 09:33; Admin Dose 1 TAB; Start 02/07/19 at 09:00 Piperacillin Sod/ Tazobactam Sod 100 ml @ 200 mls/hr Q8 IVPB Last administered on 02/07/19 05:13; Admin Dose 200 MLS/HR; Start 02/06/19 at 22:00 Gabapentin (Neurontin) 400 mg Q8 PO Last administered on 02/07/19at 05:12; Admin Dose 400 MG; Start 02/06/19 at 22:00 Ondansetron HCl (Zofran Inj) 4 mg Q6H PRN IV NAUSEA/VOMITING; Start 02/06/19 at 20:30 Docusate Sodium (Colace) 100 mg Q12H PRN PO .CONSTIPATION; Start 02/06/19 at 20:30 Bisacodyl (Dulcolax) 5 mg DAILY PRN PO .CONSTIPATION; Start 02/06/19 at 20:30 Zolpidem Tartrate (Ambien) 5 mg QHS PRN PO .INSOMNIA; Start 02/06/19 at 20:30 Enoxaparin Sodium (Lovenox) 30 mg DAILY SC Last administered on 02/07/19at 09:40; Admin Dose 30 MG; Start 02/07/19 at 09:00 Magnesium Sulfate 50 ml @ 25 mls/hr ONCE ONCE IVPB ; Start 02/07/19 at 11:30; Stop 02/07/19 at 13:29; Status JUANA JONES Feb 07, 2019 11:17
--- NOTE | 2019-02-07 11:28 | CONS ---
Assessment/Plan Assessment/Plan Hospital Course (Demo Recall) - HCAP and UTI - recurrent UTI, urine culture did not grow bacteria probably because he has ta janay antibiotics intermittently for his UTI at [facility] - hx of hemorrhagic UTI - Staph spp in the blood culture from 11/18/2018, probable contaminant - h/o recurrent UTI, morganella - h/o recurrent pneumonia, pseudomonas - h/o paronychia of L 4th and 5th fingers s/p debridement by Dr. Monteiro - h/o hemorrhagic blister of L heel, resolving - h/o decubitus ulcer of L heel s/p debridement. 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 Zosyn add Vanco hudosn cx serial lactic serial cxr a consideration of supra-pubic cath could be entertained but many patients do not have a dramatic decrease in uti rate Consultation Date/Type/Reason Admit Date/Time Feb 06, 2019 at 15:14 Date of Consultation: Feb 07, 2019 Type of Consult ID Reason for Consultation ABX RECS Date/Time of Note DATE: 02/07/19 TIME: 11:27 Hx of Present Illness Mr. Leggett is a very pleasant 68 yo male with a hx of paf, prostate ca s/p resection, quadraplegia from complication of cervical spine surgery, trach capped admitted with fever pulm congestion and possible uti. He was started on Zosyn empirically. CXR shows bilateral patchy infils Constitutional: no complaints, improved Eyes: no complaints ENT: no complaints Respiratory: cough, sputum Cardiovascular: no complaints Gastrointestinal: no complaints Genitourinary: no complaints Musculoskeletal: no complaints Skin: no complaints Neurologic: no complaints Endocrine: no complaints Lymphatic: no complaints Psychological: no complaints, nl mood/affect Past Medical History Home Meds Reported Medications Bisacodyl* (Bisacodyl*) 10 Mg Supp, 10 MG AR Q48H for CONSTIPATION, SUPP 02/06/19 Sulfamethoxazole/Trimethoprim* (Bactrim Ds* Tablet) 1 Each Tablet, 1 TAB PO Q12H, TAB FOR 7 DAYS ,LAST DATE 02/11/19 02/06/19 Docusate Sodium* (Colace*) 100 Mg Capsule, 100 MG PO Q12H, #60 CAP 02/06/19 Cranberry Fruit (CRANBERRY) 450 Mg Tablet, 900 MG PO DAILY, TAB 02/06/19 Benzocaine/Menthol* (Cepacol* Sore Throat Lozenges) 1 Each Lozenge, 1 EACH MM NEEDED PRN for SORE THROAT, LOZENGE 02/06/19 Atorvastatin Calcium (Atorvastatin Calcium) 10 Mg Tablet, 10 MG PO QHS, #30 TAB 02/06/19 Mineral Oil/Petrolatum,White (ARTIFICIAL TEARS EYE OINT) 3.5 Gm Oint...g., 2 APPLIC BOTH EYES QID, #1 TUB 02/06/19 Amiodarone Hcl* (Amiodarone Hcl*) 200 Mg Tablet, 200 MG PO DAILY, #30 TAB HOLD FOR SBP<120 OR HR<60 02/06/19 Aspirin* (Aspirin* EC) 325 Mg Tab, 325 MG PO DAILY, TAB 02/06/19 Levalbuterol Hcl* (Levalbuterol Hcl*) 0.63 Mg/3 Ml Vial.neb, 0.63 MG INHALATION Q6H PRN for WHEEZING AND SOB, VIAL 02/06/19 Alprazolam* (Xanax*) 0.5 Mg Tab, 0.5 MG PO NEEDED PRN for ANXIETY, TAB 02/06/19 Acetaminophen* (Tylenol*) 325 Mg Tablet, 650 MG PO Q4H PRN for MILD PAIN 0- 10/10, TAB 02/06/19 Tramadol Hcl* (Ultram*) 50 Mg Tablet, 100 MG PO DAILY PRN for PAIN, TAB 02/06/19 Sodium Chloride* (Sodium Chloride*) 1 Gm Tablet, 1 GM PO BID, TAB 02/06/19 Promethazine Hcl* (Promethazine Hcl* Syrup) 6.25 Mg/5 Ml Syrup, 10 MG PO Q8H, ML 02/06/19 Amino Acids/Protein Hydrolys (PRO-STAT LIQUID) 30 Ml Liquid.pkt, 30 ML PO DAILY SUGAR FREE 02/06/19 Gabapentin* (Gabapentin*) 400 Mg Capsule, 400 MG PO Q8H, #90 CAP 02/06/19 Multivitamin with Minerals (Multivitamins with Minerals) 1 Each Tablet, 1 EACH PO DAILY, TAB 02/06/19 Magnesium Hydroxide* (Milk Of Magnesia*) 400 Mg/5 Ml Oral.susp, 30 ML PO DAILY, ML Q MON,MON,Mon02/06/19 Metoprolol Tartrate* (Lopressor*) 25 Mg Tab, 25 MG PO Q12H, #60 TAB HOLD FOR SBP<120 OR HR<60 02/06/19 Hydrocodone/Acetaminophen ([place] 10-325 Tablet) 1 Each Tablet, 1 EACH PO Q8H PRN for PAIN 7-1010, TAB 02/06/19 Fluticasone Propionate* (Fluticasone Propionate* Nasal) 50 Mcg/Minerva - 16 Gm Minerva.susp, 2 SPRAYS NASAL QHS, #1 BOTTLE TO EACH NOSTRIL 02/06/19 Mineral Oil* (Fleet* Mineral Oil Enema) 133 Ml Oil, 118 ML AR Q72H, ENEMA 02/06/19 Famotidine* (Famotidine*) 20 Mg Tablet, 20 MG PO QHS, #30 TAB 02/06/19 Duloxetine Hcl* (Cymbalta*) 60 Mg Capsule.dr, 90 MG PO DAILY, CAP 02/06/19 Discontinued Reported Medications Levalbuterol (Xopenex) 0.63 Mg/3 Ml Nebu, 0.63 MG INHALATION Q6 PRN for SHORTNESS OF BREATH, EACH 11/19/18 Hydrocodone/Acetaminophen ([place] 10-325 Tablet) 1 Each Tablet, 1 EACH PO Q8 for pain 7-10, TAB 11/19/18 Gabapentin* (Neurontin*) 400 Mg Capsule, 400 MG PO TID for Neuropathic pain, #90 CAP 11/19/18 Multivitamin (MULTI-VITAMIN DAILY) 1 Each Tablet, 1 TAB PO DAILY, TAB 11/19/18 Magnesium Hydroxide* (Milk Of Magnesia*) 400 Mg/5 Ml Oral.susp, 30 ML PO MONWEDFRI for for bowel management., ML 11/19/18 Metoprolol Tartrate* (Lopressor*) 25 Mg Tab, 25 MG PO BID, #60 TAB 11/19/18 Ipratropium Vandiver (Ipratropium Vandiver) 15 Ml Minerva, 15 ML NS, SPRAY 11/19/18 Fluticasone Propionate (Flonase Allergy Relief) 9.9 Ml Min[place]a.susp, 2 SPRAY NASAL QHS for Allergy, #1 BOTTLE TO EACH NOSTRIL 11/19/18 Apixaban* (Eliquis*) 5 Mg Tablet, 10 MG PO BID, TAB 11/19/18 Duloxetine Hcl* (Duloxetine Hcl*) 30 Mg Capsule.dr, 90 MG PO DAILY, #30 CAP 11/19/18 Bisacodyl (Dulcolax) 10 Mg Supp.rect, 10 MG RC every 48 hrs for constipation, SUPP.RECT 11/19/18 Docusate Sodium* (Docusate Sodium*) 100 Mg Capsule, 100 MG PO BID, #60 CAP 11/19/18 Loratadine* (Claritin*) 10 Mg Capsule, 10 MG PO DAILY, CAP 11/19/18 Atorvastatin Calcium (Atorvastatin Calcium) 10 Mg Tablet, 10 MG PO QHS, #30 TAB 11/19/18 [artifi] No Conflict Check, 2 DROP BOTH EYES QID for dry eyes 11/19/18 Amiodarone Hcl* (Amiodarone Hcl*) 200 Mg Tablet, 200 MG PO DAILY, #30 TAB 11/19/18 Alprazolam* (Xanax*) 0.5 Mg Tab, 0.5 MG PO QHS PRN for NEEDED, TAB START DATE 01/12/18 AND END DATE 01/25/18 01/17/18 Acetaminophen* (Tylenol*) 325 Mg Tablet, 650 MG PO Q4H PRN for FOR TEMP 100 & ABOVE, TAB START DATE 01/16/18 AND 01/25/18 01/17/18 Promethazine Hcl* (Promethazine Hcl* Syrup) 6.25 Mg/5 Ml Syrup, 10 ML PO TID PRN for COUGH, ML START DATE 01/14/18 AND END DATE 01/19/18 01/17/18 Cranberry Fruit (CRANBERRY) 450 Mg Tablet, 900 MG PO DAILY, TAB 01/17/18 Cefepime Hcl/Dextrose, Iso-Osm (Cefepime 1 Gm Injection) 1 Gm/50 Ml Froz.piggy, 1 GM IV BID for UTI AND POSSIBLE PNA START DATE 01/15/18 AND END DATE 01/22/18 01/17/18 Benzocaine/Menthol* (Chloraseptic* Max Lozenge) 1 Each Lozenge, 1 LOZENGE MM Q4H PRN for SORE THROAT, LOZENGE START DATE 01/14/18 AND END DATE 01/21/18 01/17/18 Medications Current Medications Ondansetron HCl (Zofran Inj) 4 mg BRIDGE ORDER PRN IV NAUSEA/VOMITING; Start 02/06/19 at 15:30; Stop 02/07/19 at 15:29 Acetaminophen (Tylenol Tab) 650 mg Q4H PRN PO MILD PAIN 0-10/10; Start 02/06/19 at 17:00 Duloxetine HCl (Cymbalta) 90 mg DAILY PO Last administered on 02/07/19 09:33; Admin Dose 90 MG; Start 02/07/19 at 09:00 Famotidine (Pepcid) 20 mg QHS PO Last administered on 02/06/19 21:42; Admin Dose 20 MG; Start 02/06/19 at 21:00 Acetaminophen/ Hydrocodone Bitart ([place] (10/325)) 1 tab Q8H PRN PO PAIN 7- 10/10 Last administered on 02/06/19at 21:42; Admin Dose 1 TAB; Start 02/06/19 at 17:00 Levalbuterol (Xopenex Neb) 0.63 mg Q6H RESP THERAPY PRN HHN WHEEZING AND SOB; Start 02/06/19 at 17:00 Magnesium Hydroxide (Milk Of Mag) 30 ml DAILY PO Last administered on 02/07/19at 09:32; Admin Dose 30 ML; Start 02/07/19 at 09:00 Metoprolol Tartrate (Lopressor) 25 mg Q12H PO Last administered on 02/07/19at 05:13; Admin Dose 25 MG; Start 02/06/19 at 17:00 Mineral Oil (Fleet Mineral Oil Enema) 118 ml Q72H AR ; Start 02/06/19 at 17:00 Tramadol HCl (Ultram) 100 mg DAILY PRN PO PAIN; Start 02/06/19 at 17:00 Multivitamins/ Minerals (Theragran-M) 1 tab DAILY PO Last administered on 02/07/19at 09:33; Admin Dose 1 TAB; Start 02/07/19 at 09:00 Piperacillin Sod/ Tazobactam Sod 100 ml @ 200 mls/hr Q8 IVPB Last administered on 02/07/19at 05:13; Admin Dose 200 MLS/HR; Start 02/06/19 at 22:00 Gabapentin (Neurontin) 400 mg Q8 PO Last administered on 02/07/19at 05:12; Admin Dose 400 MG; Start 02/06/19 at 22:00 Ondansetron HCl (Zofran Inj) 4 mg Q6H PRN IV NAUSEA/VOMITING; Start 02/06/19 at 20:30 Docusate Sodium (Colace) 100 mg Q12H PRN PO .CONSTIPATION; Start 02/06/19 at 20:30 Bisacodyl (Dulcolax) 5 mg DAILY PRN PO .CONSTIPATION; Start 02/06/19 at 20:30 Zolpidem Tartrate (Ambien) 5 mg QHS PRN PO .INSOMNIA; Start 02/06/19 at 20:30 Enoxaparin Sodium (Lovenox) 30 mg DAILY SC Last administered on 02/07/19at 09:40; Admin Dose 30 MG; Start 02/07/19 at 09:00 Magnesium Sulfate 50 ml @ 25 mls/hr ONCE ONCE IVPB ; Start 02/07/19 at 11:30; Stop 02/07/19 at 13:29; Status UNV Promethazine HCl (Phenergan Liq) 10 mg Q8H PO ; Start 02/07/19 at 11:30 Alprazolam (Xanax) 0.5 mg Q6H PRN PO ANXIETY; Start 02/07/19 at 11:30; Status UNV Allergies: Coded Allergies: codeine (Unverified Allergy, Unknown, 02/06/19) Past Surgical History Past Surgical Hx: other (Status post cervical spine surgery, status post prostate surgery, status post tracheostomy, status post G-tube placement and subsequent G-tube removal) Social History Alcohol Use: none Smoking Status: Former smoker Drug Use: none Exam/Review of Systems Exam Vitals Vital Signs Date Temp Pulse Resp B/P (MAP) Pulse Ox O2 O2 Flow FiO2 Time Delivery Rate 02/07/19 2.0 02:51 02/07/19 97.6 82 18 118/55 95 02:30 (76) 02/06/19 Nasal 20:00 Cannula Intake and Output 02/06/19 02/06/19 02/07/19 1515:00 23:00 07:00 IntakeIntake Total 100 ml 100 ml BalanceBalance 100 ml 100 ml Constitutional: alert, oriented, well developed Psych: no complaints Head: normocephalic, atraumatic, other (trach) ENMT: nl external ears & nose, nl lips & teeth, nl nasal mucosa & septum, other (trach) Neck: supple Respiratory: congested cough, crackles/rales Cardiovascular: regular rate and rhythm Gastrointestinal: soft Neurological: [employer] II-XII intact Results Result Diagram: 02/07/19 0455 02/07/19 0455 Results 24hrs Laboratory Tests Test 02/06/19 14:06 02/06/19 18:25 02/07/19 04:55 White Blood Count 14.8 #H 13.4 H Red Blood Count 3.93 #L 3.30 L Hemoglobin 10.9 #L 9.2 L Hematocrit 32.3 #L 27.3 L Mean Corpuscular Volume 82.2 82.7 Mean Corpuscular Hemoglobin 27.7 L 27.9 L Mean Corpuscular Hemoglobin Concent 33.7 33.7 Red Cell Distribution Width 13.6 14.1 Platelet Count 353 # 263 # Mean Platelet Volume 11.2 H 11.8 H Immature Granulocytes % 0.400 0.700 H Neutrophils % 85.4 H 83.5 H Lymphocytes % 7.0 L 8.5 L Monocytes % 6.8 6.4 Eosinophils % 0.1 0.6 Basophils % 0.3 0.3 Nucleated Red Blood Cells % 0.0 0.0 Immature Granulocytes # 0.060 H 0.100 H Neutrophils # 12.6 H 11.1 H Lymphocytes # 1.0 1.1 Monocytes # 1.0 H 0.9 Eosinophils # 0.0 0.1 Basophils # 0.0 0.0 Nucleated Red Blood Cells # 0.0 0.0 Prothrombin Time 13.4 Prothrombin Time Ratio 1.0 INR International Normalized Ratio 1.01 Activated Partial Thromboplast Time 32.5 Urine Color HEIKE Urine Clarity CLOUDY A Urine pH 8.0 Urine Specific [place] 1.023 Urine Ketones NEGATIVE Urine Nitrite POSITIVE A Urine Bilirubin NEGATIVE Urine Urobilinogen 2+ H Urine Leukocyte Esterase 3+ H Urine Microscopic RBC 18 H Urine Microscopic WBC 25 H Urine Bacteria FEW A Urine Mucus FEW A Urine Hemoglobin NEGATIVE Urine Glucose NEGATIVE Urine Total Protein 2+ H Sodium Level 125 L 127 L Potassium Level 4.4 3.6 Chloride Level 89 L 97 Carbon Dioxide Level 24 22 Anion Gap 12 8 Blood Urea Nitrogen 11 6 L Creatinine 0.50 L 0.41 L Est Glomerular Filtrat Rate mL/min > 60 > 60 Glucose Level 94 94 POC Venous Lactate 1.3 Calcium Level 9.1 8.8 Total Bilirubin 0.2 Direct Bilirubin 0.00 Indirect Bilirubin 0.2 Aspartate Amino Transf (AST/SGOT) 15 Alanine Aminotransferase (ALT/SGPT) 10 L Alkaline Phosphatase 62 Troponin I 0.030 Total Protein 6.9 Albumin 3.7 Globulin 3.20 Albumin/Globulin Ratio 1.15 Lactic Acid Level 1.2 Magnesium Level 1.6 L Thyroid Stimulating Hormone (TSH) 1.430 Medications Medication Current Medications Ondansetron HCl (Zofran Inj) 4 mg BRIDGE ORDER PRN IV NAUSEA/VOMITING; Start 02/06/19 at 15:30; Stop 02/07/19 at 15:29 Acetaminophen (Tylenol Tab) 650 mg Q4H PRN PO MILD PAIN 0-10/10; Start 02/06/19 at 17:00 Duloxetine HCl (Cymbalta) 90 mg DAILY PO Last administered on 02/07/19at 09:33; Admin Dose 90 MG; Start 02/07/19 at 09:00 Famotidine (Pepcid) 20 mg QHS PO Last administered on 02/06/19at 21:42; Admin Dose 20 MG; Start 02/06/19 at 21:00 Acetaminophen/ Hydrocodone Bitart ([place] (10/325)) 1 tab Q8H PRN PO PAIN 7- 10/10 Last administered on 02/06/19at 21:42; Admin Dose 1 TAB; Start 02/06/19 at 17:00 Levalbuterol (Xopenex Neb) 0.63 mg Q6H RESP THERAPY PRN HHN WHEEZING AND SOB; Start 02/06/19 at 17:00 Magnesium Hydroxide (Milk Of Mag) 30 ml DAILY PO Last administered on 02/07/19at 09:32; Admin Dose 30 ML; Start 02/07/19 at 09:00 Metoprolol Tartrate (Lopressor) 25 mg Q12H PO Last administered on 02/07/19at 05:13; Admin Dose 25 MG; Start 02/06/19 at 17:00 Mineral Oil (Fleet Mineral Oil Enema) 118 ml Q72H AR ; Start 02/06/19 at 17:00 Tramadol HCl (Ultram) 100 mg DAILY PRN PO PAIN; Start 02/06/19 at 17:00 Multivitamins/ Minerals (Theragran-M) 1 tab DAILY PO Last administered on 02/07/19at 09:33; Admin Dose 1 TAB; Start 02/07/19 at 09:00 Piperacillin Sod/ Tazobactam Sod 100 ml @ 200 mls/hr Q8 IVPB Last administered on 02/07/19at 05:13; Admin Dose 200 MLS/HR; Start 02/06/19 at 22:00 Gabapentin (Neurontin) 400 mg Q8 PO Last administered on 02/07/19at 05:12; Admin Dose 400 MG; Start 02/06/19 at 22:00 Ondansetron HCl (Zofran Inj) 4 mg Q6H PRN IV NAUSEA/VOMITING; Start 02/06/19 at 20:30 Docusate Sodium (Colace) 100 mg Q12H PRN PO .CONSTIPATION; Start 02/06/19 at 20:30 Bisacodyl (Dulcolax) 5 mg DAILY PRN PO .CONSTIPATION; Start 02/06/19 at 20:30 Zolpidem Tartrate (Ambien) 5 mg QHS PRN PO .INSOMNIA; Start 02/06/19 at 20:30 Enoxaparin Sodium (Lovenox) 30 mg DAILY SC Last administered on 02/07/19at 09:40; Admin Dose 30 MG; Start 02/07/19 at 09:00 Magnesium Sulfate 50 ml @ 25 mls/hr ONCE ONCE IVPB ; Start 02/07/19 at 11:30; Stop 02/07/19 at 13:29; Status UNV Promethazine HCl (Phenergan Liq) 10 mg Q8H PO ; Start 02/07/19 at 11:30 Alprazolam (Xanax) 0.5 mg Q6H PRN PO ANXIETY; Start 02/07/19 at 11:30; Status UNV YADIRA LOW MD Feb 07, 2019 11:28
[2019-02-07] MEDS: ALPRAZOLAM 0.5 MG TAB PO PRN ×2 (12:22→22:19)
[2019-02-07] MEDS: PROMETHAZINE (1.25 MG/ML) 5 ML CUP PO SCH ×2 (12:23→22:10)
[2019-02-07] MEDS ORDERED: MAGNESIUM SULFATE 2 GM/50 ML 50 ML IVPB ONE (12:30)
--- NOTE | 2019-02-07 13:08 | RADRPT ---
Echocardiogram Report Patient Name: DANA WAREPatient ID: [id number] : [id number] ([id number] 3m)Study Date: 02/07/2019 7:29:14 AM Gender: MAccession #: [id number] Tech: Elisabeth Wilson [facility] Location: 6986 Ref.Physician: VARINDER GIRARD Height(Cm): BSA: Weight(Kg): Quality: AdequateAccount #: Procedures: Echocardiographic Report: Transthoracic echocardiogram with complete 2D, M-Mode, and doppler examination. Indications: Aortic Stenosis. Measurements: 2D/M Mode Doppler Measurement Value Normal Range Measurement Value Normal Range LVIDd 2D 4.2 [ 4.2 - 5.8 ] cm PRIMO VTI 1.2 [ 2.0 - 4.0 ] cm2 LVIDs 2D 2.6 [ 2.5 - 4.0 ] cm AV Mean [place] 2.4 [ 70.0 - 90.0 ] cm/sec LVPWd 2D 1.6 [ 0.6 - 1.0 ] cm AV Mean PG 25.0 [ 2.0 - 4.0 ] mmHg IVSd 2D 1.7 [ 0.6 - 1.0 ] cm AV VTI 67.3 cm AoR Diam 2D 2.9 [ 2.6 - 3.4 ] cm AI Peak PG 25.0 mmHg EDV 2D 76.8 [ 62.0 - 150.0 ] ml AI Peak Chuy 2.5 cm/sec ESV 2D 24.4 [ 21.0 - 61.0 ] ml AI PHT 400.0 msec EF 2D 68.2 [ 52.0 - 72.0 ] percent LVOT Mean [place]uy 0.6 [ 60.0 - 80.0 ] cm/sec LA Dimen 2D 3.4 [ 3.0 - 4.0 ] cm LVOT Mean PG 1.0 [ 1.0 - 3.0 ] mmHg LVOT Diam 2.3 [ 2.3 - 2.9 ] cm LVOT Peak Chuy 0.8 [ 70.0 - 110.0 ] cm/sec LVOT Peak PG 2.0 [ 2.0 - 6.0 ] mmHg LVOT VTI 20.0 [ 20.0 - 30.0 ] cm MV E Peak Chuy 1.0 [ 60.0 - 130.0 ] cm/sec MV A Peak [place] 0.8 [ 100.0 - 120.0 ] cm/sec MV E/A 1.3 [ 0.8 - 1.5 ] ratio MV Decel Time 169 [ 104 - 258 ] msec Lat E` Chuy 0.1 [ 10.0 - 15.0 ] cm/sec Lateral E/E` 12.3 [ 1.0 - 2.0 ] ratio MV E/A 1.3 [ 0.8 - 1.5 ] ratio TR Peak [place] 1.9 [ 100.0 - 280.0 ] cm/sec TR Peak PG 14.0 mmHg RVSP 17.0 [ 10.0 - 36.0 ] mmHg RA Pressure 3.0 mmHg Findings: Left Ventricle: Normal left ventricular systolic function. Normal left ventricular cavity size. Moderate concentric left ventricular hypertrophy. Ejection fraction is visually estimated at 65 %. Abnormal Diastolic Function. Right Ventricle: Normal right ventricular size. Normal right ventricular systolic function. Left Atrium: The left atrium is normal in size. Right Atrium: The right atrium is normal in size. Mitral Valve: Mitral valve leaflets appear mildly thickened. Mild mitral annular calcification. Trace mitral regurgitation. Aortic Valve: Moderate aortic stenosis. Mean PG 25.00 mmHg. Aortic cusps appear mildly calcified. Mild aortic valve regurgitation. Tricuspid Valve: Normal appearance of the tricuspid valve. Estimated peak PA systolic pressure 17 mmHg. There is trace tricuspid regurgitation. Pulmonic Valve: Pulmonic valve not well visualized. Pericardium: Normal pericardium with no significant pericardial effusion. Aorta: Normal aortic root. IVC: Normal size and normal respiratory collapse consistent with normal right atrial pressure. Conclusions: Normal left ventricular systolic function. Normal left ventricular cavity size. Moderate concentric left ventricular hypertrophy. Ejection fraction is visually estimated at 65 %. Abnormal Diastolic Function. Normal right ventricular size. Normal right ventricular systolic function. The left atrium is normal in size. The right atrium is normal in size. Moderate aortic stenosis. Mild aortic valve regurgitation. There is trace tricuspid regurgitation. Trace mitral regurgitation. Normal pericardium with no significant pericardial effusion. Electronically Signed By: Varinder Girard 2019-02-07 13:08:28 PDT
--- NOTE | 2019-02-07 13:36 | CONS ---
DATE OF ADMISSION: 02/06/2019 DATE OF CONSULTATION: TYPE OF CONSULTATION: Nephrology. REASON FOR CONSULTATION: Hyponatremia. 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 The patie nt has chronic indwelling Avila catheter. The patient was noted to have a fever and as a result he c eileen into the Emergency Room. Upon arrival to the Emergency Room, the patient had laboratory data whi ch showed evidence of white count 14.8, hemoglobin 10.9. The patient had urinalysis which showed pos itive nitrites, pyuria, hematuria. The patient was given IV fluids, started on antibiotic therapy an d admitted to med-surg. In terms of patient's renal history, the patient had a chronic history of hyponatremia. Previous wor kup suggested a possible partial SIADH however, the patient's sodium levels in the past have also imp roved with IV hydration. Currently, the patient presents with a sodium level of 125 mEq on admission , sodium levels have improved to 127 mEq with IV hydration. There have been no reports of any seizur e activity, any hemoptysis, hematemesis or hematochezia. PAST MEDICAL HISTORY: As stated above, history of quadriplegia, history of hyponatremia, history of depression, anxiety, history of chronic respiratory failure, status post tracheostomy, history of arr hythmia. PAST SURGICAL HISTORY: Status post spine surgery, status post prostate surgery, status post PEG, sta tus post tracheostomy. FAMILY HISTORY: No family history. SOCIAL HISTORY: Does not drink, smoke or do drugs. ALLERGIES: No known drug allergies. MEDICATIONS: The patient's medications have been reviewed. REVIEW OF SYSTEMS: A 14-point review of systems conducted. Pertinent positives stated in HPI, other egan negative. PHYSICAL EXAMINATION: VITAL SIGNS: Blood pressure is 118/55, respiration 18, pulse 82, temperature 97.6. HEENT: Head is normocephalic. NECK: Supple. HEART: Regular rate. LUNGS: Show diminished breath sounds at the base. ABDOMEN: Soft, nontender to palpation without rebound or guarding. EXTREMITIES: Negative for clubbing, cyanosis, no edema. DERMATOLOGIC: No rashes. MUSCULOSKELETAL: No joint effusions. NEUROLOGIC: Patient is quadriplegic. LABORATORY DATA: Has been reviewed. Urinalysis was reviewed. ASSESSMENT AND PLAN: This is a 68-year-old male who presents with: 1. Hyponatremia. Etiology is likely multifactorial secondary to hemodynamics, possible partial SIAD H. The patient's sodium levels have initially improved with IV hydration. Plan is to check urine el ectrolytes. We will check a urine sodium, urine osmolarity, uric acid level. Will start the patient on gentle IV hydration. Repeat a sodium level to ensure correction of no more than 10 to 12 mEq in 24-hour period. Will monitor closely. 2. Hypomagnesemia. We will replete with magnesium sulfate. 3. Anemia. Continue to monitor hemoglobin and hematocrit levels. 4. Sepsis secondary to possible urinary tract infection and pneumonia. Continue current antibiotic regimen. Review cultures. Follow up with infectious disease. 5. Hypertension. Continue current blood pressure regimen. 6. Chronic respiratory failure, status post trach. Continue to monitor. 7. Dysphagia. Continue modified diet. 8. 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 9. Lower extremity wounds. Continue wound care. 10. History of hematuria. 11. History of hemorrhagic cystitis. Thank you, Dr. Soriano, for this interesting consult. It will be a pleasure to follow patient with you throughout the hospital course. Dictated By: SARAH WANG/MARGARET Conf#: [id number] DID#: [id number] CC: CHONG SORIANO MD;*EndCC*
[2019-02-07] MEDS: SOD CHLORIDE 0.9% 1,000 ML IV SCH (14:29)
--- NOTE | 2019-02-07 16:50 | CONS ---
Assessment/Plan Assessment/Plan Hospital Course (Demo Recall) Sepsis, possibly from pneumonia and UTI Paroxysmal atrial fibrillation, currently sinus rhythm Preserved ejection fraction Moderate aortic valve stenosis Hypertension -Patient with evidence of pneumonia based on chest x-ray and UTI based on urinalysis -Remains in sinus rhythm, continue beta-jailyn as tolerated -Patient with history of hematuria a few months ago on anticoagulation. Would consider restarting if no contraindication -Antibiotics as per infectious disease Consultation Date/Type/Reason Admit Date/Time Feb 06, 2019 at 15:14 Initial Consult Date 02/07/19 Type of Consult Cardiology Date/Time of Note DATE: 02/07/19 TIME: 16:49 24 HR Interval Summary Free Text/Dictation Feeling better today. No shortness of breath, palpitations Exam/Review of Systems Vital Signs Vitals Vital Signs Date Temp Pulse Resp B/P (MAP) Pulse Ox O2 O2 Flow FiO2 Time Delivery Rate 02/07/19 2.0 02:51 02/07/19 97.6 82 18 118/55 95 02:30 (76) 02/06/19 Nasal 20:00 Cannula Intake and Output 02/06/19 02/06/19 02/07/19 1515:00 23:00 07:00 IntakeIntake Total 100 ml 100 ml BalanceBalance 100 ml 100 ml Exam Constitutional: alert, oriented (No apparent distress) Head: normocephalic Respiratory: other (Coarse breath sounds bilaterally, no wheezing) Cardiovascular: regular rate and rhythm, systolic murmur Gastrointestinal: soft, non-tender, bowel sounds Extremities: edema Labs Result Diagram: 02/07/19 0455 02/07/19 0455 Results 24hrs Laboratory Tests Test 02/06/19 18:25 02/07/19 04:55 02/07/19 14:40 Lactic Acid Level 1.2 White Blood Count 13.4 H Red Blood Count 3.30 L Hemoglobin 9.2 L Hematocrit 27.3 L Mean Corpuscular Volume 82.7 Mean Corpuscular Hemoglobin 27.9 L Mean Corpuscular Hemoglobin Concent 33.7 Red Cell Distribution Width 14.1 Platelet Count 263 # Mean Platelet Volume 11.8 H Immature Granulocytes % 0.700 H Neutrophils % 83.5 H Lymphocytes % 8.5 L Monocytes % 6.4 Eosinophils % 0.6 Basophils % 0.3 Nucleated Red Blood Cells % 0.0 Immature Granulocytes # 0.100 H Neutrophils # 11.1 H Lymphocytes # 1.1 Monocytes # 0.9 Eosinophils # 0.1 Basophils # 0.0 Nucleated Red Blood Cells # 0.0 Sodium Level 127 L Potassium Level 3.6 Chloride Level 97 Carbon Dioxide Level 22 Anion Gap 8 Blood Urea Nitrogen 6 L Creatinine 0.41 L Est Glomerular Filtrat Rate mL/min > 60 Glucose Level 94 Calcium Level 8.8 Magnesium Level 1.6 L Thyroid Stimulating Hormone (TSH) 1.430 Urine Color YELLOW Urine Clarity CLEAR Urine pH 6.0 Urine Specific [place] 1.011 Urine Ketones NEGATIVE Urine Nitrite NEGATIVE Urine Bilirubin NEGATIVE Urine Urobilinogen NEGATIVE Urine Leukocyte Esterase 3+ H Urine Microscopic RBC 3 Urine Microscopic WBC 14 H Urine Bacteria FEW A Urine Hemoglobin 1+ H Urine Random Creatinine 28.72 Urine Random Sodium 98 H Urine Glucose NEGATIVE Urine Total Protein 36.0 H Medications Medications Current Medications Acetaminophen (Tylenol Tab) 650 mg Q4H PRN PO MILD PAIN 0-10/10; Start 02/06/19 at 17:00 Duloxetine HCl (Cymbalta) 90 mg DAILY PO Last administered on 02/07/19at 09:33; Admin Dose 90 MG; Start 02/07/19 at 09:00 Famotidine (Pepcid) 20 mg QHS PO Last administered on 02/06/19at 21:42; Admin Dose 20 MG; Start 02/06/19 at 21:00 Acetaminophen/ Hydrocodone Bitart ([place] (10/325)) 1 tab Q8H PRN PO PAIN 7- 10/10 Last administered on 02/06/19at 21:42; Admin Dose 1 TAB; Start 02/06/19 at 17:00 Levalbuterol (Xopenex Neb) 0.63 mg Q6H RESP THERAPY PRN HHN WHEEZING AND SOB; Start 02/06/19 at 17:00 Magnesium Hydroxide (Milk Of Mag) 30 ml DAILY PO Last administered on 02/07/19at 09:32; Admin Dose 30 ML; Start 02/07/19 at 09:00 Metoprolol Tartrate (Lopressor) 25 mg Q12H PO Last administered on 02/07/19at 05:13; Admin Dose 25 MG; Start 02/06/19 at 17:00 Mineral Oil (Fleet Mineral Oil Enema) 118 ml Q72H [place] ; Start 02/06/19 at 17:00 Tramadol HCl (Ultram) 100 mg DAILY PRN PO PAIN; Start 02/06/19 at 17:00 Multivitamins/ Minerals (Theragran-M) 1 tab DAILY PO Last administered on 02/07/19at 09:33; Admin Dose 1 TAB; Start 02/07/19 at 09:00 Piperacillin Sod/ Tazobactam Sod 100 ml @ 200 mls/hr Q8 IVPB Last administered on 02/07/19at 14:25; Admin Dose 200 MLS/HR; Start 02/06/19 at 22:00 Gabapentin (Neurontin) 400 mg Q8 PO Last administered on 02/07/19at 05:12; Admin Dose 400 MG; Start 02/06/19 at 22:00 Ondansetron HCl (Zofran Inj) 4 mg Q6H PRN IV NAUSEA/VOMITING; Start 02/06/19 at 20:30 Docusate Sodium (Colace) 100 mg Q12H PRN PO .CONSTIPATION; Start 02/06/19 at 20:30 Bisacodyl (Dulcolax) 5 mg DAILY PRN PO .CONSTIPATION; Start 02/06/19 at 20:30 Zolpidem Tartrate (Ambien) 5 mg QHS PRN PO .INSOMNIA; Start 02/06/19 at 20:30 Enoxaparin Sodium (Lovenox) 30 mg DAILY SC Last administered on 02/07/19at 09:40; Admin Dose 30 MG; Start 02/07/19 at 09:00 Promethazine HCl (Phenergan Liq) 10 mg Q8H PO Last administered on 02/07/19at 12:23; Admin Dose 10 MG; Start 02/07/19 at 11:30 Alprazolam (Xanax) 0.5 mg Q6H PRN PO ANXIETY Last administered on 02/07/19at 12:22; Admin Dose 0.5 MG; Start 02/07/19 at 11:30 Sodium Chloride 1,000 ml @ 50 mls/hr Q20H IV Last administered on 02/07/19at 14:29; Admin Dose 50 MLS/HR; Start 02/07/19 at 13:00 Vancomycin HCl (Vanco Iv Per Pharmacy) VANCOMYCIN PER PHARMACY PER PROTOCOL XX ; Start 02/07/19 at 17:00; Status Varinder Cheek DO Feb 07, 2019 16:50
[2019-02-07] MEDS ORDERED: VANCOMYCIN IV PER PHARMACY XX SCH (17:00)
[2019-02-07] MEDS ORDERED: PROMETHAZINE (1.25 MG/ML) 5 ML CUP PO ONE (17:30)
[2019-02-07 17:46] VITALS: BP 147/67; PULSE 92; RESP 18
[2019-02-07] MEDS ORDERED: VANCOMYCIN HCL 1.5 GM in SOD CHLORIDE 0.9% 250 ML IVPB SCH (18:00)
--- NOTE | 2019-02-07 19:02 | RADRPT ---
Vent Rate: 86 bpm RR Interval: 700 msec IA Interval: 223 msec QRS Duration: 113 msec QT Interval: 408 msec QTC Interval: 488 msec P-R-T [place]: 16 - -39 - 16 degrees Sinus rhythm...normal P axis, V-rate 50- 99 Prolonged IA interval...IA >220, V-rate 50- 90 Incomplete left bundle branch block...QRSd>110mS, terminal axis(-90,-1) Left ventricular hypertrophy...multiple LVH criteria Borderline prolonged QT interval...QTc >475mS Lead(s) V2 were not used for morphology analysis Electronically Signed By: Mario Dey
[2019-02-07 20:00] VITALS: BP 135/66; PULSE 68; RESP 18
[2019-02-07] MEDS: LEVALBUTEROL (NEB) 0.63 MG/3 ML AMP HHN PRN (20:09)
[2019-02-07] MEDS: FAMOTIDINE 20 MG TAB PO SCH (22:10)
[2019-02-08] MEDS: HYDROCODONE/APAP (10/325) TAB PO PRN ×2 (01:59→17:00)
[2019-02-08 02:00] VITALS: BP 142/64; PULSE 84; RESP 18
[2019-02-08 02:30] VITALS: PULSE 94
[2019-02-08] MEDS: PROMETHAZINE (1.25 MG/ML) 5 ML CUP PO SCH ×3 (05:25→20:38)
[2019-02-08] MEDS: METOPROLOL 25 MG TAB PO SCH ×2 (05:26→17:02)
[2019-02-08] MEDS: GABAPENTIN 400 MG CAP PO SCH ×3 (05:27→22:48)
[2019-02-08] MEDS: PIPER-TAZO 3.375 GM IV (PMX) 100 ML IVPB SCH ×3 (05:27→22:46)
--- NOTE | 2019-02-08 07:03 | CONS ---
DATE OF ADMISSION: 02/06/2019 DATE OF CONSULTATION: REASON FOR CONSULTATION: Shortness of breath. Thank you, Dr. Fajardo, for this consultation. HISTORY OF PRESENT ILLNESS: This is an unfortunate 68-year-old gentleman with history of C-spine com pression following spinal surgery and subsequent paraplegia. He came in yesterday with increasing re spiratory distress, congestion, subjective fevers. The patient states he still has a productive coug h, which he is having difficulty clearing. On admission, found to have mild leukocytosis and a posit asuncion UA consistent with UTI. He has a history of tracheostomy, currently this is capped. PAST MEDICAL HISTORY: As above. MEDICATIONS: Per chart. ALLERGIES: CODEINE. SOCIAL HISTORY: He is a current nonsmoker. No alcohol. No history of drug use. FAMILY HISTORY: Noncontributory. REVIEW OF SYSTEMS: A 12-point review of systems was negative other than that mentioned above. PHYSICAL EXAMINATION: GENERAL: Well-nourished, well-developed gentleman, appears comfortable at rest, no acute distress. VITAL SIGNS: Currently afebrile, pulse is 82, blood pressure 118/55, O2 saturation 96% on 2 L nasal cannula. NECK: Supple. Tracheostomy site clean and intact. CARDIAC EXAM: S1, S2. No added sounds or murmurs. CHEST: Diminished air entry bilaterally. ABDOMEN: Soft, nontender. No guarding or rebound. EXTREMITIES: No cyanosis, clubbing, 1+ edema. NEUROLOGIC: Generalized weakness. LABORATORY DATA: White count initially 14.8, now 13.4, platelets of 263,000. BUN 6, creatinine 0.41 , sodium 127. IMPRESSION AND PLAN: 1. Acute hypoxemic respiratory failure, likely secondary to a combination of congestion and volume o verload. 2. History of a cervical spine injury with paraplegia. 3. Aortic stenosis. 4. Acute urinary tract infection. The patient will require: 1. Continued antibiotics per infectious disease (ID). 2. Pulmonary toilet. 3. Chest percussion. 4. Consider diuretics. 5. Consider renal consultation for management of hyponatremia. Dictated By: MOE GALARZA MD SV/MARGARET Conf#: [id number] DID#: [id number] CC: CHONG FAJARDO MD;*EndCC*
[2019-02-08 07:51] VITALS: BP 99/52; PULSE 57; RESP 18
--- NOTE | 2019-02-08 08:01 | CONS ---
Assessment/Plan Assessment/Plan Assessment/Plan (Daily) Assessment: Sepsis, possibly from pneumonia and UTI Paroxysmal atrial fibrillation, currently sinus rhythm Preserved ejection fraction Moderate aortic valve stenosis Hypertension Plan: recommend restart of AC unless contraindications ABX Consultation Date/Type/Reason Admit Date/Time Feb 06, 2019 at 15:14 Initial Consult Date 02/07/19 Type of Consult Cardiology Date/Time of Note DATE: 02/08/19 TIME: 07:59 Detailed Summary Respiratory: no complaints Cardiovascular: no complaints Gastrointestinal: no complaints Musculoskeletal: restricted range of motion Neurologic: other Exam/Review of Systems Vital Signs Vitals Vital Signs Date Temp Pulse Resp B/P (MAP) Pulse Ox O2 O2 Flow FiO2 Time Delivery Rate 02/08/19 98.4 57 18 99/52 (68) 100 07:51 02/08/19 4.0 02:44 02/08/19 Nasal 02:42 Cannula 02/07/19 28 20:14 Intake and Output 02/07/19 02/07/19 02/08/19 1515:00 23:00 07:00 IntakeIntake Total 1060 ml 740 ml 550 ml OutputOutput Total 1300 ml 1300 ml BalanceBalance 1060 ml -560 ml -750 ml Exam Constitutional: frail Head: normocephalic, atraumatic Neck: jvd Cardiovascular: regular rate and rhythm Gastrointestinal: soft Extremities: normal pulses Neurological: focal weakness Labs Result Diagram: 02/08/19 0655 02/07/19 1909 Results 24hrs Laboratory Tests Test 02/07/19 14:40 02/07/19 19:09 02/08/19 06:55 Urine Color YELLOW Urine Clarity CLEAR Urine pH 6.0 Urine Specific [place] 1.011 Urine Ketones NEGATIVE Urine Nitrite NEGATIVE Urine Bilirubin NEGATIVE Urine Urobilinogen NEGATIVE Urine Leukocyte Esterase 3+ H Urine Microscopic RBC 3 Urine Microscopic WBC 14 H Urine Bacteria FEW A Urine Hemoglobin 1+ H Urine Osmolality 335 Urine Random Creatinine 28.72 Urine Random Sodium 98 H Urine Glucose NEGATIVE Urine Total Protein 36.0 H Sodium Level 124 L White Blood Count 10.4 # Red Blood Count 3.31 L Hemoglobin 9.3 L Hematocrit 27.4 L Mean Corpuscular Volume 82.8 Mean Corpuscular Hemoglobin 28.1 L Mean Corpuscular Hemoglobin Concent 33.9 Red Cell Distribution Width 14.1 Platelet Count 286 Mean Platelet Volume 11.0 H Immature Granulocytes % 0.600 H Neutrophils % 76.1 Lymphocytes % 11.6 L Monocytes % 7.8 Eosinophils % 3.4 Basophils % 0.5 Nucleated Red Blood Cells % 0.0 Immature Granulocytes # 0.060 H Neutrophils # 7.9 H Lymphocytes # 1.2 Monocytes # 0.8 Eosinophils # 0.4 Basophils # 0.1 Nucleated Red Blood Cells # 0.0 Medications Medications Current Medications Acetaminophen (Tylenol Tab) 650 mg Q4H PRN PO MILD PAIN 0-10/10; Start 02/06/19 at 17:00 Duloxetine HCl (Cymbalta) 90 mg DAILY PO Last administered on 02/07/19 09:33; Admin Dose 90 MG; Start 02/07/19 at 09:00 Famotidine (Pepcid) 20 mg QHS PO Last administered on 02/07/19 22:10; Admin Dose 20 MG; Start 02/06/19 at 21:00 Acetaminophen/ Hydrocodone Bitart ([place] (10325)) 1 tab Q8H PRN PO PAIN 7- 10/10 Last administered on 02/08/19 01:59; Admin Dose 1 TAB; Start 02/06/19 at 17:00 Levalbuterol (Xopenex Neb) 0.63 mg Q6H RESP THERAPY PRN HHN WHEEZING AND SOB Last administered on 02/07/19 20:09; Admin Dose 0.63 MG; Start 02/06/19 at 17:00 Magnesium Hydroxide (Milk Of Mag) 30 ml DAILY PO Last administered on 02/07/19 09:32; Admin Dose 30 ML; Start 02/07/19 at 09:00 Metoprolol Tartrate (Lopressor) 25 mg Q12H PO Last administered on 02/08/19 05:26; Admin Dose 25 MG; Start 02/06/19 at 17:00 Mineral Oil (Fleet Mineral Oil Enema) 118 ml Q72H [place] ; Start 02/06/19 at 17:00 Tramadol HCl (Ultram) 100 mg DAILY PRN PO PAIN; Start 02/06/19 at 17:00 Multivitamins/ Minerals (Theragran-M) 1 tab DAILY PO Last administered on 02/07/19 09:33; Admin Dose 1 TAB; Start 02/07/19 at 09:00 Piperacillin Sod/ Tazobactam Sod 100 ml @ 200 mls/hr Q8 IVPB Last administered on 02/08/19 05:27; Admin Dose 200 MLS/HR; Start 02/06/19 at 22:00 Gabapentin (Neurontin) 400 mg Q8 PO Last administered on 02/08/19at 05:27; Admin Dose 400 MG; Start 02/06/19 at 22:00 Ondansetron HCl (Zofran Inj) 4 mg Q6H PRN IV NAUSEA/VOMITING; Start 02/06/19 at 20:30 Docusate Sodium (Colace) 100 mg Q12H PRN PO .CONSTIPATION; Start 02/06/19 at 20:30 Bisacodyl (Dulcolax) 5 mg DAILY PRN PO .CONSTIPATION; Start 02/06/19 at 20:30 Zolpidem Tartrate (Ambien) 5 mg QHS PRN PO .INSOMNIA; Start 02/06/19 at 20:30 Enoxaparin Sodium (Lovenox) 30 mg DAILY SC Last administered on 02/07/19at 09:40; Admin Dose 30 MG; Start 02/07/19 at 09:00 Promethazine HCl (Phenergan Liq) 10 mg Q8H PO Last administered on 02/08/19at 05:25; Admin Dose 10 MG; Start 02/07/19 at 11:30 Alprazolam (Xanax) 0.5 mg Q6H PRN PO ANXIETY Last administered on 02/07/19at 22:19; Admin Dose 0.5 MG; Start 02/07/19 at 11:30 Sodium Chloride 1,000 ml @ 50 mls/hr Q20H IV Last administered on 02/07/19at 14:29; Admin Dose 50 MLS/HR; Start 02/07/19 at 13:00 Vancomycin HCl (Vanco Iv Per Pharmacy) VANCOMYCIN PER PHARMACY PER PROTOCOL XX ; Start 02/07/19 at 17:00 Vancomycin HCl 250 ml @ 125 mls/hr Q12H IVPB ; Start 02/08/19 at 08:00 LISA ACOSTA MD Feb 08, 2019 08:01
[2019-02-08] MEDS: SOD CHLORIDE 0.9% 1,000 ML IV SCH (08:42)
[2019-02-08] MEDS: VANCOMYCIN 1 GM 250 ML IVPB SCH ×2 (08:42→20:39)
[2019-02-08] MEDS: DULOXETINE 30 MG CAP DR PO SCH (08:43)
[2019-02-08] MEDS: MAGNESIUM HYDROXIDE 30ML CUP PO SCH (08:43)
[2019-02-08] MEDS: MULTIVITAMINS/MINERALS TAB PO SCH (08:43)
[2019-02-08] MEDS: ENOXAPARIN 30 MG/0.3 ML SYG SC SCH (08:45)
--- NOTE | 2019-02-08 10:00 | PN ---
Date/Time of Note Date/Time of Note DATE: 02/08/19 TIME: 09:58 Assessment/Plan VTE Prophylaxis Risk score (from Ns)>0 risk: 6 SCD applied (from Ns): Yes Pharmacological prophylaxis: LMWH Lines/Catheters IV Catheter Type (from [facility] Peripheral IV Urinary Cath still in place: Yes Reason Cath still needed: urinary retention (Coumadin is) Assessment/Plan Hospital Course Patient is awake alert, remains afebrile, started on mupirocin to nares due to MRSA of nares, blood culture came back positive for gram-positive cocci in clusters, patient is currently on vancomycin and Zosyn. Lab results and plan of care discussed with patient and patient at the bedside. Assessment/Plan -Sepsis with fevers and leukocytosis most likely secondary to urinary tract infection, possible pneumonia, GPC bacteremia. Follow-up on cultures. Continue broad-spectrum antibiotics. Dr. Huynh is following in infection disease consultation. -GPC Bacteremia. -Pneumonia. -UTI per UA -MRSA of nares -Chronic Avila catheter -Quadriplegia -Hypertension -Persistent hyponatremia. Dr. Link is following in nephrology consultation. -Hyperlipidemia -Paroxysmal atrial fibrillation, currently in sinus rhythm. Dr. Girard is following in cardiology consultation. -Chronic tracheostomy which is currently capped. Dr. Giles is following in pulmonology consultation. Further recommendations based on clinical course. Plan of care discussed with Dr. Fajardo. Result Diagram: 02/08/19 0655 02/08/19 0655 Results 24hrs Laboratory Tests Test 02/07/19 14:40 02/07/19 19:09 02/08/19 06:55 Urine Color YELLOW Urine Clarity CLEAR Urine pH 6.0 Urine Specific [place] 1.011 Urine Ketones NEGATIVE Urine Nitrite NEGATIVE Urine Bilirubin NEGATIVE Urine Urobilinogen NEGATIVE Urine Leukocyte Esterase 3+ H Urine Microscopic RBC 3 Urine Microscopic WBC 14 H Urine Bacteria FEW A Urine Hemoglobin 1+ H Urine Osmolality 335 Urine Random Creatinine 28.72 Urine Random Sodium 98 H Urine Glucose NEGATIVE Urine Total Protein 36.0 H Sodium Level 124 L 130 L White Blood Count 10.4 # Red Blood Count 3.31 L Hemoglobin 9.3 L Hematocrit 27.4 L Mean Corpuscular Volume 82.8 Mean Corpuscular Hemoglobin 28.1 L Mean Corpuscular Hemoglobin Concent 33.9 Red Cell Distribution Width 14.1 Platelet Count 286 Mean Platelet Volume 11.0 H Immature Granulocytes % 0.600 H Neutrophils % 76.1 Lymphocytes % 11.6 L Monocytes % 7.8 Eosinophils % 3.4 Basophils % 0.5 Nucleated Red Blood Cells % 0.0 Immature Granulocytes # 0.060 H Neutrophils # 7.9 H Lymphocytes # 1.2 Monocytes # 0.8 Eosinophils # 0.4 Basophils # 0.1 Nucleated Red Blood Cells # 0.0 Potassium Level 3.8 Chloride Level 93 L Carbon Dioxide Level 27 Anion Gap 10 Blood Urea Nitrogen 4 L Creatinine 0.39 L Est Glomerular Filtrat Rate mL/min > 60 Glucose Level 100 Calcium Level 8.6 Phosphorus Level 3.3 Magnesium Level 2.1 Exam/Review of Systems Exam Vitals Vital Signs Date Temp Pulse Resp B/P (MAP) Pulse Ox O2 O2 Flow FiO2 Time Delivery Rate 02/08/19 98.4 57 18 99/52 (68) 100 07:51 02/08/19 4.0 02:44 02/08/19 Nasal 02:42 Cannula 02/07/19 28 20:14 Intake and Output 02/07/19 02/07/19 02/08/19 1515:00 23:00 07:00 IntakeIntake Total 1060 ml 740 ml 550 ml OutputOutput Total 1300 ml 1300 ml BalanceBalance 1060 ml -560 ml -750 ml Exam Constitutional: alert, oriented Neck: supple, other (Tracheostomy capped) Respiratory: diminished breath sounds Cardiovascular: regular rate and rhythm Gastrointestinal: soft, non-tender Genitourinary - Male: other (Avila) Musculoskeletal: other (Quadriplegia) Extremities: normal pulses Neurological: nl mental status, other (quadriplegia) Results Results 24hrs Laboratory Tests Test 02/07/19 14:40 02/07/19 19:09 02/08/19 06:55 Urine Color YELLOW Urine Clarity CLEAR Urine pH 6.0 Urine Specific [place] 1.011 Urine Ketones NEGATIVE Urine Nitrite NEGATIVE Urine Bilirubin NEGATIVE Urine Urobilinogen NEGATIVE Urine Leukocyte Esterase 3+ H Urine Microscopic RBC 3 Urine Microscopic WBC 14 H Urine Bacteria FEW A Urine Hemoglobin 1+ H Urine Osmolality 335 Urine Random Creatinine 28.72 Urine Random Sodium 98 H Urine Glucose NEGATIVE Urine Total Protein 36.0 H Sodium Level 124 L 130 L White Blood Count 10.4 # Red Blood Count 3.31 L Hemoglobin 9.3 L Hematocrit 27.4 L Mean Corpuscular Volume 82.8 Mean Corpuscular Hemoglobin 28.1 L Mean Corpuscular Hemoglobin Concent 33.9 Red Cell Distribution Width 14.1 Platelet Count 286 Mean Platelet Volume 11.0 H Immature Granulocytes % 0.600 H Neutrophils % 76.1 Lymphocytes % 11.6 L Monocytes % 7.8 Eosinophils % 3.4 Basophils % 0.5 Nucleated Red Blood Cells % 0.0 Immature Granulocytes # 0.060 H Neutrophils # 7.9 H Lymphocytes # 1.2 Monocytes # 0.8 Eosinophils # 0.4 Basophils # 0.1 Nucleated Red Blood Cells # 0.0 Potassium Level 3.8 Chloride Level 93 L Carbon Dioxide Level 27 Anion Gap 10 Blood Urea Nitrogen 4 L Creatinine 0.39 L Est Glomerular Filtrat Rate mL/min > 60 Glucose Level 100 Calcium Level 8.6 Phosphorus Level 3.3 Magnesium Level 2.1 Medications Medication Current Medications Acetaminophen (Tylenol Tab) 650 mg Q4H PRN PO MILD PAIN 0-10/10; Start 02/06/19 at 17:00 Duloxetine HCl (Cymbalta) 90 mg DAILY PO Last administered on 02/08/19 08:43; Admin Dose 90 MG; Start 02/07/19 at 09:00 Famotidine (Pepcid) 20 mg QHS PO Last administered on 02/07/19 22:10; Admin Dose 20 MG; Start 02/06/19 at 21:00 Acetaminophen/ Hydrocodone Bitart ([place] (10/325)) 1 tab Q8H PRN PO PAIN 7- 10/10 Last administered on 02/08/19 01:59; Admin Dose 1 TAB; Start 02/06/19 at 17:00 Levalbuterol (Xopenex Neb) 0.63 mg Q6H RESP THERAPY PRN HHN WHEEZING AND SOB Last administered on 02/07/19 20:09; Admin Dose 0.63 MG; Start 02/06/19 at 17:00 Magnesium Hydroxide (Milk Of Mag) 30 ml DAILY PO Last administered on 02/08/19 08:43; Admin Dose 30 ML; Start 02/07/19 at 09:00 Metoprolol Tartrate (Lopressor) 25 mg Q12H PO Last administered on 02/08/19 05:26; Admin Dose 25 MG; Start 02/06/19 at 17:00 Mineral Oil (Fleet Mineral Oil Enema) 118 ml Q72H [place] ; Start 02/06/19 at 17:00 Tramadol HCl (Ultram) 100 mg DAILY PRN PO PAIN; Start 02/06/19 at 17:00 Multivitamins/ Minerals (Theragran-M) 1 tab DAILY PO Last administered on 02/08/19at 08:43; Admin Dose 1 TAB; Start 02/07/19 at 09:00 Piperacillin Sod/ Tazobactam Sod 100 ml @ 200 mls/hr Q8 IVPB Last administered on 02/08/19 05:27; Admin Dose 200 MLS/HR; Start 02/06/19 at 22:00 Gabapentin (Neurontin) 400 mg Q8 PO Last administered on 02/08/19 05:27; Admin Dose 400 MG; Start 02/06/19 at 22:00 Ondansetron HCl (Zofran Inj) 4 mg Q6H PRN IV NAUSEA/VOMITING; Start 02/06/19 at 20:30 Docusate Sodium (Colace) 100 mg Q12H PRN PO .CONSTIPATION; Start 02/06/19 at 20:30 Bisacodyl (Dulcolax) 5 mg DAILY PRN PO .CONSTIPATION; Start 02/06/19 at 20:30 Zolpidem Tartrate (Ambien) 5 mg QHS PRN PO .INSOMNIA; Start 02/06/19 at 20:30 Enoxaparin Sodium (Lovenox) 30 mg DAILY SC Last administered on 02/08/19at 08:45; Admin Dose 30 MG; Start 02/07/19 at 09:00 Promethazine HCl (Phenergan Liq) 10 mg Q8H PO Last administered on 02/08/19 05:25; Admin Dose 10 MG; Start 02/07/19 at 11:30 Alprazolam (Xanax) 0.5 mg Q6H PRN PO ANXIETY Last administered on 02/07/19at 22:19; Admin Dose 0.5 MG; Start 02/07/19 at 11:30 Sodium Chloride 1,000 ml @ 50 mls/hr Q20H IV Last administered on 02/07/19at 14:29; Admin Dose 50 MLS/HR; Start 02/07/19 at 13:00 Vancomycin HCl (Vanco Iv Per Pharmacy) VANCOMYCIN PER PHARMACY PER PROTOCOL XX ; Start 02/07/19 at 17:00 Vancomycin HCl 250 ml @ 125 mls/hr Q12H IVPB Last administered on 02/08/19at 08:42; Admin Dose 125 MLS/HR; Start 02/08/19 at 08:00 JUANA NOEL Feb 08, 2019 10:00
--- NOTE | 2019-02-08 10:18 | PN ---
DATE: 02/08/2019 SUBJECTIVE: The patient is stable, no events overnight. No fevers, chills, nausea, vomiting. OBJECTIVE: VITAL SIGNS: Blood pressure 99/52, respiration 18, pulse 57, temperature 98.4. HEENT: Head is normocephalic. NECK: Supple. HEART: Regular rate. LUNGS: Show diminished breath sounds at the base. ABDOMEN: Soft, nontender to palpation without rebound or guarding. EXTREMITIES: Negative for clubbing, cyanosis, no edema. DERMATOLOGIC: No rashes. MUSCULOSKELETAL: No joint effusion. NEUROLOGIC: No change in exam. MEDICATIONS: Reviewed. LABORATORY DATA: From 02/08/2019 was reviewed. ASSESSMENT AND PLAN: 1. Hyponatremia. Etiology is multifactorial, possible hemodynamics, volume depletion, questionable SIADH. The patient's urine electrolytes were reviewed, shows mixed picture. The patient's sodium le vels have been improving with IV fluids. Will continue IV fluids, continue to monitor sodium levels closely. 2. Hypomagnesemia. Continue to monitor and replete as needed. 3. Anemia. Continue to monitor hemoglobin and hematocrit levels. 4. Sepsis secondary to urinary tract infection, pneumonia. Continue current antibiotic regimen. 5. Hypertension. Continue current blood pressure regimen. 6. Chronic respiratory failure, status post trach. Continue to monitor. 7. Dysphagia. Continue modified diet. 8. 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 9. Lower extremity wounds. Continue wound care. 10. History of hematuria to resume Dictated By: SARAH WANG/NTS Conf#: [id number] DID#: [id number] CC: CHONG SORIANO MD;*EndCC*
[2019-02-08] MEDS: MUPIROCIN 2% 22 GM OINT TOP SCH ×2 (11:47→22:47)
--- NOTE | 2019-02-08 12:20 | CONS ---
Consult Date/Type/Reason Admit Date/Time Feb 06, 2019 at 15:14 Initial Consult Date 02/07/19 Type of Consult Pulmonary Date/Time of Note DATE: 02/08/19 TIME: 12:19 Subjective Less short of breath this morning. Per staff however still having significant secretions which she has difficulty clearing. Chest x-ray slightly worse than yesterday with increased pulmonary edema. Objective Vital Signs Date Temp Pulse Resp B/P (MAP) Pulse Ox O2 O2 Flow FiO2 Time Delivery Rate 02/08/19 Nasal 2.0 09:00 Cannula 02/08/19 98.4 57 18 99/52 (68) 100 07:51 02/07/19 28 20:14 Intake and Output 02/07/19 02/07/19 02/08/19 1515:00 23:00 07:00 IntakeIntake Total 1060 ml 740 ml 550 ml OutputOutput Total 1300 ml 1300 ml BalanceBalance 1060 ml -560 ml -750 ml Exam PHYSICAL EXAMINATION: GENERAL: Well-nourished, well-developed gentleman, appears comfortable at rest, no acute distress. VITAL SIGNS: NECK: Supple. Tracheostomy site clean and intact. CARDIAC EXAM: S1, S2. No added sounds or murmurs. CHEST: Diminished air entry bilaterally. ABDOMEN: Soft, nontender. No guarding or rebound. EXTREMITIES: No cyanosis, clubbing, 1+ edema. NEUROLOGIC: Generalized weakness. Vent Setting Fraction of Inspired Oxygen pe: 28 Results/Medications Result Diagram: 02/08/19 0655 02/08/19 0655 Results 24 hrs Laboratory Tests Test 02/07/19 14:40 02/07/19 19:09 02/08/19 06:55 Urine Color YELLOW Urine Clarity CLEAR Urine pH 6.0 Urine Specific [place] 1.011 Urine Ketones NEGATIVE Urine Nitrite NEGATIVE Urine Bilirubin NEGATIVE Urine Urobilinogen NEGATIVE Urine Leukocyte Esterase 3+ H Urine Microscopic RBC 3 Urine Microscopic WBC 14 H Urine Bacteria FEW A Urine Hemoglobin 1+ H Urine Osmolality 335 Urine Random Creatinine 28.72 Urine Random Sodium 98 H Urine Glucose NEGATIVE Urine Total Protein 36.0 H Sodium Level 124 L 130 L White Blood Count 10.4 # Red Blood Count 3.31 L Hemoglobin 9.3 L Hematocrit 27.4 L Mean Corpuscular Volume 82.8 Mean Corpuscular Hemoglobin 28.1 L Mean Corpuscular Hemoglobin Concent 33.9 Red Cell Distribution Width 14.1 Platelet Count 286 Mean Platelet Volume 11.0 H Immature Granulocytes % 0.600 H Neutrophils % 76.1 Lymphocytes % 11.6 L Monocytes % 7.8 Eosinophils % 3.4 Basophils % 0.5 Nucleated Red Blood Cells % 0.0 Immature Granulocytes # 0.060 H Neutrophils # 7.9 H Lymphocytes # 1.2 Monocytes # 0.8 Eosinophils # 0.4 Basophils # 0.1 Nucleated Red Blood Cells # 0.0 Potassium Level 3.8 Chloride Level 93 L Carbon Dioxide Level 27 Anion Gap 10 Blood Urea Nitrogen 4 L Creatinine 0.39 L Est Glomerular Filtrat Rate mL/min > 60 Glucose Level 100 Calcium Level 8.6 Phosphorus Level 3.3 Magnesium Level 2.1 Medications Current Medications Acetaminophen (Tylenol Tab) 650 mg Q4H PRN PO MILD PAIN 0-10/10; Start 02/06/19 at 17:00 Duloxetine HCl (Cymbalta) 90 mg DAILY PO Last administered on 02/08/19 08:43; Admin Dose 90 MG; Start 02/07/19 at 09:00 Famotidine (Pepcid) 20 mg QHS PO Last administered on 02/07/19at 22:10; Admin Dose 20 MG; Start 02/06/19 at 21:00 Acetaminophen/ Hydrocodone Bitart ([place] (10/325)) 1 tab Q8H PRN PO PAIN 7- 10/10 Last administered on 02/08/19at 01:59; Admin Dose 1 TAB; Start 02/06/19 at 17:00 Levalbuterol (Xopenex Neb) 0.63 mg Q6H RESP THERAPY PRN HHN WHEEZING AND SOB Last administered on 02/07/19at 20:09; Admin Dose 0.63 MG; Start 02/06/19 at 17:00 Magnesium Hydroxide (Milk Of Mag) 30 ml DAILY PO Last administered on 02/08/19 08:43; Admin Dose 30 ML; Start 02/07/19 at 09:00 Metoprolol Tartrate (Lopressor) 25 mg Q12H PO Last administered on 02/08/19 05:26; Admin Dose 25 MG; Start 02/06/19 at 17:00 Mineral Oil (Fleet Mineral Oil Enema) 118 ml Q72H [place] ; Start 02/06/19 at 17:00 Tramadol HCl (Ultram) 100 mg DAILY PRN PO PAIN; Start 02/06/19 at 17:00 Multivitamins/ Minerals (Theragran-M) 1 tab DAILY PO Last administered on 02/08/19at 08:43; Admin Dose 1 TAB; Start 02/07/19 at 09:00 Piperacillin Sod/ Tazobactam Sod 100 ml @ 200 mls/hr Q8 IVPB Last administered on 02/08/19 05:27; Admin Dose 200 MLS/HR; Start 02/06/19 at 22:00 Gabapentin (Neurontin) 400 mg Q8 PO Last administered on 02/08/19at 05:27; Admin Dose 400 MG; Start 02/06/19 at 22:00 Ondansetron HCl (Zofran Inj) 4 mg Q6H PRN IV NAUSEA/VOMITING; Start 02/06/19 at 20:30 Docusate Sodium (Colace) 100 mg Q12H PRN PO .CONSTIPATION; Start 02/06/19 at 20:30 Bisacodyl (Dulcolax) 5 mg DAILY PRN PO .CONSTIPATION; Start 02/06/19 at 20:30 Zolpidem Tartrate (Ambien) 5 mg QHS PRN PO .INSOMNIA; Start 02/06/19 at 20:30 Enoxaparin Sodium (Lovenox) 30 mg DAILY SC Last administered on 02/08/19at 08:4 5; Admin Dose 30 MG; Start 02/07/19 at 09:00 Promethazine HCl (Phenergan Liq) 10 mg Q8H PO Last administered on 02/08/19at 11:47; Admin Dose 10 MG; Start 02/07/19 at 11:30 Alprazolam (Xanax) 0.5 mg Q6H PRN PO ANXIETY Last administered on 02/07/19at 22:19; Admin Dose 0.5 MG; Start 02/07/19 at 11:30 Sodium Chloride 1,000 ml @ 50 mls/hr Q20H IV Last administered on 02/07/19at 14:29; Admin Dose 50 MLS/HR; Start 02/07/19 at 13:00 Vancomycin HCl (Vanco Iv Per Pharmacy) VANCOMYCIN PER PHARMACY PER PROTOCOL XX ; Start 02/07/19 at 17:00 Vancomycin HCl 250 ml @ 125 mls/hr Q12H IVPB Last administered on 02/08/19at 08:42; Admin Dose 125 MLS/HR; Start 02/08/19 at 08:00 Mupirocin (Bactroban) 1 applic BID TOP Last administered on 02/08/19at 11:47; Admin Dose 1 APPLIC; Start 02/08/19 at 11:00 Assessment/Plan Hospital Course (Demo Recall) IMPRESSION 1. Acute hypoxemic respiratory failure, likely secondary to a combination of congestion and volume overload. 2. History of a cervical spine injury with paraplegia. 3. Aortic stenosis. 4. Acute urinary tract infection. Plan 1. Continued antibiotics per infectious disease (ID). 2. Pulmonary toilet. 3. Chest percussion. 4. DC IV fluids and gentle diuresis 5. Percussion vest MO[facility] GALARZA MD, [facility] Feb 08, 2019 12:20
[2019-02-08] MEDS: FUROSEMIDE 40 MG INJ IV SCH (13:44)
[2019-02-08 14:55] VITALS: BP 121/58; PULSE 60; RESP 18
--- NOTE | 2019-02-08 15:39 | CONS ---
[facility] HCIS Consult Follow-up Patient Name: Omkar Leggett Unit Number: [id number] Date of : 1950 Patient Status: Admitted Inpatient Attending Doctor: Peyman Fajardo MD Edit: MYLENE FUENTES M.D. on 02/11/19 @ 04:48 Alfredo: I discussed the management with BRIQUETTE MOLDER and agree ____ Assessment/Plan Assessment/Plan Hospital Course (Demo Recall) - HCAP - CXR today shows increased basilar alveolar infiltrates/atelectasis - sputum culture is pending - Recurrent UTI, urine culture did not grow bacteria probably because he has t aken antibiotics intermittently for his UTI at 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 Monteiro - h/o hemorrhagic blister of L heel, resolving - h/o decubitus ulcer of L heel s/p debridement. Wound culture grew coag negative Staph only - h/o intermittent aphasia - h/o tracheostomy capped with Passy-Jacqueline valve - h/o ALEXA - hx A fib with RVR - h/o prostate CA Recommendations: - Cont. Zosyn (02/06/19 - ) and vanco (02/07/19 - ) - F/u blood cultures 02/06/19 (GPC), repeat bloox cxs 02/07/19 (NGTD), sputum cx (prelim too young to eval), urine cx (GNR and enterococcus) - Serial lactic - Serial cxr - Muciprocin for MRSA nares (02/08/19 - ) - A consideration of supra-pubic cath could be entertained but many patients do not have a dramatic decrease in uti rate Plan was d/w patient, patient's , and with Dr. Fuentes. Thank you Consultation Date/Type/Reason Admit Date/Time Feb 06, 2019 at 15:14 Initial Consult Date 02/07/19 Type of Consult ID Date/Time of Note DATE: 02/08/19 TIME: 15:29 24 HR Interval Summary Free Text/Dictation The patient has remained afebrile with no acute issues reported by nursing. Per d/w patient and his at the bedside, the patient has been having continued anxiety. He states that this occurs especially when his head is laid flat for turning. He reports occasional cough with sputum expectoration. Denies feeling of fevers, chills, or night sweats. Denies chest pain or palpitations. Denies n/v/d. States "I'm feeling so much better." We discussed current cultures including +MRSA nares, blood cxs gpc, urine gnr, sputum prelim too young, current abx regimen. Exam/Review of Systems Exam Vitals Vital Signs Date Temp Pulse Resp B/P (MAP) Pulse Ox O2 O2 Flow FiO2 Time Delivery Rate 02/08/19 97.6 60 18 121/58 98 Nasal 2.0 14:55 (79) Cannula 02/07/19 28 20:14 Intake and Output 02/07/19 02/07/19 02/08/19 1515:00 23:00 07:00 IntakeIntake Total 1060 ml 740 ml 550 ml OutputOutput Total 1300 ml 1300 ml BalanceBalance 1060 ml -560 ml -750 ml Allergies Coded Allergies codeine (Unverified Allergy, Unknown, 02/06/19) Constitutional: alert, oriented, other (chronically debilitated, in NAD) Psych: no complaints, nl mood/affect, anxiety Head: normocephalic, atraumatic Eyes: nl conjunctiva, nl lids, nl sclera ENMT: nl external ears & nose, nl nasal mucosa & septum, mucosa pink and moist (no thrush) Neck: supple, non-tender, other (trach midline, site is c/d/i, capped. ) Respiratory: clear to auscultation, normal air movement, diminished breath sounds; No labored breathing, No wheezing Cardiovascular: regular rate and rhythm, nl pulses Gastrointestinal: soft, non-tender, bowel sounds (normoactive ); No distended, No firm, No tender Musculoskeletal: muscle weakness, other (muscle spasms with palpation of abdomen) Extremities: normal pulses; No tenderness Neurological: nl mental status, nl speech Skin: nl turgor; No rash or lesions Results Result Diagram: 02/08/19 0655 02/08/19 0655 Results 24hrs Laboratory Tests Test 02/07/19 19:09 02/08/19 06:55 Sodium Level 124 L 130 L White Blood Count 10.4 # Red Blood Count 3.31 L Hemoglobin 9.3 L Hematocrit 27.4 L Mean Corpuscular Volume 82.8 Mean Corpuscular Hemoglobin 28.1 L Mean Corpuscular Hemoglobin Concent 33.9 Red Cell Distribution Width 14.1 Platelet Count 286 Mean Platelet Volume 11.0 H Immature Granulocytes % 0.600 H Neutrophils % 76.1 Lymphocytes % 11.6 L Monocytes % 7.8 Eosinophils % 3.4 Basophils % 0.5 Nucleated Red Blood Cells % 0.0 Immature Granulocytes # 0.060 H Neutrophils # 7.9 H Lymphocytes # 1.2 Monocytes # 0.8 Eosinophils # 0.4 Basophils # 0.1 Nucleated Red Blood Cells # 0.0 Potassium Level 3.8 Chloride Level 93 L Carbon Dioxide Level 27 Anion Gap 10 Blood Urea Nitrogen 4 L Creatinine 0.39 L Est Glomerular Filtrat Rate mL/min > 60 Glucose Level 100 Calcium Level 8.6 Phosphorus Level 3.3 Magnesium Level 2.1 Imaging Imaging CXR 02/08/19 IMPRESSION: Mildly increased interstitial edema suggesting cardiopulmonary congestion. Increased basilar alveolar infiltrate/atelectasis. Small pleural effusions are increased. Medications Medication Current Medications Acetaminophen (Tylenol Tab) 650 mg Q4H PRN PO MILD PAIN 0-10/10; Start 02/06/19 at 17:00 Duloxetine HCl (Cymbalta) 90 mg DAILY PO Last administered on 02/08/19at 08:43; Admin Dose 90 MG; Start 02/07/19 at 09:00 Famotidine (Pepcid) 20 mg QHS PO Last administered on 4/18/19at 22:10; Admin Dose 20 MG; Start 02/06/19 at 21:00 Acetaminophen/ Hydrocodone Bitart ([place] (10/325)) 1 tab Q8H PRN PO PAIN 7- 08/01 Last administered on 02/08/19 01:59; Admin Dose 1 TAB; Start 02/06/19 at 17:00 Levalbuterol (Xopenex Neb) 0.63 mg Q6H RESP THERAPY PRN HHN WHEEZING AND SOB Last administered on 02/07/19 20:09; Admin Dose 0.63 MG; Start 02/06/19 at 17:00 Magnesium Hydroxide (Milk Of Mag) 30 ml DAILY PO Last administered on 02/08/19 08:43; Admin Dose 30 ML; Start 02/07/19 at 09:00 Metoprolol Tartrate (Lopressor) 25 mg Q12H PO Last administered on 02/08/19 05:26; Admin Dose 25 MG; Start 02/06/19 at 17:00 Mineral Oil (Fleet Mineral Oil Enema) 118 ml Q72H [place] ; Start 02/06/19 at 17:00 Tramadol HCl (Ultram) 100 mg DAILY PRN PO PAIN; Start 02/06/19 at 17:00 Multivitamins/ Minerals (Theragran-M) 1 tab DAILY PO Last administered on 02/08/19 08:43; Admin Dose 1 TAB; Start 02/07/19 at 09:00 Piperacillin Sod/ Tazobactam Sod 100 ml @ 200 mls/hr Q8 IVPB Last administered on 02/08/19 13:40; Admin Dose 200 MLS/HR; Start 02/06/19 at 22:00 Gabapentin (Neurontin) 400 mg Q8 PO Last administered on 02/08/19 13:40; Admin Dose 400 MG; Start 02/06/19 at 22:00 Ondansetron HCl (Zofran Inj) 4 mg Q6H PRN IV NAUSEA/VOMITING; Start 02/06/19 at 20:30 Docusate Sodium (Colace) 100 mg Q12H PRN PO .CONSTIPATION; Start 02/06/19 at 20:30 Bisacodyl (Dulcolax) 5 mg DAILY PRN PO .CONSTIPATION; Start 02/06/19 at 20:30 Zolpidem Tartrate (Ambien) 5 mg QHS PRN PO .INSOMNIA; Start 02/06/19 at 20:30 Enoxaparin Sodium (Lovenox) 30 mg DAILY SC Last administered on 02/08/19 08:45; Admin Dose 30 MG; Start 02/07/19 at 09:00 Promethazine HCl (Phenergan Liq) 10 mg Q8H PO Last administered on 02/08/19 11:47; Admin Dose 10 MG; Start 02/07/19 at 11:30 Alprazolam (Xanax) 0.5 mg Q6H PRN PO ANXIETY Last administered on 02/07/19 22:19; Admin Dose 0.5 MG; Start 02/07/19 at 11:30 Vancomycin HCl (Vanco Iv Per Pharmacy) VANCOMYCIN PER PHARMACY PER PROTOCOL XX ; Start 02/07/19 at 17:00 Vancomycin HCl 250 ml @ 125 mls/hr Q12H IVPB Last administered on 02/08/19 08:42; Admin Dose 125 MLS/HR; Start 02/08/19 at 08:00 Mupirocin (Bactroban) 1 applic BID TOP Last administered on 02/08/19 11:47; A dmin Dose 1 APPLIC; Start 02/08/19 at 11:00 Furosemide (Lasix) 40 mg DAILY@0600 IV Last administered on 02/08/19 13:44; Admin Dose 40 MG; Start 02/08/19 at 12:30 Miscellaneous Information (*Rx Drug Level Order Reminder*) VANCO TROUGH ON @ 700 0700 ONCE XX ; Start 02/09/19 at 07:00; Stop 02/09/19 at 07:01 GWYN HAN NP Feb 08, 2019 15:39
[2019-02-08 20:00] VITALS: BP 125/60; PULSE 62; RESP 16
[2019-02-08] MEDS: ALPRAZOLAM 0.5 MG TAB PO PRN (20:38)
[2019-02-08] MEDS: FAMOTIDINE 20 MG TAB PO SCH (20:38)
[2019-02-08] MEDS: LEVALBUTEROL (NEB) 0.63 MG/3 ML AMP HHN PRN (21:00)
[2019-02-09] MEDS: HYDROCODONE/APAP (10/325) TAB PO PRN (00:25)
[2019-02-09 02:00] VITALS: BP 113/59; PULSE 69; RESP 18
[2019-02-09] MEDS: ALPRAZOLAM 0.5 MG TAB PO PRN (02:26)
[2019-02-09] MEDS: METOPROLOL 25 MG TAB PO SCH ×2 (05:02→18:20)
[2019-02-09] MEDS: FUROSEMIDE 40 MG INJ IV SCH (05:03)
[2019-02-09] MEDS: PROMETHAZINE (1.25 MG/ML) 5 ML CUP PO SCH ×3 (05:03→20:20)
[2019-02-09] MEDS: PIPER-TAZO 3.375 GM IV (PMX) 100 ML IVPB SCH ×2 (05:26→14:11)
[2019-02-09] MEDS: GABAPENTIN 400 MG CAP PO SCH ×3 (05:34→21:36)
[2019-02-09] MEDS: LEVALBUTEROL (NEB) 0.63 MG/3 ML AMP HHN PRN ×2 (05:40→14:15)
[2019-02-09 08:10] VITALS: BP 105/51; PULSE 60; RESP 20
[2019-02-09] MEDS: VANCOMYCIN 1 GM 250 ML IVPB SCH (08:57)
[2019-02-09] MEDS: MAGNESIUM HYDROXIDE 30ML CUP PO SCH (08:57)
[2019-02-09] MEDS: DULOXETINE 30 MG CAP DR PO SCH (08:58)
[2019-02-09] MEDS: MUPIROCIN 2% 22 GM OINT TOP SCH ×2 (08:58→21:37)
[2019-02-09] MEDS: MULTIVITAMINS/MINERALS TAB PO SCH (08:58)
[2019-02-09] MEDS: ENOXAPARIN 30 MG/0.3 ML SYG SC SCH (09:00)
--- NOTE | 2019-02-09 11:37 | CONS ---
Consult Date/Type/Reason Admit Date/Time Feb 06, 2019 at 15:14 Initial Consult Date 02/07/19 Type of Consult Pulmonary Date/Time of Note DATE: 02/09/19 TIME: 11:37 Subjective Patient appears comfortable this morning. No new events Objective Vital Signs Date Temp Pulse Resp B/P (MAP) Pulse Ox O2 O2 Flow FiO2 Time Delivery Rate 02/09/19 97.1 60 20 105/51 99 08:10 (69) 02/09/19 Nasal 2.0 08:00 Cannula 02/07/19 28 20:14 Intake and Output 02/08/19 02/08/19 02/09/19 1515:00 23:00 07:00 IntakeIntake Total 650 ml 730 ml 200 ml OutputOutput Total 2800 ml BalanceBalance 650 ml -2070 ml 200 ml Exam PHYSICAL EXAMINATION: GENERAL: Well-nourished, well-developed gentleman, appears comfortable at rest, no acute distress. VITAL SIGNS: NECK: Supple. Tracheostomy site clean and intact. CARDIAC EXAM: S1, S2. No added sounds or murmurs. CHEST: Diminished air entry bilaterally. ABDOMEN: Soft, nontender. No guarding or rebound. EXTREMITIES: No cyanosis, clubbing, 1+ edema. NEUROLOGIC: Generalized weakness. Vent Setting Fraction of Inspired Oxygen pe: 28 Results/Medications Result Diagram: 02/09/1902 02/09/1902 Results 24 hrs Laboratory Tests Test 02/09/19 07:02 White Blood Count 9.7 Red Blood Count 3.69 L Hemoglobin 10.0 L Hematocrit 31.1 L Mean Corpuscular Volume 84.3 Mean Corpuscular Hemoglobin 27.1 L Mean Corpuscular Hemoglobin Concent 32.2 Red Cell Distribution Width 14.0 Platelet Count 294 Mean Platelet Volume 10.9 H Immature Granulocytes % 0.500 H Neutrophils % 73.6 Lymphocytes % 11.4 L Monocytes % 7.3 Eosinophils % 6.6 Basophils % 0.6 Nucleated Red Blood Cells % 0.0 Immature Granulocytes # 0.050 H Neutrophils # 7.1 Lymphocytes # 1.1 Monocytes # 0.7 Eosinophils # 0.6 H Basophils # 0.1 Nucleated Red Blood Cells # 0.0 Sodium Level 130 L Potassium Level 3.6 Chloride Level 91 L Carbon Dioxide Level 29 Anion Gap 10 Blood Urea Nitrogen 4 L Creatinine 0.39 L Est Glomerular Filtrat Rate mL/min > 60 Glucose Level 107 Calcium Level 8.9 Phosphorus Level 4.1 Magnesium Level 1.9 Vancomycin Level Trough 11.7 Medications Current Medications Acetaminophen (Tylenol Tab) 650 mg Q4H PRN PO MILD PAIN 0-10/10; Start 02/06/19 at 17:00 Duloxetine HCl (Cymbalta) 90 mg DAILY PO Last administered on 02/09/19 08:58; Admin Dose 90 MG; Start 02/07/19 at 09:00 Famotidine (Pepcid) 20 mg QHS PO Last administered on 02/08/19 20:38; Admin Dose 20 MG; Start 02/06/19 at 21:00 Acetaminophen/ Hydrocodone Bitart ([place] (10)) 1 tab Q8H PRN PO PAIN 7- 10/10 Last administered on 02/09/19 00:25; Admin Dose 1 TAB; Start 02/06/19 at 17:00 Levalbuterol (Xopenex Neb) 0.63 mg Q6H RESP THERAPY PRN HHN WHEEZING AND SOB Last administered on 02/09/19 05:40; Admin Dose 0.63 MG; Start 02/06/19 at 17:00 Magnesium Hydroxide (Milk Of Mag) 30 ml DAILY PO Last administered on 02/09/19 08:57; Admin Dose 30 ML; Start 02/07/19 at 09:00 Metoprolol Tartrate (Lopressor) 25 mg Q12H PO Last administered on 02/09/19 05:02; Admin Dose 25 MG; Start 02/06/19 at 17:00 Mineral Oil (Fleet Mineral Oil Enema) 118 ml Q72H [place] ; Start 02/06/19 at 17:00 Tramadol HCl (Ultram) 100 mg DAILY PRN PO PAIN; Start 02/06/19 at 17:00 Multivitamins/ Minerals (Theragran-M) 1 tab DAILY PO Last administered on 02/09/19 08:58; Admin Dose 1 TAB; Start 02/07/19 at 09:00 Piperacillin Sod/ Tazobactam Sod 100 ml @ 200 mls/hr Q8 IVPB Last administered on 02/09/19 05:26; Admin Dose 200 MLS/HR; Start 02/06/19 at 22:00 Gabapentin (Neurontin) 400 mg Q8 PO Last administered on 02/09/19at 05:34; Admin Dose 400 MG; Start 02/06/19 at 22:00 Ondansetron HCl (Zofran Inj) 4 mg Q6H PRN IV NAUSEA/VOMITING; Start 02/06/19 at 20:30 Docusate Sodium (Colace) 100 mg Q12H PRN PO .CONSTIPATION; Start 02/06/19 at 20:30 Bisacodyl (Dulcolax) 5 mg DAILY PRN PO .CONSTIPATION; Start 02/06/19 at 20:30 Zolpidem Tartrate (Ambien) 5 mg QHS PRN PO .INSOMNIA; Start 02/06/19 at 20:30 Enoxaparin Sodium (Lovenox) 30 mg DAILY SC Last administered on 02/09/19at 09:00; Admin Dose 30 MG; Start 02/07/19 at 09:00 Promethazine HCl (Phenergan Liq) 10 mg Q8H PO Last administered on 02/09/19at 05:03; Admin Dose 10 MG; Start 02/07/19 at 11:30 Alprazolam (Xanax) 0.5 mg Q6H PRN PO ANXIETY Last administered on 02/09/19at 02:26; Admin Dose 0.5 MG; Start 02/07/19 at 11:30 Vancomycin HCl (Vanco Iv Per Pharmacy) VANCOMYCIN PER PHARMACY PER PROTOCOL XX ; Start 02/07/19 at 17:00 Vancomycin HCl 250 ml @ 125 mls/hr Q12H IVPB Last administered on 02/09/19at 08:57; Admin Dose 125 MLS/HR; Start 02/08/19 at 08:00; Stop 02/09/19 at 12:00 Mupirocin (Bactroban) 1 applic BID TOP Last administered on 02/09/19at 08:58; Admin Dose 1 APPLIC; Start 02/08/19 at 11:00 Furosemide (Lasix) 40 mg DAILY@0600 IV Last administered on 02/09/19at 05:03; A dmin Dose 40 MG; Start 02/08/19 at 12:30 Vancomycin HCl 1.25 gm/Sodium Chloride 250 ml @ 83.333 mls/ hr Q12H IVPB ; Start 02/09/19 at 20:00 Assessment/Plan Hospital Course (Demo Recall) IMPRESSION 1. Acute hypoxemic respiratory failure, likely secondary to a combination of congestion and volume overload. 2. History of a cervical spine injury with paraplegia. 3. Aortic stenosis. 4. Acute urinary tract infection. Plan 1. Continued antibiotics per infectious disease (ID). 2. Pulmonary toilet. 3. Chest percussion. 4. DC IV fluids and gentle diuresis 5. Percussion vest DC planning okay from pulmonary standpoint MOE GALARZA MD, [facility] Feb 09, 2019 11:37
--- NOTE | 2019-02-09 12:37 | CONS ---
Assessment/Plan Assessment/Plan Hospital Course (Demo Recall) 1. Hyponatremia. Etiology is multifactorial, possible hemodynamics, volume depletion, questionable SIADH. The patient's urine electrolytes were reviewed, shows mixed picture. The patient's sodium levels have been improved with ivf. now on lasix due to hypervolemia. monitor Na 2. Hypomagnesemia. replaced 3. Anemia. Continue to monitor hemoglobin and hematocrit levels. 4. Sepsis secondary to urinary tract infection, pneumonia. Continue current antibiotic regimen. 5. Hypertension. Continue current blood pressure regimen. 6. Chronic respiratory failure, status post trach. Continue to monitor. 7. Dysphagia. Continue modified diet. 8. 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 9. Lower extremity wounds. Continue wound care. 10. History of hematuria to resume Consultation Date/Type/Reason Admit Date/Time Feb 06, 2019 at 15:14 Initial Consult Date 02/07/19 Date/Time of Note DATE: 02/09/19 TIME: 12:35 24 HR Interval Summary Free Text/Dictation on lasix overnight events reviewed no fever d/w rn gen nad cv rrr pulm ctab abd soft, nd, nt +bs ext: no edema Exam/Review of Systems Exam Vitals Vital Signs Date Temp Pulse Resp B/P (MAP) Pulse Ox O2 O2 Flow FiO2 Time Delivery Rate 02/09/19 97.1 60 20 105/51 99 08:10 (69) 02/09/19 Nasal 2.0 08:00 Cannula 02/07/19 28 20:14 Intake and Output 02/08/19 02/08/19 02/09/19 1515:00 23:00 07:00 IntakeIntake Total 650 ml 730 ml 200 ml OutputOutput Total 2800 ml BalanceBalance 650 ml -2070 ml 200 ml Results Result Diagram: 02/09/19 0702 02/09/19 0702 Results 24hrs Laboratory Tests Test 02/09/19 07:02 White Blood Count 9.7 Red Blood Count 3.69 L Hemoglobin 10.0 L Hematocrit 31.1 L Mean Corpuscular Volume 84.3 Mean Corpuscular Hemoglobin 27.1 L Mean Corpuscular Hemoglobin Concent 32.2 Red Cell Distribution Width 14.0 Platelet Count 294 Mean Platelet Volume 10.9 H Immature Granulocytes % 0.500 H Neutrophils % 73.6 Lymphocytes % 11.4 L Monocytes % 7.3 Eosinophils % 6.6 Basophils % 0.6 Nucleated Red Blood Cells % 0.0 Immature Granulocytes # 0.050 H Neutrophils # 7.1 Lymphocytes # 1.1 Monocytes # 0.7 Eosinophils # 0.6 H Basophils # 0.1 Nucleated Red Blood Cells # 0.0 Sodium Level 130 L Potassium Level 3.6 Chloride Level 91 L Carbon Dioxide Level 29 Anion Gap 10 Blood Urea Nitrogen 4 L Creatinine 0.39 L Est Glomerular Filtrat Rate mL/min > 60 Glucose Level 107 Calcium Level 8.9 Phosphorus Level 4.1 Magnesium Level 1.9 Vancomycin Level Trough 11.7 Medications Medication Current Medications Acetaminophen (Tylenol Tab) 650 mg Q4H PRN PO MILD PAIN 0-10/10; Start 02/06/19 at 17:00 Duloxetine HCl (Cymbalta) 90 mg DAILY PO Last administered on 02/09/19at 08:58; Admin Dose 90 MG; Start 02/07/19 at 09:00 Famotidine (Pepcid) 20 mg QHS PO Last administered on 02/08/19at 20:38; Admin Dose 20 MG; Start 02/06/19 at 21:00 Acetaminophen/ Hydrocodone Bitart ([place] (10/325)) 1 tab Q8H PRN PO PAIN 7- 10/10 Last administered on 02/09/19at 00:25; Admin Dose 1 TAB; Start 02/06/19 at 17:00 Levalbuterol (Xopenex Neb) 0.63 mg Q6H RESP THERAPY PRN HHN WHEEZING AND SOB Last administered on 02/09/19at 05:40; Admin Dose 0.63 MG; Start 02/06/19 at 17:00 Magnesium Hydroxide (Milk Of Mag) 30 ml DAILY PO Last administered on 02/09/19at 08:57; Admin Dose 30 ML; Start 02/07/19 at 09:00 Metoprolol Tartrate (Lopressor) 25 mg Q12H PO Last administered on 02/09/19at 05:02; Admin Dose 25 MG; Start 02/06/19 at 17:00 Mineral Oil (Fleet Mineral Oil Enema) 118 ml Q72H [place] ; Start 02/06/19 at 17:00 Tramadol HCl (Ultram) 100 mg DAILY PRN PO PAIN; Start 02/06/19 at 17:00 Multivitamins/ Minerals (Theragran-M) 1 tab DAILY PO Last administered on 02/09/19 08:58; Admin Dose 1 TAB; Start 02/07/19 at 09:00 Piperacillin Sod/ Tazobactam Sod 100 ml @ 200 mls/hr Q8 IVPB Last administered on 02/09/19 05:26; Admin Dose 200 MLS/HR; Start 02/06/19 at 22:00 Gabapentin (Neurontin) 400 mg Q8 PO Last administered on 02/09/19 05:34; Admin Dose 400 MG; Start 02/06/19 at 22:00 Ondansetron HCl (Zofran Inj) 4 mg Q6H PRN IV NAUSEA/VOMITING; Start 02/06/19 at 20:30 Docusate Sodium (Colace) 100 mg Q12H PRN PO .CONSTIPATION; Start 02/06/19 at 20:30 Bisacodyl (Dulcolax) 5 mg DAILY PRN PO .CONSTIPATION; Start 02/06/19 at 20:30 Zolpidem Tartrate (Ambien) 5 mg QHS PRN PO .INSOMNIA; Start 02/06/19 at 20:30 Enoxaparin Sodium (Lovenox) 30 mg DAILY SC Last administered on 02/09/19 09:00; Admin Dose 30 MG; Start 02/07/19 at 09:00 Promethazine HCl (Phenergan Liq) 10 mg Q8H PO Last administered on 02/09/19 12:22; Admin Dose 10 MG; Start 02/07/19 at 11:30 Alprazolam (Xanax) 0.5 mg Q6H PRN PO ANXIETY Last administered on 02/09/19 02:26; Admin Dose 0.5 MG; Start 02/07/19 at 11:30 Vancomycin HCl (Vanco Iv Per Pharmacy) VANCOMYCIN PER PHARMACY PER PROTOCOL XX ; Start 02/07/19 at 17:00 Mupirocin (Bactroban) 1 applic BID TOP Last administered on 02/09/19 08:58; A dmin Dose 1 APPLIC; Start 02/08/19 at 11:00 Furosemide (Lasix) 40 mg DAILY@0600 IV Last administered on 02/09/19 05:03; Admin Dose 40 MG; Start 02/08/19 at 12:30 Vancomycin HCl 1.25 gm/Sodium Chloride 250 ml @ 83.333 mls/ hr Q12H IVPB ; Start 02/09/19 at 20:00 ISAAK ZAMAN MD Feb 09, 2019 12:37
--- NOTE | 2019-02-09 13:24 | PN ---
Date/Time of Note Date/Time of Note DATE: 02/09/19 TIME: 13:23 Assessment/Plan VTE Prophylaxis Risk score (from [facility])>0 risk: 2 SCD applied (from Ns): Yes Pharmacological prophylaxis: LMWH Lines/Catheters IV [facility]ter [facility]from [facility] [place] Urinary Cath still in place: No Assessment/Plan Hospital Course -Sepsis with fevers and leukocytosis most likely secondary to urinary tract infection, possible pneumonia, GPC bacteremia. Follow-up on cultures. Continue broad-spectrum antibiotics. Dr. Huynh is following in infection disease consultation. -GPC Bacteremia. -Pneumonia. -UTI per UA -MRSA of nares -Chronic Avila catheter -Quadriplegia -Hypertension -Persistent hyponatremia. Dr. Link is following in nephrology consultation. -Hyperlipidemia -Paroxysmal atrial fibrillation, currently in sinus rhythm. Dr. Girard is following in cardiology consultation. -Chronic tracheostomy which is currently capped. Dr. Giles is following in pulmonology consultation. Result Diagram: 02/09/19 0702 02/09/19 0702 Results 24hrs Laboratory Tests Test 02/09/19 07:02 White Blood Count 9.7 Red Blood Count 3.69 L Hemoglobin 10.0 L Hematocrit 31.1 L Mean Corpuscular Volume 84.3 Mean Corpuscular Hemoglobin 27.1 L Mean Corpuscular Hemoglobin Concent 32.2 Red Cell Distribution Width 14.0 Platelet Count 294 Mean Platelet Volume 10.9 H Immature Granulocytes % 0.500 H Neutrophils % 73.6 Lymphocytes % 11.4 L Monocytes % 7.3 Eosinophils % 6.6 Basophils % 0.6 Nucleated Red Blood Cells % 0.0 Immature Granulocytes # 0.050 H Neutrophils # 7.1 Lymphocytes # 1.1 Monocytes # 0.7 Eosinophils # 0.6 H Basophils # 0.1 Nucleated Red Blood Cells # 0.0 Sodium Level 130 L Potassium Level 3.6 Chloride Level 91 L Carbon Dioxide Level 29 Anion Gap 10 Blood Urea Nitrogen 4 L Creatinine 0.39 L Est Glomerular Filtrat Rate mL/min > 60 Glucose Level 107 Calcium Level 8.9 Phosphorus Level 4.1 Magnesium Level 1.9 Vancomycin Level Trough 11.7 Subjective 24 Hr Interval Summary Free Text/Dictation Patient has no specific complaints Exam/Review of Systems Exam Vitals Vital Signs Date Temp Pulse Resp B/P (MAP) Pulse Ox O2 O2 Flow FiO2 Time Delivery Rate 02/09/19 97.1 60 20 105/51 99 08:10 (69) 02/09/19 Nasal 2.0 08:00 Cannula 02/07/19 28 20:14 Intake and Output 02/08/19 02/08/19 02/09/19 1515:00 23:00 07:00 IntakeIntake Total 650 ml 730 ml 200 ml OutputOutput Total 2800 ml BalanceBalance 650 ml -2070 ml 200 ml Constitutional: well developed Head: normocephalic, atraumatic Neck: supple Respiratory: diminished breath sounds Cardiovascular: regular rate and rhythm Gastrointestinal: soft, non-tender Extremities: normal pulses Results Results 24hrs Laboratory Tests Test 02/09/19 07:02 White Blood Count 9.7 Red Blood Count 3.69 L Hemoglobin 10.0 L Hematocrit 31.1 L Mean Corpuscular Volume 84.3 Mean Corpuscular Hemoglobin 27.1 L Mean Corpuscular Hemoglobin Concent 32.2 Red Cell Distribution Width 14.0 Platelet Count 294 Mean Platelet Volume 10.9 H Immature Granulocytes % 0.500 H Neutrophils % 73.6 Lymphocytes % 11.4 L Monocytes % 7.3 Eosinophils % 6.6 Basophils % 0.6 Nucleated Red Blood Cells % 0.0 Immature Granulocytes # 0.050 H Neutrophils # 7.1 Lymphocytes # 1.1 Monocytes # 0.7 Eosinophils # 0.6 H Basophils # 0.1 Nucleated Red Blood Cells # 0.0 Sodium Level 130 L Potassium Level 3.6 Chloride Level 91 L Carbon Dioxide Level 29 Anion Gap 10 Blood Urea Nitrogen 4 L Creatinine 0.39 L Est Glomerular Filtrat Rate mL/min > 60 Glucose Level 107 Calcium Level 8.9 Phosphorus Level 4.1 Magnesium Level 1.9 Vancomycin Level Trough 11.7 Medications Medication Current Medications Acetaminophen (Tylenol Tab) 650 mg Q4H PRN PO MILD PAIN 0-10/10; Start 02/06/19 at 17:00 Duloxetine HCl (Cymbalta) 90 mg DAILY PO Last administered on 02/09/19at 08:58; Admin Dose 90 MG; Start 02/07/19 at 09:00 Famotidine (Pepcid) 20 mg QHS PO Last administered on 02/08/19at 20:38; Admin Dose 20 MG; Start 02/06/19 at 21:00 Acetaminophen/ Hydrocodone Bitart ([place] (10/325)) 1 tab Q8H PRN PO PAIN 7- 10 Last administered on 02/09/19at 00:25; Admin Dose 1 TAB; Start 02/06/19 at 17:00 Levalbuterol (Xopenex Neb) 0.63 mg Q6H RESP THERAPY PRN HHN WHEEZING AND SOB Last administered on 02/09/19at 05:40; Admin Dose 0.63 MG; Start 02/06/19 at 17:00 Magnesium Hydroxide (Milk Of Mag) 30 ml DAILY PO Last administered on 02/09/19at 08:57; Admin Dose 30 ML; Start 02/07/19 at 09:00 Metoprolol Tartrate (Lopressor) 25 mg Q12H PO Last administered on 02/09/19 05:02; Admin Dose 25 MG; Start 02/06/19 at 17:00 Mineral Oil (Fleet Mineral Oil Enema) 118 ml Q72H [place] ; Start 02/06/19 at 17:00 Tramadol HCl (Ultram) 100 mg DAILY PRN PO PAIN; Start 02/06/19 at 17:00 Multivitamins/ Minerals (Theragran-M) 1 tab DAILY PO Last administered on 02/09/19at 08:58; Admin Dose 1 TAB; Start 02/07/19 at 09:00 Piperacillin Sod/ Tazobactam Sod 100 ml @ 200 mls/hr Q8 IVPB Last administered on 02/09/19 05:26; Admin Dose 200 MLS/HR; Start 02/06/19 at 22:00 Gabapentin (Neurontin) 400 mg Q8 PO Last administered on 02/09/19at 05:34; Admin Dose 400 MG; Start 02/06/19 at 22:00 Ondansetron HCl (Zofran Inj) 4 mg Q6H PRN IV NAUSEA/VOMITING; Start 02/06/19 at 20:30 Docusate Sodium (Colace) 100 mg Q12H PRN PO .CONSTIPATION; Start 02/06/19 at 20:30 Bisacodyl (Dulcolax) 5 mg DAILY PRN PO .CONSTIPATION; Start 02/06/19 at 20:30 Zolpidem Tartrate (Ambien) 5 mg QHS PRN PO .INSOMNIA; Start 02/06/19 at 20:30 Enoxaparin Sodium (Lovenox) 30 mg DAILY SC Last administered on 02/09/19 09:00; Admin Dose 30 MG; Start 02/07/19 at 09:00 Promethazine HCl (Phenergan Liq) 10 mg Q8H PO Last administered on 02/09/19at 12:22; Admin Dose 10 MG; Start 02/07/19 at 11:30 Alprazolam (Xanax) 0.5 mg Q6H PRN PO ANXIETY Last administered on 02/09/19at 02:26; Admin Dose 0.5 MG; Start 02/07/19 at 11:30 Vancomycin HCl (Vanco Iv Per Pharmacy) VANCOMYCIN PER PHARMACY PER PROTOCOL XX ; Start 02/07/19 at 17:00 Mupirocin (Bactroban) 1 applic BID TOP Last administered on 02/09/19at 08:58; Admin Dose 1 APPLIC; Start 02/08/19 at 11:00 Furosemide (Lasix) 40 mg DAILY@0600 IV Last administered on 02/09/19at 05:03; Admin Dose 40 MG; Start 02/08/19 at 12:30 Vancomycin HCl 1.25 gm/Sodium Chloride 250 ml @ 83.333 mls/ hr Q12H IVPB ; Start 02/09/19 at 20:[address] Feb 09, 2019 13:24
[2019-02-09 13:40] VITALS: BP 124/58; PULSE 75; RESP 18
--- NOTE | 2019-02-09 15:38 | CONS ---
[facility] HCIS Consult Follow-up Patient Name: Omkar Leggett Unit Number: [id number] Date of : 1950 Patient Status: Admitted Inpatient Attending Doctor: Peyman Fajardo MD Edit: MYLENE FUENTES M.D. on 02/11/19 @ 04:44 Alfredo: I discussed the management with HOSTED SERVICES ANALYST and agree ____ Assessment/Plan Assessment/Plan Hospital Course (Demo Recall) - HCAP - CXR today shows increased basilar alveolar infiltrates/atelectasis - sputum culture is growing GNR, GNRx2 - Recurrent UTI, urine culture did not grow bacteria probably because he has taken antibiotics intermittently for his UTI at [facility]; urine culture 02/06/19 grew proteus mirabilis and VRE - Bacteremia - 02/06/19 blood cultures grew coag neg staph -> likely contaminant - repeat cultures 02/07 and 02/08 are NGTD - 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 Monteiro - h/o hemorrhagic blister of L heel, resolving - h/o decubitus ulcer of L heel s/p debridement. Wound culture grew coag negative Staph only - h/o intermittent aphasia - h/o tracheostomy capped with Passy-Jacqueline valve - h/o ALEXA - hx A fib with RVR - h/o prostate CA Recommendations: - Cont. Zosyn (02/06/19 - ) and vanco (02/07/19 - ) - F/u repeat bloox cxs 02/07/19 (NGTD), and blood cxs 02/08/19 (NGTD), sputum cx (GNR, GNRx2) - Requested micro to release the sensitivities to pip/tazo to the urine culture from 02/06/19 proteus and VRE - order was placed - Serial lactic - Serial cxr - Muciprocin for MRSA nares (02/08/19 - ) - A consideration of supra-pubic cath could be entertained but many patients do not have a dramatic decrease in uti rate Plan was d/w patient, patient's , and with Dr. Fuentes. Thank you Consultation Date/Type/Reason Admit Date/Time Feb 06, 2019 at 15:14 Initial Consult Date 02/07/19 Type of Consult ID Date/Time of Note DATE: 02/09/19 TIME: 15:33 24 HR Interval Summary Free Text/Dictation I reviewed labs and cultures with patient and his . I answered many questions, and I provided psychosocial support and therapeutic time. also was discussing re: decision re: suprapubic catheter vs keeping current catheter in place. States she is confused and would like to speak with a urologist. Detailed Summary Eyes: no complaints, other (wears glasses) ENT: no complaints Respiratory: other (decreased cough since yesterday, no phlegm production today) Cardiovascular: no complaints Gastrointestinal: no complaints Genitourinary: other (+f/c) Musculoskeletal: other (quadriplegia) Skin: no complaints Neurologic: no complaints, other (sleeping more today) Psychological: nl mood/affect Exam/Review of Systems Exam Vitals Vital Signs Date Temp Pulse Resp B/P (MAP) Pulse Ox O2 O2 Flow FiO2 Time Delivery Rate 02/09/19 73 18 95 Nasal 2.0 14:16 Cannula 02/09/19 98.2 124/58 13:40 (80) 02/07/19 28 20:14 Intake and Output 02/08/19 02/08/19 02/09/19 1515:00 23:00 07:00 IntakeIntake Total 650 ml 730 ml 200 ml OutputOutput Total 2800 ml BalanceBalance 650 ml -2070 ml 200 ml Allergies Coded Allergies codeine (Unverified Allergy, Unknown, 02/06/19) Exam Constitutional: alert, oriented, other (chronically debilitated, in NAD) Psych: no complaints, nl mood/affect, anxiety Head: normocephalic, atraumatic Eyes: nl conjunctiva, nl lids, nl sclera ENMT: nl external ears & nose, nl nasal mucosa & septum, mucosa pink and moist (no thrush) Neck: supple, non-tender, other (trach midline, site is c/d/i, capped) Respiratory: clear to auscultation, normal air movement, diminished breath sounds; No labored breathing, No wheezing Cardiovascular: regular rate and rhythm, nl pulses Gastrointestinal: soft, non-tender, bowel sounds (normoactive); No distended, No firm, No tender Musculoskeletal: muscle weakness, other (muscle spasms with palpation of abdomen) Extremities: normal pulses; No tenderness Neurological: nl mental status, nl speech Skin: nl turgor; No rash or lesions Results Result Diagram: 02/09/19 0702 02/09/19 0702 Results 24hrs Laboratory Tests Test 02/09/19 07:02 White Blood Count 9.7 Red Blood Count 3.69 L Hemoglobin 10.0 L Hematocrit 31.1 L Mean Corpuscular Volume 84.3 Mean Corpuscular Hemoglobin 27.1 L Mean Corpuscular Hemoglobin Concent 32.2 Red Cell Distribution Width 14.0 Platelet Count 294 Mean Platelet Volume 10.9 H Immature Granulocytes % 0.500 H Neutrophils % 73.6 Lymphocytes % 11.4 L Monocytes % 7.3 Eosinophils % 6.6 Basophils % 0.6 Nucleated Red Blood Cells % 0.0 Immature Granulocytes # 0.050 H Neutrophils # 7.1 Lymphocytes # 1.1 Monocytes # 0.7 Eosinophils # 0.6 H Basophils # 0.1 Nucleated Red Blood Cells # 0.0 Sodium Level 130 L Potassium Level 3.6 Chloride Level 91 L Carbon Dioxide Level 29 Anion Gap 10 Blood Urea Nitrogen 4 L Creatinine 0.39 L Est Glomerular Filtrat Rate mL/min > 60 Glucose Level 107 Calcium Level 8.9 Phosphorus Level 4.1 Magnesium Level 1.9 Vancomycin Level Trough 11.7 Imaging Imaging CXR 02/09/19 IMPRESSION: No significant change. Tracheostomy tube is noted. Moderate cardiomegaly with mild aortic calcifications. Stable mild to moderate pulmonary vascular congestion. Stable mild to moderate bilateral pleural effusions with atelectasis/cons olidations. Further findings as detailed above. Medications Medication Current Medications Acetaminophen (Tylenol Tab) 650 mg Q4H PRN PO MILD PAIN 0-10/10; Start 02/06/19 at 17:00 Duloxetine HCl (Cymbalta) 90 mg DAILY PO Last administered on 02/09/19 08:58; Admin Dose 90 MG; Start 02/07/19 at 09:00 Famotidine (Pepcid) 20 mg QHS PO Last administered on 02/08/19 20:38; Admin Dose 20 MG; Start 02/06/19 at 21:00 Acetaminophen/ Hydrocodone Bitart ([place] (10/325)) 1 tab Q8H PRN PO PAIN 7- 10/10 Last administered on 02/09/19 00:25; Admin Dose 1 TAB; Start 02/06/19 at 17:00 Levalbuterol (Xopenex Neb) 0.63 mg Q6H RESP THERAPY PRN HHN WHEEZING AND SOB Last administered on 02/09/19 14:15; Admin Dose 0.63 MG; Start 02/06/19 at 17:00 Magnesium Hydroxide (Milk Of Mag) 30 ml DAILY PO Last administered on 02/09/19 08:57; Admin Dose 30 ML; Start 02/07/19 at 09:00 Metoprolol Tartrate (Lopressor) 25 mg Q12H PO Last administered on 02/09/19 05:02; Admin Dose 25 MG; Start 02/06/19 at 17:00 Mineral Oil (Fleet Mineral Oil Enema) 118 ml Q72H [place] ; Start 02/06/19 at 17:00 Tramadol HCl (Ultram) 100 mg DAILY PRN PO PAIN; Start 02/06/19 at 17:00 Multivitamins/ Minerals (Theragran-M) 1 tab DAILY PO Last administered on 02/09/19 08:58; Admin Dose 1 TAB; Start 02/07/19 at 09:00 Piperacillin Sod/ Tazobactam Sod 100 ml @ 200 mls/hr Q8 IVPB Last administered on 02/09/19 14:11; Admin Dose 200 MLS/HR; Start 02/06/19 at 22:00 Gabapentin (Neurontin) 400 mg Q8 PO Last administered on 02/09/19 14:11; Admin Dose 400 MG; Start 02/06/19 at 22:00 Ondansetron HCl (Zofran Inj) 4 mg Q6H PRN IV NAUSEA/VOMITING; Start 02/06/19 at 20:30 Docusate Sodium (Colace) 100 mg Q12H PRN PO .CONSTIPATION; Start 02/06/19 at 20:30 Bisacodyl (Dulcolax) 5 mg DAILY PRN PO .CONSTIPATION; Start 02/06/19 at 20:30 Zolpidem Tartrate (Ambien) 5 mg QHS PRN PO .INSOMNIA; Start 02/06/19 at 20:30 Enoxaparin Sodium (Lovenox) 30 mg DAILY SC Last administered on 02/09/19at 09:00; Admin Dose 30 MG; Start 02/07/19 at 09:00 Promethazine HCl (Phenergan Liq) 10 mg Q8H PO Last administered on 02/09/19at 12:22; Admin Dose 10 MG; Start 02/07/19 at 11:30 Alprazolam (Xanax) 0.5 mg Q6H PRN PO ANXIETY Last administered on 02/09/19at 02:26; Admin Dose 0.5 MG; Start 02/07/19 at 11:30 Vancomycin HCl (Vanco Iv Per Pharmacy) VANCOMYCIN PER PHARMACY PER PROTOCOL XX ; Start 02/07/19 at 17:00 Mupirocin (Bactroban) 1 applic BID TOP Last administered on 02/09/19at 08:58; Admin Dose 1 APPLIC; Start 02/08/19 at 11:00 Furosemide (Lasix) 40 mg DAILY@0600 IV Last administered on 02/09/19at 05:03; Admin Dose 40 MG; Start 02/08/19 at 12:30 Vancomycin HCl 1.25 gm/Sodium Chloride 250 ml @ 83.333 mls/ hr Q12H IVPB ; Start 02/09/19 at 20:00 GWYN HAN HOSTED SERVICES ANALYST Feb 09, 2019 15:37
[2019-02-09] MEDS: MINERAL OIL 133 ML ENEMA PR SCH (17:00)
[2019-02-09 19:24] VITALS: BP 112/57; PULSE 95; RESP 18
[2019-02-09] MEDS: VANCOMYCIN HCL 1.25 GM in SOD CHLORIDE 0.9% 250 ML IVPB SCH (20:58)
[2019-02-09] MEDS: FAMOTIDINE 20 MG TAB PO SCH (21:36)
[2019-02-10] MEDS: PIPER-TAZO 3.375 GM IV (PMX) 100 ML IVPB SCH ×4 (00:11→22:02)
[2019-02-10 02:21] VITALS: BP 156/71; PULSE 72; RESP 16
[2019-02-10] MEDS: PROMETHAZINE (1.25 MG/ML) 5 ML CUP PO SCH ×3 (03:23→20:52)
[2019-02-10] MEDS: GABAPENTIN 400 MG CAP PO SCH ×3 (05:57→22:02)
[2019-02-10] MEDS: METOPROLOL 25 MG TAB PO SCH ×2 (05:57→17:50)
[2019-02-10] MEDS: FUROSEMIDE 40 MG INJ IV SCH (05:57)
[2019-02-10 08:00] VITALS: BP 141/65; PULSE 65; RESP 18
[2019-02-10] MEDS: MAGNESIUM HYDROXIDE 30ML CUP PO SCH (09:00)
[2019-02-10] MEDS: MUPIROCIN 2% 22 GM OINT TOP SCH ×2 (09:22→20:55)
[2019-02-10] MEDS: DULOXETINE 30 MG CAP DR PO SCH (09:22)
[2019-02-10] MEDS: MULTIVITAMINS/MINERALS TAB PO SCH (09:22)
[2019-02-10] MEDS: HYDROCODONE/APAP (10/325) TAB PO PRN ×2 (09:23→18:03)
[2019-02-10] MEDS: ENOXAPARIN 30 MG/0.3 ML SYG SC SCH (09:32)
[2019-02-10] MEDS: VANCOMYCIN HCL 1.25 GM in SOD CHLORIDE 0.9% 250 ML IVPB SCH (10:04)
--- NOTE | 2019-02-10 10:31 | CONS ---
Consult Date/Type/Reason Admit Date/Time Feb 06, 2019 at 15:14 Initial Consult Date 02/07/19 Type of Consult Pulmonary Date/Time of Note DATE: 02/10/19 TIME: 10:30 Subjective Patient continues to improve. Denies any shortness of breath this morning. Decreased secretions. Objective Vital Signs Date Temp Pulse Resp B/P (MAP) Pulse Ox O2 O2 Flow FiO2 Time Delivery Rate 02/10/19 98.2 65 18 141/65 97 Mechanical 08:00 (90) Ventilator 02/10/19 2.0 04:40 02/07/19 28 20:14 Intake and Output 02/09/19 02/09/19 02/10/19 1515:00 23:00 07:00 IntakeIntake Total 1370 ml 320 ml 450 ml OutputOutput Total 2050 ml BalanceBalance -680 ml 320 ml 450 ml Exam PHYSICAL EXAMINATION: GENERAL: Well-nourished, well-developed gentleman, appears comfortable at rest, no acute distress. VITAL SIGNS: NECK: Supple. Tracheostomy site clean and intact. CARDIAC EXAM: S1, S2. No added sounds or murmurs. CHEST: Diminished air entry bilaterally. ABDOMEN: Soft, nontender. No guarding or rebound. EXTREMITIES: No cyanosis, clubbing, 1+ edema. NEUROLOGIC: Generalized weakness. Vent Setting Fraction of Inspired Oxygen pe: 28 Results/Medications Result Diagram: 02/09/19 0702 02/09/19 0702 Medications Current Medications Acetaminophen (Tylenol Tab) 650 mg Q4H PRN PO MILD PAIN 0-10/10; Start 02/06/19 at 17:00 Duloxetine HCl (Cymbalta) 90 mg DAILY PO Last administered on 02/10/19at 09:22; Admin Dose 90 MG; Start 02/07/19 at 09:00 Famotidine (Pepcid) 20 mg QHS PO Last administered on 02/09/19at 21:36; Admin Dose 20 MG; Start 02/06/19 at 21:00 Acetaminophen/ Hydrocodone Bitart ([place] (10/325)) 1 tab Q8H PRN PO PAIN 7- 10/10 Last administered on 02/10/19at 09:23; Admin Dose 1 TAB; Start 02/06/19 at 17:00 Levalbuterol (Xopenex Neb) 0.63 mg Q6H RESP THERAPY PRN HHN WHEEZING AND SOB Last administered on 02/09/19 14:15; Admin Dose 0.63 MG; Start 02/06/19 at 17:00 Magnesium Hydroxide (Milk Of Mag) 30 ml DAILY PO Last administered on 02/09/19 08:57; Admin Dose 30 ML; Start 02/07/19 at 09:00 Metoprolol Tartrate (Lopressor) 25 mg Q12H PO Last administered on 02/10/19 05:57; Admin Dose 25 MG; Start 02/06/19 at 17:00 Mineral Oil (Fleet Mineral Oil Enema) 118 ml Q72H [place] ; Start 02/06/19 at 17:00 Tramadol HCl (Ultram) 100 mg DAILY PRN PO PAIN; Start 02/06/19 at 17:00 Multivitamins/ Minerals (Theragran-M) 1 tab DAILY PO Last administered on 02/10/19 09:22; Admin Dose 1 TAB; Start 02/07/19 at 09:00 Piperacillin Sod/ Tazobactam Sod 100 ml @ 200 mls/hr Q8 IVPB Last administered on 02/10/19 05:58; Admin Dose 200 MLS/HR; Start 02/06/19 at 22:00 Gabapentin (Neurontin) 400 mg Q8 PO Last administered on 02/10/19 05:57; Admin Dose 400 MG; Start 02/06/19 at 22:00 Ondansetron HCl (Zofran Inj) 4 mg Q6H PRN IV NAUSEA/VOMITING; Start 02/06/19 at 20:30 Docusate Sodium (Colace) 100 mg Q12H PRN PO .CONSTIPATION; Start 02/06/19 at 20:30 Bisacodyl (Dulcolax) 5 mg DAILY PRN PO .CONSTIPATION; Start 02/06/19 at 20:30 Zolpidem Tartrate (Ambien) 5 mg QHS PRN PO .INSOMNIA; Start 02/06/19 at 20:30 Enoxaparin Sodium (Lovenox) 30 mg DAILY SC Last administered on 02/10/19 09:32; Admin Dose 30 MG; Start 02/07/19 at 09:00 Promethazine HCl (Phenergan Liq) 10 mg Q8H PO Last administered on 02/10/19 03:23; Admin Dose 10 MG; Start 02/07/19 at 11:30 Alprazolam (Xanax) 0.5 mg Q6H PRN PO ANXIETY Last administered on 02/09/19at 02:26; Admin Dose 0.5 MG; Start 02/07/19 at 11:30 Vancomycin HCl (Vanco Iv Per Pharmacy) VANCOMYCIN PER PHARMACY PER PROTOCOL XX ; Start 02/07/19 at 17:00 Mupirocin (Bactroban) 1 applic BID TOP Last administered on 02/10/19at 09:22; Admin Dose 1 APPLIC; Start 02/08/19 at 11:00 Furosemide (Lasix) 40 mg DAILY@0600 IV Last administered on 02/10/19at 05:57; Admin Dose 40 MG; Start 02/08/19 at 12:30 Vancomycin HCl 1.25 gm/Sodium Chloride 250 ml @ 83.333 mls/ hr Q12H IVPB Last administered on 02/10/19at 10:04; Admin Dose 83.333 MLS/HR; Start 02/09/19 at 20:00 Assessment/Plan Hospital Course (Demo Recall) IMPRESSION 1. Acute hypoxemic respiratory failure, likely secondary to a combination of congestion and volume overload. 2. History of a cervical spine injury with paraplegia. 3. Aortic stenosis. 4. Acute urinary tract infection. Plan 1. Continued antibiotics per infectious disease (ID). 2. Pulmonary toilet. 3. Chest percussion. 4. DC IV fluids and gentle diuresis 5. Percussion vest DC planning okay from pulmonary standpoint MOE GALARZA MD, [facility] Feb 10, 2019 10:31
--- NOTE | 2019-02-10 13:36 | CONS ---
[facility] HCIS Consult Follow-up Patient Name: Omkar Leggett Unit Number: [id number] Date of : 1950 Patient Status: Admitted Inpatient Attending Doctor: Peyman Fajardo MD Edit: MYLENE FUENTES M.D. on 02/11/19 @ 04:53 Alfredo: I discussed the management with SERVICE TESTER and agree ____ Assessment/Plan Assessment/Plan Hospital Course (Demo Recall) - HCAP - CXR today shows increased basilar alveolar infiltrates/atelectasis - sputum culture grew pseudomonas, proteus, and nl jodi 02/07/19 - Recurrent UTI, urine culture did not grow bacteria probably because he has taken antibiotics intermittently for his UTI at [facility]; urine culture 02/06/19 grew proteus mirabilis and VRE - Bacteremia - 02/06/19 blood cultures grew coag neg staph -> likely contaminant - repeat cultures 02/07 and 02/08 are NGTD - 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 Monteiro - h/o hemorrhagic blister of L heel, resolving - h/o decubitus ulcer of L heel s/p debridement. Wound culture grew coag negative Staph only - h/o intermittent aphasia - h/o tracheostomy capped with Passy-Jacqueline valve - h/o ALEXA - hx A fib with RVR - h/o prostate CA Recommendations: - Cont. Zosyn (02/06/19 - ) x5d course - Discontinue vanco (02/07/19 - 02/10/19) - ordered - Ordered CBC for am - F/u repeat bloox cxs 02/07/19 (NGTD), and blood cxs 02/08/19 (NGTD) - Serial lactic - Serial cxr - Muciprocin for MRSA nares (02/08/19 - ) - A consideration of supra-pubic cath could be entertained but many patients do not have a dramatic decrease in uti rate Plan was d/w patient, patient's daughter at bedside, and with Dr. Fuentes. Thank you Consultation Date/Type/Reason Admit Date/Time Feb 06, 2019 at 15:14 Initial Consult Date 02/07/19 Type of Consult ID Date/Time of Note DATE: 02/10/19 TIME: 13:35 24 HR Interval Summary Free Text/Dictation No acute issues were reported by nursing and patient has remained afebrile. Discussed labs and answered questions with patient and his daughter at the bedside. Detailed Summary Eyes: no complaints ENT: no complaints Respiratory: other (patient reports decrease in phlegm and cough. States he would like to remove his oxygen via nc.); No shortness of breath, No wheezing Cardiovascular: no complaints Gastrointestinal: no complaints, other (reports increasesd appetite and eating his meals) Genitourinary: no complaints, other (+f/c) Musculoskeletal: other (muscle spasms, quadriplegic) Skin: no complaints Neurologic: no complaints Endocrine: no complaints Lymphatic: no complaints Psychological: no complaints, nl mood/affect Immunologic: no complaints Exam/Review of Systems Exam Vitals Vital Signs Date Temp Pulse Resp B/P (MAP) Pulse Ox O2 O2 Flow FiO2 Time Delivery Rate 02/10/19 69 18 97 Nasal 2.0 10:58 Cannula 02/10/19 98.2 141/65 08:00 (90) 02/07/19 28 20:14 Intake and Output 02/09/19 02/09/19 02/10/19 1414:59 22:59 06:59 IntakeIntake Total 1270 ml 420 ml 450 ml OutputOutput Total 2050 ml BalanceBalance -780 ml 420 ml 450 ml Allergies Coded Allergies codeine (Unverified Allergy, Unknown, 02/06/19) Exam Constitutional: alert, oriented, other (chronically debilitated, in NAD) Psych: no complaints, nl mood/affect, anxiety Head: normocephalic, atraumatic Eyes: nl conjunctiva, nl lids, nl sclera ENMT: nl external ears & nose, nl nasal mucosa & septum, mucosa pink and moist (no thrush) Neck: supple, non-tender, other (trach midline, site is c/d/i, capped) Respiratory: clear to auscultation, normal air movement, diminished breath sounds, other (patient was on O2 2l nc, I placed the pulse ox on him and checked, he was at 98%. he requested to remove the oxygen and I removed it, we monitored him for several minutes and his oxygenation stayed between 95-96%, I left the patient on RA and alerted his nurse) No labored breathing, No wheezing Cardiovascular: regular rate and rhythm, nl pulses Gastrointestinal: soft, non-tender, bowel sounds (normoactive); No distended, No firm, No tender Musculoskeletal: muscle weakness, other (muscle spasms with palpation of abdomen) Extremities: normal pulses; No tenderness Neurological: nl mental status, nl speech Skin: nl turgor; No rash or lesions Results Result Diagram: 02/09/19 0702 02/09/19 0702 Imaging Imaging CXR 02/09/19 IMPRESSION: No significant change. Tracheostomy tube is noted. Moderate cardiomegaly with mild aortic calcifications. Stable mild to moderate pulmonary vascular congestion. Stable mild to moderate bilateral pleural effusions with atelectasis/consolidations. Further findings as detailed above. Medications Medication Current Medications Acetaminophen (Tylenol Tab) 650 mg Q4H PRN PO MILD PAIN 0-10/10; Start 02/06/19 at 17:00 Duloxetine HCl (Cymbalta) 90 mg DAILY PO Last administered on 02/10/19at 09:22; Admin Dose 90 MG; Start 02/07/19 at 09:00 Famotidine (Pepcid) 20 mg QHS PO Last administered on 02/09/19at 21:36; Admin Dose 20 MG; Start 02/06/19 at 21:00 Acetaminophen/ Hydrocodone Bitart ([place] (10/325)) 1 tab Q8H PRN PO PAIN 7- 10/10 Last administered on 02/10/19at 09:23; Admin Dose 1 TAB; Start 02/06/19 at 17:00 Levalbuterol (Xopenex Neb) 0.63 mg Q6H RESP THERAPY PRN HHN WHEEZING AND SOB Last administered on 02/09/19 14:15; Admin Dose 0.63 MG; Start 02/06/19 at 17:00 Magnesium Hydroxide (Milk Of Mag) 30 ml DAILY PO Last administered on 02/09/19 08:57; Admin Dose 30 ML; Start 02/07/19 at 09:00 Metoprolol Tartrate (Lopressor) 25 mg Q12H PO Last administered on 02/10/19 05:57; Admin Dose 25 MG; Start 02/06/19 at 17:00 Mineral Oil (Fleet Mineral Oil Enema) 118 ml Q72H [place] ; Start 02/06/19 at 17:00 Tramadol HCl (Ultram) 100 mg DAILY PRN PO PAIN; Start 02/06/19 at 17:00 Multivitamins/ Minerals (Theragran-M) 1 tab DAILY PO Last administered on 02/10/19 09:22; Admin Dose 1 TAB; Start 02/07/19 at 09:00 Piperacillin Sod/ Tazobactam Sod 100 ml @ 200 mls/hr Q8 IVPB Last administered on 02/10/19 05:58; Admin Dose 200 MLS/HR; Start 02/06/19 at 22:00 Gabapentin (Neurontin) 400 mg Q8 PO Last administered on 02/10/19 05:57; Admin Dose 400 MG; Start 02/06/19 at 22:00 Ondansetron HCl (Zofran Inj) 4 mg Q6H PRN IV NAUSEA/VOMITING; Start 02/06/19 at 20:30 Docusate Sodium (Colace) 100 mg Q12H PRN PO .CONSTIPATION; Start 02/06/19 at 20:30 Bisacodyl (Dulcolax) 5 mg DAILY PRN PO .CONSTIPATION; Start 02/06/19 at 20:30 Zolpidem Tartrate (Ambien) 5 mg QHS PRN PO .INSOMNIA; Start 02/06/19 at 20:30 Enoxaparin Sodium (Lovenox) 30 mg DAILY SC Last administered on 02/10/19 09:32; Admin Dose 30 MG; Start 02/07/19 at 09:00 Promethazine HCl (Phenergan Liq) 10 mg Q8H PO Last administered on 02/10/19 11:51; Admin Dose 10 MG; Start 02/07/19 at 11:30 Alprazolam (Xanax) 0.5 mg Q6H PRN PO ANXIETY Last administered on 02/09/19 02:26; Admin Dose 0.5 MG; Start 02/07/19 at 11:30 Vancomycin HCl (Vanco Iv Per Pharmacy) VANCOMYCIN PER PHARMACY PER PROTOCOL XX ; Start 02/07/19 at 17:00 Mupirocin (Bactroban) 1 applic BID TOP Last administered on 02/10/19at 09:22; Admin Dose 1 APPLIC; Start 02/08/19 at 11:00 Furosemide (Lasix) 40 mg DAILY@0600 IV Last administered on 02/10/19 05:57; Admin Dose 40 MG; Start 02/08/19 at 12:30 Vancomycin HCl 1.25 gm/Sodium Chloride 250 ml @ 83.333 mls/ hr Q12H IVPB Last administered on 02/10/19at 10:04; Admin Dose 83.333 MLS/HR; Start 02/09/19 at 20:00 GWYN HAN SERVICE TESTER Feb 10, 2019 13:36
--- NOTE | 2019-02-10 13:47 | PN ---
Date/Time of Note Date/Time of Note DATE: 02/10/19 TIME: 13:47 Assessment/Plan VTE Prophylaxis Risk score (from Ns)>0 risk: 5 SCD applied (from Ns): Yes Pharmacological prophylaxis: LMWH Lines/Catheters IV C[facility]ter Type (from [facility]): [place] Urinary Cath still in place: No Assessment/Plan Hospital Course -Sepsis with fevers and leukocytosis most likely secondary to urinary tract infection, possible pneumonia, GPC bacteremia. Follow-up on cultures. Continue broad-spectrum antibiotics. Dr. Huynh is following in infection disease consultation. -GPC Bacteremia. -Pneumonia. -UTI per UA -MRSA of nares -Chronic Avila catheter -Quadriplegia -Hypertension -Persistent hyponatremia. Dr. Link is following in nephrology consultation. -Hyperlipidemia -Paroxysmal atrial fibrillation, currently in sinus rhythm. Dr. Girard is following in cardiology consultation. -Chronic tracheostomy which is currently capped. Dr. Giles is following in pulmonology consultation. Result Diagram: 02/09/19 0702 02/09/19 0702 Subjective 24 Hr Interval Summary Free Text/Dictation Patient has some abdominal pain Exam/Review of Systems Exam Vitals Vital Signs Date Temp Pulse Resp B/P (MAP) Pulse Ox O2 O2 Flow FiO2 Time Delivery Rate 02/10/19 69 18 97 Nasal 2.0 10:58 Cannula 02/10/19 98.2 141/65 08:00 (90) 02/07/19 28 20:14 Intake and Output 02/09/19 02/09/19 02/10/19 1515:00 23:00 07:00 IntakeIntake Total 1370 ml 320 ml 450 ml OutputOutput Total 2050 ml BalanceBalance -680 ml 320 ml 450 ml Constitutional: well developed Head: normocephalic, atraumatic Neck: supple Respiratory: diminished breath sounds Cardiovascular: regular rate and rhythm Gastrointestinal: soft, non-tender Extremities: normal pulses Medications Medication Current Medications Acetaminophen (Tylenol Tab) 650 mg Q4H PRN PO MILD PAIN 0-10/10; Start 02/06/19 at 17:00 Duloxetine HCl (Cymbalta) 90 mg DAILY PO Last administered on 02/10/19at 09:22; Admin Dose 90 MG; Start 02/07/19 at 09:00 Famotidine (Pepcid) 20 mg QHS PO Last administered on 02/09/19 21:36; Admin Dose 20 MG; Start 02/06/19 at 21:00 Acetaminophen/ Hydrocodone Bitart ([place] (10/325)) 1 tab Q8H PRN PO PAIN 7- 1010 Last administered on 02/10/19 09:23; Admin Dose 1 TAB; Start 02/06/19 at 17:00 Levalbuterol (Xopenex Neb) 0.63 mg Q6H RESP THERAPY PRN HHN WHEEZING AND SOB Last administered on 02/09/19 14:15; Admin Dose 0.63 MG; Start 02/06/19 at 17:00 Magnesium Hydroxide (Milk Of Mag) 30 ml DAILY PO Last administered on 02/09/19 08:57; Admin Dose 30 ML; Start 02/07/19 at 09:00 Metoprolol Tartrate (Lopressor) 25 mg Q12H PO Last administered on 02/10/19 05:57; Admin Dose 25 MG; Start 02/06/19 at 17:00 Mineral Oil (Fleet Mineral Oil Enema) 118 ml Q72H [place] ; Start 02/06/19 at 17:00 Tramadol HCl (Ultram) 100 mg DAILY PRN PO PAIN; Start 02/06/19 at 17:00 Multivitamins/ Minerals (Theragran-M) 1 tab DAILY PO Last administered on 02/10/19at 09:22; Admin Dose 1 TAB; Start 02/07/19 at 09:00 Piperacillin Sod/ Tazobactam Sod 100 ml @ 200 mls/hr Q8 IVPB Last administered on 02/10/19at 05:58; Admin Dose 200 MLS/HR; Start 02/06/19 at 22:00 Gabapentin (Neurontin) 400 mg Q8 PO Last administered on 02/10/19 05:57; Admin Dose 400 MG; Start 02/06/19 at 22:00 Ondansetron HCl (Zofran Inj) 4 mg Q6H PRN IV NAUSEA/VOMITING; Start 02/06/19 at 20:30 Docusate Sodium (Colace) 100 mg Q12H PRN PO .CONSTIPATION; Start 02/06/19 at 20:30 Bisacodyl (Dulcolax) 5 mg DAILY PRN PO .CONSTIPATION; Start 02/06/19 at 20:30 Zolpidem Tartrate (Ambien) 5 mg QHS PRN PO .INSOMNIA; Start 02/06/19 at 20:30 Enoxaparin Sodium (Lovenox) 30 mg DAILY SC Last administered on 02/10/19 09:32; Admin Dose 30 MG; Start 02/07/19 at 09:00 Promethazine HCl (Phenergan Liq) 10 mg Q8H PO Last administered on 02/10/19 11:51; Admin Dose 10 MG; Start 02/07/19 at 11:30 Alprazolam (Xanax) 0.5 mg Q6H PRN PO ANXIETY Last administered on 02/09/19 02:26; Admin Dose 0.5 MG; Start 02/07/19 at 11:30 Vancomycin HCl (Vanco Iv Per Pharmacy) VANCOMYCIN PER PHARMACY PER PROTOCOL XX ; Start 02/07/19 at 17:00 Mupirocin (Bactroban) 1 applic BID TOP Last administered on 02/10/19 09:22; Admin Dose 1 APPLIC; Start 02/08/19 at 11:00 Furosemide (Lasix) 40 mg DAILY@0600 IV Last administered on 02/10/19 05:57; Admin Dose 40 MG; Start 02/08/19 at 12:30 Vancomycin HCl 1.25 gm/Sodium Chloride 250 ml @ 83.333 mls/ hr Q12H IVPB Last administered on 02/10/19 10:04; Admin Dose 83.333 MLS/HR; Start 02/09/19 at 20:[address] Feb 10, 2019 13:47
[2019-02-10 14:00] VITALS: BP 117/56; PULSE 67; RESP 18
--- NOTE | 2019-02-10 14:26 | CONS ---
Assessment/Plan Assessment/Plan Assessment/Plan (Daily) 1. Hyponatremia. Etiology is multifactorial, possible hemodynamics, volume depletion, questionable SIADH. The patient's urine electrolytes were reviewed, shows mixed picture. The patient's sodium levels have been improved with ivf. now on lasix due to hypervolemia. monitor Na 2. Hypomagnesemia. replaced 3. Anemia. Continue to monitor hemoglobin and hematocrit levels. 4. Sepsis secondary to urinary tract infection, pneumonia. Continue current antibiotic regimen. 5. Hypertension. Continue current blood pressure regimen. 6. Chronic respiratory failure, status post trach. Continue to monitor. 7. Dysphagia. Continue modified diet. 8. 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 9. Lower extremity wounds. Continue wound care. 10. History of hematuria to resume Consultation Date/Type/Reason Admit Date/Time Feb 06, 2019 at 15:14 Initial Consult Date 02/07/19 Date/Time of Note DATE: 02/10/19 TIME: 14:25 24 HR Interval Summary Free Text/Dictation denies n/v, shortness of breath or urinary issues d/w rn gen nad cv rrr pulm ctab abd soft, nd nt +bs ext: no edema Exam/Review of Systems Exam Vitals Vital Signs Date Temp Pulse Resp B/P (MAP) Pulse Ox O2 O2 Flow FiO2 Time Delivery Rate 02/10/19 69 18 97 Nasal 2.0 10:58 Cannula 02/10/19 98.2 141/65 08:00 (90) 02/07/19 28 20:14 Intake and Output 02/09/19 02/09/19 02/10/19 1515:00 23:00 07:00 IntakeIntake Total 1370 ml 320 ml 450 ml OutputOutput Total 2050 ml BalanceBalance -680 ml 320 ml 450 ml Results Result Diagram: 02/09/19 0702 02/09/19 0702 Medications Medication Current Medications Acetaminophen (Tylenol Tab) 650 mg Q4H PRN PO MILD PAIN 0-10/10; Start 02/06/19 at 17:00 Duloxetine HCl (Cymbalta) 90 mg DAILY PO Last administered on 02/10/19at 09:22; Admin Dose 90 MG; Start 02/07/19 at 09:00 Famotidine (Pepcid) 20 mg QHS PO Last administered on 02/09/19at 21:36; Admin Dose 20 MG; Start 02/06/19 at 21:00 Acetaminophen/ Hydrocodone Bitart ([place] (10/325)) 1 tab Q8H PRN PO PAIN 7- 08/01 Last administered on 02/10/19 09:23; Admin Dose 1 TAB; Start 02/06/19 at 17:00 Levalbuterol (Xopenex Neb) 0.63 mg Q6H RESP THERAPY PRN HHN WHEEZING AND SOB Last administered on 02/09/19 14:15; Admin Dose 0.63 MG; Start 02/06/19 at 17:00 Magnesium Hydroxide (Milk Of Mag) 30 ml DAILY PO Last administered on 02/09/19 08:57; Admin Dose 30 ML; Start 02/07/19 at 09:00 Metoprolol Tartrate (Lopressor) 25 mg Q12H PO Last administered on 02/10/19 05:57; Admin Dose 25 MG; Start 02/06/19 at 17:00 Mineral Oil (Fleet Mineral Oil Enema) 118 ml Q72H [place] ; Start 02/06/19 at 17:00 Tramadol HCl (Ultram) 100 mg DAILY PRN PO PAIN; Start 02/06/19 at 17:00 Multivitamins/ Minerals (Theragran-M) 1 tab DAILY PO Last administered on 02/10/19 09:22; Admin Dose 1 TAB; Start 02/07/19 at 09:00 Piperacillin Sod/ Tazobactam Sod 100 ml @ 200 mls/hr Q8 IVPB Last administered on 02/10/19 14:18; Admin Dose 200 MLS/HR; Start 02/06/19 at 22:00 Gabapentin (Neurontin) 400 mg Q8 PO Last administered on 02/10/19 14:18; Admin Dose 400 MG; Start 02/06/19 at 22:00 Ondansetron HCl (Zofran Inj) 4 mg Q6H PRN IV NAUSEA/VOMITING; Start 02/06/19 at 20:30 Docusate Sodium (Colace) 100 mg Q12H PRN PO .CONSTIPATION; Start 02/06/19 at 20:30 Bisacodyl (Dulcolax) 5 mg DAILY PRN PO .CONSTIPATION; Start 02/06/19 at 20:30 Zolpidem Tartrate (Ambien) 5 mg QHS PRN PO .INSOMNIA; Start 02/06/19 at 20:30 Enoxaparin Sodium (Lovenox) 30 mg DAILY SC Last administered on 02/10/19at 09:32; Admin Dose 30 MG; Start 02/07/19 at 09:00 Promethazine HCl (Phenergan Liq) 10 mg Q8H PO Last administered on 02/10/19at 11:51; Admin Dose 10 MG; Start 02/07/19 at 11:30 Alprazolam (Xanax) 0.5 mg Q6H PRN PO ANXIETY Last administered on 02/09/19 02:26; Admin Dose 0.5 MG; Start 02/07/19 at 11:30 Vancomycin HCl (Vanco Iv Per Pharmacy) VANCOMYCIN PER PHARMACY PER PROTOCOL XX ; Start 02/07/19 at 17:00 Mupirocin (Bactroban) 1 applic BID TOP Last administered on 02/10/19at 09:22; Admin Dose 1 APPLIC; Start 02/08/19 at 11:00 Furosemide (Lasix) 40 mg DAILY@0600 IV Last administered on 02/10/19at 05:57; Admin Dose 40 MG; Start 02/08/19 at 12:30 Vancomycin HCl 1.25 gm/Sodium Chloride 250 ml @ 83.333 mls/ hr Q12H IVPB Last administered on 02/10/19at 10:04; Admin Dose 83.333 MLS/HR; Start 02/09/19 at 20:00 Miscellaneous Information (*Rx Drug Level Order Reminder*) VANCO TROUGH ON 01/22... 0700 ONCE XX ; Start 02/11/19 at 07:00; Stop 02/11/19 at 07:01 ISAAK ZAMAN MD Feb 10, 2019 14:26
[2019-02-10 17:50] VITALS: BP 135/63; PULSE 74
[2019-02-10 20:06] VITALS: BP 111/59; PULSE 63; RESP 18
[2019-02-10] MEDS: FAMOTIDINE 20 MG TAB PO SCH (20:55)
[2019-02-11 02:00] VITALS: BP 129/61; PULSE 66; RESP 18
[2019-02-11] MEDS: PROMETHAZINE (1.25 MG/ML) 5 ML CUP PO SCH ×4 (03:30→20:15)
[2019-02-11] MEDS: PIPER-TAZO 3.375 GM IV (PMX) 100 ML IVPB SCH ×2 (05:23→13:28)
[2019-02-11] MEDS: METOPROLOL 25 MG TAB PO SCH ×2 (05:25→17:23)
[2019-02-11] MEDS: GABAPENTIN 400 MG CAP PO SCH ×3 (05:25→21:29)
[2019-02-11] MEDS: FUROSEMIDE 40 MG INJ IV SCH (05:25)
[2019-02-11] MEDS: HYDROCODONE/APAP (10/325) TAB PO PRN ×2 (07:53→17:22)
[2019-02-11 08:10] VITALS: BP 157/71; PULSE 62; RESP 18
[2019-02-11] MEDS: MUPIROCIN 2% 22 GM OINT TOP SCH ×2 (08:44→21:29)
[2019-02-11] MEDS: MAGNESIUM HYDROXIDE 30ML CUP PO SCH (08:44)
[2019-02-11] MEDS: MULTIVITAMINS/MINERALS TAB PO SCH (08:44)
[2019-02-11] MEDS: ENOXAPARIN 30 MG/0.3 ML SYG SC SCH (08:54)
--- NOTE | 2019-02-11 09:29 | PN ---
DATE: 02/11/2019 SUBJECTIVE: The patient remains stable. No events overnight. OBJECTIVE: VITAL SIGNS: Blood pressure is 157/71, respiration 18, pulse 62, temperature 98.0. HEENT: Head is normocephalic. NECK: Supple. HEART: Regular rate. LUNGS: Show diminished breath sounds at the base. ABDOMEN: Soft, nontender to palpation without rebound or guarding. EXTREMITIES: Negative for clubbing, cyanosis, no edema. DERMATOLOGIC: No rashes. MUSCULOSKELETAL: No joint effusion. NEUROLOGIC: No change in exam. MEDICATIONS: The patient's medications have been reviewed. LABORATORY DATA: From 02/09/2019 was reviewed. ASSESSMENT AND PLAN: 1. Hyponatremia. Etiology is multifactorial secondary to hemodynamics, volume depletion with possib le underlying syndrome of inappropriate antidiuretic hormone. The patient's urine electrolytes were reviewed, showed mixed picture. The patient's sodium levels have improved with IV fluids. Patient n ow is currently on diuretic therapy. We will repeat a BMP, monitor sodium levels closely. Limit fatemeh e water intake. 2. Hypomagnesemia, improved. 3. Anemia. Monitor hemoglobin and hematocrit levels. 4. Sepsis, secondary to urinary tract infection and pneumonia. Continue current antibiotic regimen. 5. Hypertension. Continue current blood pressure regimen. 6. Chronic respiratory failure, status post trach. 7. Dysphagia. Continue modified diet. 8. 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 9. Lower extremity wounds. Continue wound care. Dictated By: SARAH FIGUEROA DO NR/NTS Conf#: [id number] DID#: [id number] CC: CHONG SORIANO MD;*EndCC*
[2019-02-11] MEDS: DULOXETINE 30 MG CAP DR PO SCH (09:58)
--- NOTE | 2019-02-11 12:09 | CONS ---
Consult Date/Type/Reason Admit Date/Time Feb 06, 2019 at 15:14 Initial Consult Date 02/07/19 Type of Consult Pulmonary Date/Time of Note DATE: 02/11/19 TIME: 12:08 Subjective Patient comfortable this morning. No respiratory distress. Objective Vital Signs Date Temp Pulse Resp B/P (MAP) Pulse Ox O2 O2 Flow FiO2 Time Delivery Rate 02/11/19 Nasal 2.0 08:30 Cannula 02/11/19 98.0 62 18 157/71 90 08:10 (99) 02/07/19 28 20:14 Intake and Output 02/10/19 02/10/19 02/11/19 1515:00 23:00 07:00 IntakeIntake Total 1430 ml 340 ml 240 ml OutputOutput Total 1800 ml 1150 ml 1100 ml BalanceBalance -370 ml -810 ml -860 ml Exam PHYSICAL EXAMINATION: GENERAL: Well-nourished, well-developed gentleman, appears comfortable at rest, no acute distress. VITAL SIGNS: NECK: Supple. Tracheostomy site clean and intact. CARDIAC EXAM: S1, S2. No added sounds or murmurs. CHEST: Diminished air entry bilaterally. ABDOMEN: Soft, nontender. No guarding or rebound. EXTREMITIES: No cyanosis, clubbing, 1+ edema. NEUROLOGIC: Generalized weakness. Vent Setting Fraction of Inspired Oxygen pe: 28 Results/Medications Result Diagram: 02/11/19 0442 02/09/19 0702 Results 24 hrs Laboratory Tests Test 02/11/19 04:42 White Blood Count 13.7 #H Red Blood Count 3.72 L Hemoglobin 10.1 L Hematocrit 31.3 L Mean Corpuscular Volume 84.1 Mean Corpuscular Hemoglobin 27.2 L Mean Corpuscular Hemoglobin Concent 32.3 Red Cell Distribution Width 14.2 Platelet Count 344 Mean Platelet Volume 10.5 H Immature Granulocytes % 0.600 H Neutrophils % 76.9 Lymphocytes % 9.6 L Monocytes % 6.4 Eosinophils % 5.9 Basophils % 0.6 Nucleated Red Blood Cells % 0.0 Immature Granulocytes # 0.080 H Neutrophils # 10.6 H Lymphocytes # 1.3 Monocytes # 0.9 Eosinophils # 0.8 H Basophils # 0.1 Nucleated Red Blood Cells # 0.0 Medications Current Medications Acetaminophen (Tylenol Tab) 650 mg Q4H PRN PO MILD PAIN 0-10/10; Start 02/06/19 at 17:00 Duloxetine HCl (Cymbalta) 90 mg DAILY PO Last administered on 02/11/19 09:58; Admin Dose 90 MG; Start 02/07/19 at 09:00 Famotidine (Pepcid) 20 mg QHS PO Last administered on 02/10/19 20:55; Admin Dose 20 MG; Start 02/06/19 at 21:00 Acetaminophen/ Hydrocodone Bitart ([place] (10325)) 1 tab Q8H PRN PO PAIN 7- 08/01 Last administered on 02/11/19 07:53; Admin Dose 1 TAB; Start 02/06/19 at 17:00 Levalbuterol (Xopenex Neb) 0.63 mg Q6H RESP THERAPY PRN HHN WHEEZING AND SOB Last administered on 02/09/19 14:15; Admin Dose 0.63 MG; Start 02/06/19 at 17:00 Magnesium Hydroxide (Milk Of Mag) 30 ml DAILY PO Last administered on 02/11/19 08:44; Admin Dose 30 ML; Start 02/07/19 at 09:00 Metoprolol Tartrate (Lopressor) 25 mg Q12H PO Last administered on 02/11/19 05:25; Admin Dose 25 MG; Start 02/06/19 at 17:00 Mineral Oil (Fleet Mineral Oil Enema) 118 ml Q72H [place] ; Start 02/06/19 at 17:00 Tramadol HCl (Ultram) 100 mg DAILY PRN PO PAIN; Start 02/06/19 at 17:00 Multivitamins/ Minerals (Theragran-M) 1 tab DAILY PO Last administered on 08:44; Admin Dose 1 TAB; Start 02/07/19 at 09:00 Piperacillin Sod/ Tazobactam Sod 100 ml @ 200 mls/hr Q8 IVPB Last administered on 02/11/19 05:23; Admin Dose 200 MLS/HR; Start 02/06/19 at 22:00 Gabapentin (Neurontin) 400 mg Q8 PO Last administered on 02/11/19 05:25; Admin Dose 400 MG; Start 02/06/19 at 22:00 Ondansetron HCl (Zofran Inj) 4 mg Q6H PRN IV NAUSEA/VOMITING; Start 02/06/19 at 20:30 Docusate Sodium (Colace) 100 mg Q12H PRN PO .CONSTIPATION; Start 02/06/19 at 20:30 Bisacodyl (Dulcolax) 5 mg DAILY PRN PO .CONSTIPATION; Start 02/06/19 at 20:30 Zolpidem Tartrate (Ambien) 5 mg QHS PRN PO .INSOMNIA; Start 02/06/19 at 20:30 Enoxaparin Sodium (Lovenox) 30 mg DAILY SC Last administered on 02/11/19at 08:54; Admin Dose 30 MG; Start 02/07/19 at 09:00 Promethazine HCl (Phenergan Liq) 10 mg Q8H PO Last administered on 02/11/19at 05:24; Admin Dose 10 MG; Start 02/07/19 at 11:30 Alprazolam (Xanax) 0.5 mg Q6H PRN PO ANXIETY Last administered on 02/09/19at 02:26; Admin Dose 0.5 MG; Start 02/07/19 at 11:30 Mupirocin (Bactroban) 1 applic BID TOP Last administered on 02/11/19at 08:44; Admin Dose 1 APPLIC; Start 02/08/19 at 11:00 Furosemide (Lasix) 40 mg DAILY@0600 IV Last administered on 02/11/19at 05:25; Admin Dose 40 MG; Start 02/08/19 at 12:30 Assessment/Plan Hospital Course (Demo Recall) IMPRESSION 1. Acute hypoxemic respiratory failure, likely secondary to a combination of congestion and volume overload. 2. History of a cervical spine injury with paraplegia. 3. Aortic stenosis. 4. Acute urinary tract infection. Plan 1. Continued antibiotics per infectious disease (ID). 2. Pulmonary toilet. 3. Chest percussion. 4. DC IV fluids and gentle diuresis 5. Percussion vest DC planning [facility]ALARZA MD[facility] Feb 11, 2019 12:09
--- NOTE | 2019-02-11 14:08 | CONS ---
Assessment/Plan Assessment/Plan Hospital Course (Demo Recall) Sepsis, possibly from pneumonia and UTI Paroxysmal atrial fibrillation, currently sinus rhythm Preserved ejection fraction Moderate aortic valve stenosis Hypertension -Patient with evidence of pneumonia based on chest x-ray and UTI based on urinalysis -Remains in sinus rhythm, continue beta-jailyn as tolerated -Patient with history of hematuria a few months ago on anticoagulation. Will re- attempt a/c given risk of thromboembolism-d/w patient and in agreement -Antibiotics as per infectious disease Consultation Date/Type/Reason Admit Date/Time Feb 06, 2019 at 15:14 Initial Consult Date 02/07/19 Type of Consult Cardiology Date/Time of Note DATE: 02/11/19 TIME: 14:07 24 HR Interval Summary Free Text/Dictation no sob, palp Exam/Review of Systems Vital Signs Vitals Vital Signs Date Temp Pulse Resp B/P (MAP) Pulse Ox O2 O2 Flow FiO2 Time Delivery Rate 02/11/19 Nasal 2.0 08:30 Cannula 02/11/19 98.0 62 18 157/71 90 08:10 (99) 02/07/19 28 20:14 Intake and Output 02/10/19 02/10/19 02/11/19 1515:00 23:00 07:00 IntakeIntake Total 1430 ml 340 ml 240 ml OutputOutput Total 1800 ml 1150 ml 1100 ml BalanceBalance -370 ml -810 ml -860 ml Exam Constitutional: alert, oriented (nad) Head: normocephalic Respiratory: other (course bs,no wheeze) Cardiovascular: regular rate and rhythm (s1s2) Gastrointestinal: soft, non-tender, bowel sounds Extremities: edema Labs Result Diagram: 02/11/19 0442 02/09/19 0702 Results 24hrs Laboratory Tests Test 02/11/19 04:42 White Blood Count 13.7 #H Red Blood Count 3.72 L Hemoglobin 10.1 L Hematocrit 31.3 L Mean Corpuscular Volume 84.1 Mean Corpuscular Hemoglobin 27.2 L Mean Corpuscular Hemoglobin Concent 32.3 Red Cell Distribution Width 14.2 Platelet Count 344 Mean Platelet Volume 10.5 H Immature Granulocytes % 0.600 H Neutrophils % 76.9 Lymphocytes % 9.6 L Monocytes % 6.4 Eosinophils % 5.9 Basophils % 0.6 Nucleated Red Blood Cells % 0.0 Immature Granulocytes # 0.080 H Neutrophils # 10.6 H Lymphocytes # 1.3 Monocytes # 0.9 Eosinophils # 0.8 H Basophils # 0.1 Nucleated Red Blood Cells # 0.0 Medications Medications Current Medications Acetaminophen (Tylenol Tab) 650 mg Q4H PRN PO MILD PAIN 0-10/10; Start 02/06/19 at 17:00 Duloxetine HCl (Cymbalta) 90 mg DAILY PO Last administered on 02/11/19 09:58; Admin Dose 90 MG; Start 02/07/19 at 09:00 Famotidine (Pepcid) 20 mg QHS PO Last administered on 02/10/19 20:55; Admin Dose 20 MG; Start 02/06/19 at 21:00 Acetaminophen/ Hydrocodone Bitart ([place] ()) 1 tab Q8H PRN PO PAIN 7- 1010 Last administered on 02/11/19 07:53; Admin Dose 1 TAB; Start 02/06/19 at 17:00 Levalbuterol (Xopenex Neb) 0.63 mg Q6H RESP THERAPY PRN HHN WHEEZING AND SOB Last administered on 02/09/19 14:15; Admin Dose 0.63 MG; Start 02/06/19 at 17:00 Magnesium Hydroxide (Milk Of Mag) 30 ml DAILY PO Last administered on 02/11/19 08:44; Admin Dose 30 ML; Start 02/07/19 at 09:00 Metoprolol Tartrate (Lopressor) 25 mg Q12H PO Last administered on 02/11/19 05:25; Admin Dose 25 MG; Start 02/06/19 at 17:00 Mineral Oil (Fleet Mineral Oil Enema) 118 ml Q72H MD ; Start 02/06/19 at 17:00 Tramadol HCl (Ultram) 100 mg DAILY PRN PO PAIN; Start 02/06/19 at 17:00 Multivitamins/ Minerals (Theragran-M) 1 tab DAILY PO Last administered on 02/11/19 08:44; Admin Dose 1 TAB; Start 02/07/19 at 09:00 Piperacillin Sod/ Tazobactam Sod 100 ml @ 200 mls/hr Q8 IVPB Last administered on 02/11/19 13:28; Admin Dose 200 MLS/HR; Start 02/06/19 at 22:00 Gabapentin (Neurontin) 400 mg Q8 PO Last administered on 02/11/19at 13:28; Admin Dose 400 MG; Start 02/06/19 at 22:00 Ondansetron HCl (Zofran Inj) 4 mg Q6H PRN IV NAUSEA/VOMITING; Start 02/06/19 at 20:30 Docusate Sodium (Colace) 100 mg Q12H PRN PO .CONSTIPATION; Start 02/06/19 at 20:30 Bisacodyl (Dulcolax) 5 mg DAILY PRN PO .CONSTIPATION; Start 02/06/19 at 20:30 Zolpidem Tartrate (Ambien) 5 mg QHS PRN PO .INSOMNIA; Start 02/06/19 at 20:30 Enoxaparin Sodium (Lovenox) 30 mg DAILY SC Last administered on 02/11/19at 08:54; Admin Dose 30 MG; Start 02/07/19 at 09:00 Promethazine HCl (Phenergan Liq) 10 mg Q8H PO Last administered on 02/11/19at 12:46; Admin Dose 10 MG; Start 02/07/19 at 11:30 Alprazolam (Xanax) 0.5 mg Q6H PRN PO ANXIETY Last administered on 02/09/19 02:26; Admin Dose 0.5 MG; Start 02/07/19 at 11:30 Mupirocin (Bactroban) 1 applic BID TOP Last administered on 02/11/19 08:44; Admin Dose 1 APPLIC; Start 02/08/19 at 11:00 Furosemide (Lasix) 40 mg DAILY@0600 IV Last administered on 02/11/19at 05:25; Admin Dose 40 MG; Start 02/08/19 at 12:30 Varinder Girard DO Feb 11, 2019 14:08
--- NOTE | 2019-02-11 14:32 | PN ---
Date/Time of Note Date/Time of Note DATE: 02/11/19 TIME: 14:31 Assessment/Plan VTE Prophylaxis Risk [place]from [facility] [place] risk: 6 SCD applied (from Ns): Yes Pharmacological prophylaxis: LMWH Lines/Catheters IV Catheter Type (from [facility] [place] Urinary Cath still in place: Yes Reason Cath still needed: skin wounds contaminated by urine Assessment/Plan Hospital Course -Sepsis with fevers and leukocytosis most likely secondary to urinary tract infection, possible pneumonia, GPC bacteremia. Follow-up on cultures. Continue broad-spectrum antibiotics. Dr. Huynh is following in infection disease consultation. -GPC Bacteremia. -Pneumonia. -UTI per UA -MRSA of nares -Chronic Avila catheter -Quadriplegia -Hypertension -Persistent hyponatremia. Dr. Link is following in nephrology consultation. -Hyperlipidemia -Paroxysmal atrial fibrillation, currently in sinus rhythm. Dr. Girard is following in cardiology consultation. -Chronic tracheostomy which is currently capped. Dr. Giles is following in pulmonology consultation. Result Diagram: 02/11/19 0442 02/09/19 0702 Results 24hrs Laboratory Tests Test 02/11/19 04:42 White Blood Count 13.7 #H Red Blood Count 3.72 L Hemoglobin 10.1 L Hematocrit 31.3 L Mean Corpuscular Volume 84.1 Mean Corpuscular Hemoglobin 27.2 L Mean Corpuscular Hemoglobin Concent 32.3 Red Cell Distribution Width 14.2 Platelet Count 344 Mean Platelet Volume 10.5 H Immature Granulocytes % 0.600 H Neutrophils % 76.9 Lymphocytes % 9.6 L Monocytes % 6.4 Eosinophils % 5.9 Basophils % 0.6 Nucleated Red Blood Cells % 0.0 Immature Granulocytes # 0.080 H Neutrophils # 10.6 H Lymphocytes # 1.3 Monocytes # 0.9 Eosinophils # 0.8 H Basophils # 0.1 Nucleated Red Blood Cells # 0.0 Subjective 24 Hr Interval Summary Free Text/Dictation Patient has no complaints Exam/Review of Systems Exam Vitals Vital Signs Date Temp Pulse Resp B/P (MAP) Pulse Ox O2 O2 Flow FiO2 Time Delivery Rate 02/11/19 Nasal 2.0 08:30 Cannula 02/11/19 98.0 62 18 157/71 90 08:10 (99) 02/07/19 28 20:14 Intake and Output 02/10/19 02/10/19 02/11/19 1515:00 23:00 07:00 IntakeIntake Total 1430 ml 340 ml 240 ml OutputOutput Total 1800 ml 1150 ml 1100 ml BalanceBalance -370 ml -810 ml -860 ml Constitutional: well developed Head: normocephalic, atraumatic Neck: supple Respiratory: diminished breath sounds Cardiovascular: regular rate and rhythm Gastrointestinal: soft, non-tender Extremities: normal pulses Results Results 24hrs Laboratory Tests Test 02/11/19 04:42 White Blood Count 13.7 #H Red Blood Count 3.72 L Hemoglobin 10.1 L Hematocrit 31.3 L Mean Corpuscular Volume 84.1 Mean Corpuscular Hemoglobin 27.2 L Mean Corpuscular Hemoglobin Concent 32.3 Red Cell Distribution Width 14.2 Platelet Count 344 Mean Platelet Volume 10.5 H Immature Granulocytes % 0.600 H Neutrophils % 76.9 Lymphocytes % 9.6 L Monocytes % 6.4 Eosinophils % 5.9 Basophils % 0.6 Nucleated Red Blood Cells % 0.0 Immature Granulocytes # 0.080 H Neutrophils # 10.6 H Lymphocytes # 1.3 Monocytes # 0.9 Eosinophils # 0.8 H Basophils # 0.1 Nucleated Red Blood Cells # 0.0 Medications Medication Current Medications Acetaminophen (Tylenol Tab) 650 mg Q4H PRN PO MILD PAIN 0-10/10; Start 02/06/19 at 17:00 Duloxetine HCl (Cymbalta) 90 mg DAILY PO Last administered on 02/11/19at 09:58; Admin Dose 90 MG; Start 02/07/19 at 09:00 Famotidine (Pepcid) 20 mg QHS PO Last administered on 02/10/19at 20:55; Admin Dose 20 MG; Start 02/06/19 at 21:00 Acetaminophen/ Hydrocodone Bitart ([place] (10/325)) 1 tab Q8H PRN PO PAIN 7- 10/10 Last administered on 02/11/19at 07:53; Admin Dose 1 TAB; Start 02/06/19 at 17:00 Levalbuterol (Xopenex Neb) 0.63 mg Q6H RESP THERAPY PRN HHN WHEEZING AND SOB Last administered on 02/09/19at 14:15; Admin Dose 0.63 MG; Start 02/06/19 at 17:00 Magnesium Hydroxide (Milk Of Mag) 30 ml DAILY PO Last administered on 02/11/19 08:44; Admin Dose 30 ML; Start 02/07/19 at 09:00 Metoprolol Tartrate (Lopressor) 25 mg Q12H PO Last administered on 02/11/19 05:25; Admin Dose 25 MG; Start 02/06/19 at 17:00 Mineral Oil (Fleet Mineral Oil Enema) 118 ml Q72H [place] ; Start 02/06/19 at 17:00 Tramadol HCl (Ultram) 100 mg DAILY PRN PO PAIN; Start 02/06/19 at 17:00 Multivitamins/ Minerals (Theragran-M) 1 tab DAILY PO Last administered on 02/11/19 08:44; Admin Dose 1 TAB; Start 02/07/19 at 09:00 Piperacillin Sod/ Tazobactam Sod 100 ml @ 200 mls/hr Q8 IVPB Last administered on 02/11/19 13:28; Admin Dose 200 MLS/HR; Start 02/06/19 at 22:00 Gabapentin (Neurontin) 400 mg Q8 PO Last administered on 02/11/19 13:28; Admin Dose 400 MG; Start 02/06/19 at 22:00 Ondansetron HCl (Zofran Inj) 4 mg Q6H PRN IV NAUSEA/VOMITING; Start 02/06/19 at 20:30 Docusate Sodium (Colace) 100 mg Q12H PRN PO .CONSTIPATION; Start 02/06/19 at 2 0:30 Bisacodyl (Dulcolax) 5 mg DAILY PRN PO .CONSTIPATION; Start 02/06/19 at 20:30 Zolpidem Tartrate (Ambien) 5 mg QHS PRN PO .INSOMNIA; Start 02/06/19 at 20:30 Promethazine HCl (Phenergan Liq) 10 mg Q8H PO Last administered on 02/11/19 12:46; Admin Dose 10 MG; Start 02/07/19 at 11:30 Alprazolam (Xanax) 0.5 mg Q6H PRN PO ANXIETY Last administered on 02/09/19 02:26; Admin Dose 0.5 MG; Start 02/07/19 at 11:30 Mupirocin (Bactroban) 1 applic BID TOP Last administered on 02/11/19at 08:44; Admin Dose 1 APPLIC; Start 02/08/19 at 11:00 Furosemide (Lasix) 40 mg DAILY@0600 IV Last administered on 02/11/19at 05:25; Admin Dose 40 MG; Start 02/08/19 at 12:30 Apixaban (Eliquis) 5 mg BID PO ; Start 02/11/19 at 21:[address] Feb 11, 2019 14:32
--- NOTE | 2019-02-11 16:32 | CONS ---
Assessment/Plan Assessment/Plan Hospital Course (Demo Recall) # sepsis, leukocytosis, blood stream infections - recurrent leukocytosis - Bacteremia - 02/06/19 blood cultures grew coag neg staph -> likely contaminant - repeat cultures 02/07 and 02/08 are NGTD - s/p Staph spp in the blood culture from 11/18/2018, probable contaminant # respiratory - HCAP, sputum culture grew pseudomonas, proteus, and normal jodi 02/07/19 - worsening congestion of the airway, requiring more tracheal suction daily - frequent HCAP at [facility], has taken many courses of pip/tazo - MRSA nares 02/06/19 - h/o recurrent pneumonia, pseudomonas - h/o tracheostomy capped with Passy-Roberts valve # - Recurrent UT; urine culture 02/06/19 grew proteus mirabilis and VRE - frequent UTI at [facility], has taken many courses of pip/tazo - chronic indwelling urinary catheter in place, it gets exchanged monthly according to Pt - hx of hemorrhagic UTI - h/o recurrent UTI, morganella - h/o ALEXA - h/o prostate CA # neuro, musculoskeletal, derm - h/o hemorrhagic blister of L heel, resolved - h/o decubitus ulcer of L heel s/p debridement. Wound culture grew coag negative Staph only - h/o paronychia of L 4th and 5th fingers s/p debridement by Dr. Monteiro # neuro, cardiac - paraplegia after complications from C-spinal surgery in 01/2017 - h/o intermittent aphasia - hx A fib with RVR recommendations: - ordered repeat urinalysis, urine culture, resp cultrue - change pip/tazo to gentamicin (02/11/2019). Pt completed pip/tazo 02/06- 02/10/2019 management d/w Pt, his and RN Mckayla The total time I took to care for this Pt today was from 1615 to 1730 Consultation Date/Type/Reason Admit Date/Time Feb 06, 2019 at 15:14 Initial Consult Date 02/07/19 Type of Consult ID Date/Time of Note DATE: 02/11/19 TIME: 16:28 24 HR Interval Summary Constitutional: other (sleepy) Detailed Summary Eyes: no complaints ENT: no complaints Respiratory: other (needs to be suctioned more frequently) Cardiovascular: no complaints Gastrointestinal: no complaints Genitourinary: other (FC) Musculoskeletal: restricted range of motion Skin: no complaints Neurologic: other (paraplegic) Exam/Review of Systems Exam Vitals Vital Signs Date Temp Pulse Resp B/P (MAP) Pulse Ox O2 O2 Flow FiO2 Time Delivery Rate 02/11/19 Nasal 2.0 08:30 Cannula 02/11/19 98.0 62 18 157/71 90 08:10 (99) 02/07/19 28 20:14 Intake and Output 02/10/19 02/10/19 02/11/19 1414:59 22:59 06:59 IntakeIntake Total 1430 ml 340 ml 240 ml OutputOutput Total 1800 ml 1150 ml 1100 ml BalanceBalance -370 ml -810 ml -860 ml Constitutional: frail, other (lethargic) Psych: nl mood/affect Head: normocephalic, atraumatic Eyes: nl conjunctiva, nl lids, nl sclera ENMT: nl external ears & nose, nl lips & teeth, nl nasal mucosa & septum, mucosa pink and moist Neck: other (+trachea) Respiratory: crackles/rales, wheezing Cardiovascular: regular rate and rhythm, nl pulses Gastrointestinal: soft, non-tender; No distended Musculoskeletal: other (contractured) Extremities: pitting pedal edema Neurological: lethargic Skin: rash or lesions (decub on L heel, and R posterior thigh, appears to be healing) Results Result Diagram: 02/11/19 0442 02/09/19 0702 Results 24hrs Laboratory Tests Test 02/11/19 04:42 White Blood Count 13.7 #H Red Blood Count 3.72 L Hemoglobin 10.1 L Hematocrit 31.3 L Mean Corpuscular Volume 84.1 Mean Corpuscular Hemoglobin 27.2 L Mean Corpuscular Hemoglobin Concent 32.3 Red Cell Distribution Width 14.2 Platelet Count 344 Mean Platelet Volume 10.5 H Immature Granulocytes % 0.600 H Neutrophils % 76.9 Lymphocytes % 9.6 L Monocytes % 6.4 Eosinophils % 5.9 Basophils % 0.6 Nucleated Red Blood Cells % 0.0 Immature Granulocytes # 0.080 H Neutrophils # 10.6 H Lymphocytes # 1.3 Monocytes # 0.9 Eosinophils # 0.8 H Basophils # 0.1 Nucleated Red Blood Cells # 0.0 Medications Medication Current Medications Acetaminophen (Tylenol Tab) 650 mg Q4H PRN PO MILD PAIN 0-10/10; Start 02/06/19 at 17:00 Duloxetine HCl (Cymbalta) 90 mg DAILY PO Last administered on 02/11/19 09:58; Admin Dose 90 MG; Start 02/07/19 at 09:00 Famotidine (Pepcid) 20 mg QHS PO Last administered on 02/10/19 20:55; Admin Dose 20 MG; Start 02/06/19 at 21:00 Acetaminophen/ Hydrocodone Bitart ([place] (10/325)) 1 tab Q8H PRN PO PAIN 7- 10/10 Last administered on 02/11/19 07:53; Admin Dose 1 TAB; Start 02/06/19 at 17:00 Levalbuterol (Xopenex Neb) 0.63 mg Q6H RESP THERAPY PRN HHN WHEEZING AND SOB Last administered on 02/09/19 14:15; Admin Dose 0.63 MG; Start 02/06/19 at 17:00 Magnesium Hydroxide (Milk Of Mag) 30 ml DAILY PO Last administered on 02/11/19 08:44; Admin Dose 30 ML; Start 02/07/19 at 09:00 Metoprolol Tartrate (Lopressor) 25 mg Q12H PO Last administered on 02/11/19 05:25; Admin Dose 25 MG; Start 02/06/19 at 17:00 Mineral Oil (Fleet Mineral Oil Enema) 118 ml Q72H [place] ; Start 02/06/19 at 17:00 Tramadol HCl (Ultram) 100 mg DAILY PRN PO PAIN; Start 02/06/19 at 17:00 Multivitamins/ Minerals (Theragran-M) 1 tab DAILY PO Last administered on 02/11/19 08:44; Admin Dose 1 TAB; Start 02/07/19 at 09:00 Piperacillin Sod/ Tazobactam Sod 100 ml @ 200 mls/hr Q8 IVPB Last administered on 02/11/19 13:28; Admin Dose 200 MLS/HR; Start 02/06/19 at 22:00 Gabapentin (Neurontin) 400 mg Q8 PO Last administered on 02/11/19 13:28; Admin Dose 400 MG; Start 02/06/19 at 22:00 Ondansetron HCl (Zofran Inj) 4 mg Q6H PRN IV NAUSEA/VOMITING; Start 02/06/19 at 20:30 Docusate Sodium (Colace) 100 mg Q12H PRN PO .CONSTIPATION; Start 02/06/19 at 20:30 Bisacodyl (Dulcolax) 5 mg DAILY PRN PO .CONSTIPATION; Start 02/06/19 at 20:30 Zolpidem Tartrate (Ambien) 5 mg QHS PRN PO .INSOMNIA; Start 02/06/19 at 20:30 Promethazine HCl (Phenergan Liq) 10 mg Q8H PO Last administered on 02/11/19at 12:46; Admin Dose 10 MG; Start 02/07/19 at 11:30 Alprazolam (Xanax) 0.5 mg Q6H PRN PO ANXIETY Last administered on 02/09/19at 02:26; Admin Dose 0.5 MG; Start 02/07/19 at 11:30 Mupirocin (Bactroban) 1 applic BID TOP Last administered on 02/11/19at 08:44; Admin Dose 1 APPLIC; Start 02/08/19 at 11:00 Furosemide (Lasix) 40 mg DAILY@0600 IV Last administered on 02/11/19at 05:25; Admin Dose 40 MG; Start 02/08/19 at 12:30 Apixaban (Eliquis) 5 mg BID PO ; Start 02/11/19 at 21:00 MYLENE ALVARES M.D. Feb 11, 2019 16:32
[2019-02-11] MEDS ORDERED: GENTAMICIN IV PER PHARMACY XX SCH (17:30)
[2019-02-11 20:39] VITALS: BP 130/61; PULSE 63; RESP 18
[2019-02-11] MEDS: GENTAMICIN 140 MG in DEXTROSE 5% 100 ML IVPB SCH (20:51)
[2019-02-11] MEDS: FAMOTIDINE 20 MG TAB PO SCH (21:29)
[2019-02-11] MEDS: APIXABAN 5 MG TABLET PO SCH (21:29)
[2019-02-12 02:28] VITALS: BP 135/63; PULSE 66; RESP 18
[2019-02-12] MEDS: PROMETHAZINE (1.25 MG/ML) 5 ML CUP PO SCH ×2 (03:19→11:29)
[2019-02-12] MEDS: GABAPENTIN 400 MG CAP PO SCH ×3 (05:46→21:23)
[2019-02-12] MEDS: METOPROLOL 25 MG TAB PO SCH ×2 (05:46→16:49)
[2019-02-12] MEDS: FUROSEMIDE 40 MG INJ IV SCH (05:55)
[2019-02-12 07:43] VITALS: BP 138/64; PULSE 69; RESP 20
[2019-02-12] MEDS: MAGNESIUM HYDROXIDE 30ML CUP PO SCH (08:28)
[2019-02-12] MEDS: APIXABAN 5 MG TABLET PO SCH ×2 (08:28→21:23)
[2019-02-12] MEDS: MULTIVITAMINS/MINERALS TAB PO SCH (08:28)
[2019-02-12] MEDS: DULOXETINE 30 MG CAP DR PO SCH (08:28)
[2019-02-12] MEDS: GENTAMICIN 140 MG in DEXTROSE 5% 100 ML IVPB SCH ×2 (08:29→21:23)
[2019-02-12] MEDS: MUPIROCIN 2% 22 GM OINT TOP SCH ×2 (08:29→21:26)
--- NOTE | 2019-02-12 09:32 | PN ---
DATE: 02/12/2019 SUBJECTIVE: The patient is stable, no events overnight. No fevers, chills, nausea, or vomiting. OBJECTIVE: VITAL SIGNS: Blood pressure is 138/64, respirations 20, pulse 69, temperature 98.9. HEENT: Head is normocephalic. NECK: Supple. HEART: Regular rate. LUNGS: Show diminished breath sounds at the base. ABDOMEN: Soft, nontender to palpation without rebound or guarding. EXTREMITIES: Negative for clubbing, cyanosis, no edema. DERMATOLOGIC: No rashes. MUSCULOSKELETAL: No joint effusion. NEUROLOGIC: No change in exam. MEDICATIONS: Reviewed. LABORATORY DATA: From 02/12/2019 is pending. ASSESSMENT AND PLAN: 1. Hypernatremia, etiology is felt to be multifactorial initially due to polydipsia in conjunction w ith volume depletion. The patient now appears to be volume overload, questionable underlying syndrom e of inappropriate antidiuretic hormone. The patient is currently on diuretic therapy. Plan is to f ollow up sodium level. Continue to limit free water intake and monitor closely. 2. Hypomagnesemia, improved. 3. Anemia. Monitor hemoglobin and hematocrit levels. 4. Sepsis secondary to urinary tract infection, pneumonia. The patient is completing antibiotic cou rse. 5. Hypertension. Continue current blood pressure regimen. 6. Chronic respiratory failure, status post trach. 7. Dysphagia. Continue modified diet. 8. 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 9. Lower extremity wounds. Continue wound care. Dictated By: SARAH WANG/NTS Conf#: [id number] DID#: [id number] CC: YADIRA LOW MD; CHONG SORIANO MD;*EndCC*
--- NOTE | 2019-02-12 11:52 | CONS ---
Consult Date/Type/Reason Admit Date/Time Feb 06, 2019 at 15:14 Initial Consult Date 02/07/19 Type of Consult Pulmonary Date/Time of Note DATE: 02/12/19 TIME: 11:51 Subjective Respiratory status remained stable. Objective Vital Signs Date Temp Pulse Resp B/P (MAP) Pulse Ox O2 O2 Flow FiO2 Time Delivery Rate 02/12/19 2.0 08:05 02/12/19 Nasal 08:00 Cannula 02/12/19 98.9 69 20 138/64 95 07:43 (88) Intake and Output 02/11/19 02/11/19 02/12/19 1515:00 23:00 07:00 IntakeIntake Total 2260 ml 943.5 ml 1440 ml OutputOutput Total 300 ml 1200 ml 2000 ml BalanceBalance 1960 ml -256.5 ml -560 ml Exam PHYSICAL EXAMINATION: GENERAL: Well-nourished, well-developed gentleman, appears comfortable at rest, no acute distress. VITAL SIGNS: NECK: Supple. Tracheostomy site clean and intact. CARDIAC EXAM: S1, S2. No added sounds or murmurs. CHEST: Diminished air entry bilaterally. ABDOMEN: Soft, nontender. No guarding or rebound. EXTREMITIES: No cyanosis, clubbing, 1+ edema. NEUROLOGIC: Generalized weakness. Vent Setting Fraction of Inspired Oxygen pe: 28 Results/Medications Result Diagram: 02/12/19 0727 02/12/19 0727 Results 24 hrs Laboratory Tests Test 02/11/19 18:00 02/12/19 07:27 Urine Color YELLOW Urine Clarity CLOUDY A Urine pH 6.0 Urine Specific [place] 1.002 L Urine Ketones NEGATIVE Urine Nitrite NEGATIVE Urine Bilirubin NEGATIVE Urine Urobilinogen NEGATIVE Urine Leukocyte Esterase 3+ H Urine Microscopic RBC 15 H Urine Microscopic WBC 16 H Urine Bacteria FEW A Urine Yeast (Budding) MODERATE A Urine Hemoglobin 2+ H Urine Glucose NEGATIVE Urine Total Protein NEGATIVE White Blood Count 15.0 H Red Blood Count 3.61 L Hemoglobin 9.9 L Hematocrit 31.5 L Mean Corpuscular Volume 87.3 Mean Corpuscular Hemoglobin 27.4 L Mean Corpuscular Hemoglobin Concent 31.4 L Red Cell Distribution Width 14.4 Platelet Count 346 Mean Platelet Volume 12.1 H Immature Granulocytes % 0.600 H Neutrophils % 79.2 H Lymphocytes % 8.8 L Monocytes % 5.5 Eosinophils % 5.4 Basophils % 0.5 Nucleated Red Blood Cells % 0.0 Immature Granulocytes # 0.090 H Neutrophils # 11.9 H Lymphocytes # 1.3 Monocytes # 0.8 Eosinophils # 0.8 H Basophils # 0.1 Nucleated Red Blood Cells # 0.0 Sodium Level 134 L Potassium Level 5.0 Chloride Level 94 L Carbon Dioxide Level 29 Anion Gap 11 Blood Urea Nitrogen 8 Creatinine 0.71 Est Glomerular Filtrat Rate mL/min > 60 Glucose Level 91 Calcium Level 9.6 Phosphorus Level 4.6 Magnesium Level 2.4 Medications Current Medications Acetaminophen (Tylenol Tab) 650 mg Q4H PRN PO MILD PAIN 0-10/10; Start 02/06/19 at 17:00 Duloxetine HCl (Cymbalta) 90 mg DAILY PO Last administered on 02/12/19 08:28; Admin Dose 90 MG; Start 02/07/19 at 09:00 Famotidine (Pepcid) 20 mg QHS PO Last administered on 02/11/19 21:29; Admin Dose 20 MG; Start 02/06/19 at 21:00 Acetaminophen/ Hydrocodone Bitart ([place] (10/325)) 1 tab Q8H PRN PO PAIN 7- 10/10 Last administered on 02/11/19 17:22; Admin Dose 1 TAB; Start 02/06/19 at 17:00 Levalbuterol (Xopenex Neb) 0.63 mg Q6H RESP THERAPY PRN HHN WHEEZING AND SOB Last administered on 02/09/19 14:15; Admin Dose 0.63 MG; Start 02/06/19 at 17:00 Magnesium Hydroxide (Milk Of Mag) 30 ml DAILY PO Last administered on 02/12/19 08:28; Admin Dose 30 ML; Start 02/07/19 at 09:00 Metoprolol Tartrate (Lopressor) 25 mg Q12H PO Last administered on 02/12/19 05:46; Admin Dose 25 MG; Start 02/06/19 at 17:00 Mineral Oil (Fleet Mineral Oil Enema) 118 ml Q72H [place] ; Start 02/06/19 at 17:00 Tramadol HCl (Ultram) 100 mg DAILY PRN PO PAIN; Start 02/06/19 at 17:00 Multivitamins/ Minerals (Theragran-M) 1 tab DAILY PO Last administered on 02/12/19 08:28; Admin Dose 1 TAB; Start 02/07/19 at 09:00 Gabapentin (Neurontin) 400 mg Q8 PO Last administered on 02/12/19 05:46; Admin Dose 400 MG; Start 02/06/19 at 22:00 Ondansetron HCl (Zofran Inj) 4 mg Q6H PRN IV NAUSEA/VOMITING; Start 02/06/19 at 20:30 Docusate Sodium (Colace) 100 mg Q12H PRN PO .CONSTIPATION; Start 02/06/19 at 20:30 Bisacodyl (Dulcolax) 5 mg DAILY PRN PO .CONSTIPATION; Start 02/06/19 at 20:30 Zolpidem Tartrate (Ambien) 5 mg QHS PRN PO .INSOMNIA; Start 02/06/19 at 20:30 Promethazine HCl (Phenergan Liq) 10 mg Q8H PO Last administered on 02/12/19 11:29; Admin Dose 10 MG; Start 02/07/19 at 11:30 Alprazolam (Xanax) 0.5 mg Q6H PRN PO ANXIETY Last administered on 02/09/19 02:26; Admin Dose 0.5 MG; Start 02/07/19 at 11:30 Mupirocin (Bactroban) 1 applic BID TOP Last administered on 02/12/19 08:29; Admin Dose 1 APPLIC; Start 02/08/19 at 11:00 Furosemide (Lasix) 40 mg DAILY@0600 IV Last administered on 02/12/19 05:55; Admin Dose 40 MG; Start 02/08/19 at 12:30 Apixaban (Eliquis) 5 mg BID PO Last administered on 02/12/19 08:28; Admin Dose 5 MG; Start 02/11/19 at 21:00 Gentamicin Sulfate (Gentamicin Iv Per Pharmacy) GENTAMICIN PER PHARMACY NOTE XX ; Start 02/11/19 at 17:30; Stop 02/16/19 at 17:29 Gentamicin Sulfate 140 mg/ Dextrose 103.5 ml @ 103.75 mls/ hr Q12H IVPB Last administered on 02/12/19 08:29; Admin Dose 103.75 MLS/HR; Start 02/11/19 at 20:30 Assessment/Plan Hospital Course (Demo Recall) IMPRESSION 1. Acute hypoxemic respiratory failure, likely secondary to a combination of congestion and volume overload. 2. History of a cervical spine injury with paraplegia. 3. Aortic stenosis. 4. Acute urinary tract infection. Plan 1. Continued antibiotics per infectious disease (ID). 2. Pulmonary toilet. 3. Chest percussion. 4. DC IV fluids and gentle diuresis 5. Percussion vest 6. ID recommendations DC planning okay from pulmonary standpoint MOE GALARZA MD, [facility] Feb 12, 2019 11:52
--- NOTE | 2019-02-12 13:04 | CONS ---
Assessment/Plan Assessment/Plan Hospital Course (Demo Recall) Sepsis, possibly from pneumonia and UTI Paroxysmal atrial fibrillation, currently sinus rhythm Preserved ejection fraction Moderate aortic valve stenosis Hypertension -Patient with evidence of pneumonia based on chest x-ray and UTI based on urinalysis -Remains in sinus rhythm, continue beta-jailyn as tolerated -Patient was restarted on anticoagulation yesterday evening. Did have some nose bleeding this morning, this was in the setting of receiving intranasal medication and patient felt it was administered aggressively. No further bleeding. -Antibiotics as per infectious disease Consultation Date/Type/Reason Admit Date/Time Feb 06, 2019 at 15:14 Initial Consult Date 02/07/19 Type of Consult Cardiology Date/Time of Note DATE: 02/12/19 TIME: 13:02 24 HR Interval Summary Free Text/Dictation No shortness of breath, palpitations, chest pain Exam/Review of Systems Vital Signs Vitals Vital Signs Date Temp Pulse Resp B/P (MAP) Pulse Ox O2 O2 Flow FiO2 Time Delivery Rate 02/12/19 2.0 08:05 02/12/19 Nasal 08:00 Cannula 02/12/19 98.9 69 20 138/64 95 07:43 (88) Intake and Output 02/11/19 02/11/19 02/12/19 1515:00 23:00 07:00 IntakeIntake Total 2260 ml 943.5 ml 1440 ml OutputOutput Total 300 ml 1200 ml 2000 ml BalanceBalance 1960 ml -256.5 ml -560 ml Exam Constitutional: alert, oriented (No apparent distress) Head: normocephalic Respiratory: other (Coarse breath sounds bilaterally, no wheezing) Cardiovascular: regular rate and rhythm (s1 S2 heard) Gastrointestinal: soft, non-tender, bowel sounds Extremities: edema Labs Result Diagram: 02/12/19 0727 02/12/1927 Results 24hrs Laboratory Tests Test 02/11/19 18:00 02/12/19 07:27 Urine Color YELLOW Urine Clarity CLOUDY A Urine pH 6.0 Urine Specific [place] 1.002 L Urine Ketones NEGATIVE Urine Nitrite NEGATIVE Urine Bilirubin NEGATIVE Urine Urobilinogen NEGATIVE Urine Leukocyte Esterase 3+ H Urine Microscopic RBC 15 H Urine Microscopic WBC 16 H Urine Bacteria FEW A Urine Yeast (Budding) MODERATE A Urine Hemoglobin 2+ H Urine Glucose NEGATIVE Urine Total Protein NEGATIVE White Blood Count 15.0 H Red Blood Count 3.61 L Hemoglobin 9.9 L Hematocrit 31.5 L Mean Corpuscular Volume 87.3 Mean Corpuscular Hemoglobin 27.4 L Mean Corpuscular Hemoglobin Concent 31.4 L Red Cell Distribution Width 14.4 Platelet Count 346 Mean Platelet Volume 12.1 H Immature Granulocytes % 0.600 H Neutrophils % 79.2 H Lymphocytes % 8.8 L Monocytes % 5.5 Eosinophils % 5.4 Basophils % 0.5 Nucleated Red Blood Cells % 0.0 Immature Granulocytes # 0.090 H Neutrophils # 11.9 H Lymphocytes # 1.3 Monocytes # 0.8 Eosinophils # 0.8 H Basophils # 0.1 Nucleated Red Blood Cells # 0.0 Sodium Level 134 L Potassium Level 5.0 Chloride Level 94 L Carbon Dioxide Level 29 Anion Gap 11 Blood Urea Nitrogen 8 Creatinine 0.71 Est Glomerular Filtrat Rate mL/min > 60 Glucose Level 91 Calcium Level 9.6 Phosphorus Level 4.6 Magnesium Level 2.4 Medications Medications Current Medications Acetaminophen (Tylenol Tab) 650 mg Q4H PRN PO MILD PAIN 0-10/10; Start 02/06/19 at 17:00 Duloxetine HCl (Cymbalta) 90 mg DAILY PO Last administered on 02/12/19 08:28; Admin Dose 90 MG; Start 02/07/19 at 09:00 Famotidine (Pepcid) 20 mg QHS PO Last administered on 02/11/19 21:29; Admin Dose 20 MG; Start 02/06/19 at 21:00 Acetaminophen/ Hydrocodone Bitart ([place] (10/325)) 1 tab Q8H PRN PO PAIN 7- 10/10 Last administered on 02/11/19 17:22; Admin Dose 1 TAB; Start 02/06/19 at 17:00 Levalbuterol (Xopenex Neb) 0.63 mg Q6H RESP THERAPY PRN HHN WHEEZING AND SOB Last administered on 02/09/19 14:15; Admin Dose 0.63 MG; Start 02/06/19 at 17:00 Magnesium Hydroxide (Milk Of Mag) 30 ml DAILY PO Last administered on 02/12/19 08:28; Admin Dose 30 ML; Start 02/07/19 at 09:00 Metoprolol Tartrate (Lopressor) 25 mg Q12H PO Last administered on 02/12/19 05:46; Admin Dose 25 MG; Start 02/06/19 at 17:00 Mineral Oil (Fleet Mineral Oil Enema) 118 ml Q72H [place] ; Start 02/06/19 at 17:00 Tramadol HCl (Ultram) 100 mg DAILY PRN PO PAIN; Start 02/06/19 at 17:00 Multivitamins/ Minerals (Theragran-M) 1 tab DAILY PO Last administered on 02/12/19 08:28; Admin Dose 1 TAB; Start 02/07/19 at 09:00 Gabapentin (Neurontin) 400 mg Q8 PO Last administered on 02/12/19 05:46; Admin Dose 400 MG; Start 02/06/19 at 22:00 Ondansetron HCl (Zofran Inj) 4 mg Q6H PRN IV NAUSEA/VOMITING; Start 02/06/19 at 20:30 Docusate Sodium (Colace) 100 mg Q12H PRN PO .CONSTIPATION; Start 02/06/19 at 20:30 Bisacodyl (Dulcolax) 5 mg DAILY PRN PO .CONSTIPATION; Start 02/06/19 at 20:30 Zolpidem Tartrate (Ambien) 5 mg QHS PRN PO .INSOMNIA; Start 02/06/19 at 20:30 Promethazine HCl (Phenergan Liq) 10 mg Q8H PO Last administered on 02/12/19 11:29; Admin Dose 10 MG; Start 02/07/19 at 11:30 Alprazolam (Xanax) 0.5 mg Q6H PRN PO ANXIETY Last administered on 02/09/19 02:26; Admin Dose 0.5 MG; Start 02/07/19 at 11:30 Mupirocin (Bactroban) 1 applic BID TOP Last administered on 02/12/19 08:29; Admin Dose 1 APPLIC; Start 02/08/19 at 11:00 Furosemide (Lasix) 40 mg DAILY@0600 IV Last administered on 02/12/19 05:55; Admin Dose 40 MG; Start 02/08/19 at 12:30 Apixaban (Eliquis) 5 mg BID PO Last administered on 02/12/19 08:28; Admin Dose 5 MG; Start 02/11/19 at 21:00 Gentamicin Sulfate (Gentamicin Iv Per Pharmacy) GENTAMICIN PER PHARMACY NOTE XX ; Start 02/11/19 at 17:30; Stop 02/16/19 at 17:29 Gentamicin Sulfate 140 mg/ Dextrose 103.5 ml @ 103.75 mls/ hr Q12H IVPB Last administered on 02/12/19at 08:29; Admin Dose 103.75 MLS/HR; Start 02/11/19 at 20:30 Varinder Girard DO Feb 12, 2019 13:04
[2019-02-12 13:49] VITALS: BP 173/74; PULSE 72; RESP 20
[2019-02-12] MEDS ORDERED: PROMETHAZINE (1.25 MG/ML) 5 ML CUP PO PRN (16:00)
[2019-02-12] MEDS ORDERED: hydrALAzine 20 MG INJ IV PRN (16:00)
[2019-02-12] MEDS: AMLODIPINE 5 MG TAB PO SCH (16:30)
[2019-02-12] MEDS: MINERAL OIL 133 ML ENEMA PR SCH (17:00)
[2019-02-12 20:00] VITALS: BP 131/60; PULSE 68; RESP 18
[2019-02-12] MEDS: FAMOTIDINE 20 MG TAB PO SCH (21:23)
--- NOTE | 2019-02-12 22:12 | CONS ---
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 Wound culture grew coag negative Staph only - h/o paronychia of L 4th and 5th fingers s/p debridement by Dr. 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 I reminded Pt's RN Darrick to collect it - ordered for AM: blood cultures x2, procalcitonin, lactic acid - continue gentamicin (02/11/2019). Pt completed pip/tazo 02/06-02/10/2019 management d/w Pt, his RN Darrick Consultation Date/Type/Reason Admit Date/Time Feb 06, 2019 at 15:14 Initial Consult Date 02/07/19 Type of Consult ID Date/Time of Note DATE: 02/12/19 TIME: 22:05 24 HR Interval Summary Constitutional: no complaints, febrile (100.5F this afternoon) Detailed Summary Eyes: no complaints ENT: no complaints Respiratory: no complaints (does not feel congested) Cardiovascular: no complaints Gastrointestinal: no complaints Genitourinary: no complaints Musculoskeletal: restricted range of motion Neurologic: focal-weakness Exam/Review of Systems Exam Vitals Vital Signs Date Temp Pulse Resp B/P (MAP) Pulse Ox O2 O2 Flow FiO2 Time Delivery Rate 02/12/19 98.6 68 18 131/60 95 20:00 (83) 02/12/19 2.0 08:05 02/12/19 Nasal 08:00 Cannula Intake and Output 02/11/19 02/11/19 02/12/19 1515:00 23:00 07:00 IntakeIntake Total 2260 ml 943.5 ml 1440 ml OutputOutput Total 300 ml 1200 ml 2000 ml BalanceBalance 1960 ml -256.5 ml -560 ml Constitutional: frail Psych: no complaints, nl mood/affect Head: normocephalic, atraumatic Eyes: nl conjunctiva, nl lids ENMT: nl external ears & nose, nl lips & teeth, nl nasal mucosa & septum, mucosa pink and moist Neck: other (trach, tilted to R) Respiratory: crackles/rales Cardiovascular: regular rate and rhythm, nl pulses Gastrointestinal: soft; No distended Genitourinary - Male: other (FC) Musculoskeletal: range of motion Extremities: No edema Neurological: focal weakness Skin: nl turgor; No rash or lesions Results Result Diagram: 02/12/1972602/12/19 0727 Results 24hrs Laboratory Tests Test 02/12/19 07:27 02/12/19 19:43 White Blood Count 15.0 H Red Blood Count 3.61 L Hemoglobin 9.9 L Hematocrit 31.5 L Mean Corpuscular Volume 87.3 Mean Corpuscular Hemoglobin 27.4 L Mean Corpuscular Hemoglobin Concent 31.4 L Red Cell Distribution Width 14.4 Platelet Count 346 Mean Platelet Volume 12.1 H Immature Granulocytes % 0.600 H Neutrophils % 79.2 H Lymphocytes % 8.8 L Monocytes % 5.5 Eosinophils % 5.4 Basophils % 0.5 Nucleated Red Blood Cells % 0.0 Immature Granulocytes # 0.090 H Neutrophils # 11.9 H Lymphocytes # 1.3 Monocytes # 0.8 Eosinophils # 0.8 H Basophils # 0.1 Nucleated Red Blood Cells # 0.0 Sodium Level 134 L Potassium Level 5.0 Chloride Level 94 L Carbon Dioxide Level 29 Anion Gap 11 Blood Urea Nitrogen 8 Creatinine 0.71 Est Glomerular Filtrat Rate mL/min > 60 Glucose Level 91 Calcium Level 9.6 Phosphorus Level 4.6 Magnesium Level 2.4 Gentamicin Level Trough 3.4 *H Medications Medication Current Medications Acetaminophen (Tylenol Tab) 650 mg Q4H PRN PO MILD PAIN 0-10/10 Last administered on 02/12/19 16:48; Admin Dose 650 MG; Start 02/06/19 at 17:00 Duloxetine HCl (Cymbalta) 90 mg DAILY PO Last administered on 02/12/19 08:28; Admin Dose 90 MG; Start 02/07/19 at 09:00 Famotidine (Pepcid) 20 mg QHS PO Last administered on 02/12/19 21:23; Admin Dose 20 MG; Start 02/06/19 at 21:00 Acetaminophen/ Hydrocodone Bitart ([place] (10/325)) 1 tab Q8H PRN PO PAIN 7- 10/10 Last administered on 02/11/19 17:22; Admin Dose 1 TAB; Start 02/06/19 at 17:00 Levalbuterol (Xopenex Neb) 0.63 mg Q6H RESP THERAPY PRN HHN WHEEZING AND SOB Last administered on 02/09/19 14:15; Admin Dose 0.63 MG; Start 02/06/19 at 17:00 Magnesium Hydroxide (Milk Of Mag) 30 ml DAILY PO Last administered on 02/12/19 08:28; Admin Dose 30 ML; Start 02/07/19 at 09:00 Metoprolol Tartrate (Lopressor) 25 mg Q12H PO Last administered on 02/12/19 16:49; Admin Dose 25 MG; Start 02/06/19 at 17:00 Mineral Oil (Fleet Mineral Oil Enema) 118 ml Q72H [place] ; Start 02/06/19 at 17:00 Tramadol HCl (Ultram) 100 mg DAILY PRN PO PAIN; Start 02/06/19 at 17:00 Multivitamins/ Minerals (Theragran-M) 1 tab DAILY PO Last administered on 02/12/19 08:28; Admin Dose 1 TAB; Start 02/07/19 at 09:00 Gabapentin (Neurontin) 400 mg Q8 PO Last administered on 02/12/19 21:23; Admin Dose 400 MG; Start 02/06/19 at 22:00 Ondansetron HCl (Zofran Inj) 4 mg Q6H PRN IV NAUSEA/VOMITING; Start 02/06/19 at 20:30 Docusate Sodium (Colace) 100 mg Q12H PRN PO .CONSTIPATION; Start 02/06/19 at 20:30 Bisacodyl (Dulcolax) 5 mg DAILY PRN PO .CONSTIPATION; Start 02/06/19 at 20:30 Zolpidem Tartrate (Ambien) 5 mg QHS PRN PO .INSOMNIA; Start 02/06/19 at 20:30 Alprazolam (Xanax) 0.5 mg Q6H PRN PO ANXIETY Last administered on 02/09/19at 02:26; Admin Dose 0.5 MG; Start 02/07/19 at 11:30 Mupirocin (Bactroban) 1 applic BID TOP Last administered on 02/12/19at 21:26; Admin Dose 1 APPLIC; Start 02/08/19 at 11:00 Furosemide (Lasix) 40 mg DAILY@0600 IV Last administered on 02/12/19at 05:55; Admin Dose 40 MG; Start 02/08/19 at 12:30 Apixaban (Eliquis) 5 mg BID PO Last administered on 02/12/19at 21:23; Admin Dose 5 MG; Start 02/11/19 at 21:00 Gentamicin Sulfate (Gentamicin Iv Per Pharmacy) GENTAMICIN PER PHARMACY NOTE XX ; Start 02/11/19 at 17:30; Stop 02/16/19 at 17:29 Gentamicin Sulfate 140 mg/ Dextrose 103.5 ml @ 103.75 mls/ hr Q12H IVPB Last a dministered on 02/12/19at 21:23; Admin Dose 103.75 MLS/HR; Start 02/11/19 at 20:30 Promethazine HCl (Phenergan Liq) 10 mg Q6 PRN PO COUGH; Start 02/12/19 at 16:00 Amlodipine Besylate (Norvasc) 5 mg DAILY PO ; Start 02/12/19 at 16:30 Hydralazine HCl (Apresoline) 10 mg Q4H PRN IV >160/95 Last administered on 02/12/19at 16:49; Admin Dose 10 MG; Start 02/12/19 at 16:00 Miscellaneous Information (*Rx Drug Level Order Reminder*) 1 2300 ONCE XX ; Start 02/12/19 at 23:00; Stop 02/12/19 at 23:01 MYLENE ALVARES M.D. Feb 12, 2019 22:12
[2019-02-12] MEDS: ALPRAZOLAM 0.5 MG TAB PO PRN (23:17)
--- NOTE | 2019-02-13 01:01 | PN ---
DATE: 02/12/2019 SUBJECTIVE AND INTERVAL HISTORY: Followup on UTI, pneumonia, respiratory failure, C-spine quadripleg ia, paroxysmal atrial fibrillation, hypertension, hyponatremia. The patient has gotten worse since y esterday. The patient have recurrence of fever and T-max is 100.5. The patient also had an uncontro lled high blood pressure with systolic BP as high as 173. The patient remains awake, alert, and is b reathing comfortably off vent. The patient's leukocytosis has worsened and since yesterday, currentl y it is 15,000 as compared to 13.7 yesterday. The patient however, remains awake and responsive and does have occasional cough. No active wheezing. PHYSICAL EXAMINATION: NEUROLOGIC: Awake, alert, follows simple commands. VITAL SIGNS: T-max 100.5, pulse 72, respirations 20, blood pressure 173/74, O2 sat 96% through the n dheeraj cannula. HEENT: No eye discharge or redness. Nose is normal. Oropharynx grossly negative. NECK: Tracheostomy in place. No mass. CHEST: Diminished air entry at bases. No use of accessory muscles. CARDIOVASCULAR: The patient is currently in sinus rhythm. No murmur or gallop. ABDOMEN: Soft, nondistended and nontender. EXTREMITIES: No edema. The patient is awake, alert, fairly oriented with dense quadriplegia. LABORATORY DATA: WBC 15, hemoglobin 9.9, platelets 346. Sodium 134, potassium 5, BUN 8, creatinine 0.7, glucose 91, calcium 9.6, phosphate 4.6, magnesium 2.4. IMPRESSION: 1. Healthcare facility-acquired pneumonia, status post recent treatment with Zosyn since his sputum culture was positive for Pseudomonas and Proteus. The patient has been started on gentamicin yesterd ay. Urine culture grew Proteus and VRE. We will wait for further recommendation from Dr. Fuentes. The patient has history of recurrent UTI. 2. Paroxysmal atrial fibrillation. The patient remained in sinus rhythm. Continue Eliquis for CVA prophylaxis and metoprolol for rate control. 3. Hypertension. Blood pressure well controlled with metoprolol and Norvasc. 4. Depression. Continue Cymbalta. 5. Diastolic heart failure. Continue IV Lasix. 6. Hyponatremia. Sodium has improved from 130, now this morning up to 134. The patient is being fo llowed by Dr. Link from a nephrology standpoint. I spoke with the patient's , Isabel and updated her regarding patient's condition and plan of care. Dictated By: CHONG DALLAS/MARGARET Conf#: [id number] DID#: [id number] CC: EDITA PEÑA MD; SOLANGE LANE MD; GABY THORNTON DO;*EndCC*
[2019-02-13 02:00] VITALS: BP 133/64; PULSE 61; RESP 18
[2019-02-13] MEDS: GABAPENTIN 400 MG CAP PO SCH ×3 (06:32→21:14)
[2019-02-13] MEDS: METOPROLOL 25 MG TAB PO SCH ×2 (06:33→18:37)
[2019-02-13] MEDS: FUROSEMIDE 40 MG INJ IV SCH (06:33)
[2019-02-13] MEDS ORDERED: GENTAMICIN 120 MG/NS (PMX) 100 ML IVPB SCH ×2 (08:30→22:00)
[2019-02-13] MEDS: MAGNESIUM HYDROXIDE 30ML CUP PO SCH (09:00)
[2019-02-13] MEDS: APIXABAN 5 MG TABLET PO SCH ×2 (09:13→21:15)
[2019-02-13] MEDS: MULTIVITAMINS/MINERALS TAB PO SCH (09:13)
[2019-02-13] MEDS: DULOXETINE 30 MG CAP DR PO SCH (09:13)
[2019-02-13] MEDS: MUPIROCIN 2% 22 GM OINT TOP SCH ×2 (09:14→21:15)
[2019-02-13] MEDS: AMLODIPINE 5 MG TAB PO SCH (09:14)
[2019-02-13 09:44] VITALS: BP 130/60; PULSE 57; RESP 16
--- NOTE | 2019-02-13 10:15 | PN ---
DATE: 02/13/2019 SUBJECTIVE: The patient is stable, no events overnight. No fevers, chills, nausea, or vomiting. OBJECTIVE: VITAL SIGNS: Blood pressure is 133/64, respirations 18, pulse 64, temperature 98.4. HEENT: Head is normocephalic. NECK: Supple. HEART: Regular rate. LUNGS: Show diminished breath sounds at the base. ABDOMEN: Soft, nontender to palpation without rebound or guarding. EXTREMITIES: Negative for clubbing, cyanosis. Positive edema. DERMATOLOGIC: No rashes. MUSCULOSKELETAL: No joint effusion. NEUROLOGIC: No change in exam. MEDICATIONS: Reviewed. LABORATORY DATA: Reviewed. ASSESSMENT AND PLAN: 1. Hypernatremia. Etiology is felt to be secondary to syndrome of inappropriate antidiuretic hormon e. The patient's sodium levels have been fluctuating, but overall improving. We will continue curr nt treatment plan. Continue free water restriction, and monitor sodium levels closely. 2. Anemia. Continue to monitor hemoglobin and hematocrit levels. 3. Chronic respiratory failure, status post tracheostomy, currently stable. Continue to monitor. 4. Dysphagia. Continue modified diet. 5. Sepsis. The patient is completing antibiotic course. We will continue. 6. Quadriplegia secondary to spinal cord injury. Continue to monitor. Dictated By: SARAH FIGUEROA DO NR/NTS Conf#: [id number] DID#: [id number] CC: CHONG SORIANO MD; YADIRA LOW MD;*EndCC*
--- NOTE | 2019-02-13 10:21 | CONS ---
Consult Date/Type/Reason Admit Date/Time Feb 06, 2019 at 15:14 Initial Consult Date 02/07/19 Type of Consult Pulmonary Date/Time of Note DATE: 02/13/19 TIME: 10:19 Subjective Febrile yesterday comfortable this morning. Objective Vital Signs Date Temp Pulse Resp B/P (MAP) Pulse Ox O2 O2 Flow FiO2 Time Delivery Rate 02/13/19 98.8 57 16 130/60 Nasal 09:44 (83) Cannula 02/13/19 100 2.0 05:50 Intake and Output 02/12/19 02/12/19 02/13/19 1515:00 23:00 07:00 IntakeIntake Total 1080 ml 567.0 ml 200 ml OutputOutput Total 1500 ml 2200 ml BalanceBalance -420 ml -1633.0 ml 200 ml Exam GENERAL: Chronically ill appearing gentleman comfortable at rest tracheostomy VITAL SIGNS: per chart NECK: Supple. No JVD or lymphadenopathy. CARDIAC EXAM: S1, S2. No added sounds or murmurs. CHEST: clear bilaterally, No added sounds, rales or wheezes ABDOMEN: Soft, nontender. No guarding or rebound. EXTREMITIES: No cyanosis, clubbing or edema. NEUROLOGIC: Quadriplegia Vent Setting Fraction of Inspired Oxygen pe: 28 Results/Medications Result Diagram: 02/13/19 0500 02/13/19 0500 Results 24 hrs Laboratory Tests Test 02/12/19 19:43 02/12/19 23:01 02/13/19 05:00 Gentamicin Level Trough 3.4 *H Gentamicin Level Peak 9.9 White Blood Count 13.2 H Red Blood Count 3.35 L Hemoglobin 9.3 L Hematocrit 28.5 L Mean Corpuscular Volume 85.1 Mean Corpuscular Hemoglobin 27.8 L Mean Corpuscular Hemoglobin Concent 32.6 Red Cell Distribution Width 14.1 Platelet Count 457 #H Mean Platelet Volume 10.7 H Immature Granulocytes % 0.500 H Neutrophils % 77.7 H Lymphocytes % 10.7 L Monocytes % 6.7 Eosinophils % 3.9 Basophils % 0.5 Nucleated Red Blood Cells % 0.0 Immature Granulocytes # 0.070 H Neutrophils # 10.3 H Lymphocytes # 1.4 Monocytes # 0.9 Eosinophils # 0.5 Basophils # 0.1 Nucleated Red Blood Cells # 0.0 Sodium Level 131 L Potassium Level 4.0 Chloride Level 91 L Carbon Dioxide Level 32 H Anion Gap 8 Blood Urea Nitrogen 11 Creatinine 0.66 Est Glomerular Filtrat Rate mL/min > 60 Glucose Level 93 Lactic Acid Level 0.8 Calcium Level 9.2 Phosphorus Level 4.3 Magnesium Level 2.3 Medications Current Medications Acetaminophen (Tylenol Tab) 650 mg Q4H PRN PO MILD PAIN 0-10/10 Last administered on 02/12/19 16:48; Admin Dose 650 MG; Start 02/06/19 at 17:00 Duloxetine HCl (Cymbalta) 90 mg DAILY PO Last administered on 02/13/19 09:13; Admin Dose 90 MG; Start 02/07/19 at 09:00 Famotidine (Pepcid) 20 mg QHS PO Last administered on 02/12/19 21:23; Admin Dose 20 MG; Start 02/06/19 at 21:00 Acetaminophen/ Hydrocodone Bitart ([place] (10/325)) 1 tab Q8H PRN PO PAIN 7- 10/10 Last administered on 02/11/19 17:22; Admin Dose 1 TAB; Start 02/06/19 at 17:00 Levalbuterol (Xopenex Neb) 0.63 mg Q6H RESP THERAPY PRN HHN WHEEZING AND SOB Last administered on 02/09/19 14:15; Admin Dose 0.63 MG; Start 02/06/19 at 17:00 Magnesium Hydroxide (Milk Of Mag) 30 ml DAILY PO Last administered on 02/12/19 08:28; Admin Dose 30 ML; Start 02/07/19 at 09:00 Metoprolol Tartrate (Lopressor) 25 mg Q12H PO Last administered on 02/13/19 06:33; Admin Dose 25 MG; Start 02/06/19 at 17:00 Mineral Oil (Fleet Mineral Oil Enema) 118 ml Q72H [place] ; Start 02/06/19 at 17:00 Tramadol HCl (Ultram) 100 mg DAILY PRN PO PAIN; Start 02/06/19 at 17:00 Multivitamins/ Minerals (Theragran-M) 1 tab DAILY PO Last administered on 02/13/19 09:13; Admin Dose 1 TAB; Start 02/07/19 at 09:00 Gabapentin (Neurontin) 400 mg Q8 PO Last administered on 4/24/19at 06:32; Admin Dose 400 MG; Start 02/06/19 at 22:00 Ondansetron HCl (Zofran Inj) 4 mg Q6H PRN IV NAUSEA/VOMITING; Start 02/06/19 at 20:30 Docusate Sodium (Colace) 100 mg Q12H PRN PO .CONSTIPATION; Start 02/06/19 at 20:30 Bisacodyl (Dulcolax) 5 mg DAILY PRN PO .CONSTIPATION; Start 02/06/19 at 20:30 Zolpidem Tartrate (Ambien) 5 mg QHS PRN PO .INSOMNIA; Start 02/06/19 at 20:30 Alprazolam (Xanax) 0.5 mg Q6H PRN PO ANXIETY Last administered on 02/12/19 23:17; Admin Dose 0.5 MG; Start 02/07/19 at 11:30 Mupirocin (Bactroban) 1 applic BID TOP Last administered on 02/13/19 09:14; Admin Dose 1 APPLIC; Start 02/08/19 at 11:00 Furosemide (Lasix) 40 mg DAILY@0600 IV Last administered on 02/13/19at 06:33; Admin Dose 40 MG; Start 02/08/19 at 12:30 Apixaban (Eliquis) 5 mg BID PO Last administered on 02/13/19 09:13; Admin Dose 5 MG; Start 02/11/19 at 21:00 Gentamicin Sulfate (Gentamicin Iv Per Pharmacy) GENTAMICIN PER PHARMACY NOTE XX ; Start 02/11/19 at 17:30; Stop 02/16/19 at 17:29 Promethazine HCl (Phenergan Liq) 10 mg Q6 PRN PO COUGH; Start 02/12/19 at 16:00 Amlodipine Besylate (Norvasc) 5 mg DAILY PO Last administered on 02/13/19 09:14; Admin Dose 5 MG; Start 02/12/19 at 16:30 Hydralazine HCl (Apresoline) 10 mg Q4H PRN IV >160/95 Last administered on 02/12/19at 16:49; Admin Dose 10 MG; Start 02/12/19 at 16:00 Gentamicin Sulfate 100 ml @ 200 mls/hr Q12H IVPB ; Start 02/13/19 at 08:30; Status Hold Assessment/Plan Hospital Course (Demo Recall) IMPRESSION 1. Acute hypoxemic respiratory failure, likely secondary to a combination of congestion and volume overload. 2. History of a cervical spine injury with paraplegia. 3. Aortic stenosis. 4. Acute urinary tract infection. Plan 1. Continued antibiotics per infectious disease (ID). 2. Pulmonary toilet. 3. Chest percussion. 4. DC IV fluids and gentle diuresis 5. Percussion vest 6. ID recommendations Patient is quadriplegic which makes it difficult for him to expel secretions. He has had 2 chest infections this year which have required antibiotics and cannot tolerate postural drainage or cam coughing Chest percussion vest is recommended for therapy. MOE GALARZA MD, [facility] Feb 13, 2019 10:21
[2019-02-13 13:10] VITALS: BP 123/68; PULSE 68; RESP 18
[2019-02-13] MEDS: HYDROCODONE/APAP (10/325) TAB PO PRN (13:44)
--- NOTE | 2019-02-13 13:58 | CONS ---
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 Wound culture grew coag negative Staph only - h/o paronychia of L 4th and 5th fingers s/p debridement by Dr. Monteiro # neuro, cardiac - paraplegia after complications from C-spinal surgery in 01/2017 - h/o intermittent aphasia - h/o A fib with RVR recommendations: - pending results: urine culture, resp culture, blood cultures x2, procalcitonin - continue gentamicin (02/11/2019). Pt completed pip/tazo 02/06-02/10/2019 - will adjust his antibiotics based on culture results - replace the Avila catheter (due to fungal colonization management d/w Pt,charge nurse Gaby Consultation Date/Type/Reason Admit Date/Time Feb 06, 2019 at 15:14 Initial Consult Date 02/07/19 Type of Consult ID Date/Time of Note DATE: 02/13/19 TIME: 13:49 24 HR Interval Summary Constitutional: improved, requiring O2, other (wants to return to SNF) Detailed Summary Eyes: no complaints ENT: no complaints, other (+trach) Respiratory: no complaints Cardiovascular: no complaints Gastrointestinal: no complaints Genitourinary: other (FC) Musculoskeletal: other (paraplegia) Skin: no complaints Neurologic: other (paraplegia) Psychological: other (wants to return to [facility]) Exam/Review of Systems Exam Vitals Vital Signs Date Temp Pulse Resp B/P (MAP) Pulse Ox O2 O2 Flow FiO2 Time Delivery Rate 02/13/19 99.3 68 18 123/68 96 Room Air 13:10 (86) 02/13/19 2.0 08:00 Intake and Output 02/12/19 02/12/19 02/13/19 1515:00 23:00 07:00 IntakeIntake Total 1080 ml 567.0 ml 200 ml OutputOutput Total 1500 ml 2200 ml BalanceBalance -420 ml -1633.0 ml 200 ml Constitutional: alert, oriented Psych: no complaints, nl mood/affect Head: normocephalic, atraumatic Eyes: nl conjunctiva, EOMI, nl lids, nl sclera ENMT: nl external ears & nose, nl nasal mucosa & septum, mucosa pink and moist Neck: other (+trach) Respiratory: crackles/rales Cardiovascular: regular rate and rhythm, nl pulses; No edema Gastrointestinal: soft, non-tender; No distended Genitourinary - Male: other (FC) Musculoskeletal: other (paraplegia) Extremities: No edema Neurological: [employer] II-XII intact, nl mental status, other (paraplegia) Skin: nl turgor Results Result Diagram: 02/13/19 0500 02/13/19 0500 Results 24hrs Laboratory Tests Test 02/12/19 19:43 02/12/19 23:01 02/13/19 05:00 Gentamicin Level Trough 3.4 *H Gentamicin Level Peak 9.9 White Blood Count 13.2 H Red Blood Count 3.35 L Hemoglobin 9.3 L Hematocrit 28.5 L Mean Corpuscular Volume 85.1 Mean Corpuscular Hemoglobin 27.8 L Mean Corpuscular Hemoglobin Concent 32.6 Red Cell Distribution Width 14.1 Platelet Count 457 #H Mean Platelet Volume 10.7 H Immature Granulocytes % 0.500 H Neutrophils % 77.7 H Lymphocytes % 10.7 L Monocytes % 6.7 Eosinophils % 3.9 Basophils % 0.5 Nucleated Red Blood Cells % 0.0 Immature Granulocytes # 0.070 H Neutrophils # 10.3 H Lymphocytes # 1.4 Monocytes # 0.9 Eosinophils # 0.5 Basophils # 0.1 Nucleated Red Blood Cells # 0.0 Sodium Level 131 L Potassium Level 4.0 Chloride Level 91 L Carbon Dioxide Level 32 H Anion Gap 8 Blood Urea Nitrogen 11 Creatinine 0.66 Est Glomerular Filtrat Rate mL/min > 60 Glucose Level 93 Lactic Acid Level 0.8 Calcium Level 9.2 Phosphorus Level 4.3 Magnesium Level 2.3 Medications Medication Current Medications Acetaminophen (Tylenol Tab) 650 mg Q4H PRN PO MILD PAIN 0-10/10 Last administered on 02/12/19 16:48; Admin Dose 650 MG; Start 02/06/19 at 17:00 Duloxetine HCl (Cymbalta) 90 mg DAILY PO Last administered on 02/13/19 09:13; Admin Dose 90 MG; Start 02/07/19 at 09:00 Famotidine (Pepcid) 20 mg QHS PO Last administered on 02/12/19 21:23; Admin Dose 20 MG; Start 02/06/19 at 21:00 Acetaminophen/ Hydrocodone Bitart ([place] (10/325)) 1 tab Q8H PRN PO PAIN 7-10/1 0 Last administered on 02/13/19 13:44; Admin Dose 1 TAB; Start 02/06/19 at 17:00 Levalbuterol (Xopenex Neb) 0.63 mg Q6H RESP THERAPY PRN HHN WHEEZING AND SOB Last administered on 02/09/19 14:15; Admin Dose 0.63 MG; Start 02/06/19 at 17:00 Magnesium Hydroxide (Milk Of Mag) 30 ml DAILY PO Last administered on 02/12/19 08:28; Admin Dose 30 ML; Start 02/07/19 at 09:00 Metoprolol Tartrate (Lopressor) 25 mg Q12H PO Last administered on 02/13/19 06:33; Admin Dose 25 MG; Start 02/06/19 at 17:00 Mineral Oil (Fleet Mineral Oil Enema) 118 ml Q72H [place] ; Start 02/06/19 at 17:00 Tramadol HCl (Ultram) 100 mg DAILY PRN PO PAIN; Start 02/06/19 at 17:00 Multivitamins/ Minerals (Theragran-M) 1 tab DAILY PO Last administered on 02/13/19 09:13; Admin Dose 1 TAB; Start 02/07/19 at 09:00 Gabapentin (Neurontin) 400 mg Q8 PO Last administered on 02/13/19 06:32; Admin Dose 400 MG; Start 02/06/19 at 22:00 Ondansetron HCl (Zofran Inj) 4 mg Q6H PRN IV NAUSEA/VOMITING; Start 02/06/19 at 20:30 Docusate Sodium (Colace) 100 mg Q12H PRN PO .CONSTIPATION; Start 02/06/19 at 20:30 Bisacodyl (Dulcolax) 5 mg DAILY PRN PO .CONSTIPATION; Start 02/06/19 at 20:30 Zolpidem Tartrate (Ambien) 5 mg QHS PRN PO .INSOMNIA; Start 02/06/19 at 20:30 Alprazolam (Xanax) 0.5 mg Q6H PRN PO ANXIETY Last administered on 02/12/19 23:17; Admin Dose 0.5 MG; Start 02/07/19 at 11:30 Mupirocin (Bactroban) 1 applic BID TOP Last administered on 02/13/19 09:14; Admin Dose 1 APPLIC; Start 02/08/19 at 11:00 Furosemide (Lasix) 40 mg DAILY@0600 IV Last administered on 02/13/19 06:33; Admin Dose 40 MG; Start 02/08/19 at 12:30 Apixaban (Eliquis) 5 mg BID PO Last administered on 02/13/19 09:13; Admin Dose 5 MG; Start 02/11/19 at 21:00 Gentamicin Sulfate (Gentamicin Iv Per Pharmacy) GENTAMICIN PER PHARMACY NOTE XX ; Start 02/11/19 at 17:30; Stop 02/16/19 at 17:29 Promethazine HCl (Phenergan Liq) 10 mg Q6 PRN PO COUGH; Start 02/12/19 at 16:00 Amlodipine Besylate (Norvasc) 5 mg DAILY PO Last administered on 02/13/19 09:14; Admin Dose 5 MG; Start 02/12/19 at 16:30 Hydralazine HCl (Apresoline) 10 mg Q4H PRN IV >160/95 Last administered on 4/23/19at 16:49; Admin Dose 10 MG; Start 02/12/19 at 16:00 Gentamicin Sulfate 100 ml @ 200 mls/hr Q12H IVPB ; Start 02/13/19 at 08:30; Status Hold MYLENE ALVARES M.D. Feb 13, 2019 13:58
--- NOTE | 2019-02-13 16:33 | CONS ---
Assessment/Plan Assessment/Plan Assessment/Plan (Daily) Sepsis, possibly from pneumonia and UTI Paroxysmal atrial fibrillation, currently sinus rhythm Preserved ejection fraction Moderate aortic valve stenosis Hypertension -Patient with evidence of pneumonia based on chest x-ray and UTI based on urinalysis -Remains in sinus rhythm, continue beta-jailyn as tolerated -Patient was restarted on anticoagulation Did have some nose bleeding this morning, this was in the setting of receiving intranasal medication and patient felt it was administered aggressively. No further bleeding. -Antibiotics as per infectious disease Consultation Date/Type/Reason Admit Date/Time Feb 06, 2019 at 15:14 Initial Consult Date 02/07/19 Type of Consult Cardiology Date/Time of Note DATE: 02/13/19 TIME: 16:32 24 HR Interval Summary Free Text/Dictation the patient stalbe Exam/Review of Systems Vital Signs Vitals Vital Signs Date Temp Pulse Resp B/P (MAP) Pulse Ox O2 O2 Flow FiO2 Time Delivery Rate 02/13/19 99.3 68 18 123/68 96 Room Air 13:10 (86) 02/13/19 2.0 08:00 Intake and Output 02/12/19 02/12/19 02/13/19 1515:00 23:00 07:00 IntakeIntake Total 1080 ml 567.0 ml 200 ml OutputOutput Total 1500 ml 2200 ml BalanceBalance -420 ml -1633.0 ml 200 ml Labs Result Diagram: 02/13/19 0500 02/13/19 0500 Results 24hrs Laboratory Tests Test 02/12/19 19:43 02/12/19 23:01 02/13/19 05:00 Gentamicin Level Trough 3.4 *H Gentamicin Level Peak 9.9 White Blood Count 13.2 H Red Blood Count 3.35 L Hemoglobin 9.3 L Hematocrit 28.5 L Mean Corpuscular Volume 85.1 Mean Corpuscular Hemoglobin 27.8 L Mean Corpuscular Hemoglobin Concent 32.6 Red Cell Distribution Width 14.1 Platelet Count 457 #H Mean Platelet Volume 10.7 H Immature Granulocytes % 0.500 H Neutrophils % 77.7 H Lymphocytes % 10.7 L Monocytes % 6.7 Eosinophils % 3.9 Basophils % 0.5 Nucleated Red Blood Cells % 0.0 Immature Granulocytes # 0.070 H Neutrophils # 10.3 H Lymphocytes # 1.4 Monocytes # 0.9 Eosinophils # 0.5 Basophils # 0.1 Nucleated Red Blood Cells # 0.0 Sodium Level 131 L Potassium Level 4.0 Chloride Level 91 L Carbon Dioxide Level 32 H Anion Gap 8 Blood Urea Nitrogen 11 Creatinine 0.66 Est Glomerular Filtrat Rate mL/min > 60 Glucose Level 93 Lactic Acid Level 0.8 Calcium Level 9.2 Phosphorus Level 4.3 Magnesium Level 2.3 Medications Medications Current Medications Acetaminophen (Tylenol Tab) 650 mg Q4H PRN PO MILD PAIN 0-10/10 Last administered on 02/12/19 16:48; Admin Dose 650 MG; Start 02/06/19 at 17:00 Duloxetine HCl (Cymbalta) 90 mg DAILY PO Last administered on 02/13/19 09:13; Admin Dose 90 MG; Start 02/07/19 at 09:00 Famotidine (Pepcid) 20 mg QHS PO Last administered on 02/12/19 21:23; Admin Dose 20 MG; Start 02/06/19 at 21:00 Acetaminophen/ Hydrocodone Bitart ([place] (10/325)) 1 tab Q8H PRN PO PAIN 7- 10/10 Last administered on 02/13/19 13:44; Admin Dose 1 TAB; Start 02/06/19 at 17:00 Levalbuterol (Xopenex Neb) 0.63 mg Q6H RESP THERAPY PRN HHN WHEEZING AND SOB Last administered on 02/09/19 14:15; Admin Dose 0.63 MG; Start 02/06/19 at 17:00 Magnesium Hydroxide (Milk Of Mag) 30 ml DAILY PO Last administered on 02/12/19 08:28; Admin Dose 30 ML; Start 02/07/19 at 09:00 Metoprolol Tartrate (Lopressor) 25 mg Q12H PO Last administered on 02/13/19 06:33; Admin Dose 25 MG; Start 02/06/19 at 17:00 Mineral Oil (Fleet Mineral Oil Enema) 118 ml Q72H [place] ; Start 02/06/19 at 17:00 Tramadol HCl (Ultram) 100 mg DAILY PRN PO PAIN; Start 02/06/19 at 17:00 Multivitamins/ Minerals (Theragran-M) 1 tab DAILY PO Last administered on 02/13/19 09:13; Admin Dose 1 TAB; Start 02/07/19 at 09:00 Gabapentin (Neurontin) 400 mg Q8 PO Last administered on 02/13/19 13:54; Admin Dose 400 MG; Start 02/06/19 at 22:00 Ondansetron HCl (Zofran Inj) 4 mg Q6H PRN IV NAUSEA/VOMITING; Start 02/06/19 at 20:30 Docusate Sodium (Colace) 100 mg Q12H PRN PO .CONSTIPATION; Start 02/06/19 at 20:30 Bisacodyl (Dulcolax) 5 mg DAILY PRN PO .CONSTIPATION; Start 02/06/19 at 20:30 Zolpidem Tartrate (Ambien) 5 mg QHS PRN PO .INSOMNIA; Start 02/06/19 at 20:30 Alprazolam (Xanax) 0.5 mg Q6H PRN PO ANXIETY Last administered on 02/12/19 23:17; Admin Dose 0.5 MG; Start 02/07/19 at 11:30 Mupirocin (Bactroban) 1 applic BID TOP Last administered on 02/13/19 09:14; Admin Dose 1 APPLIC; Start 02/08/19 at 11:00 Furosemide (Lasix) 40 mg DAILY@0600 IV Last administered on 02/13/19 06:33; Admin Dose 40 MG; Start 02/08/19 at 12:30 Apixaban (Eliquis) 5 mg BID PO Last administered on 02/13/19 09:13; Admin Dose 5 MG; Start 02/11/19 at 21:00 Gentamicin Sulfate (Gentamicin Iv Per Pharmacy) GENTAMICIN PER PHARMACY NOTE XX ; Start 02/11/19 at 17:30; Stop 02/16/19 at 17:29 Promethazine HCl (Phenergan Liq) 10 mg Q6 PRN PO COUGH; Start 02/12/19 at 16:00 Amlodipine Besylate (Norvasc) 5 mg DAILY PO Last administered on 02/13/19 09:14; Admin Dose 5 MG; Start 02/12/19 at 16:30 Hydralazine HCl (Apresoline) 10 mg Q4H PRN IV >160/95 Last administered on 02/12/19at 16:49; Admin Dose 10 MG; Start 02/12/19 at 16:00 Gentamicin Sulfate 100 ml @ 200 mls/hr Q24H IVPB ; Start 02/13/19 at 22:00 MARGARET CAMPOS MD Feb 13, 2019 16:33
[2019-02-13 19:39] VITALS: BP 97/52; PULSE 65; RESP 16
[2019-02-13] MEDS: FAMOTIDINE 20 MG TAB PO SCH (21:15)
[2019-02-13] MEDS: ALPRAZOLAM 0.5 MG TAB PO PRN (23:20)
[2019-02-14 02:00] VITALS: BP 135/63; PULSE 62; RESP 16
--- NOTE | 2019-02-14 03:41 | PN ---
DATE: 02/13/2019 SUBJECTIVE: Follow up on healthcare-associated pneumonia, paroxysmal atrial fibrillation, diastolic heart failure, hyponatremia, recurrent UTI. The patient today is feeling better. Denies any chest p ain. The patient does have occasional cough, but no chest congestion. The patient did not have any further temperature after T-max of 100.5 yesterday. The patient did not have any vomiting. No repor manuel bleeding from any site. Avila is draining clear urine. No reported headache. The patient did n ot have any vomiting, does not have any abdominal pain. The patient remains awake and responsive. PHYSICAL EXAMINATION: GENERAL: Revealed the patient to be awake, alert. VITAL SIGNS: Temperature 98.8, pulse 57, respiration 16, blood pressure 130/60, O2 saturation 100% o n 3 liters nasal cannula. HEENT: No eye discharge or redness. Conjunctivae and lids are normal. Nose and ears are normal. O ropharynx is clear. NECK: Tracheostomy in place. No mass. CHEST: Diminished air entry at the bases. No use of accessory muscles. CARDIOVASCULAR: Regular rate and rhythm. S1, S2 normal. No murmur. ABDOMEN: Soft, nondistended, nontender. Bowel sounds plus. EXTREMITIES: No significant edema. Pedal pulses are palpable. SKIN: Without acute rash. NEUROLOGIC: The patient is awake, alert, follows simple commands, has dense quadriplegia. LABORATORY DATA: Done this morning, WBC 13.2, down from 15, hemoglobin 9.3 down from 9.9, platelet 4 7. Chemistry this morning revealed sodium of 131 down from 134 yesterday, potassium 4, BUN 11, creat inine 0.6, glucose 93. Calcium 9.2, phosphorus 4.3, magnesium 2.3. Lactic acid 2.8. MICROBIOLOGY: New sputum culture is growing gram-negative rods. Urine is growing Lily. IMPRESSION: 1. Healthcare facility acquired pneumonia. Continue IV gentamicin. 2. Funguria. The patient is being followed by Dr. Fuentes. We will await recommendations. 3. Hypertension. Blood pressure is well controlled with Norvasc, Lasix and metoprolol. 4. Depression, stable with Cymbalta and p.r.n. Xanax. 5. Hyponatremia. The patient will be seen by Dr. Link from nephrology standpoint. 6. Diastolic heart failure. Continue IV Lasix. The patient's BUN remains within normal range. We are going to monitor. I met with the patient's daughter, Mansi, today and updated her regarding patient's condition and fur ther plan of treatment. DISPOSITION: The patient will be transferred back to subacute unit at [facility] once cleared b y infectious disease. Dictated By: CHONG SORIANO MD AB/NTS Conf#: [id number] DID#: [id number] CC: YADIRA LOW MD;*EndCC*
[2019-02-14] MEDS: GABAPENTIN 400 MG CAP PO SCH ×2 (05:59→14:09)
[2019-02-14] MEDS: METOPROLOL 25 MG TAB PO SCH ×2 (06:00→17:00)
[2019-02-14] MEDS: FUROSEMIDE 40 MG INJ IV SCH (06:00)
[2019-02-14 07:49] VITALS: BP 121/63; PULSE 61; RESP 18
[2019-02-14 08:14] VITALS: BP 150/59; PULSE 54; RESP 20
[2019-02-14] MEDS: AMLODIPINE 5 MG TAB PO SCH (08:59)
[2019-02-14] MEDS: DULOXETINE 30 MG CAP DR PO SCH (08:59)
[2019-02-14] MEDS: MAGNESIUM HYDROXIDE 30ML CUP PO SCH (08:59)
[2019-02-14] MEDS: MULTIVITAMINS/MINERALS TAB PO SCH (08:59)
[2019-02-14] MEDS: APIXABAN 5 MG TABLET PO SCH (08:59)
[2019-02-14] MEDS: MUPIROCIN 2% 22 GM OINT TOP SCH (09:00)
--- NOTE | 2019-02-14 09:25 | PN ---
DATE: 02/14/2019 SUBJECTIVE: The patient is stable, no events overnight. No fevers, chills, nausea, vomiting. OBJECTIVE: VITAL SIGNS: Blood pressure is 121/63, pulse 81, respiration 97.9. HEENT: Head is normocephalic. NECK: Supple. HEART: Regular rate. LUNGS: Show diminished breath sounds at the base. ABDOMEN: Soft, nontender to palpation without rebound or guarding. EXTREMITIES: Negative for clubbing, cyanosis, no edema. DERMATOLOGIC: No rashes. MUSCULOSKELETAL: No joint effusion. NEUROLOGIC: No change in exam. MEDICATIONS: The patient's medications have been reviewed. LABORATORY DATA: Has been reviewed. ASSESSMENT AND PLAN: 1. Hyponatremia. Etiology is felt to be secondary to syndrome of inappropriate antidiuretic hormone . The patient's sodium levels remain low but stabilized. Continue current treatment plan. Continue free water restriction, continue to monitor closely. 2. Anemia. Monitor hemoglobin and hematocrit levels. 3. Chronic respiratory failure, status post tracheostomy, currently stable. Continue to monitor. 4. Dysphagia. Continue modified diet. 5. Sepsis. Patient is completing antibiotic course. 6. 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 Continue to monitor. 7. Volume overload. The patient is on diuretic therapy. Continue to monitor. Consider ashley ordoñez Dictated By: SARAH FIGUEROA DO NR/NTS Conf#: [id number] DID#: [id number] CC: YADIRA LOW MD; CHONG SORIANO MD;*EndCC*
--- NOTE | 2019-02-14 11:10 | CONS ---
Consult Date/Type/Reason Admit Date/Time Feb 06, 2019 at 15:14 Initial Consult Date 02/07/19 Type of Consult Pulmonary Date/Time of Note DATE: 02/14/19 TIME: 11:09 Subjective Afebrile with resolved leukocytosis clinically improved. Less shortness of breath. Objective Vital Signs Date Temp Pulse Resp B/P (MAP) Pulse Ox O2 O2 Flow FiO2 Time Delivery Rate 02/14/19 97.9 61 18 121/63 96 07:49 (82) 02/13/19 Nasal 2.0 20:30 Cannula Intake and Output 02/13/19 02/13/19 02/14/19 1515:00 23:00 07:00 IntakeIntake Total 480 ml 460 ml 240 ml OutputOutput Total 2200 ml 300 ml 1200 ml BalanceBalance -1720 ml 160 ml -960 ml Exam GENERAL: Chronically ill appearing gentleman comfortable at rest tracheostomy VITAL SIGNS: per chart NECK: Supple. No JVD or lymphadenopathy. CARDIAC EXAM: S1, S2. No added sounds or murmurs. CHEST: clear bilaterally, No added sounds, rales or wheezes ABDOMEN: Soft, nontender. No guarding or rebound. EXTREMITIES: No cyanosis, clubbing or edema. NEUROLOGIC: Quadriplegia Vent Setting Fraction of Inspired Oxygen pe: 28 Results/Medications Result Diagram: 02/14/19 0459 02/14/19 0459 Results 24 hrs Laboratory Tests Test 02/14/19 04:59 White Blood Count 10.7 Red Blood Count 3.62 L Hemoglobin 9.9 L Hematocrit 30.2 L Mean Corpuscular Volume 83.4 Mean Corpuscular Hemoglobin 27.3 L Mean Corpuscular Hemoglobin Concent 32.8 Red Cell Distribution Width 14.2 Platelet Count 399 Mean Platelet Volume 10.5 H Immature Granulocytes % 0.700 H Neutrophils % 71.3 Lymphocytes % 13.2 L Monocytes % 8.3 Eosinophils % 6.0 Basophils % 0.5 Nucleated Red Blood Cells % 0.0 Immature Granulocytes # 0.080 H Neutrophils # 7.6 H Lymphocytes # 1.4 Monocytes # 0.9 Eosinophils # 0.6 H Basophils # 0.1 Nucleated Red Blood Cells # 0.0 Sodium Level 130 L Potassium Level 4.3 Chloride Level 90 L Carbon Dioxide Level 31 Anion Gap 9 Blood Urea Nitrogen 13 Creatinine 0.68 Est Glomerular Filtrat Rate mL/min > 60 Glucose Level 94 Calcium Level 9.3 Phosphorus Level 4.9 Magnesium Level 2.2 Medications Current Medications Acetaminophen (Tylenol Tab) 650 mg Q4H PRN PO MILD PAIN 0-10/10 Last administered on 02/12/19 16:48; Admin Dose 650 MG; Start 02/06/19 at 17:00 Duloxetine HCl (Cymbalta) 90 mg DAILY PO Last administered on 02/14/19 08:59; Admin Dose 90 MG; Start 02/07/19 at 09:00 Famotidine (Pepcid) 20 mg QHS PO Last administered on 02/13/19 21:15; Admin Dose 20 MG; Start 02/06/19 at 21:00 Acetaminophen/ Hydrocodone Bitart ([place] ()) 1 tab Q8H PRN PO PAIN 7- 10/10 Last administered on 02/13/19 13:44; Admin Dose 1 TAB; Start 02/06/19 at 17:00 Levalbuterol (Xopenex Neb) 0.63 mg Q6H RESP THERAPY PRN HHN WHEEZING AND SOB Last administered on 02/09/19 14:15; Admin Dose 0.63 MG; Start 02/06/19 at 17:00 Magnesium Hydroxide (Milk Of Mag) 30 ml DAILY PO Last administered on 02/14/19 08:59; Admin Dose 30 ML; Start 02/07/19 at 09:00 Metoprolol Tartrate (Lopressor) 25 mg Q12H PO Last administered on 02/14/19 06:00; Admin Dose 25 MG; Start 02/06/19 at 17:00 Mineral Oil (Fleet Mineral Oil Enema) 118 ml Q72H [place] ; Start 02/06/19 at 17:00 Tramadol HCl (Ultram) 100 mg DAILY PRN PO PAIN; Start 02/06/19 at 17:00 Multivitamins/ Minerals (Theragran-M) 1 tab DAILY PO Last administered on 02/14/19 08:59; Admin Dose 1 TAB; Start 02/07/19 at 09:00 Gabapentin (Neurontin) 400 mg Q8 PO Last administered on 02/14/19 05:59; Admin Dose 400 MG; Start 02/06/19 at 22:00 Ondansetron HCl (Zofran Inj) 4 mg Q6H PRN IV NAUSEA/VOMITING; Start 02/06/19 at 20:30 Docusate Sodium (Colace) 100 mg Q12H PRN PO .CONSTIPATION; Start 02/06/19 at 20:30 Bisacodyl (Dulcolax) 5 mg DAILY PRN PO .CONSTIPATION; Start 02/06/19 at 20:30 Zolpidem Tartrate (Ambien) 5 mg QHS PRN PO .INSOMNIA; Start 02/06/19 at 20:30 Alprazolam (Xanax) 0.5 mg Q6H PRN PO ANXIETY Last administered on 02/13/19 23:20; Admin Dose 0.5 MG; Start 02/07/19 at 11:30 Mupirocin (Bactroban) 1 applic BID TOP Last administered on 02/14/19 09:00; Admin Dose 1 APPLIC; Start 02/08/19 at 11:00 Furosemide (Lasix) 40 mg DAILY@0600 IV Last administered on 02/14/19 06:00; Admin Dose 40 MG; Start 02/08/19 at 12:30 Apixaban (Eliquis) 5 mg BID PO Last administered on 02/14/19 08:59; Admin Dose 5 MG; Start 02/11/19 at 21:00 Gentamicin Sulfate (Gentamicin Iv Per Pharmacy) GENTAMICIN PER PHARMACY NOTE XX ; Start 02/11/19 at 17:30; Stop 02/16/19 at 17:29 Promethazine HCl (Phenergan Liq) 10 mg Q6 PRN PO COUGH; Start 02/12/19 at 16:00 Amlodipine Besylate (Norvasc) 5 mg DAILY PO Last administered on 02/14/19 08:59; Admin Dose 5 MG; Start 02/12/19 at 16:30 Hydralazine HCl (Apresoline) 10 mg Q4H PRN IV >160/95 Last administered on 02/12/19at 16:49; Admin Dose 10 MG; Start 02/12/19 at 16:00 Gentamicin Sulfate 100 ml @ 200 mls/hr Q24H IVPB Last administered on 02/13/19at 21:36; Admin Dose 200 MLS/HR; Start 02/13/19 at 22:00 Assessment/Plan Hospital Course (Demo Recall) IMPRESSION 1. Acute hypoxemic respiratory failure, likely secondary to a combination of congestion and volume overload. 2. History of a cervical spine injury with paraplegia. 3. Aortic stenosis. 4. Acute urinary tract infection. Plan 1. Continued antibiotics per infectious disease (ID). 2. Pulmonary toilet. 3. Chest percussion. 4. DC IV fluids and gentle diuresis 5. Percussion vest 6. ID recommendations Patient is quadriplegic which makes it difficult for him to expel secretions. He has had 2 chest infections this year which have required antibiotics and cannot tolerate postural drainage or cam coughing Chest percussion vest is recommended for therapy. Consider discharge planning now patient is clinically improved MOE GALARZA MD, [facility] Feb 14, 2019 11:10
--- NOTE | 2019-02-14 11:14 | CONS ---
[facility] HCIS Consult Follow-up Patient Name: Omkar Leggett Unit Number: [id number] Date of : 1950 Patient Status: Admitted Inpatient Attending Doctor: Peyman Fajardo MD Edit: MYLENE FUENTES M.D. on 02/14/19 @ 15:17 Alfredo: I discussed the management with JOSE Denson and agree Assessment/Plan Assessment/Plan Hospital Course (Demo Recall) # sepsis, leukocytosis, blood stream infections - recurrent leukocytosis, resolved - s/p bacteremia - 02/06/19 blood cultures grew coag neg staph -> likely contaminant - repeat cultures 02/07 and 02/08 are NGTD - s/p Staph spp in the blood culture from 11/18/2018, probable contaminant # respiratory - HCAP, sputum culture grew pseudomonas, proteus, and normal jodi 02/07/19 - worsening congestion of the airway, requiring more tracheal suction daily - frequent HCAP at SNF, has taken many courses of pip/tazo - 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 Wound culture grew coag negative Staph only - h/o paronychia of L 4th and 5th fingers s/p debridement by Dr. 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 Pt completed pip/tazo 02/06-02/10/2019 - okay for discharge from ID standpoint on gentamicin through 02/15/2019. Management d/w Pt, RN Chan, JOSE LUIS Aaron, and with Dr. Fuentes Consultation Date/Type/Reason Admit Date/Time Feb 06, 2019 at 15:14 Initial Consult Date 02/07/19 Type of Consult Infectious Disease Date/Time of Note DATE: 02/14/19 TIME: 11:13 24 HR Interval Summary Free Text/Dictation Leukocytosis has resolved. Urine cx grew C. Albicans and Avila was replaced yesterday. Trach asp cx growing GNR #1 & #2. Pt states "I feel great!. I just want to go home ([facility])". Pt has no complaints. Exam/Review of Systems Exam Vitals Vital Signs Date Temp Pulse Resp B/P (MAP) Pulse Ox O2 O2 Flow FiO2 Time Delivery Rate 02/14/19 97.9 61 18 121/63 96 07:49 (82) 02/13/19 Nasal 2.0 20:30 Cannula Intake and Output 02/13/19 02/13/19 02/14/19 1515:00 23:00 07:00 IntakeIntake Total 480 ml 460 ml 240 ml OutputOutput Total 2200 ml 300 ml 1200 ml BalanceBalance -1720 ml 160 ml -960 ml Constitutional: alert, oriented Psych: no complaints, nl mood/affect Head: normocephalic, atraumatic Eyes: nl conjunctiva, nl lids, nl sclera ENMT: nl external ears & nose, nl lips & teeth, nl nasal mucosa & septum Neck: other (Trach is capped) Respiratory: clear to auscultation, normal air movement, other (With O2 at 2L via NC) Cardiovascular: regular rate and rhythm, nl pulses; No edema Gastrointestinal: soft, non-tender Genitourinary - Male: other (+Avila) Musculoskeletal: muscle weakness, other (Quadriplegic) Extremities: normal pulses, other (BLE contracted); No edema Neurological: nl mental status, nl speech, other (quadriplegic) Skin: nl turgor Results Result Diagram: 02/14/199 02/14/19 0459 Results 24hrs Laboratory Tests Test 02/14/19 04:59 White Blood Count 10.7 Red Blood Count 3.62 L Hemoglobin 9.9 L Hematocrit 30.2 L Mean Corpuscular Volume 83.4 Mean Corpuscular Hemoglobin 27.3 L Mean Corpuscular Hemoglobin Concent 32.8 Red Cell Distribution Width 14.2 Platelet Count 399 Mean Platelet Volume 10.5 H Immature Granulocytes % 0.700 H Neutrophils % 71.3 Lymphocytes % 13.2 L Monocytes % 8.3 Eosinophils % 6.0 Basophils % 0.5 Nucleated Red Blood Cells % 0.0 Immature Granulocytes # 0.080 H Neutrophils # 7.6 H Lymphocytes # 1.4 Monocytes # 0.9 Eosinophils # 0.6 H Basophils # 0.1 Nucleated Red Blood Cells # 0.0 Sodium Level 130 L Potassium Level 4.3 Chloride Level 90 L Carbon Dioxide Level 31 Anion Gap 9 Blood Urea Nitrogen 13 Creatinine 0.68 Est Glomerular Filtrat Rate mL/min > 60 Glucose Level 94 Calcium Level 9.3 Phosphorus Level 4.9 Magnesium Level 2.2 Medications Medication Current Medications Acetaminophen (Tylenol Tab) 650 mg Q4H PRN PO MILD PAIN 0-10/10 Last administered on 02/12/19at 16:48; Admin Dose 650 MG; Start 02/06/19 at 17:00 Duloxetine HCl (Cymbalta) 90 mg DAILY PO Last administered on 02/14/19at 08:59; Admin Dose 90 MG; Start 02/07/19 at 09:00 Famotidine (Pepcid) 20 mg QHS PO Last administered on 02/13/19at 21:15; Admin Dose 20 MG; Start 02/06/19 at 21:00 Acetaminophen/ Hydrocodone Bitart ([place] (10/325)) 1 tab Q8H PRN PO PAIN 7- 10/10 Last administered on 02/13/19at 13:44; Admin Dose 1 TAB; Start 02/06/19 at 17:00 Levalbuterol (Xopenex Neb) 0.63 mg Q6H RESP THERAPY PRN HHN WHEEZING AND SOB Last administered on 02/09/19 14:15; Admin Dose 0.63 MG; Start 02/06/19 at 17:00 Magnesium Hydroxide (Milk Of Mag) 30 ml DAILY PO Last administered on 02/14/19 08:59; Admin Dose 30 ML; Start 02/07/19 at 09:00 Metoprolol Tartrate (Lopressor) 25 mg Q12H PO Last administered on 02/14/19 06:00; Admin Dose 25 MG; Start 02/06/19 at 17:00 Mineral Oil (Fleet Mineral Oil Enema) 118 ml Q72H AL ; Start 02/06/19 at 17:00 Tramadol HCl (Ultram) 100 mg DAILY PRN PO PAIN; Start 02/06/19 at 17:00 Multivitamins/ Minerals (Theragran-M) 1 tab DAILY PO Last administered on 02/14/19 08:59; Admin Dose 1 TAB; Start 02/07/19 at 09:00 Gabapentin (Neurontin) 400 mg Q8 PO Last administered on 02/14/19 05:59; Admin Dose 400 MG; Start 02/06/19 at 22:00 Ondansetron HCl (Zofran Inj) 4 mg Q6H PRN IV NAUSEA/VOMITING; Start 02/06/19 at 20:30 Docusate Sodium (Colace) 100 mg Q12H PRN PO .CONSTIPATION; Start 02/06/19 at 20:30 Bisacodyl (Dulcolax) 5 mg DAILY PRN PO .CONSTIPATION; Start 02/06/19 at 20:30 Zolpidem Tartrate (Ambien) 5 mg QHS PRN PO .INSOMNIA; Start 02/06/19 at 20:30 Alprazolam (Xanax) 0.5 mg Q6H PRN PO ANXIETY Last administered on 02/13/19 23:20; Admin Dose 0.5 MG; Start 02/07/19 at 11:30 Mupirocin (Bactroban) 1 applic BID TOP Last administered on 02/14/19 09:00; Admin Dose 1 APPLIC; Start 02/08/19 at 11:00 Furosemide (Lasix) 40 mg DAILY@0600 IV Last administered on 4/25/19at 06:00; Admin Dose 40 MG; Start 02/08/19 at 12:30 Apixaban (Eliquis) 5 mg BID PO Last administered on 02/14/19at 08:59; Admin Dose 5 MG; Start 02/11/19 at 21:00 Gentamicin Sulfate (Gentamicin Iv Per Pharmacy) GENTAMICIN PER PHARMACY NOTE XX ; Start 02/11/19 at 17:30; Stop 02/16/19 at 17:29 Promethazine HCl (Phenergan Liq) 10 mg Q6 PRN PO COUGH; Start 02/12/19 at 16:00 Amlodipine Besylate (Norvasc) 5 mg DAILY PO Last administered on 02/14/19at 08:59; Admin Dose 5 MG; Start 02/12/19 at 16:30 Hydralazine HCl (Apresoline) 10 mg Q4H PRN IV >160/95 Last administered on 02/12/19at 16:49; Admin Dose 10 MG; Start 02/12/19 at 16:00 Gentamicin Sulfate 100 ml @ 200 mls/hr Q24H IVPB Last administered on 02/13/19at 21:36; Admin Dose 200 MLS/HR; Start 02/13/19 at 22:00 ALEX DENSON NP Feb 14, 2019 11:14
--- NOTE | 2019-02-14 12:31 | PDOCDIS ---
Discharge Instructions CONDITION [id number] Patient Condition: [id number] Good HOME CARE INSTRUCTIONS: [id number] Diet Instructions: [id number] Low Fat /Cholesterol FOLLOW UP/APPOINTMENTS Follow-up Plan I will follow him at subacute unit CHONG SORIANO MD Feb 14, 2019 12:31
[2019-02-14] MEDS ORDERED: APIX5TAB PO (12:37)
[2019-02-14] MEDS ORDERED: AMLO-145 PO (12:37)
[2019-02-14] MEDS ORDERED: GENT100P4 IV (12:37)
[2019-02-14 13:57] VITALS: BP 119/58; PULSE 67; RESP 18
[2019-02-14] MEDS: HYDROCODONE/APAP (10/325) TAB PO PRN (14:09)
--- NOTE | 2019-02-14 17:47 | CONS ---
Assessment/Plan Assessment/Plan Assessment/Plan (Daily) Sepsis, possibly from pneumonia and UTI Paroxysmal atrial fibrillation, currently sinus rhythm Preserved ejection fraction Moderate aortic valve stenosis Hypertension -Patient with evidence of pneumonia based on chest x-ray and UTI based on urinalysis -Remains in sinus rhythm, continue beta-jailyn as tolerated -Patient was restarted on anticoagulation Did have some nose bleeding this morning, this was in the setting of receiving intranasal medication and patient felt it was administered aggressively. No further bleeding. -Antibiotics as per infectious disease Consultation Date/Type/Reason Admit Date/Time Feb 06, 2019 at 15:14 Initial Consult Date 02/07/19 Type of Consult Cardiology Date/Time of Note DATE: 02/14/19 TIME: 17:47 24 HR Interval Summary Free Text/Dictation the aptient iwht no cahgne Exam/Review of Systems Vital Signs Vitals Vital Signs Date Temp Pulse Resp B/P (MAP) Pulse Ox O2 O2 Flow FiO2 Time Delivery Rate 02/14/19 98.4 67 18 119/58 96 Room Air 13:57 (78) 02/13/19 2.0 20:30 Intake and Output 02/13/19 02/13/19 02/14/19 1414:59 22:59 06:59 IntakeIntake Total 480 ml 460 ml 240 ml OutputOutput Total 2200 ml 300 ml 1200 ml BalanceBalance -1720 ml 160 ml -960 ml Labs Result Diagram: 02/14/19 0459 02/14/19 0459 Results 24hrs Laboratory Tests Test 02/14/19 04:59 White Blood Count 10.7 Red Blood Count 3.62 L Hemoglobin 9.9 L Hematocrit 30.2 L Mean Corpuscular Volume 83.4 Mean Corpuscular Hemoglobin 27.3 L Mean Corpuscular Hemoglobin Concent 32.8 Red Cell Distribution Width 14.2 Platelet Count 399 Mean Platelet Volume 10.5 H Immature Granulocytes % 0.700 H Neutrophils % 71.3 Lymphocytes % 13.2 L Monocytes % 8.3 Eosinophils % 6.0 Basophils % 0.5 Nucleated Red Blood Cells % 0.0 Immature Granulocytes # 0.080 H Neutrophils # 7.6 H Lymphocytes # 1.4 Monocytes # 0.9 Eosinophils # 0.6 H Basophils # 0.1 Nucleated Red Blood Cells # 0.0 Sodium Level 130 L Potassium Level 4.3 Chloride Level 90 L Carbon Dioxide Level 31 Anion Gap 9 Blood Urea Nitrogen 13 Creatinine 0.68 Est Glomerular Filtrat Rate mL/min > 60 Glucose Level 94 Calcium Level 9.3 Phosphorus Level 4.9 Magnesium Level 2.2 Medications Medications Current Medications Acetaminophen (Tylenol Tab) 650 mg Q4H PRN PO MILD PAIN 0-10/10 Last administered on 02/12/19 16:48; Admin Dose 650 MG; Start 02/06/19 at 17:00 Duloxetine HCl (Cymbalta) 90 mg DAILY PO Last administered on 02/14/19 08:59; Admin Dose 90 MG; Start 02/07/19 at 09:00 Famotidine (Pepcid) 20 mg QHS PO Last administered on 02/13/19 21:15; Admin Dose 20 MG; Start 02/06/19 at 21:00 Acetaminophen/ Hydrocodone Bitart ([place] (10/325)) 1 tab Q8H PRN PO PAIN 7- 10/10 Last administered on 02/14/19 14:09; Admin Dose 1 TAB; Start 02/06/19 at 17:00 Levalbuterol (Xopenex Neb) 0.63 mg Q6H RESP THERAPY PRN HHN WHEEZING AND SOB Last administered on 02/09/19 14:15; Admin Dose 0.63 MG; Start 02/06/19 at 17:00 Magnesium Hydroxide (Milk Of Mag) 30 ml DAILY PO Last administered on 02/14/19 08:59; Admin Dose 30 ML; Start 02/07/19 at 09:00 Metoprolol Tartrate (Lopressor) 25 mg Q12H PO Last administered on 02/14/19 06:00; Admin Dose 25 MG; Start 02/06/19 at 17:00 Mineral Oil (Fleet Mineral Oil Enema) 118 ml Q72H MT ; Start 02/06/19 at 17:00 Tramadol HCl (Ultram) 100 mg DAILY PRN PO PAIN; Start 02/06/19 at 17:00 Multivitamins/ Minerals (Theragran-M) 1 tab DAILY PO Last administered on 02/14/19 08:59; Admin Dose 1 TAB; Start 02/07/19 at 09:00 Gabapentin (Neurontin) 400 mg Q8 PO Last administered on 02/14/19 14:09; Admin Dose 400 MG; Start 02/06/19 at 22:00 Ondansetron HCl (Zofran Inj) 4 mg Q6H PRN IV NAUSEA/VOMITING; Start 02/06/19 at 20:30 Docusate Sodium (Colace) 100 mg Q12H PRN PO .CONSTIPATION; Start 02/06/19 at 20:30 Bisacodyl (Dulcolax) 5 mg DAILY PRN PO .CONSTIPATION; Start 02/06/19 at 20:30 Zolpidem Tartrate (Ambien) 5 mg QHS PRN PO .INSOMNIA; Start 02/06/19 at 20:30 Alprazolam (Xanax) 0.5 mg Q6H PRN PO ANXIETY Last administered on 02/13/19 23:20; Admin Dose 0.5 MG; Start 02/07/19 at 11:30 Mupirocin (Bactroban) 1 applic BID TOP Last administered on 02/14/19 09:00; Admin Dose 1 APPLIC; Start 02/08/19 at 11:00 Furosemide (Lasix) 40 mg DAILY@0600 IV Last administered on 02/14/19 06:00; Admin Dose 40 MG; Start 02/08/19 at 12:30 Apixaban (Eliquis) 5 mg BID PO Last administered on 02/14/19 08:59; Admin Dose 5 MG; Start 02/11/19 at 21:00 Gentamicin Sulfate (Gentamicin Iv Per Pharmacy) GENTAMICIN PER PHARMACY NOTE XX ; Start 02/11/19 at 17:30; Stop 02/16/19 at 17:29 Promethazine HCl (Phenergan Liq) 10 mg Q6 PRN PO COUGH; Start 02/12/19 at 16:00 Amlodipine Besylate (Norvasc) 5 mg DAILY PO Last administered on 02/14/19 08:59; Admin Dose 5 MG; Start 02/12/19 at 16:30 Hydralazine HCl (Apresoline) 10 mg Q4H PRN IV >160/95 Last administered on 02/12/19at 16:49; Admin Dose 10 MG; Start 02/12/19 at 16:00 Gentamicin Sulfate 100 ml @ 200 mls/hr Q24H IVPB Last administered on 02/13/19at 21:36; Admin Dose 200 MLS/HR; Start 02/13/19 at 22:00 MARGARET CAMPOS MD Feb 14, 2019 17:47
[2019-02-14 19:51] VITALS: BP 112/57; PULSE 72; RESP 16
--- NOTE | 2019-02-15 01:32 | DS ---
DATE OF ADMISSION: 02/06/2019 DATE OF DISCHARGE: 02/14/2019 DISCHARGE DIAGNOSES: 1. Healthcare facility acquired pneumonia. 2. History of recurrent urinary tract infection. 3. 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 4. Paroxysmal atrial fibrillation. 5. Chronic tracheostomy. 6. Hypertension. 7. Dyslipidemia. 8. Depression. 9. Neurogenic bladder. DISCHARGE MEDICATIONS: Please see transfer medication as the patient is being transferred to subacut e unit. The patient will continue gentamicin IV at 120 mg every day for 3 more days as recommended b y infectious disease. REASON FOR ADMISSION AND HOSPITAL COURSE: The patient is a 68-year-old gentleman well known to [facility] fr [facility] previous several admissions. 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 The patient has diastolic heart failure, hypertension, depression, paroxysmal at rial fibrillation. The patient has neurogenic bladder and has chronic Avila catheter. The patient h as had recurrent UTI in the past. The patient was brought into the hospital because of fever. The p atient was diagnosed with healthcare facility acquired pneumonia and the UTI. The patient was seen b y Dr. Alfredo peck and was treated with appropriate antibiotics. The patient also has diastolic he art failure and was seen by Dr. Aki peck. For pulmonary standpoint, patient was seen by Dr. Catrachito rothman. The patient also was hyponatremic upon admission with sodium of 125 on the day of admission for which patient was seen by Dr. Link. The patient on the day of discharge was breathing comfortabl y on room air.. The patient did not have any chest, no reported chest congestion, no reported fever in the past 24 hours, no reported bleeding. Urine is clear. No reported vomiting. The patient is t olerating p.o. diet. PHYSICAL EXAMINATION: GENERAL: The patient is awake, alert, fairly oriented. VITAL SIGNS: Temperature 97.9, pulse 61, respiration 18, blood pressure 121/63, O2 saturation 96%. HEENT: No eye discharge or redness. Nose and ears normal. Oropharynx grossly negative. NECK: Tracheostomy is present. CHEST: Fairly clear. No use of accessory muscles. CARDIOVASCULAR: Regular rate and rhythm. S1, S2 normal. ABDOMEN: Soft, nontender. Bowel sounds plus. EXTREMITIES: No edema. Pedal pulses palpable. SKIN: Without acute rash. NEUROLOGIC: The patient is awake, alert, fairly oriented with quadriplegia. LABORATORY DATA: Labs done today, WBC 10.7 and down from 13.2, hemoglobin 9.9, platelets 399. The p atient has anemia of chronic disease. Chemistry done today, sodium 130, potassium 4.3, BUN 13, creat inine 0.6, glucose 94, magnesium 2.2, phosphorus 4.9, calcium 9.3. Recent chest x-ray revealed moder ate bilateral pleural effusion and consolidation. The patient received IV Lasix during his hospitalization. CONDITION ON DISCHARGE: Stable. FOLLOWUP: I will continue to follow him up at [facility]. CONDITION: Stable. Dictated By: CHONG DALLAS/MARGARET Conf#: [id number] DID#: [id number]
== END 2019-02-14 20:25 | DRG 871 ==
LOC: E/R 13:11 → 2NE 15:14
PROVIDERS: ADMIT Internal Medicine; ATTEND Internal Medicine
DX: A41.1 Sepsis due to other specified staphylococcus (principal); G82.50 Quadriplegia, unspecified; J96.21 Acute and chronic respiratory failure with hypoxia; J15.6 Pneumonia due to other Gram-negative bacteria; J15.1 Pneumonia due to Pseudomonas; N39.0 Urinary tract infection, site not specified; E87.1 Hypo-osmolality and hyponatremia; I50.30 Unspecified diastolic (congestive) heart failure; B37.49 Other urogenital candidiasis; E83.42 Hypomagnesemia; Z93.0 Tracheostomy status; I48.0 Paroxysmal atrial fibrillation; I35.0 Nonrheumatic aortic (valve) stenosis; N31.9 Neuromuscular dysfunction of bladder, unspecified; R13.10 Dysphagia, unspecified; Z22.322 Carrier or suspected carrier of Methicillin resistant Staphylococcus aureus; B96.4 Proteus (mirabilis) (morganii) as the cause of diseases classified elsewhere; B95.2 Enterococcus as the cause of diseases classified elsewhere; Z16.21 Resistance to vancomycin; D64.9 Anemia, unspecified
CPT/HCPCS: 71045; 80048; 80053; 80170; 80202; 81001; 81003; 82043; 83605; 83735; 83935; 84100; 84145; 84155; 84295; 84300; 84443; 84484; 85025; 85610; 85730; 87070; 87081; 87086; 87400; 89220; 93005; 93306; 94640; 94664; 96374; 96375; 97161; 97166; J0360; J0692; J1580; J1650; J1940; J2543; J3370; J3475; J7030; J7050